=== PATIENT | female | born 1935 | race Hispanic/Latino ===

== ENCOUNTER 2018-08-04 03:30 | Inpatient (IN) | payer MEDICARE ==
[2018-08-04 03:35] VITALS: BMI 27.4
--- NOTE | 2018-08-04 03:37 | ED PDOC ---
Arrival/HPI - General Time Seen by Provider: 08/04/18 03:31 Historian: Patient - History of Present Illness Narrative History of Present Illness (Text): 08/04/18 03:36 Yvette Monroe is an 83 year old female, whose past medical history includes hypertension, atrial fibrillation on Eliquis, TIA, bilateral leg edema, chronic pain on Oxycodone, and anxiety, who presents to the ED brought in by EMS accompanied by niece for severe pain. On arrival to ED, patient appears to be in severe pain, moaning, refusing to speak. As per niece, patient was fine during the day and approximately 1 hour prior to arrival patient began moaning and did not stop. Niece notes patient's abdomen is more distended than usual. Limited HPI and ROS secondary to patient's pain/clinical condition. Symptom Onset: Gradual Symptom Course: Unchanged Activities at Onset: Light Context: Home Past Medical History - Provider Review Nursing Documentation Reviewed: Yes - Infectious Disease Hx of Infectious Diseases: None - Tetanus Immunization Tetanus Immunization: Up to Date - Cardiac Hx Pacemaker: No - Neurological Hx Paralysis: No - Hematological/Oncological Hx Blood Transfusions: No Hx Blood Transfusion Reaction: No - Integumentary Hx Dermatological Disorder: Yes (LYMPEDEMA BILATERAL LE) Other/Comment: BLE CELLULITIS/4+ EDEMA - Musculoskeletal/Rheumatological Hx Musculoskeletal Disorders: Yes - Gastrointestinal Hx Gastrointestinal Disorders: Yes Hx Gastroesophageal Reflux: Yes - Psychiatric Hx Emotional Abuse: No Hx Physical Abuse: No Hx Substance Use: No - Past Surgical History Past Surgical History: Non-Contributing - Anesthesia Hx Anesthesia Reactions: No Hx Malignant Hyperthermia: No - Suicidal Assessment Feels Threatened In Home Enviroment: No Family/Social History - Physician Review Nursing Documentation Reviewed: Yes Family/Social History: Unknown Family HX Smoking Status: Never Smoked Hx Alcohol Use: No Hx Substance Use: No Hx Substance Use Treatment: No Allergies/Home Meds Allergies/Adverse Reactions: Allergies No Known Allergies Allergy (Verified 09/24/14 22:04) Home Medications: Home Meds Medication Instructions Recorded Confirmed Alprazolam [Xanax] 0.25 mg PO BID PRN 07/26/12 08/04/18 Aspirin [Ecotrin] 81 mg PO DAILY 07/26/12 08/04/18 Atorvastatin Calcium [Lipitor] 10 mg PO QOTHERDAY 07/26/12 08/04/18 Omeprazole [PrilOSEC] 40 mg PO DAILY 09/24/14 08/04/18 Lisinopril/Hydrochlorothiazide 1 tab PO DAILY 07/10/15 08/04/18 [Lisinopril-Hydrochlorothiazide 25 mg-20 mg] Nebivolol [Bystolic] 10 mg PO DAILY 07/10/15 07/20/15 Rivaroxaban [Xarelto] 20 mg PO DAILY 07/10/15 08/04/18 hydrALAZINE [hydralazine 25 mg PO BID 07/10/15 07/20/15 Hydrochloride] oxyCODONE [oxyCODONE Immediate 15 mg PO Q6H PRN 07/10/15 08/04/18 Release Tab] oxyCODONE/Acetaminophen [Percocet 1 tab PO Q6H PRN 07/20/15 07/20/15 5/325 mg Tab] Furosemide [Lasix] 40 mg PO DAILY 08/04/18 08/04/18 Metoprolol Tartrate [Lopressor] 50 mg PO DAILY 08/04/18 08/04/18 Review of Systems - Review of Systems Systems not reviewed;Unavailable: Other (severe pain, refusing to answer questions) Gastrointestinal: Abdominal Pain Physical Exam Vital Signs Reviewed: Yes Temperature: Febrile Blood Pressure: Hypotensive Pulse: Tachycardic Respiratory Rate: Normal Appearance: Positive for: Uncomfortable Pain Distress: Severe Mental Status: Positive for: other (Alert) - Systems Exam Head: Present: Atraumatic, Normocephalic Pupils: Present: PERRL Extroacular Muscles: Present: EOMI Conjunctiva: Present: Normal Mouth: Present: Moist Mucous Membranes Neck: Present: Normal Range of Motion Respiratory/Chest: Present: Rhonchi (Scattered rhonchi). No: Respiratory Distress, Accessory Muscle Use Cardiovascular: Present: Irregular Rhythm (Irregular, regular), Tachycardic Abdomen: Present: Distention (Distended abdomen) Upper Extremity: Present: Normal Inspection. No: Cyanosis, Edema Lower Extremity: Present: Normal Inspection. No: Edema Neurological: Present: GCS=15, CN II-XII Intact Skin: Present: Warm, Dry. No: Rashes Psychiatric: Present: Alert Medical Decision Making ED Course and Treatment: 08/04/18 03:36 Impression: 83 year old female brought in for severe pain, pt refusing to speak. Plan: -- CT Chest, Abdomen, and Pelvis w/o contrast -- EKG -- Labs, cardiac enzymes, lipase, VBG, BNP, blood cultures -- Urinalysis, urine cultures -- IV fluids -- Morphine -- Reassess and disposition Prior Visits: Notes and results from previous visits were reviewed. Progress Notes Reviewed EKG, a fib at 174 bpm. RVR. LVH anterolateral/infero STT changes 08/04/18 04:20 Pt tachycardic, febrile with WBC 18.8 and lactate of 5.7. Code Sepsis called. 08/04/18 04:[address] Cota, intensivitst, who is aware and agrees to evalaute pt for ICU admission. residential solar sales consultant production machine operator notified. Pt tachycardic, febrile with WBC 18.8 and lactate of 5.7 08/04/18 04:58 Chest X-ray reviewed, consistent with CHF. 08/04/18 05:04 CT Chest: Moderate cardiomegaly. Moderate calcifications of the aortic valve. Heavily calcified little traverse coronary arteries. Enlarged main pulmonary artery suggestive of pulmonary arterial hypertension. Mild osteopenia. Mild benign chronic compression deformities of the midthoracic vertebral bodies. Increased dorsal kyphosis, chronic finding. Small sliding hiatal hernia. Bilateral basilar subsegmental atelectatic pulmonary changes. Moderate multifocal groundglass densities of the lungs are noted in the upper and lower lobes. Enlarged unenhanced main pulmonary artery and right and left pulmonary arteries. Normal bilateral peripheral pulmonary arteries. Calcified atheromatous plaques of the thoracic aorta and visualized great vessels. There is no demonstrated aortic aneurysm. Normal pericardium. Normal mediastinum. Normal hilar regions. Normal visualized trachea and thickened bronchi. Normal pleura. Normal chest wall structures. IMPRESSION: Moderate cardiomegaly. Moderate calcifications of the aortic valve. Heavily calcified little traverse coronary arteries. Enlarged main pulmonary artery suggestive of pulmonary arterial hypertension. Mild osteopenia. Mild benign chronic compression deformities of the midthoracic vertebral bodies. Increased dorsal kyphosis, chronic finding. Small sliding hiatal hernia. Bilateral basilar subsegmental atelectatic pulmonary changes. Moderate multifocal groundglass densities of the lungs are noted in the upper and lower lobes. CT Abdomen and Pelvis: Moderate amount of fecal impaction in the rectosigmoid colon without associated colitis. Mildly enlarged unenhanced liver. Cholelithiasis and nondilated extrahepatic biliary system. Normal unenhanced spleen. Normal pancreas. Normal bilateral adrenal glands. Normal size of the right kidney. There is no right renal mass. There are no right renal calculi. There is no right hydronephrosis. Normal visualized right ureter. Normal size of the left kidney. There is no left renal mass. There are no left renal calculi. There is no left hydronephrosis. Normal visualized left ureter. Normal visualized stomach. Normal small intestine. The appendix is visualized and appears normal. There is no demonstrated peritoneal fluid. Normal abdominal aorta. Normal inferior vena cava. Normal retroperitoneum. Normal urinary bladder. There is no pelvic mass lesion or lymphadenopathy. There is no pelvic fluid. Normal abdominal wall. Mild osteopenia. Mild diffuse spondylosis. Grade I anterolisthesis of L4 on L5 measuring 5.2 mm. IMPRESSION: Mild hepatomegaly with dilated suprahepatic IVC suggestive of dysfunction of the right cardiac cavities. Cholelithiasis. No CT evidence of acute cholecystitis. Moderate amount of fecal left impaction in the rectosigmoid colon without associated colitis. Mildly distended bladder. Electronically signed on Aug 04, 2018 5:04:13 AM EDT by: Evan Recio M.D., Certified by LUKAS, K, Neuroradiology 08/04/18 05:08 Pt with continued respiratory distress. Desaturating to low 80s. Will require emergent intubation. PROCEDURE: INTUBATION Performed by the emergency provider Consent: Discussion of the risks, benefits, and alternatives to the procedure, along with informed consent was precluded by the urgency of the procedure and the patient condition. Timeout: A timeout to verify the correct patient, procedure, and site was performed. Indication: Respiratory distress, low O2 saturation Pre-oxygenation: [id number] Medications: See MAR for details. ETT Size: 8.0 gauge Confirmation: Cords directly visualized as tube passed, good bilateral breath sounds, positive CO2 detector color change, tube fogging, adequate chest rise, improving pulse oximetry reading, improved skin color, and absence of gastric sounds,. ETT Secured: The cuff was inflated and the tube was secured appropriately at a distance of 22 cm at the lip. Post-Procedure: There were no immediate complications. CXR Confirmation: Yes Post-intubation Chest X-ray reviewed, shows ET tube at bifurcation. To be withdrawn 2.5 cm. 08/04/18 05:[address] Rapp, who is aware and agrees with plan. Accepts pt in to her service. Pt will be admitted to the ICU for sepsis, CHF, pneumonia, and NSTEMI. Requests Dr. Noble and Dr. Srinivasan on consult. - Critical Care Critical Care Minutes: 45 minutes - Lab Interpretations I have reviewed the lab results: Yes - EKG Interpretation Interpreted by ED Physician: Yes Type: 12 lead EKG - Scribe Statement The provider has reviewed the documentation as recorded by the Cyndie Ordaz Provider Scribe Attestation: All medical record entries made by the Scribe were at my direction and personally dictated by me. I have reviewed the chart and agree that the record accurately reflects my personal performance of the history, physical exam, medical decision making, and the department course for this patient. I have also personally directed, reviewed, and agree with the discharge instructions and disposition. Disposition/Present on Arrival - Present on Arrival Any Indicators Present on Arrival: No History of DVT/PE: No History of Uncontrolled Diabetes: No Urinary Catheter: No History of Decub. Ulcer: No History Surgical Site Infection Following: None - Disposition Have Diagnosis and Disposition been Completed?: Yes Diagnosis: Sepsis associated hypotension, CHF (congestive heart failure), Pneumonia, NSTEMI (non-ST elevated myocardial infarction) Disposition: HOSPITALIZED Disposition Time: 05:26 Patient Plan: Admission Patient Problems: Current Active Problems Problem Status Onset CHF (congestive heart failure) Acute NSTEMI (non-ST elevated myocardial infarction) Acute Pneumonia Acute Sepsis associated hypotension Acute Condition: CRITICAL
[2018-08-04] MEDS ORDERED: Morphine 2 mg/ml ISec IVP STA (03:40)
[2018-08-04] MEDS ORDERED: Sodium Chloride 0.9% 1,000 ML IV STA ×2 (03:40→04:17)
[2018-08-04 03:57] LABS: HEMOGLOBIN 13.3 g/dL (12.0-16.0); MEAN CORPUSCULAR HEMOGLOBIN 30.1 pg (25.0-35.0); MEAN CORPUSCULAR HGB CONC 31.7 g/dl (31.0-37.0); MEAN PLATELET VOLUME 10.7 fl (7.0-11.0); RBC 4.42 10^6/uL (3.5-6.1); RED CELL DISTRIBUTION WIDTH 13.4 % (11.5-14.5); WHITE BLOOD COUNT 18.8 10^3/uL (4.5-11.0)
[2018-08-04 04:03] LABS: INR 1.72; PARTIAL THROMBOPLASTIN TIME 32.7 Seconds (26.9-38.3); PROTHROMBIN TIME 19.1 SECONDS (9.4-12.5)
[2018-08-04] MEDS ORDERED: Morphine 4 mg/ml ISec IVP STA (04:08)
[2018-08-04] MEDS ORDERED: Morphine 4 mg/ml ISec ONE (04:13)
[2018-08-04 04:17] LABS: ALB/GLOB RATIO 1.2 (1.1-1.8); ALBUMIN 4.6 g/dL (3.0-4.8); ALT/SGPT 14 U/L (7-56); AST/SGOT 39 U/L (14-36); BLOOD UREA NITROGEN 27 mg/dL (7-21); CALCIUM 9.5 mg/dL (8.4-10.5); GFR NON-AFRICAN AMERICAN 53; LIPASE 56 U/L (23-300)
[2018-08-04] MEDS ORDERED: Vancomycin 1gm in NS 250ml 1 GM/250 ML BAG IVPB STA (04:17)
[2018-08-04] MEDS ORDERED: Piperacill/Tazo 4.5gm in NS 4.5 GM/100 ML BAG IVPB STA (04:17)
[2018-08-04 04:19] LABS: VENOUS BLOOD GAS BASE EXCESS -8.1 mmol/L (0.0-2.0); VENOUS BLOOD GAS PO2 61 mm/Hg (30-55); VENOUS BLOOD PH 7.37 (7.32-7.43)
[2018-08-04 04:29] LABS: ARTERIAL BLOOD GAS O2 SAT 97.2 % (95-98); ARTERIAL BLOOD GAS PCO2 27 mm/Hg (35-45); ARTERIAL BLOOD GAS PH 7.38 (7.35-7.45); ARTERIAL BLOOD GAS TCO2 16.8 mmol.L (22-28)
[2018-08-04] MEDS ORDERED: Sodium Chloride 0.9% 1,000 ML IV SCH ×2 (04:30→08:45)
--- NOTE | 2018-08-04 04:34 | CP.PCM.CON ---
<Ibrahima Hsu - Last Filed: 08/04/18 06:11> History of Present Illness - History of Present Illness History of Present Illness: PGY-1 ICU Consult note for Dr. Cota CC: Sepsis HPI: Patient is an 83 year old female with a past medical history of hypertension, atrial fibrillation (on Eliquis), breast cancer (s/p right lumpectomy), TIA, chronic lymphedema, and chronic pain, presenting to the ED brought in by EMS accompanied by niece for severe pain. Niece is at bedside and provided patient's history. On arrival to ED, patient appears to be in severe pain, moaning, refusing to speak. As per niece, patient was fine during the day and approximately 1 hour prior to arrival patient began moaning and did not stop. She notes that patient's abdomen is more distended than usual. She also notes that patient was pointing to her abdomen at home prior to coming to the hospital. She also notes that patient did not have a bowel movement today. In ED, code sepsis was called. Patient was also noted to be desaturating into the low 80% and was subsequently intubated. HPI and ROS limited due to patient's clinical condition. PMHx: hypertension, atrial fibrillation (on Eliquis), breast cancer (s/p right lumpectomy), TIA, chronic lymphadema, chronic pain, disks herniations, OA, anxiety, and depression PSHx: right lumpectomy, right cataract surgery Allergies: NKDA Family Hx: Father had lung cancer. Mother had colon cancer. Social Hx: Denies tobacco, alcohol, or drug use. Lives at home with niece. Medications: see JUN PMD: Dr. Hayes in [place]: Dr. Michaud Review of Systems - Review of Systems Systems not reviewed;Unavailable: Acuity of Condition, Intubated Past Patient History - Infectious Disease Hx of Infectious Diseases: None - Tetanus Immunizations Tetanus Immunization: Up to Date - Past Social History Smoking Status: Never Smoked - CARDIAC Hx Pacemaker: No - NEUROLOGICAL Hx Paralysis: No - HEMATOLOGICAL/ONCOLOGICAL Hx Blood Transfusions: No Hx Blood Transfusion Reaction: No - INTEGUMENTARY Hx Dermatological Problems: Yes (LYMPEDEMA BILATERAL LE) Other/Comment: BLE CELLULITIS/4+ EDEMA - MUSCULOSKELETAL/RHEUMATOLOGICAL Hx Musculoskeletal Disorders: Yes - GASTROINTESTINAL Hx Gastrointestinal Disorders: Yes Hx Gastroesophageal Reflux: Yes - PSYCHIATRIC Hx Emotional Abuse: No Hx Physical Abuse: No Hx Substance Use: No - SURGICAL HISTORY Hx Surgeries: Yes (cataract both eyes,) - ANESTHESIA Hx Anesthesia Reactions: No Hx Malignant Hyperthermia: No Meds Allergies/Adverse Reactions: Allergies Allergy/AdvReac Type Severity Reaction Status Date / Time No Known Allergies Allergy Verified 09/24/14 22:04 - Medications Medications: Current Medications Sodium Chloride (Sodium Chloride 0.9%) 1,000 mls @ 999 mls/hr IV .Q1H1M STA Stop: 08/04/18 04:40 Last Admin: 08/04/18 03:50 Dose: 999 mls/hr Sodium Chloride (Sodium Chloride 0.9%) 1,000 mls @ 999 mls/hr IV .Q1H1M STA Stop: 08/04/18 05:17 Sodium Chloride (Sodium Chloride 0.9%) 1,000 mls @ 100 mls/hr IV .Q10H DONNA Vancomycin HCl (Vancomycin 1gm) 1 gm in 250 mls @ 167 mls/hr IVPB STAT STA; Protocol Stop: 08/04/18 05:46 Piperacillin Sod/Tazobactam Sod (Zosyn 4.5 Gm In Ns 100ml) 4.5 gm in 100 mls @ 200 mls/hr IVPB STAT STA; Protocol Stop: 08/04/18 04:46 Physical Exam - Constitutional Appears: In Acute Distress, Agitated - Head Exam Head Exam: ATRAUMATIC, NORMAL INSPECTION - Eye Exam Eye Exam: EOMI, Normal appearance Pupil Exam: NORMAL ACCOMODATION - ENT Exam ENT Exam: Mucous Membranes Dry - Respiratory Exam Additional comments: Crackles heard bilaterally, more on the right lung. - Cardiovascular Exam Cardiovascular Exam: Tachycardia, Irregular Rhythm - GI/Abdominal Exam GI & Abdominal Exam: Distended, Tenderness. absent: Firm - Extremities Exam Additional comments: Bilateral lymphedema on lower extremities - Neurological Exam Additional comments: Neurological exam limited due to patient's clinical condition - Psychiatric Exam Psychiatric exam: Agitated - Skin Skin Exam: Dry, Pallor - Additional Findings Additional findings: Physical exam limited due to patient being agitated and clinical condition Results - Vital Signs Recent Vital Signs: Last Vital Signs Temp 104 F H 08/04/18 04:15 Pulse 142 H 08/04/18 04:15 Resp 20 08/04/18 04:15 BP 153/90 H 08/04/18 04:15 Pulse Ox 93 L 08/04/18 04:15 - Labs Result Diagrams: 08/04/18 03:44 08/04/18 05:15 Labs: Laboratory Results - last 24 hr 08/04/18 08/04/18 08/04/18 03:44 03:44 03:44 WBC 18.8 H RBC 4.42 Hgb 13.3 Hct 42.0 MCV 95.0 MCH 30.1 MCHC 31.7 RDW 13.4 Plt Count 180 MPV 10.7 PT 19.1 H INR 1.72 APTT 32.7 pCO2 pO2 HCO3 ABG pH ABG Total CO2 ABG O2 Saturation ABG Base Excess ABG Potassium VBG pH VBG pCO2 VBG HCO3 VBG Total CO2 VBG O2 Sat (Calc) VBG Base Excess VBG Potassium Glucose Lactate FiO2 Crit Value Called To Crit Value Called By Blood Gas Notified Time Sodium 141 Potassium 4.7 Chloride 106 Carbon Dioxide 17 L Anion Gap 22 H BUN 27 H Creatinine 1.0 Est GFR ( Amer) > 60 Est GFR (Non-Af Amer) 53 Random Glucose 206 H Calcium 9.5 Total Bilirubin 0.9 AST 39 H ALT 14 Alkaline Phosphatase 65 Lactate Dehydrogenase 617 Total Creatine Kinase 38 Troponin I 0.20 H* Total Protein 8.5 H Albumin 4.6 Globulin 3.8 Albumin/Globulin Ratio 1.2 Lipase 56 Arterial Blood Potassium Venous Blood Potassium 08/04/18 08/04/18 04:10 04:23 WBC RBC Hgb Hct MCV MCH MCHC RDW Plt Count MPV PT INR APTT pCO2 27 L pO2 61 H 78.0 L HCO3 16.0 L ABG pH 7.38 ABG Total CO2 16.8 L ABG O2 Saturation 97.2 ABG Base Excess -7.6 L ABG Potassium 3.6 VBG pH 7.37 VBG pCO2 27.0 L VBG HCO3 15.6 L VBG Total CO2 16.4 L VBG O2 Sat (Calc) 94.9 H VBG Base Excess -8.1 L VBG Potassium 5.0 Glucose 170 H 138 H Lactate 5.7 H* 4.0 H* FiO2 21.0 100.0 Crit Value Called To Henri crespo Crit Value Called By [facility] Blood Gas Notified Time 419 429 Sodium 137.0 137.0 Potassium Chloride 106.0 108.0 H Carbon Dioxide Anion Gap BUN Creatinine Est GFR ( Amer) Est GFR (Non-Af Amer) Random Glucose Calcium Total Bilirubin AST ALT Alkaline Phosphatase Lactate Dehydrogenase Total Creatine Kinase Troponin I Total Protein Albumin Globulin Albumin/Globulin Ratio Lipase Arterial Blood Potassium 3.6 Venous Blood Potassium 5.0 Assessment & Plan - Assessment and Plan (Free Text) Assessment: Patient is an 83 year old female with a past medical history of hypertension, atrial fibrillation (on Eliquis), breast cancer (s/p right lumpectomy), TIA, chronic lymphedema, and chronic pain, presenting to the ED brought in by EMS accompanied by niece for severe pain. Patient will be admitted to the ICU for cardiopulmonary and hemodynamic monitoring. Plan: Neuro - Patient is sedated on Propofol Pulmonary Hypoxic respiratory failure - Patient intubated - Vent: 14/400/5/100% - Post-intubation Chest X-ray reviewed, shows ET tube at bifurcation. To be withdrawn 2.5 cm. - Chest CT: Bilateral basilar subsegmental atelectatic pulmonary changes. Mode rate multifocal groundglass densities of the lungs are noted in the upper and lower lobes. (see full report) - ABG: pH: 7.38, pO2: 78, pCO2: 27 Cardiology NSTEMI - EKG: Atrial fibrillation at 174 bpm. RVR. LVH anterolateral/infero ST-T changes - CXR: consistent with CHF (pending official report) - Troponin: 0.2 - Trend troponins - Heparin drip GI - CT Abdomen/pelvis: Mild hepatomegaly with dilated suprahepatic IVC suggestive of dysfunction of the right cardiac cavities. Cholelithiasis. No CT evidence of acute cholecystitis. Moderate amount of fecal left impaction in the rectosigmoid colon without associated colitis. - Place NGT Renal - BUN/Cr: 27/1.0 - Continue to monitor ID Sepsis - Tachycardic, febrile with WBC 18.8 and lactate of 5.7 - NS @ 100mL/hr - Vancomycin and Zosyn given in ED - 2.5 L bolus given in ED - ID consulted, Dr. Noble - UA positive for moderate bacteria. Nitrate and LE negative - Follow up blood, sputum, urine cultures Prophylaxis: - DVT: SCD's Patient seen and case discussed with attending, Dr. Cota. Ibrahima Hsu, PGY-1 <Luz Cota - Last Filed: 08/04/18 15:05> Meds - Medications Medications: Current Medications Acetaminophen (Tylenol 650 Mg Supp) 650 mg RC Q6H PRN PRN Reason: Fever >100.4 F Hydrocortisone Sodium Succinate (Solu-Cortef) 50 mg IVP Q6H DONNA Last Admin: 08/04/18 14:27 Dose: 50 mg Propofol (Diprivan) 1,000 mg in 100 mls @ 2.041 mls/hr IV .Q24H PRN; Protocol PRN Reason: TITRATE PER MD ORDER Last Admin: 08/04/18 05:15 Dose: 2.041 mls/hr Heparin Sodium/Sodium Chloride (Heparin 55377 Units/250ml 1/2 Normal Saline) 25,000 units in 250 mls @ 8.165 mls/hr IV .Q24H DONNA; Protocol Last Titration: 08/04/18 14:22 Dose: 14.99 units/kg/hr, 10.2 mls/hr NOREPINEPHRINE BIT/0.9 % NACL (Levophed 4 Mg/ 250 Ml Ns Premixed) 4 mg in 250 mls @ 15 mls/hr IV .[id number] PRN; Protocol PRN Reason: TITRATE PER MD ORDER Last Titration: 08/04/18 10:00 Dose: 10 mcg/min, 37.5 mls/hr Vasopressin 20 units/ Sodium (Chloride) 101 mls @ 9.09 mls/hr IV .Q11H7M DONNA; Protocol Vancomycin HCl (Vancomycin 1gm) 1 gm in 250 mls @ 167 mls/hr IVPB Q12H DONNA; Protocol Meropenem (Merrem Iv 1 Gm Premix) 1 gm in 50 mls @ 100 mls/hr IVPB Q8 DONNA; Protocol Stop: 08/13/18 14:01 Last Admin: 08/04/18 14:25 Dose: 100 mls/hr Levofloxacin/Dextrose (Levaquin 500mg) 500 mg in 100 mls @ 100 mls/hr IVPB DAILY DONNA; Protocol Stop: 08/13/18 13:01 Last Admin: 08/04/18 14:21 Dose: 100 mls/hr Pantoprazole Sodium (Protonix Inj) 40 mg IVP Q12 DONNA Last Admin: 08/04/18 10:07 Dose: 40 mg Results - Vital Signs Recent Vital Signs: Last Vital Signs Temp 100.5 F H 08/04/18 05:50 Pulse 112 H 08/04/18 13:30 Resp 16 08/04/18 13:30 BP 95/57 L 08/04/18 05:50 Pulse Ox 98 08/04/18 05:50 - Labs Result Diagrams: 08/04/18 10:00 08/04/18 05:15 Labs: Laboratory Results - last 24 hr 08/04/18 08/04/18 08/04/18 03:44 03:44 03:44 WBC 18.8 H RBC 4.42 Hgb 13.3 Hct 42.0 MCV 95.0 MCH 30.1 MCHC 31.7 RDW 13.4 Plt Count 180 MPV 10.7 Neut % (Auto) Lymph % (Auto) [place] % (Auto) Eos % (Auto) Baso % (Auto) Lymph # (Auto) [place] # (Auto) Eos # (Auto) Baso # (Auto) Absolute Neuts (auto) PT 19.1 H INR 1.72 APTT 32.7 pCO2 pO2 HCO3 ABG pH ABG Total CO2 ABG O2 Saturation ABG O2 Content ABG Base Excess ABG Hemoglobin ABG Carboxyhemoglobin POC ABG HHb (Measured) ABG Methemoglobin ABG O2 Capacity ABG Potassium VBG pH VBG pCO2 VBG HCO3 VBG Total CO2 VBG O2 Sat (Calc) VBG Base Excess VBG Potassium Hgb O2 Saturation Glucose Lactate FiO2 Crit Value Called To Crit Value Called By Blood Gas Notified Time Sodium 141 Potassium 4.7 Chloride 106 Carbon Dioxide 17 L Anion Gap 22 H BUN 27 H Creatinine 1.0 Est GFR ( Amer) > 60 Est GFR (Non-Af Amer) 53 Random Glucose 206 H Calcium 9.5 Phosphorus Magnesium Total Bilirubin 0.9 AST 39 H ALT 14 Alkaline Phosphatase 65 Lactate Dehydrogenase 617 Total Creatine Kinase 38 Troponin I 0.20 H* NT-Pro-B Natriuret Pep Total Protein 8.5 H Albumin 4.6 Globulin 3.8 Albumin/Globulin Ratio 1.2 Lipase 56 Arterial Blood Potassium Venous Blood Potassium Urine Color Urine Appearance Urine pH Ur Specific [place] Urine Protein Urine Glucose (UA) Urine Ketones Urine Blood Urine Nitrate Urine Bilirubin Urine Urobilinogen Ur Leukocyte Esterase Urine RBC Urine WBC Ur Epithelial Cells Urine Bacteria 08/04/18 08/04/18 08/04/18 04:10 04:23 04:25 WBC RBC Hgb Hct MCV MCH MCHC RDW Plt Count MPV Neut % (Auto) Lymph % (Auto) [place] % (Auto) Eos % (Auto) Baso % (Auto) Lymph # (Auto) [place] # (Auto) Eos # (Auto) Baso # (Auto) Absolute Neuts (auto) PT INR APTT pCO2 27 L pO2 61 H 78.0 L HCO3 16.0 L ABG pH 7.38 ABG Total CO2 16.8 L ABG O2 Saturation 97.2 ABG O2 Content ABG Base Excess -7.6 L ABG Hemoglobin ABG Carboxyhemoglobin POC ABG HHb (Measured) ABG Methemoglobin ABG O2 Capacity ABG Potassium 3.6 VBG pH 7.37 VBG pCO2 27.0 L VBG HCO3 15.6 L VBG Total CO2 16.4 L VBG O2 Sat (Calc) 94.9 H VBG Base Excess -8.1 L VBG Potassium 5.0 Hgb O2 Saturation Glucose 170 H 138 H Lactate 5.7 H* 4.0 H* FiO2 21.0 100.0 Crit Value Called To Henri crespo Crit Value Called By [facility] Blood Gas Notified Time 419 429 Sodium 137.0 137.0 Potassium Chloride 106.0 108.0 H Carbon Dioxide Anion Gap BUN Creatinine Est GFR ( Amer) Est GFR (Non-Af Amer) Random Glucose Calcium Phosphorus Magnesium Total Bilirubin AST ALT Alkaline Phosphatase Lactate Dehydrogenase Total Creatine Kinase Troponin I NT-Pro-B Natriuret Pep Total Protein Albumin Globulin Albumin/Globulin Ratio Lipase Arterial Blood Potassium 3.6 Venous Blood Potassium 5.0 Urine Color Yellow Urine Appearance Sl cloudy Urine pH 6.0 Ur Specific [place] >= 1.030 Urine Protein 30 H Urine Glucose (UA) Negative Urine Ketones Negative Urine Blood Moderate H Urine Nitrate Negative Urine Bilirubin Negative Urine Urobilinogen 0.2 Ur Leukocyte Esterase Negative Urine RBC 1 - 3 H Urine WBC 0 - 2 Ur Epithelial Cells 0 - 2 Urine Bacteria Mod 08/04/18 08/04/18 08/04/18 05:15 08:00 10:00 WBC 15.6 H RBC 3.99 Hgb 12.0 Hct 37.5 MCV 94.0 MCH 30.1 MCHC 32.0 RDW 13.7 Plt Count 166 MPV 11.0 Neut % (Auto) 84.8 H Lymph % (Auto) 9.5 L [place] % (Auto) 5.5 Eos % (Auto) 0.0 L Baso % (Auto) 0.2 Lymph # (Auto) 1.5 [place] # (Auto) 0.9 H Eos # (Auto) 0.0 Baso # (Auto) 0.03 Absolute Neuts (auto) 13.23 H PT INR APTT pCO2 28 L pO2 109.0 H HCO3 15.5 L ABG pH 7.35 ABG Total CO2 16.4 L ABG O2 Saturation 99.4 H ABG O2 Content 16.3 ABG Base Excess -8.8 L ABG Hemoglobin 11.9 ABG Carboxyhemoglobin 1.9 H POC ABG HHb (Measured) 0.6 ABG Methemoglobin 1.3 ABG O2 Capacity 16.4 ABG Potassium VBG pH VBG pCO2 VBG HCO3 VBG Total CO2 VBG O2 Sat (Calc) VBG Base Excess VBG Potassium Hgb O2 Saturation 96.3 Glucose Lactate FiO2 100.0 Crit Value Called To Crit Value Called By Blood Gas Notified Time Sodium 141 Potassium 4.8 Chloride 106 Carbon Dioxide 16 L Anion Gap 24 H BUN 27 H Creatinine 1.0 Est GFR ( Amer) > 60 Est GFR (Non-Af Amer) 53 Random Glucose 202 H Calcium 9.6 Phosphorus 4.8 H Magnesium 1.4 L Total Bilirubin 0.9 AST 48 H D ALT 9 Alkaline Phosphatase 69 Lactate Dehydrogenase Total Creatine Kinase Troponin I NT-Pro-B Natriuret Pep 4380 H Total Protein 8.6 H Albumin 4.6 Globulin 4.0 Albumin/Globulin Ratio 1.2 Lipase Arterial Blood Potassium Venous Blood Potassium Urine Color Urine Appearance Urine pH Ur Specific [place] Urine Protein Urine Glucose (UA) Urine Ketones Urine Blood Urine Nitrate Urine Bilirubin Urine Urobilinogen Ur Leukocyte Esterase Urine RBC Urine WBC Ur Epithelial Cells Urine Bacteria 08/04/18 08/04/18 08/04/18 10:00 12:00 12:00 WBC RBC Hgb Hct MCV MCH MCHC RDW Plt Count MPV Neut % (Auto) Lymph % (Auto) [place] % (Auto) Eos % (Auto) Baso % (Auto) Lymph # (Auto) [place] # (Auto) Eos # (Auto) Baso # (Auto) Absolute Neuts (auto) PT INR APTT 218.9 H* pCO2 pO2 31 HCO3 ABG pH ABG Total CO2 ABG O2 Saturation ABG O2 Content ABG Base Excess ABG Hemoglobin ABG Carboxyhemoglobin POC ABG HHb (Measured) ABG Methemoglobin ABG O2 Capacity ABG Potassium VBG pH 7.25 L VBG pCO2 40.0 VBG HCO3 17.5 L VBG Total CO2 18.7 L VBG O2 Sat (Calc) 56.1 VBG Base Excess -9.2 L VBG Potassium 3.6 Hgb O2 Saturation Glucose 75 Lactate 2.4 H FiO2 21.0 Crit Value Called To Regina Crit Value Called By Ab Blood Gas Notified Time 1035 Sodium 142.0 Potassium Chloride 109.0 H Carbon Dioxide Anion Gap BUN Creatinine Est GFR ( Amer) Est GFR (Non-Af Amer) Random Glucose Calcium Phosphorus Magnesium Total Bilirubin AST ALT Alkaline Phosphatase Lactate Dehydrogenase Total Creatine Kinase Troponin I 3.11 H* D NT-Pro-B Natriuret Pep Total Protein Albumin Globulin Albumin/Globulin Ratio Lipase Arterial Blood Potassium Venous Blood Potassium 3.6 Urine Color Urine Appearance Urine pH Ur Specific [place] Urine Protein Urine Glucose (UA) Urine Ketones Urine Blood Urine Nitrate Urine Bilirubin Urine Urobilinogen Ur Leukocyte Esterase Urine RBC Urine WBC Ur Epithelial Cells Urine Bacteria Attending/Attestation - Attestation I have personally seen and examined this patient.: Yes I have fully participated in the care of the patient.: Yes I have reviewed all pertinent clinical information: Yes Notes (Text): 08/04/18 15:03 Patient was seen when she was in the ER in bed # 1. Medical record was reviewed. Agree with history,physical examination,assessment and plan. CCT spent:30 minutes.
[2018-08-04] MEDS ORDERED: Sodium Chloride 0.9% 500 ML IV STA (04:37)
[2018-08-04] MEDS ORDERED: Metoprolol 1 mg/ml Inj IVP STA (04:40)
[2018-08-04] MEDS ORDERED: Metoprolol 1 mg/ml Inj ONE (04:44)
[2018-08-04] MEDS ORDERED: Propofol 10 mg/ml 1,000 MG/100 ML VIAL ONE (05:02)
[2018-08-04] MEDS: Propofol 10 mg/ml 1,000 MG/100 ML VIAL IV PRN (05:15)
[2018-08-04] MEDS ORDERED: Propofol 10 mg/ml Inj (20 ML) IVP ONE (05:16)
[2018-08-04 05:28] LABS: URINE BILIRUBIN NEGATIVE (NEGATIVE); URINE BLOOD MODERATE (NEGATIVE); URINE GLUCOSE (UA) NEGATIVE (NEGATIVE); URINE LEUKOCYTE ESTERASE NEGATIVE Leu/uL (NEGATIVE); URINE PROTEIN 30 mg/dL (<30 mg/dL); URINE UROBILINOGEN 0.2 E.U./dL (<1 E.U./dL)
[2018-08-04 05:29] LABS: URINE APPEARANCE SL CLOUDY (CLEAR); URINE COLOR YELLOW (YELLOW)
[2018-08-04] MEDS: Metoprolol 1 mg/ml Inj IVP STA ×2 (05:41→05:43)
[2018-08-04 05:45] LABS: URINE WBC 0 - 2 /hpf (0-6)
[2018-08-04 05:46] LABS: URINE BACTERIA MOD /hpf; URINE EPITHELIAL CELLS 0 - 2 /hpf (0-5)
[2018-08-04 05:52] LABS: B-TYPE NATRIURETIC PEPTIDE 4380 pg/mL (0-450)
[2018-08-04 06:03] LABS: BLOOD UREA NITROGEN 27 mg/dL (7-21); CALCIUM 9.6 mg/dL (8.4-10.5); GFR NON-AFRICAN AMERICAN 53
[2018-08-04 06:04] LABS: ALB/GLOB RATIO 1.2 (1.1-1.8); ALBUMIN 4.6 g/dL (3.0-4.8); ALT/SGPT 9 U/L (7-56); AST/SGOT 48 U/L (14-36)
[2018-08-04] MEDS: Heparin25000 units/250ml 1/2NS 25,000 UNITS/250 ML BAG IV SCH (06:08)
[2018-08-04] MEDS ORDERED: NOREPINEPHRINE BIT/0.9 % NACL 4 MG/250 ML BAG IV ONE (07:36)
--- NOTE | 2018-08-04 08:31 | PCM.PROC ---
<J Luis Washington - Last Filed: 08/04/18 08:35> Procedures Attestation:: I certify that I have explained the specified Operation(s) or Procedure(s), risks, benefits and reasonable alternatives to the Patient and/or other person responsible. The opportunity was given to ask questions and all questions answered - Central Line Placement Right Internal Jugular Triple Lumen Catheter Aseptic technique was employed throughout the procedure: Hand Hygiene done prior to procedure, Full sterile barriers (mask, hair cover, sterile gown, sterile gloves), Full body sterile drape, Chloraprep Antiseptic: 30 second prep for IJ or SC sites CVP Time Out Performed: Yes Pt. Placed on Pulse Ox Monitor: Yes Central Line Prep: Povidone-Iodine 1% Local Anesthesia Used: Lidocaine 1% Ultrasound Used for Placement: Yes Central Line Lumen Inserted: triple Central Line Length: 20 cm Post Procedure: Sutured in Place, Good Blood Return, All Ports Aspirated, Flushed, Capped, Sterile Dressing Applied Secured by: Suture Post procedure dressing: Chlorhexidine disc (Biopatch) Post Procedure X-Ray: Yes Patient Tolerated Procedure: Well Immediate Complications: None <LiuDoreen - Last Filed: 08/04/18 14:04> Addendum Addendum: 08/04/18 14:03 MICU ATTENDING A time-out was completed verifying correct patient, procedure, site, positioning. The patient was placed in a dependent position appropriate for central line placement, the right neck was prepped and draped in sterile fashion. 1% Lidocaine was used to anesthetize the surrounding skin area. A triple lumen Cordis catheter was introduced into the the internal jugular vein using the Seldinger technique and under ultrasound guidance. The catheter was threaded smoothly over the guide wire and appropriate blood return was obtained. Each lumen of the catheter was evacuated of air and flushed with sterile saline. The catheter was then sutured in place to the skin and a sterile dressing applied. Perfusion to the extremity distal to the point of catheter insertion was checked and found to be adequate. Estimated Blood Loss: minimal The patient tolerated the procedure well and there were no complications.
[2018-08-04 08:34] LABS: ARTERIAL BLOOD GAS HCO3 15.5 mmol/L (21-28); ARTERIAL BLOOD GAS HEMOGLOBIN 11.9 g/dL (11.7-17.4); ARTERIAL BLOOD GAS O2 CAPACITY 16.4 mL/dl (16-24); ARTERIAL BLOOD GAS O2 CONTENT 16.3 ML/dl (15-23); ARTERIAL BLOOD GAS O2 SAT 99.4 % (95-98); ARTERIAL BLOOD GAS PCO2 28 mm/Hg (35-45); ARTERIAL BLOOD GAS PH 7.35 (7.35-7.45); ARTERIAL BLOOD GAS TCO2 16.4 mmol.L (22-28)
[2018-08-04] MEDS ORDERED: Magnesium Sulfate 2 gm/50 ml 2 GM/50 ML BAG IVPB ONE (08:57)
[2018-08-04] MEDS: NOREPINEPHRINE BIT/0.9 % NACL 4 MG/250 ML BAG IV PRN ×2 (09:00→21:30)
--- NOTE | 2018-08-04 09:43 | RAD ---
Date of service: 08/04/2018 HISTORY: confirm line placement COMPARISON: Chest radiograph performed approximately 3 hours prior. TECHNIQUE: 1 view obtained. FINDINGS: LUNGS: Pulmonary vascular congestion. PLEURA: No significant pleural effusion identified, no pneumothorax apparent. CARDIOVASCULAR: Aortic atherosclerotic calcifications. Cardiomediastinal silhouette stably enlarged. OSSEOUS STRUCTURES: Unchanged. VISUALIZED UPPER ABDOMEN: Normal. OTHER FINDINGS: New right internal jugular access central venous catheter with tip at the cavoatrial junction. Endotracheal and enteric tubes, unchanged. IMPRESSION: New right internal jugular access central venous catheter in satisfactory position. Stable tubes and lines. Stable pulmonary vascular congestion.
--- NOTE | 2018-08-04 10:30 | CP.CCUPN ---
<J Luis Washington - Last Filed: 08/04/18 13:42> CCU Subjective - Physician Review Subjective (Free Text): J Luis Washington DO, PGY-1 MICU Progress Note for Dr. Elva Liu Patient was seen and examined at bedside this AM. On initial examination, she appeared to be in worsening septic shock with tachycardia and decreasing MAP. She is intubated, sedated with propofol. Propofol had to be turned down as patient's BP dropped. CCU Objective - Vital Signs / Intake & Output Intake and Output (Last 8hrs): Intake & Output 08/03/18 08/04/18 08/04/18 22:59 06:59 14:59 Weight 150 lb - Physical Exam Physical Exam Limitations: Positive for: Clinical Condition Head: Positive for: Atraumatic, Normocephalic Pupils: Positive for: PERRL Extroacular Muscles: Positive for: EOMI Conjunctiva: Positive for: Normal Mouth: Positive for: Moist Mucous Membranes Respiratory/Chest: Positive for: Rhonchi (coarse breath sounds b/l), Other (intubated, sedated on ventilator, breath sounds auscultated b/l). Negative for: Accessory Muscle Use Cardiovascular: Positive for: Normal S1, S2, Tachycardic. Negative for: Murmurs, Rub, Gallop Abdomen: Positive for: Distention (mid-abdomen appears distended, patient does not respond to abdominal palpation) Upper Extremity: Positive for: NORMAL PULSES, Other (significant hematoma on R arm from blood draw). Negative for: Cyanosis, Edema Lower Extremity: Positive for: Edema (non-pitting, ), NORMAL PULSES, Other (venous stasis dermatitis b/l) Neurological: Positive for: Other (intubated, sedated) Skin: Positive for: Warm, Dry Psychiatric: Positive for: Other (intubated, sedated) - Medications Active Medications: Active Medications Generic Name Dose Route Start Last Admin Trade Name Freq PRN Reason Stop Dose Admin Acetaminophen 650 mg 08/04/18 08:59 Tylenol 650 Mg Supp RC Q6H PRN Fever >100.4 F Propofol 1,000 mg in 100 mls @ 2.041 mls/hr 08/04/18 05:15 08/04/18 05:15 Diprivan IV 2.041 mls/hr .Q24H PRN Administration TITRATE PER MD ORDER Protocol 5 MCG/KG/MIN Heparin Sodium/Sodium Chloride 25,000 units in 250 mls @ 8.165 mls/hr 08/04/18 05:30 08/04/18 06:08 Heparin 80956 Units/250ml 1/2 Normal Saline IV 12 units/kg/hr .Q24H DONNA 8.165 mls/hr Administration Protocol 12 UNITS/KG/HR Sodium Chloride 1,000 mls @ 200 mls/hr 08/04/18 08:45 08/04/18 09:00 Sodium Chloride 0.9% IV 200 mls/hr .Q5H DONNA Administration Pantoprazole Sodium 40 mg 08/04/18 05:29 08/04/18 10:07 Protonix Inj IVP 40 mg Q12 DONNA Administration - Patient Studies Lab Studies: Lab Studies 08/04/18 08/04/18 08/04/18 Range/Units 08:00 05:15 04:25 WBC (4.5-11.0) 10^3/uL RBC (3.5-6.1) 10^6/uL Hgb (12.0-16.0) g/dL Hct (36.0-48.0) % MCV (80.0-105.0) fl MCH (25.0-35.0) pg MCHC (31.0-37.0) g/dl RDW (11.5-14.5) % Plt Count (120.0-450.0) 10^3/uL MPV (7.0-11.0) fl PT (9.4-12.5) SECONDS INR APTT (26.9-38.3) Seconds pCO2 28 L (35-45) mm/Hg pO2 109.0 H (30-55) mm/Hg HCO3 15.5 L (21-28) mmol/L ABG pH 7.35 (7.35-7.45) ABG Total CO2 16.4 L (22-28) mmol.L ABG O2 Saturation 99.4 H (95-98) % ABG O2 Content 16.3 (15-23) ML/dl ABG Base Excess -8.8 L (-2.0-3.0) mmol/L ABG Hemoglobin 11.9 (11.7-17.4) g/dL ABG Carboxyhemoglobin 1.9 H (0.5-1.5) % POC ABG HHb (Measured) 0.6 (0-5) % ABG Methemoglobin 1.3 (0.0-3.0) % ABG O2 Capacity 16.4 (16-24) mL/dl ABG Potassium (3.6-5.2) mmol/L VBG pH (7.32-7.43) VBG pCO2 (40-60) VBG HCO3 (21-28) mmol/l VBG Total CO2 (22-28) mmol.L VBG O2 Sat (Calc) (40-65) % VBG Base Excess (0.0-2.0) mmol/L VBG Potassium (3.6-5.2) mmol/L Hgb O2 Saturation 96.3 (95.0-98.0) % Glucose (65-105) mg/dl Lactate (0.7-2.1) mmol/L FiO2 100.0 % Crit Value Called To Crit Value Called By Blood Gas Notified Time Sodium 141 (132-148) mmol/L Potassium 4.8 (3.6-5.0) mmol/L Chloride 106 (98-107) mmol/L Carbon Dioxide 16 L (21-33) mmol/L Anion Gap 24 H (10-20) BUN 27 H (7-21) mg/dL Creatinine 1.0 (0.7-1.2) mg/dl Est GFR ( Amer) > 60 Est GFR (Non-Af Amer) 53 Random Glucose 202 H (70-110) mg/dL Calcium 9.6 (8.4-10.5) mg/dL Phosphorus 4.8 H (2.5-4.5) mg/dL Magnesium 1.4 L (1.7-2.2) mg/dL Total Bilirubin 0.9 (0.2-1.3) mg/dL AST 48 H D (14-36) U/L ALT 9 (7-56) U/L Alkaline Phosphatase 69 (38-126) U/L Lactate Dehydrogenase (333-699) U/L Total Creatine Kinase (35-230) U/L Troponin I ng/mL NT-Pro-B Natriuret Pep 4380 H (0-450) pg/mL Total Protein 8.6 H (5.8-8.3) g/dL Albumin 4.6 (3.0-4.8) g/dL Globulin 4.0 gm/dL Albumin/Globulin Ratio 1.2 (1.1-1.8) Lipase (23-300) U/L Arterial Blood Potassium (3.6-5.2) mmol/L Venous Blood Potassium (3.6-5.2) mmol/L Urine Color Yellow (YELLOW) Urine Appearance Sl cloudy (CLEAR) Urine pH 6.0 (4.7-8.0) Ur Specific [place] >= 1.030 (1.005-1.035) Urine Protein 30 H (<30 mg/dL) mg/dL Urine Glucose (UA) Negative (NEGATIVE) mg/dL Urine Ketones Negative (NEGATIVE) mg/dL Urine Blood Moderate H (NEGATIVE) Urine Nitrate Negative (NEGATIVE) Urine Bilirubin Negative (NEGATIVE) Urine Urobilinogen 0.2 (<1 E.U./dL) E.U./dL Ur Leukocyte Esterase Negative (NEGATIVE) Humberto/uL Urine RBC 1 - 3 H (0-2) /hpf Urine WBC 0 - 2 (0-6) /hpf Ur Epithelial Cells 0 - 2 (0-5) /hpf Urine Bacteria Mod (NONE) /hpf 08/04/18 08/04/18 08/04/18 Range/Units 04:23 04:10 03:44 WBC 18.8 H (4.5-11.0) 10^3/uL RBC 4.42 (3.5-6.1) 10^6/uL Hgb 13.3 (12.0-16.0) g/dL Hct 42.0 (36.0-48.0) % MCV 95.0 (80.0-105.0) fl MCH 30.1 (25.0-35.0) pg MCHC 31.7 (31.0-37.0) g/dl RDW 13.4 (11.5-14.5) % Plt Count 180 (120.0-450.0) 10^3/uL MPV 10.7 (7.0-11.0) fl PT (9.4-12.5) SECONDS INR APTT (26.9-38.3) Seconds pCO2 27 L (35-45) mm/Hg pO2 78.0 L 61 H (30-55) mm/Hg HCO3 16.0 L (21-28) mmol/L ABG pH 7.38 (7.35-7.45) ABG Total CO2 16.8 L (22-28) mmol.L ABG O2 Saturation 97.2 (95-98) % ABG O2 Content (15-23) ML/dl ABG Base Excess -7.6 L (-2.0-3.0) mmol/L ABG Hemoglobin (11.7-17.4) g/dL ABG Carboxyhemoglobin (0.5-1.5) % POC ABG HHb (Measured) (0-5) % ABG Methemoglobin (0.0-3.0) % ABG O2 Capacity (16-24) mL/dl ABG Potassium 3.6 (3.6-5.2) mmol/L VBG pH 7.37 (7.32-7.43) VBG pCO2 27.0 L (40-60) VBG HCO3 15.6 L (21-28) mmol/l VBG Total CO2 16.4 L (22-28) mmol.L VBG O2 Sat (Calc) 94.9 H (40-65) % VBG Base Excess -8.1 L (0.0-2.0) mmol/L VBG Potassium 5.0 (3.6-5.2) mmol/L Hgb O2 Saturation (95.0-98.0) % Glucose 138 H 170 H (65-105) mg/dl Lactate 4.0 H* 5.7 H* (0.7-2.1) mmol/L FiO2 100.0 21.0 % Crit Value Called To Dr zak Crespo Crit Value Called By [facility] Blood Gas Notified Time 429 419 Sodium 137.0 137.0 (132-148) mmol/L Potassium (3.6-5.0) mmol/L Chloride 108.0 H 106.0 (98-107) mmol/L Carbon Dioxide (21-33) mmol/L Anion Gap (10-20) BUN (7-21) mg/dL Creatinine (0.7-1.2) mg/dl Est GFR ( Amer) Est GFR (Non-Af Amer) Random Glucose (70-110) mg/dL Calcium (8.4-10.5) mg/dL Phosphorus (2.5-4.5) mg/dL Magnesium (1.7-2.2) mg/dL Total Bilirubin (0.2-1.3) mg/dL AST (14-36) U/L ALT (7-56) U/L Alkaline Phosphatase (38-126) U/L Lactate Dehydrogenase (333-699) U/L Total Creatine Kinase (35-230) U/L Troponin I ng/mL NT-Pro-B Natriuret Pep (0-450) pg/mL Total Protein (5.8-8.3) g/dL Albumin (3.0-4.8) g/dL Globulin gm/dL Albumin/Globulin Ratio (1.1-1.8) Lipase (23-300) U/L Arterial Blood Potassium 3.6 (3.6-5.2) mmol/L Venous Blood Potassium 5.0 (3.6-5.2) mmol/L Urine Color (YELLOW) Urine Appearance (CLEAR) Urine pH (4.7-8.0) Ur Specific [place] (1.005-1.035) Urine Protein (<30 mg/dL) mg/dL Urine Glucose (UA) (NEGATIVE) mg/dL Urine Ketones (NEGATIVE) mg/dL Urine Blood (NEGATIVE) Urine Nitrate (NEGATIVE) Urine Bilirubin (NEGATIVE) Urine Urobilinogen (<1 E.U./dL) E.U./dL Ur Leukocyte Esterase (NEGATIVE) Humber[place]/uL Urine RBC (0-2) /hpf Urine WBC (0-6) /hpf Ur Epithelial Cells (0-5) /hpf Urine Bacteria (NONE) /hpf 08/04/18 08/04/18 Range/Units 03:44 03:44 WBC (4.5-11.0) 10^3/uL RBC (3.5-6.1) 10^6/uL Hgb (12.0-16.0) g/dL Hct (36.0-48.0) % MCV (80.0-105.0) fl MCH (25.0-35.0) pg MCHC (31.0-37.0) g/dl RDW (11.5-14.5) % Plt Count (120.0-450.0) 10^3/uL MPV (7.0-11.0) fl PT 19.1 H (9.4-12.5) SECONDS INR 1.72 APTT 32.7 (26.9-38.3) Seconds pCO2 (35-45) mm/Hg pO2 (30-55) mm/Hg HCO3 (21-28) mmol/L ABG pH (7.35-7.45) ABG Total CO2 (22-28) mmol.L ABG O2 Saturation (95-98) % ABG O2 Content (15-23) ML/dl ABG Base Excess (-2.0-3.0) mmol/L ABG Hemoglobin (11.7-17.4) g/dL ABG Carboxyhemoglobin (0.5-1.5) % POC ABG HHb (Measured) (0-5) % ABG Methemoglobin (0.0-3.0) % ABG O2 Capacity (16-24) mL/dl ABG Potassium (3.6-5.2) mmol/L VBG pH (7.32-7.43) VBG pCO2 (40-60) VBG HCO3 (21-28) mmol/l VBG Total CO2 (22-28) mmol.L VBG O2 Sat (Calc) (40-65) % VBG Base Excess (0.0-2.0) mmol/L VBG Potassium (3.6-5.2) mmol/L Hgb O2 Saturation (95.0-98.0) % Glucose (65-105) mg/dl Lactate (0.7-2.1) mmol/L FiO2 % Crit Value Called To Crit Value Called By Blood Gas Notified Time Sodium 141 (132-148) mmol/L Potassium 4.7 (3.6-5.0) mmol/L Chloride 106 (98-107) mmol/L Carbon Dioxide 17 L (21-33) mmol/L Anion Gap 22 H (10-20) BUN 27 H (7-21) mg/dL Creatinine 1.0 (0.7-1.2) mg/dl Est GFR ( Amer) > 60 Est GFR (Non-Af Amer) 53 Random Glucose 206 H (70-110) mg/dL Calcium 9.5 (8.4-10.5) mg/dL Phosphorus (2.5-4.5) mg/dL Magnesium (1.7-2.2) mg/dL Total Bilirubin 0.9 (0.2-1.3) mg/dL AST 39 H (14-36) U/L ALT 14 (7-56) U/L Alkaline Phosphatase 65 (38-126) U/L Lactate Dehydrogenase 617 (333-699) U/L Total Creatine Kinase 38 (35-230) U/L Troponin I 0.20 H* ng/mL NT-Pro-B Natriuret Pep (0-450) pg/mL Total Protein 8.5 H (5.8-8.3) g/dL Albumin 4.6 (3.0-4.8) g/dL Globulin 3.8 gm/dL Albumin/Globulin Ratio 1.2 (1.1-1.8) Lipase 56 (23-300) U/L Arterial Blood Potassium (3.6-5.2) mmol/L Venous Blood Potassium (3.6-5.2) mmol/L Urine Color (YELLOW) Urine Appearance (CLEAR) Urine pH (4.7-8.0) Ur Specific [place] (1.005-1.035) Urine Protein (<30 mg/dL) mg/dL Urine Glucose (UA) (NEGATIVE) mg/dL Urine Ketones (NEGATIVE) mg/dL Urine Blood (NEGATIVE) Urine Nitrate (NEGATIVE) Urine Bilirubin (NEGATIVE) Urine Urobilinogen (<1 E.U./dL) E.U./dL Ur Leukocyte Esterase (NEGATIVE) Humberto/uL Urine RBC (0-2) /hpf Urine WBC (0-6) /hpf Ur Epithelial Cells (0-5) /hpf Urine Bacteria (NONE) /hpf Laboratory Results - last 24 hr 08/04/18 08/04/18 08/04/18 03:44 03:44 03:44 WBC 18.8 H RBC 4.42 Hgb 13.3 Hct 42.0 MCV 95.0 MCH 30.1 MCHC 31.7 RDW 13.4 Plt Count 180 MPV 10.7 PT 19.1 H INR 1.72 APTT 32.7 pCO2 pO2 HCO3 ABG pH ABG Total CO2 ABG O2 Saturation ABG O2 Content ABG Base Excess ABG Hemoglobin ABG Carboxyhemoglobin POC ABG HHb (Measured) ABG Methemoglobin ABG O2 Capacity ABG Potassium VBG pH VBG pCO2 VBG HCO3 VBG Total CO2 VBG O2 Sat (Calc) VBG Base Excess VBG Potassium Hgb O2 Saturation Glucose Lactate FiO2 Crit Value Called To Crit Value Called By Blood Gas Notified Time Sodium 141 Potassium 4.7 Chloride 106 Carbon Dioxide 17 L Anion Gap 22 H BUN 27 H Creatinine 1.0 Est GFR ( Amer) > 60 Est GFR (Non-Af Amer) 53 Random Glucose 206 H Calcium 9.5 Phosphorus Magnesium Total Bilirubin 0.9 AST 39 H ALT 14 Alkaline Phosphatase 65 Lactate Dehydrogenase 617 Total Creatine Kinase 38 Troponin I 0.20 H* NT-Pro-B Natriuret Pep Total Protein 8.5 H Albumin 4.6 Globulin 3.8 Albumin/Globulin Ratio 1.2 Lipase 56 Arterial Blood Potassium Venous Blood Potassium Urine Color Urine Appearance Urine pH Ur Specific [place] Urine Protein Urine Glucose (UA) Urine Ketones Urine Blood Urine Nitrate Urine Bilirubin Urine Urobilinogen Ur Leukocyte Esterase Urine RBC Urine WBC Ur Epithelial Cells Urine Bacteria 08/04/18 08/04/18 08/04/18 04:10 04:23 04:25 WBC RBC Hgb Hct MCV MCH MCHC RDW Plt Count MPV PT INR APTT pCO2 27 L pO2 61 H 78.0 L HCO3 16.0 L ABG pH 7.38 ABG Total CO2 16.8 L ABG O2 Saturation 97.2 ABG O2 Content ABG Base Excess -7.6 L ABG Hemoglobin ABG Carboxyhemoglobin POC ABG HHb (Measured) ABG Methemoglobin ABG O2 Capacity ABG Potassium 3.6 VBG pH 7.37 VBG pCO2 27.0 L VBG HCO3 15.6 L VBG Total CO2 16.4 L VBG O2 Sat (Calc) 94.9 H VBG Base Excess -8.1 L VBG Potassium 5.0 Hgb O2 Saturation Glucose 170 H 138 H Lactate 5.7 H* 4.0 H* FiO2 21.0 100.0 Crit Value Called To Zak crespo Crit Value Called By [facility] Blood Gas Notified Time 419 429 Sodium 137.0 137.0 Potassium Chloride 106.0 108.0 H Carbon Dioxide Anion Gap BUN Creatinine Est GFR ( Amer) Est GFR (Non-Af Amer) Random Glucose Calcium Phosphorus Magnesium Total Bilirubin AST ALT Alkaline Phosphatase Lactate Dehydrogenase Total Creatine Kinase Troponin I NT-Pro-B Natriuret Pep Total Protein Albumin Globulin Albumin/Globulin Ratio Lipase Arterial Blood Potassium 3.6 Venous Blood Potassium 5.0 Urine Color Yellow Urine Appearance Sl cloudy Urine pH 6.0 Ur Specific [place] >= 1.030 Urine Protein 30 H Urine Glucose (UA) Negative Urine Ketones Negative Urine Blood Moderate H Urine Nitrate Negative Urine Bilirubin Negative Urine Urobilinogen 0.2 Ur Leukocyte Esterase Negative Urine RBC 1 - 3 H Urine WBC 0 - 2 Ur Epithelial Cells 0 - 2 Urine Bacteria Mod 08/04/18 08/04/18 05:15 08:00 WBC RBC Hgb Hct MCV MCH MCHC RDW Plt Count MPV PT INR APTT pCO2 28 L pO2 109.0 H HCO3 15.5 L ABG pH 7.35 ABG Total CO2 16.4 L ABG O2 Saturation 99.4 H ABG O2 Content 16.3 ABG Base Excess -8.8 L ABG Hemoglobin 11.9 ABG Carboxyhemoglobin 1.9 H POC ABG HHb (Measured) 0.6 ABG Methemoglobin 1.3 ABG O2 Capacity 16.4 ABG Potassium VBG pH VBG pCO2 VBG HCO3 VBG Total CO2 VBG O2 Sat (Calc) VBG Base Excess VBG Potassium Hgb O2 Saturation 96.3 Glucose Lactate FiO2 100.0 Crit Value Called To Crit Value Called By Blood Gas Notified Time Sodium 141 Potassium 4.8 Chloride 106 Carbon Dioxide 16 L Anion Gap 24 H BUN 27 H Creatinine 1.0 Est GFR ( Amer) > 60 Est GFR (Non-Af Amer) 53 Random Glucose 202 H Calcium 9.6 Phosphorus 4.8 H Magnesium 1.4 L Total Bilirubin 0.9 AST 48 H D ALT 9 Alkaline Phosphatase 69 Lactate Dehydrogenase Total Creatine Kinase Troponin I NT-Pro-B Natriuret Pep 4380 H Total Protein 8.6 H Albumin 4.6 Globulin 4.0 Albumin/Globulin Ratio 1.2 Lipase Arterial Blood Potassium Venous Blood Potassium Urine Color Urine Appearance Urine pH Ur Specific [place] Urine Protein Urine Glucose (UA) Urine Ketones Urine Blood Urine Nitrate Urine Bilirubin Urine Urobilinogen Ur Leukocyte Esterase Urine RBC Urine WBC Ur Epithelial Cells Urine Bacteria Radiology Impressions: Radiology Impressions Chest X-Ray 08/04/18 08:32 IMPRESSION: New right internal jugular access central venous catheter in satisfactory position. Stable tubes and lines. Stable pulmonary vascular congestion. EKG/Cardiology Studies: Cardiology / EKG Studies 08/04/18 ELECTROCARDIOGRAM Stat Comment: Reason For Exam: weak/pain 08/04/18 07:31 ELECTROCARDIOGRAM Routine Comment: Reason For Exam: cad 08/04/18 13:00 EKG [ELECTROCARDIOGRAM] Routine Comment: Reason For Exam: nstemi Critical Care Progress Note - Ventilator Checklist Head of Bed 30 Degrees: Yes Daily Sedation Vacation: Yes Daily Assessment of Readiness to Wean: Yes Daily Spontaneous Breathing Trial: Yes PUD Prophalyxis: Yes DVT Prophylaxis: Yes Oral Care with Chlorhexidine Gluconate {CHG}: Yes - Vent Settings MODE:: PRVC TIDAL VOLUME:: 400 RESP RATE:: 14 FIO2:: 100 PEEP:: 5 - Extremities/Vascular Does the Patient have a Central Venous Catheter?: Yes (R IJ TLC placed) Insertion Site: Internal Jugular Vein Does the Patient need a Central Venous Catheter?: Yes Does the Patient have a [place] Catheter?: Yes Does the Patient need a [place] Catheter?: Yes Catheter Insertion Criteria: Need for accurate measurement of output in critically ill patient - Restraints Justification for Restraints: High risk for self extubation - Prophylaxis GI Prophylaxis GI: PPI - Nutrition Nutrition: Nutrition Category Date Time Status NPO Diet [DIET] Diets 08/04/18 Breakfast Ordered Assessment/Plan - Assessment and Plan (Free Text) Assessment: 83 yo F with PMH of HTN, AFib (on Eliquis), breast cancer (s/p R lumpectomy), TIA, chronic LE lymphadema, chronic back pain 2/2 disc herniations, OA, anxiety, and depression admitted to MICU for septic shock of unclear etiology complicated by flash pulmonary edema and hypoxemic respiratory failure 2/2 AFib w/RVR. Plan: Neuro: Currently intubated, sedated on propofol Unclear baseline, f/u with patient's niece who was present on admission Monitor neuro status once extubated Cardio: Suspect AFib w/RVR is likely 2/2 patient's abdominal pain on admission Has now resolved with pain control Suspect troponin elevation is 2/2 demand ischemia from AFib w/RVR However, NSTEMI is not excluded, patient currently on heparin drip Continue to trend troponin Hold home eliquis while on heparin drip Repeat TTE Requiring levophed, vasopressin for septic shock R IJ TLC placed as per procedure note Continue to maintain MAP > 65 Cardiology following, all recs appreciated Pulm: Suspect b/l pulmonary edema is likely 2/2 fluid backup from AFib w/RVR However, need to avoid diuretics given patient's septic shock Received 3 L of IVF for septic shock, but otherwise conservative fluid management Continue to monitor for improvement of pulmonary edema with abx Vent settings: 400/14/5/ FiO2 100% Appropriate ventilator management as follows: Maintain head of bed > 35 degrees Maintain oral hygiene Daily ABG, CXR as needed Daily sedation and weaning trials with assessment of readiness to wean ID: Fever, leukocytosis with tachycardia noted in ED, code sepsis subsequently called Broad spectrum vanc/zosyn given in ED Unclear etiology of septic shock at this point but lactate trending down [place] CT completed with cholelithiasis but no other findings to suggest an infectious etiology Will get RUQ US to r/o occult cholecystitis Empiric abx adjusted to vanc/merrem per ID recs F/u chaney cx results, procal, urine legionella, pneumococcal antigens ID following, all recs appreciated /Nephro: Renal function parameters stable Continue strict I & O Avoid diuresis at this time, given findings of sepsis Heme/Onc: H/H stable, monitor for s/sx HD compromise GI: NPO on ventilator CTAP identified large amount of stool but without findings of colitis or other concerning findings Will get RUQ US to r/o occult cholecystitis as source of infection, given finding of cholelithiasis Surgery consulted for additional recs per primary Endo: Random glucose: 202 Start stress dose steroids solu-cortef 50 mg IVP q6h DVT/GI PPX: Heparin drip/protonix Full Code NPO Monitor in MICU Patient seen, examined with, and plan confirmed with my attending Dr. Elva Washington D.O. IM Resident PGY-1 Pager: [phone] <Doreen Liu - Last Filed: 08/04/18 14:10> CCU Objective - Vital Signs / Intake & Output Vital Signs (Last 4 hours): Vital Signs Pulse Resp 08/04/18 13:30 112 H 16 Intake and Output (Last 8hrs): Intake & Output 08/03/18 08/04/18 08/04/18 22:59 06:59 14:59 Weight 68.039 kg 68.039 kg Other: Voiding Method Indwelling Catheter - Medications Active Medications: Active Medications Generic Name Dose Route Start Last Admin Trade Name Freq PRN Reason Stop Dose Admin Acetaminophen 650 mg 08/04/18 08:59 Tylenol 650 Mg Supp RC Q6H PRN Fever >100.4 F Hydrocortisone Sodium Succinate 50 mg 08/04/18 12:00 Solu-Cortef IVP Q6H DONNA Propofol 1,000 mg in 100 mls @ 2.041 mls/hr 08/04/18 05:15 08/04/18 05:15 Diprivan IV 2.041 mls/hr .Q24H PRN Administration TITRATE PER MD ORDER Protocol 5 MCG/KG/MIN Heparin Sodium/Sodium Chloride 25,000 units in 250 mls @ 8.165 mls/hr 08/04/18 05:30 08/04/18 06:08 Heparin 26809 Units/250ml 1/2 Normal Saline IV 12 units/kg/hr .Q24H DONNA 8.165 mls/hr Administration Protocol 12 UNITS/KG/HR NOREPINEPHRINE BIT/0.9 % NACL 4 mg in 250 mls @ 15 mls/hr 08/04/18 11:22 Levophed 4 Mg/ 250 Ml Ns Premixed IV .[id number] PRN TITRATE PER MD ORDER Protocol 4 MCG/MIN Vasopressin 20 units/ Sodium 101 mls @ 9.09 mls/hr 08/04/18 11:30 Chloride IV .[id number] DONNA Protocol 0.03 U/MIN Vancomycin HCl 1 gm in 250 mls @ 167 mls/hr 08/04/18 12:30 Vancomycin 1gm IVPB Q12H DONNA Protocol Meropenem 1 gm in 50 mls @ 100 mls/hr 08/04/18 14:00 Merrem Iv 1 Gm Premix IVPB 08/13/18 14:01 Q8 DONNA Protocol Levofloxacin/Dextrose 500 mg in 100 mls @ 100 mls/hr 08/04/18 13:00 Levaquin 500mg IVPB 08/13/18 13:01 DAILY DONNA Protocol Pantoprazole Sodium 40 mg 08/04/18 05:29 08/04/18 10:07 Protonix Inj IVP 40 mg Q12 [facility] Administration - Patient Studies Lab Studies: Lab Studies 08/04/18 08/04/18 08/04/18 Range/Units 12:00 12:00 10:00 WBC (4.5-11.0) 10^3/uL RBC (3.5-6.1) 10^6/uL Hgb (12.0-16.0) g/dL Hct (36.0-48.0) % MCV (80.0-105.0) fl MCH (25.0-35.0) pg MCHC (31.0-37.0) g/dl RDW (11.5-14.5) % Plt Count (120.0-450.0) 10^3/uL MPV (7.0-11.0) fl Neut % (Auto) (50.0-68.0) % Lymph % (Auto) (22.0-35.0) % [place] % (Auto) (1.0-6.0) % Eos % (Auto) (1.5-5.0) % Baso % (Auto) (0.0-3.0) % Lymph # (Auto) (1.2-3.4) [place] # (Auto) (0.1-0.6) Eos # (Auto) (0.0-0.7) Baso # (Auto) (0.0-2.0) K/mm3 Absolute Neuts (auto) (1.4-6.5) PT (9.4-12.5) SECONDS INR APTT 218.9 H* (26.9-38.3) Seconds pCO2 (35-45) mm/Hg pO2 31 (30-55) mm/Hg HCO3 (21-28) mmol/L ABG pH (7.35-7.45) ABG Total CO2 (22-28) mmol.L ABG O2 Saturation (95-98) % ABG O2 Content (15-23) ML/dl ABG Base Excess (-2.0-3.0) mmol/L ABG Hemoglobin (11.7-17.4) g/dL ABG Carboxyhemoglobin (0.5-1.5) % POC ABG HHb (Measured) (0-5) % ABG Methemoglobin (0.0-3.0) % ABG O2 Capacity (16-24) mL/dl ABG Potassium (3.6-5.2) mmol/L VBG pH 7.25 L (7.32-7.43) VBG pCO2 40.0 (40-60) VBG HCO3 17.5 L (21-28) mmol/l VBG Total CO2 18.7 L (22-28) mmol.L VBG O2 Sat (Calc) 56.1 (40-65) % VBG Base Excess -9.2 L (0.0-2.0) mmol/L VBG Potassium 3.6 (3.6-5.2) mmol/L Hgb O2 Saturation (95.0-98.0) % Glucose 75 (65-105) mg/dl Lactate 2.4 H (0.7-2.1) mmol/L FiO2 21.0 % Crit Value Called To Regina Crit Value Called By Ab Blood Gas Notified Time 1035 Sodium 142.0 (132-148) mmol/L Potassium (3.6-5.0) mmol/L Chloride 109.0 H (98-107) mmol/L Carbon Dioxide (21-33) mmol/L Anion Gap (10-20) BUN (7-21) mg/dL Creatinine (0.7-1.2) mg/dl Est GFR ( Amer) Est GFR (Non-Af Amer) Random Glucose (70-110) mg/dL Calcium (8.4-10.5) mg/dL Phosphorus (2.5-4.5) mg/dL Magnesium (1.7-2.2) mg/dL Total Bilirubin (0.2-1.3) mg/dL AST (14-36) U/L ALT (7-56) U/L Alkaline Phosphatase (38-126) U/L Lactate Dehydrogenase (333-699) U/L Total Creatine Kinase (35-230) U/L Troponin I 3.11 H* D ng/mL NT-Pro-B Natriuret Pep (0-450) pg/mL Total Protein (5.8-8.3) g/dL Albumin (3.0-4.8) g/dL Globulin gm/dL Albumin/Globulin Ratio (1.1-1.8) Lipase (23-300) U/L Arterial Blood Potassium (3.6-5.2) mmol/L Venous Blood Potassium 3.6 (3.6-5.2) mmol/L Urine Color (YELLOW) Urine Appearance (CLEAR) Urine pH (4.7-8.0) Ur Specific [place] (1.005-1.035) Urine Protein (<30 mg/dL) mg/dL Urine Glucose (UA) (NEGATIVE) mg/dL Urine Ketones (NEGATIVE) mg/dL Urine Blood (NEGATIVE) Urine Nitrate (NEGATIVE) Urine Bilirubin (NEGATIVE) Urine Urobilinogen (<1 E.U./dL) E.U./dL Ur Leukocyte Esterase (NEGATIVE) Humberto/uL Urine RBC (0-2) /hpf Urine WBC (0-6) /hpf Ur Epithelial Cells (0-5) /hpf Urine Bacteria (NONE) /hpf 08/04/18 08/04/18 08/04/18 Range/Units 10:00 08:00 05:15 WBC 15.6 H (4.5-11.0) 10^3/uL RBC 3.99 (3.5-6.1) 10^6/uL Hgb 12.0 (12.0-16.0) g/dL Hct 37.5 (36.0-48.0) % MCV 94.0 (80.0-105.0) fl MCH 30.1 (25.0-35.0) pg MCHC 32.0 (31.0-37.0) g/dl RDW 13.7 (11.5-14.5) % Plt Count 166 (120.0-450.0) 10^3/uL MPV 11.0 (7.0-11.0) fl Neut % (Auto) 84.8 H (50.0-68.0) % Lymph % (Auto) 9.5 L (22.0-35.0) % [place] % (Auto) 5.5 (1.0-6.0) % Eos % (Auto) 0.0 L (1.5-5.0) % Baso % (Auto) 0.2 (0.0-3.0) % Lymph # (Auto) 1.5 (1.2-3.4) [place] # (Auto) 0.9 H (0.1-0.6) Eos # (Auto) 0.0 (0.0-0.7) Baso # (Auto) 0.03 (0.0-2.0) K/mm3 Absolute Neuts (auto) 13.23 H (1.4-6.5) PT (9.4-12.5) SECONDS INR APTT (26.9-38.3) Seconds pCO2 28 L (35-45) mm/Hg pO2 109.0 H (30-55) mm/Hg HCO3 15.5 L (21-28) mmol/L ABG pH 7.35 (7.35-7.45) ABG Total CO2 16.4 L (22-28) mmol.L ABG O2 Saturation 99.4 H (95-98) % ABG O2 Content 16.3 (15-23) ML/dl ABG Base Excess -8.8 L (-2.0-3.0) mmol/L ABG Hemoglobin 11.9 (11.7-17.4) g/dL ABG Carboxyhemoglobin 1.9 H (0.5-1.5) % POC ABG HHb (Measured) 0.6 (0-5) % ABG Methemoglobin 1.3 (0.0-3.0) % ABG O2 Capacity 16.4 (16-24) mL/dl ABG Potassium (3.6-5.2) mmol/L VBG pH (7.32-7.43) VBG pCO2 (40-60) VBG HCO3 (21-28) mmol/l VBG Total CO2 (22-28) mmol.L VBG O2 Sat (Calc) (40-65) % VBG Base Excess (0.0-2.0) mmol/L VBG Potassium (3.6-5.2) mmol/L Hgb O2 Saturation 96.3 (95.0-98.0) % Glucose (65-105) mg/dl Lactate (0.7-2.1) mmol/L FiO2 100.0 % Crit Value Called To Crit Value Called By Blood Gas Notified Time Sodium 141 (132-148) mmol/L Potassium 4.8 (3.6-5.0) mmol/L Chloride 106 (98-107) mmol/L Carbon Dioxide 16 L (21-33) mmol/L Anion Gap 24 H (10-20) BUN 27 H (7-21) mg/dL Creatinine 1.0 (0.7-1.2) mg/dl Est GFR ( Amer) > 60 Est GFR (Non-Af Amer) 53 Random Glucose 202 H (70-110) mg/dL Calcium 9.6 (8.4-10.5) mg/dL Phosphorus 4.8 H (2.5-4.5) mg/dL Magnesium 1.4 L (1.7-2.2) mg/dL Total Bilirubin 0.9 (0.2-1.3) mg/dL AST 48 H D (14-36) U/L ALT 9 (7-56) U/L Alkaline Phosphatase 69 (38-126) U/L Lactate Dehydrogenase (333-699) U/L Total Creatine Kinase (35-230) U/L Troponin I ng/mL NT-Pro-B Natriuret Pep 4380 H (0-450) pg/mL Total Protein 8.6 H (5.8-8.3) g/dL Albumin 4.6 (3.0-4.8) g/dL Globulin 4.0 gm/dL Albumin/Globulin Ratio 1.2 (1.1-1.8) Lipase (23-300) U/L Arterial Blood Potassium (3.6-5.2) mmol/L Venous Blood Potassium (3.6-5.2) mmol/L Urine Color (YELLOW) Urine Appearance (CLEAR) Urine pH (4.7-8.0) Ur Specific [place] (1.005-1.035) Urine Protein (<30 mg/dL) mg/dL Urine Glucose (UA) (NEGATIVE) mg/dL Urine Ketones (NEGATIVE) mg/dL Urine Blood (NEGATIVE) Urine Nitrate (NEGATIVE) Urine Bilirubin (NEGATIVE) Urine Urobilinogen (<1 E.U./dL) E.U./dL Ur Leukocyte Esterase (NEGATIVE) Humberto/uL Urine RBC (0-2) /hpf Urine WBC (0-6) /hpf Ur Epithelial Cells (0-5) /hpf Urine Bacteria (NONE) /hpf 08/04/18 08/04/18 08/04/18 Range/Units 04:25 04:23 04:10 WBC (4.5-11.0) 10^3/uL RBC (3.5-6.1) 10^6/uL Hgb (12.0-16.0) g/dL Hct (36.0-48.0) % MCV (80.0-105.0) fl MCH (25.0-35.0) pg MCHC (31.0-37.0) g/dl RDW (11.5-14.5) % Plt Count (120.0-450.0) 10^3/uL MPV (7.0-11.0) fl Neut % (Auto) (50.0-68.0) % Lymph % (Auto) (22.0-35.0) % [place] % (Auto) (1.0-6.0) % Eos % (Auto) (1.5-5.0) % Baso % (Auto) (0.0-3.0) % Lymph # (Auto) (1.2-3.4) [place] # (Auto) (0.1-0.6) Eos # (Auto) (0.0-0.7) Baso # (Auto) (0.0-2.0) K/mm3 Absolute Neuts (auto) (1.4-6.5) PT (9.4-12.5) SECONDS INR APTT (26.9-38.3) Seconds pCO2 27 L (35-45) mm/Hg pO2 78.0 L 61 H (30-55) mm/Hg HCO3 16.0 L (21-28) mmol/L ABG pH 7.38 (7.35-7.45) ABG Total CO2 16.8 L (22-28) mmol.L ABG O2 Saturation 97.2 (95-98) % ABG O2 Content (15-23) ML/dl ABG Base Excess -7.6 L (-2.0-3.0) mmol/L ABG Hemoglobin (11.7-17.4) g/dL ABG Carboxyhemoglobin (0.5-1.5) % POC ABG HHb (Measured) (0-5) % ABG Methemoglobin (0.0-3.0) % ABG O2 Capacity (16-24) mL/dl ABG Potassium 3.6 (3.6-5.2) mmol/L VBG pH 7.37 (7.32-7.43) VBG pCO2 27.0 L (40-60) VBG HCO3 15.6 L (21-28) mmol/l VBG Total CO2 16.4 L (22-28) mmol.L VBG O2 Sat (Calc) 94.9 H (40-65) % VBG Base Excess -8.1 L (0.0-2.0) mmol/L VBG Potassium 5.0 (3.6-5.2) mmol/L Hgb O2 Saturation (95.0-98.0) % Glucose 138 H 170 H (65-105) mg/dl Lactate 4.0 H* 5.7 H* (0.7-2.1) mmol/L FiO2 100.0 21.0 % Crit Value Called To Dr zak Crespo Crit Value Called By [facility] Blood Gas Notified Time 429 419 Sodium 137.0 137.0 (132-148) mmol/L Potassium (3.6-5.0) mmol/L Chloride 108.0 H 106.0 (98-107) mmol/L Carbon Dioxide (21-33) mmol/L Anion Gap (10-20) BUN (7-21) mg/dL Creatinine (0.7-1.2) mg/dl Est GFR ( Amer) Est GFR (Non-Af Amer) Random Glucose (70-110) mg/dL Calcium (8.4-10.5) mg/dL Phosphorus (2.5-4.5) mg/dL Magnesium (1.7-2.2) mg/dL Total Bilirubin (0.2-1.3) mg/dL AST (14-36) U/L ALT (7-56) U/L Alkaline Phosphatase (38-126) U/L Lactate Dehydrogenase (333-699) U/L Total Creatine Kinase (35-230) U/L Troponin I ng/mL NT-Pro-B Natriuret Pep (0-450) pg/mL Total Protein (5.8-8.3) g/dL Albumin (3.0-4.8) g/dL Globulin gm/dL Albumin/Globulin Ratio (1.1-1.8) Lipase (23-300) U/L Arterial Blood Potassium 3.6 (3.6-5.2) mmol/L Venous Blood Potassium 5.0 (3.6-5.2) mmol/L Urine Color Yellow (YELLOW) Urine Appearance Sl cloudy (CLEAR) Urine pH 6.0 (4.7-8.0) Ur Specific [place] >= 1.030 (1.005-1.035) Urine Protein 30 H (<30 mg/dL) mg/dL Urine Glucose (UA) Negative (NEGATIVE) mg/dL Urine Ketones Negative (NEGATIVE) mg/dL Urine Blood Moderate H (NEGATIVE) Urine Nitrate Negative (NEGATIVE) Urine Bilirubin Negative (NEGATIVE) Urine Urobilinogen 0.2 (<1 E.U./dL) E.U./dL Ur Leukocyte Esterase Negative (NEGATIVE) Humberto/uL Urine RBC 1 - 3 H (0-2) /hpf Urine WBC 0 - 2 (0-6) /hpf Ur Epithelial Cells 0 - 2 (0-5) /hpf Urine Bacteria Mod (NONE) /hpf 08/04/18 08/04/18 08/04/18 Range/Units 03:44 03:44 03:44 WBC 18.8 H (4.5-11.0) 10^3/uL RBC 4.42 (3.5-6.1) 10^6/uL Hgb 13.3 (12.0-16.0) g/dL Hct 42.0 (36.0-48.0) % MCV 95.0 (80.0-105.0) fl MCH 30.1 (25.0-35.0) pg MCHC 31.7 (31.0-37.0) g/dl RDW 13.4 (11.5-14.5) % Plt Count 180 (120.0-450.0) 10^3/uL MPV 10.7 (7.0-11.0) fl Neut % (Auto) (50.0-68.0) % Lymph % (Auto) (22.0-35.0) % [place] % (Auto) (1.0-6.0) % Eos % (Auto) (1.5-5.0) % Baso % (Auto) (0.0-3.0) % Lymph # (Auto) (1.2-3.4) [place] # (Auto) (0.1-0.6) Eos # (Auto) (0.0-0.7) Baso # (Auto) (0.0-2.0) K/mm3 Absolute Neuts (auto) (1.4-6.5) PT 19.1 H (9.4-12.5) SECONDS INR 1.72 APTT 32.7 (26.9-38.3) Seconds pCO2 (35-45) mm/Hg pO2 (30-55) mm/Hg HCO3 (21-28) mmol/L ABG pH (7.35-7.45) ABG Total CO2 (22-28) mmol.L ABG O2 Saturation (95-98) % ABG O2 Content (15-23) ML/dl ABG Base Excess (-2.0-3.0) mmol/L ABG Hemoglobin (11.7-17.4) g/dL ABG Carboxyhemoglobin (0.5-1.5) % POC ABG HHb (Measured) (0-5) % ABG Methemoglobin (0.0-3.0) % ABG O2 Capacity (16-24) mL/dl ABG Potassium (3.6-5.2) mmol/L VBG pH (7.32-7.43) VBG pCO2 (40-60) VBG HCO3 (21-28) mmol/l VBG Total CO2 (22-28) mmol.L VBG O2 Sat (Calc) (40-65) % VBG Base Excess (0.0-2.0) mmol/L VBG Potassium (3.6-5.2) mmol/L Hgb O2 Saturation (95.0-98.0) % Glucose (65-105) mg/dl Lactate (0.7-2.1) mmol/L FiO2 % Crit Value Called To Crit Value Called By Blood Gas Notified Time Sodium 141 (132-148) mmol/L Potassium 4.7 (3.6-5.0) mmol/L Chloride 106 (98-107) mmol/L Carbon Dioxide 17 L (21-33) mmol/L Anion Gap 22 H (10-20) BUN 27 H (7-21) mg/dL Creatinine 1.0 (0.7-1.2) mg/dl Est GFR ( Amer) > 60 Est GFR (Non-Af Amer) 53 Random Glucose 206 H (70-110) mg/dL Calcium 9.5 (8.4-10.5) mg/dL Phosphorus (2.5-4.5) mg/dL Magnesium (1.7-2.2) mg/dL Total Bilirubin 0.9 (0.2-1.3) mg/dL AST 39 H (14-36) U/L ALT 14 (7-56) U/L Alkaline Phosphatase 65 (38-126) U/L Lactate Dehydrogenase 617 (333-699) U/L Total Creatine Kinase 38 (35-230) U/L Troponin I 0.20 H* ng/mL NT-Pro-B Natriuret Pep (0-450) pg/mL Total Protein 8.5 H (5.8-8.3) g/dL Albumin 4.6 (3.0-4.8) g/dL Globulin 3.8 gm/dL Albumin/Globulin Ratio 1.2 (1.1-1.8) Lipase 56 (23-300) U/L Arterial Blood Potassium (3.6-5.2) mmol/L Venous Blood Potassium (3.6-5.2) mmol/L Urine Color (YELLOW) Urine Appearance (CLEAR) Urine pH (4.7-8.0) Ur Specific [place] (1.005-1.035) Urine Protein (<30 mg/dL) mg/dL Urine Glucose (UA) (NEGATIVE) mg/dL Urine Ketones (NEGATIVE) mg/dL Urine Blood (NEGATIVE) Urine Nitrate (NEGATIVE) Urine Bilirubin (NEGATIVE) Urine Urobilinogen (<1 E.U./dL) E.U./dL Ur Leukocyte Esterase (NEGATIVE) Humberto/uL Urine RBC (0-2) /hpf Urine WBC (0-6) /hpf Ur Epithelial Cells (0-5) /hpf Urine Bacteria (NONE) /hpf Laboratory Results - last 24 hr 08/04/18 08/04/18 08/04/18 03:44 03:44 03:44 WBC 18.8 H RBC 4.42 Hgb 13.3 Hct 42.0 MCV 95.0 MCH 30.1 MCHC 31.7 RDW 13.4 Plt Count 180 MPV 10.7 Neut % (Auto) Lymph % (Auto) [place] % (Auto) Eos % (Auto) Baso % (Auto) Lymph # (Auto) [place] # (Auto) Eos # (Auto) Baso # (Auto) Absolute Neuts (auto) PT 19.1 H INR 1.72 APTT 32.7 pCO2 pO2 HCO3 ABG pH ABG Total CO2 ABG O2 Saturation ABG O2 Content ABG Base Excess ABG Hemoglobin ABG Carboxyhemoglobin POC ABG HHb (Measured) ABG Methemoglobin ABG O2 Capacity ABG Potassium VBG pH VBG pCO2 VBG HCO3 VBG Total CO2 VBG O2 Sat (Calc) VBG Base Excess VBG Potassium Hgb O2 Saturation Glucose Lactate FiO2 Crit Value Called To Crit Value Called By Blood Gas Notified Time Sodium 141 Potassium 4.7 Chloride 106 Carbon Dioxide 17 L Anion Gap 22 H BUN 27 H Creatinine 1.0 Est GFR ( Amer) > 60 Est GFR (Non-Af Amer) 53 Random Glucose 206 H Calcium 9.5 Phosphorus Magnesium Total Bilirubin 0.9 AST 39 H ALT 14 Alkaline Phosphatase 65 Lactate Dehydrogenase 617 Total Creatine Kinase 38 Troponin I 0.20 H* NT-Pro-B Natriuret Pep Total Protein 8.5 H Albumin 4.6 Globulin 3.8 Albumin/Globulin Ratio 1.2 Lipase 56 Arterial Blood Potassium Venous Blood Potassium Urine Color Urine Appearance Urine pH Ur Specific [place] Urine Protein Urine Glucose (UA) Urine Ketones Urine Blood Urine Nitrate Urine Bilirubin Urine Urobilinogen Ur Leukocyte Esterase Urine RBC Urine WBC Ur Epithelial Cells Urine Bacteria 08/04/18 08/04/18 08/04/18 04:10 04:23 04:25 WBC RBC Hgb Hct MCV MCH MCHC RDW Plt Count MPV Neut % (Auto) Lymph % (Auto) [place] % (Auto) Eos % (Auto) Baso % (Auto) Lymph # (Auto) [place] # (Auto) Eos # (Auto) Baso # (Auto) Absolute Neuts (auto) PT INR APTT pCO2 27 L pO2 61 H 78.0 L HCO3 16.0 L ABG pH 7.38 ABG Total CO2 16.8 L ABG O2 Saturation 97.2 ABG O2 Content ABG Base Excess -7.6 L ABG Hemoglobin ABG Carboxyhemoglobin POC ABG HHb (Measured) ABG Methemoglobin ABG O2 Capacity ABG Potassium 3.6 VBG pH 7.37 VBG pCO2 27.0 L VBG HCO3 15.6 L VBG Total CO2 16.4 L VBG O2 Sat (Calc) 94.9 H VBG Base Excess -8.1 L VBG Potassium 5.0 Hgb O2 Saturation Glucose 170 H 138 H Lactate 5.7 H* 4.0 H* FiO2 21.0 100.0 Crit Value Called To Zak crespo Crit Value Called By [facility] Blood Gas Notified Time 419 429 Sodium 137.0 137.0 Potassium Chloride 106.0 108.0 H Carbon Dioxide Anion Gap BUN Creatinine Est GFR ( Amer) Est GFR (Non-Af Amer) Random Glucose Calcium Phosphorus Magnesium Total Bilirubin AST ALT Alkaline Phosphatase Lactate Dehydrogenase Total Creatine Kinase Troponin I NT-Pro-B Natriuret Pep Total Protein Albumin Globulin Albumin/Globulin Ratio Lipase Arterial Blood Potassium 3.6 Venous Blood Potassium 5.0 Urine Color Yellow Urine Appearance Sl cloudy Urine pH 6.0 Ur Specific [place] >= 1.030 Urine Protein 30 H Urine Glucose (UA) Negative Urine Ketones Negative Urine Blood Moderate H Urine Nitrate Negative Urine Bilirubin Negative Urine Urobilinogen 0.2 Ur Leukocyte Esterase Negative Urine RBC 1 - 3 H Urine WBC 0 - 2 Ur Epithelial Cells 0 - 2 Urine Bacteria Mod 08/04/18 08/04/18 08/04/18 05:15 08:00 10:00 WBC 15.6 H RBC 3.99 Hgb 12.0 Hct 37.5 MCV 94.0 MCH 30.1 MCHC 32.0 RDW 13.7 Plt Count 166 MPV 11.0 Neut % (Auto) 84.8 H Lymph % (Auto) 9.5 L [place] % (Auto) 5.5 Eos % (Auto) 0.0 L Baso % (Auto) 0.2 Lymph # (Auto) 1.5 [place] # (Auto) 0.9 H Eos # (Auto) 0.0 Baso # (Auto) 0.03 Absolute Neuts (auto) 13.23 H PT INR APTT pCO2 28 L pO2 109.0 H HCO3 15.5 L ABG pH 7.35 ABG Total CO2 16.4 L ABG O2 Saturation 99.4 H ABG O2 Content 16.3 ABG Base Excess -8.8 L ABG Hemoglobin 11.9 ABG Carboxyhemoglobin 1.9 H POC ABG HHb (Measured) 0.6 ABG Methemoglobin 1.3 ABG O2 Capacity 16.4 ABG Potassium VBG pH VBG pCO2 VBG HCO3 VBG Total CO2 VBG O2 Sat (Calc) VBG Base Excess VBG Potassium Hgb O2 Saturation 96.3 Glucose Lactate FiO2 100.0 Crit Value Called To Crit Value Called By Blood Gas Notified Time Sodium 141 Potassium 4.8 Chloride 106 Carbon Dioxide 16 L Anion Gap 24 H BUN 27 H Creatinine 1.0 Est GFR ( Amer) > 60 Est GFR (Non-Af Amer) 53 Random Glucose 202 H Calcium 9.6 Phosphorus 4.8 H Magnesium 1.4 L Total Bilirubin 0.9 AST 48 H D ALT 9 Alkaline Phosphatase 69 Lactate Dehydrogenase Total Creatine Kinase Troponin I NT-Pro-B Natriuret Pep 4380 H Total Protein 8.6 H Albumin 4.6 Globulin 4.0 Albumin/Globulin Ratio 1.2 Lipase Arterial Blood Potassium Venous Blood Potassium Urine Color Urine Appearance Urine pH Ur Specific [place] Urine Protein Urine Glucose (UA) Urine Ketones Urine Blood Urine Nitrate Urine Bilirubin Urine Urobilinogen Ur Leukocyte Esterase Urine RBC Urine WBC Ur Epithelial Cells Urine Bacteria 08/04/18 08/04/18 08/04/18 10:00 12:00 12:00 WBC RBC Hgb Hct MCV MCH MCHC RDW Plt Count MPV Neut % (Auto) Lymph % (Auto) [place] % (Auto) Eos % (Auto) Baso % (Auto) Lymph # (Auto) [place] # (Auto) Eos # (Auto) Baso # (Auto) Absolute Neuts (auto) PT INR APTT 218.9 H* pCO2 pO2 31 HCO3 ABG pH ABG Total CO2 ABG O2 Saturation ABG O2 Content ABG Base Excess ABG Hemoglobin ABG Carboxyhemoglobin POC ABG HHb (Measured) ABG Methemoglobin ABG O2 Capacity ABG Potassium VBG pH 7.25 L VBG pCO2 40.0 VBG HCO3 17.5 L VBG Total CO2 18.7 L VBG O2 Sat (Calc) 56.1 VBG Base Excess -9.2 L VBG Potassium 3.6 Hgb O2 Saturation Glucose 75 Lactate 2.4 H FiO2 21.0 Crit Value Called To [place] Crit Value Called By Ab Blood Gas Notified Time 1035 Sodium 142.0 Potassium Chloride 109.0 H Carbon Dioxide Anion Gap BUN Creatinine Est GFR ( Amer) Est GFR (Non-Af Amer) Random Glucose Calcium Phosphorus Magnesium Total Bilirubin AST ALT Alkaline Phosphatase Lactate Dehydrogenase Total Creatine Kinase Troponin I 3.11 H* D NT-Pro-B Natriuret Pep Total Protein Albumin Globulin Albumin/Globulin Ratio Lipase Arterial Blood Potassium Venous Blood Potassium 3.6 Urine Color Urine Appearance Urine pH Ur Specific [place] Urine Protein Urine Glucose (UA) Urine Ketones Urine Blood Urine Nitrate Urine Bilirubin Urine Urobilinogen Ur Leukocyte Esterase Urine RBC Urine WBC Ur Epithelial Cells Urine Bacteria Radiology Impressions: Radiology Impressions Chest/Abdomen/Pelvis CT 08/04/18 03:39 IMPRESSION: Pulmonary vascular congestion/edema with patchy bilateral infiltrates and chronic interstitial changes. No acute pathology involving the abdomen or pelvis. Chest X-Ray 08/04/18 04:46 IMPRESSION: Diffuse pulmonary vascular congestion with patchy bilateral infiltrates. Chest X-Ray 08/04/18 05:14 IMPRESSION: Endotracheal tube with tip at the rita. 2 cm retraction is recommended. Enteric tube in satisfactory position. Stable appearance of diffuse bilateral patchy infiltrates. No other significant interval change. Chest X-Ray 08/04/18 08:32 IMPRESSION: New right internal jugular access central venous catheter in satisfactory position. Stable tubes and lines. Stable pulmonary vascular congestion. EKG/Cardiology Studies: Cardiology / EKG Studies 08/04/18 ELECTROCARDIOGRAM Stat Comment: Reason For Exam: weak/pain 08/04/18 07:31 ELECTROCARDIOGRAM Routine Comment: Reason For Exam: cad 08/04/18 13:00 EKG [ELECTROCARDIOGRAM] Routine Comment: Reason For Exam: nstemi Critical Care Progress Note - Nutrition Nutrition: Nutrition Category Date Time Status NPO Diet [DIET] Diets 08/04/18 Breakfast Ordered Addendum Addendum: 08/04/18 14:08 MICU Attending Addendum: Patient seen and examined with housestaff, case discussed on rounds. 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 Sepsis likely escalated her afib to RVR which resulted in pulm edema and increase cardiovasc demanding causing TNI leak . Unclear etiology of sepsis. CT abd/pelvis not suggestive however cholelithiasis noted. With check RUQ US. Empiric abx as per ID, follow culture pressors on board with levophed and vasopressin MAP > 65 HR controlled now after fluid, no more fluids at this time since she has met her 30cc/kg goal and lac improving trend TNI hypoxia likely from pulm edema which proabably is due to her afib RVR at 174 on admission, thus reducing any sort of filling time holding eliquis in favor of heparin RIJ TLC placed this am 08/04 Rest of care as per resident note above CC time : 31 mins Doreen Liu MD Attending Pulmonary Critical Care Sleep Medicine
[2018-08-04 10:36] LABS: VENOUS BLOOD GAS BASE EXCESS -9.2 mmol/L (0.0-2.0); VENOUS BLOOD GAS PO2 31 mm/Hg (30-55); VENOUS BLOOD PH 7.25 (7.32-7.43)
[2018-08-04 10:38] LABS: BASO # 0.03 K/mm3 (0.0-2.0); BASO % 0.2 % (0.0-3.0); LYMPH # 1.5 (1.2-3.4); LYMPH % 9.5 % (22.0-35.0); MEAN CORPUSCULAR HEMOGLOBIN 30.1 pg (25.0-35.0); MONO # 0.9 (0.1-0.6); MONO % 5.5 % (1.0-6.0); RBC 3.99 10^6/uL (3.5-6.1); RED CELL DISTRIBUTION WIDTH 13.7 % (11.5-14.5); WHITE BLOOD COUNT 15.6 10^3/uL (4.5-11.0)
[2018-08-04] MEDS ORDERED: Cefepime 1gm in NS 100ml 1 GM/100 ML BAG IVPB SCH (12:00)
--- NOTE | 2018-08-04 12:17 | RAD ---
Date of service: 08/04/2018 HISTORY: pain COMPARISON: CT scan of the chest, abdomen and pelvis performed approximately 1.5 hours prior. TECHNIQUE: 1 view obtained. FINDINGS: LUNGS: Pulmonary vascular congestion. Patchy bilateral infiltrates. PLEURA: No significant pleural effusion identified, no pneumothorax apparent. CARDIOVASCULAR: Aortic atherosclerotic calcifications. Cardiomediastinal silhouette stably enlarged. Stable prominence of the right hilum. OSSEOUS STRUCTURES: Unchanged. VISUALIZED UPPER ABDOMEN: Normal. OTHER FINDINGS: None. IMPRESSION: Diffuse pulmonary vascular congestion with patchy bilateral infiltrates.
--- NOTE | 2018-08-04 12:18 | RAD ---
Date of service: 08/04/2018 HISTORY: post intubation COMPARISON: Chest radiograph performed approximately 30 minutes prior. TECHNIQUE: 1 view obtained. FINDINGS: LUNGS: Pulmonary vascular congestion with stable appearance of diffuse patchy bilateral infiltrates. PLEURA: No significant pleural effusion identified, no pneumothorax apparent. CARDIOVASCULAR: Aortic atherosclerotic calcifications. Cardiomediastinal silhouette stably enlarged. OSSEOUS STRUCTURES: Unchanged. VISUALIZED UPPER ABDOMEN: Normal. OTHER FINDINGS: Endotracheal tube with tip at the rita. Enteric tube with tip in the stomach. IMPRESSION: Endotracheal tube with tip at the rita. 2 cm retraction is recommended. Enteric tube in satisfactory position. Stable appearance of diffuse bilateral patchy infiltrates. No other significant interval change.
[2018-08-04] MEDS ORDERED: levoFLOXacin 500 mg in D5W 500 MG/100 ML BAG IVPB SCH (13:00)
--- NOTE | 2018-08-04 13:38 | CT ---
Date of service: 08/04/2018 PROCEDURE: CT Chest, Abdomen and Pelvis without intravenous contrast HISTORY: pain COMPARISON: None available. TECHNIQUE: Radiation dose: Total exam DLP = 1120.34 mGy-cm. This CT exam was performed using one or more of the following dose reduction techniques: Automated exposure control, adjustment of the mA and/or kV according to patient size, and/or use of iterative reconstruction technique. FINDINGS: CT CHEST WITHOUT CONTRAST: LUNGS: Pulmonary vascular congestion/edema with patchy bilateral infiltrates and chronic interstitial changes. MEDIASTINUM: Aortic atherosclerotic calcifications. Enlarged pulmonary artery. Cardiomegaly. Coronary arterial and valvular calcifications. LYMPH NODES: Unremarkable. PLEURA: Unremarkable. No pneumothorax. No pleural fluid. BONES: Unremarkable. OTHER FINDINGS: None. CT ABDOMEN AND PELVIS: LIVER: Hepatomegaly. No gross lesion or ductal dilatation. GALLBLADDER AND BILE DUCTS: Calcified cholelithiasis without wall thickening or pericholecystic fluid PANCREAS: Unremarkable. No gross lesion or ductal dilatation. SPLEEN: Prominent spleen. ADRENALS: Unremarkable. No mass. KIDNEYS AND URETERS: Unremarkable. No hydronephrosis. No solid mass. VASCULATURE: No aortic atherosclerotic calcification or mural plaque present. Unremarkable. No aortic aneurysm. BOWEL: Dilated rectum with stool. No obstruction. No gross mural thickening. APPENDIX: Normal appendix. PERITONEUM: Unremarkable. No free fluid. No free air. LYMPH NODES: Unremarkable. No enlarged lymph nodes. BLADDER: Unremarkable. REPRODUCTIVE: Unremarkable. BONES: Diffuse degenerative changes. Grade 1 anterolisthesis of L4 on L5. No acute fracture. OTHER FINDINGS: None. IMPRESSION: Pulmonary vascular congestion/edema with patchy bilateral infiltrates and chronic interstitial changes. No acute pathology involving the abdomen or pelvis.
[2018-08-04] MEDS ORDERED: metroNIDAZOLE IV 500 mg/100 ml 500 MG/100 ML BAG IVPB SCH (14:00)
[2018-08-04] MEDS: Meropenem IV 1 gm in NS 1 GM/50 ML BAG IVPB SCH ×2 (14:25→21:31)
--- NOTE | 2018-08-04 14:40 | US ---
Date of service: 08/04/2018 HISTORY: known cholelithiasis, sepsis unknown source COMPARISON: None. TECHNIQUE: Sonographic evaluation of the right upper quadrant of the abdomen. FINDINGS: LIVER: Measures 13.8 cm in length. Normal echogenicity of the liver parenchyma. No mass. No intrahepatic bile duct dilatation. Main portal vein and hepatic veins demonstrate normal directional flow. GALLBLADDER: Minimal cholelithiasis without wall thickening/edema or pericholecystic fluid. Sonographic Tapia's sign was not elicited. COMMON BILE DUCT: Measures 5 mm. No stones. No dilatation. PANCREAS: Unremarkable as visualized. No mass. No ductal dilatation. RIGHT KIDNEY: Measures 10.3 x 3.6 x 5.2 cm in length. Normal echogenicity. No calculus, mass, or hydronephrosis. AORTA: No aneurysmal dilatation. IVC: Unremarkable. OTHER FINDINGS: None . IMPRESSION: Cholelithiasis without sonographic evidence for acute cholecystitis.
--- NOTE | 2018-08-04 15:02 | CARD ---
APPROVED REPORT Date of service: 08/04/2018 EKG Measurement Heart [id number] <Conclusion> Atrial fibrillation with rapid ventricular response Left ventricular hypertrophy with QRS widening Marked ST abnormality, possible inferior subendocardial injury Marked ST abnormality, possible anteroseptal subendocardial injury Abnormal ECG
--- NOTE | 2018-08-04 16:29 | HP ---
DATE OF EXAM: 08/04/2018 HISTORY OF PRESENT ILLNESS: The patient is an 83-year-old who was brought to emergency room because of increasing abdominal pain. She was moaning and groaning prior to bringing her to the hospital. Upon arrival in the ER, her abdomen was found to be distended. She was desaturating while she was in the ER, so she was intubated for airway protection and because of hypoxia, and being admitted in the ICU. PAST MEDICAL HISTORY: She has past medical history significant for: 1. Hypertension. 2. Chronic AFib. 3. History of CA breast. 4. Chronic bilateral leg stasis, dermatitis and lymphedema. 5. History of CA breast status post right lumpectomy. ALLERGIES: SHE IS NOT ALLERGIC TO ANY MEDICATIONS. MEDICATION AT HOME: She is on Lasix 40 daily, metoprolol 50 mg daily, Xarelto 20 mg daily, 40 mg daily, Lipitor 10 mg daily, Xanax 0.25 twice a day p.r.n., lisinopril 25 daily, hydralazine 25 twice a day, Bystolic 10 mg daily. REVIEW OF SYSTEMS: History of abdominal pain and chronic back pain, and chronic bilateral leg edema. PHYSICAL EXAMINATION: GENERAL: The patient is sleepy, but arousable. She is intubated. VITAL SIGNS: She has temperature of 100.5, pulse 105, respirations 14, blood pressure 95/57. LUNGS: Bilateral diffusely decreased breath sounds. HEART: S1 and S2 audible. ABDOMEN: Soft. Bowel sounds sluggish. EXTREMITIES: Bilateral leg edema. LABORATORY DATA: WBC is 15.6, hemoglobin 12, hematocrit 37, platelets of 166. PT 19.1, INR 1.72. Chemistry; sodium 141, potassium 4.8, chloride 106, CO2 of 16, BUN 27, creatinine 1.0, blood sugar is 202. AST 48. BNP 4380. LFTs are within normal limits. Lipase 56. Urine shows moderate blood. She had CT scan of the abdomen and pelvis done, result is pending. ASSESSMENT: 1. Sepsis, etiology unclear. 2. Respiratory failure. 3. Leukocytosis. 4. Non-ST elevation myocardial infarction. PLAN: The patient is currently on vent. She is on heparin. She is on Levophed. I will continue her on IV fluid. I will request for surgical evaluation. Awaiting ID and Cardiology input and I will discuss with the family. Prognosis seems to be poor. We will followup cultures. Followup CT of the abdomen and pelvis. Edita Rapp MD
[2018-08-04] MEDS: Vancomycin 1gm in NS 250ml 1 GM/250 ML BAG IVPB SCH (17:43)
--- NOTE | 2018-08-04 18:57 | CP.PCM.CON ---
History of Present Illness - History of Present Illness History of Present Illness: GENERAL SURGERY CONSULT NOTE FOR DR. HORNER 83 year old female with PMHx of HTN, A fib (on Eliquis), breast cancer (s/p right lumpectomy), TIA, chronic lymphedema, and chronic pain, who presented to the ED accompanied by niece for severe pain. As per niece, patient was fine during the day and approximately 1 hour prior to arrival patient began moaning and did not stop. She also notes that patient was pointing to her abdomen. In th e ED, pt was found to be tachycardic, febrile to 104, leukocytosis with a lactate of 5.7. Code sepsis was called. Pt desaturdated and was intubated in the ED. She is currently on levophed @10, propofol @2, heparin drip. She has a [place] and OG. Unable to obtain further HPI or ROS due to patient being intubated. Most of information obtained from EMR. PMHx: hypertension, atrial fibrillation (on Eliquis), breast cancer (s/p right lumpectomy), TIA, chronic lymphadema, chronic pain, disks herniations, OA, anxiety, and depression PSHx: right lumpectomy, right cataract surgery Allergies: NKDA Family Hx: Father had lung cancer. Mother had colon cancer. Social Hx: Denies tobacco, alcohol, or drug use. Lives at home with niece. Review of Systems - Review of Systems Systems not reviewed;Unavailable: Intubated Past Patient History - Infectious Disease Hx of Infectious Diseases: None - Tetanus Immunizations Tetanus Immunization: Up to Date - Past Social History Smoking Status: Never Smoked - CARDIAC Hx Cardiac Disorders: Yes Hx Cardia Arrhythmia: Yes (a Fib) Hx Hypercholesterolemia: Yes Hx Hypertension: Yes Hx Pacemaker: No - PULMONARY Hx Respiratory Disorders: No - NEUROLOGICAL Hx Neurological Disorder: Yes Hx Transient Ischemic Attacks (TIA): Yes (2011) - HEENT Hx Cataracts: Yes (B/L) - RENAL Hx Chronic Kidney Disease: No - ENDOCRINE/METABOLIC Hx Endocrine Disorders: No - HEMATOLOGICAL/ONCOLOGICAL Hx Blood Disorders: Yes Hx Anemia: Yes - INTEGUMENTARY Hx Dermatological Problems: Yes (LYMPEDEMA BILATERAL LE) Other/Comment: BLE CELLULITIS/4+ EDEMA - MUSCULOSKELETAL/RHEUMATOLOGICAL Hx Falls: Yes - GASTROINTESTINAL Hx Gastrointestinal Disorders: Yes Hx Gastroesophageal Reflux: Yes - GENITOURINARY/GYNECOLOGICAL Hx Genitourinary Disorders: No - PSYCHIATRIC Hx Substance Use: No - SURGICAL HISTORY Hx Surgeries: Yes (cataract both eyes,) - ANESTHESIA Hx Anesthesia Reactions: No Hx Malignant Hyperthermia: No Meds Allergies/Adverse Reactions: Allergies Allergy/AdvReac Type Severity Reaction Status Date / Time No Known Allergies Allergy Verified 09/24/14 22:04 - Medications Medications: Current Medications Acetaminophen (Tylenol 650 Mg Supp) 650 mg RC Q6H PRN PRN Reason: Fever >100.4 F Hydrocortisone Sodium Succinate (Solu-Cortef) 50 mg IVP Q6H DONNA Last Admin: 08/04/18 17:43 Dose: 50 mg Propofol (Diprivan) 1,000 mg in 100 mls @ 2.041 mls/hr IV .Q24H PRN; Protocol PRN Reason: TITRATE PER MD ORDER Last Admin: 08/04/18 05:15 Dose: 2.041 mls/hr Heparin Sodium/Sodium Chloride (Heparin 35956 Units/250ml 1/2 Normal Saline) 25,000 units in 250 mls @ 8.165 mls/hr IV .Q24H DONNA; Protocol Last Titration: 08/04/18 14:22 Dose: 14.99 units/kg/hr, 10.2 mls/hr NOREPINEPHRINE BIT/0.9 % NACL (Levophed 4 Mg/ 250 Ml Ns Premixed) 4 mg in 250 mls @ 15 mls/hr IV .Q60H21M PRN; Protocol PRN Reason: TITRATE PER MD ORDER Last Titration: 08/04/18 10:00 Dose: 10 mcg/min, 37.5 mls/hr Vasopressin 20 units/ Sodium (Chloride) 101 mls @ 9.09 mls/hr IV .Q11H7M DONNA; Protocol Vancomycin HCl (Vancomycin 1gm) 1 gm in 250 mls @ 167 mls/hr IVPB Q12H DONNA; Protocol Last Admin: 08/04/18 17:43 Dose: 167 mls/hr Meropenem (Merrem Iv 1 Gm Premix) 1 gm in 50 mls @ 100 mls/hr IVPB Q8 DONNA; Protocol Stop: 08/13/18 14:01 Last Admin: 08/04/18 14:25 Dose: 100 mls/hr Levofloxacin/Dextrose (Levaquin 500mg) 500 mg in 100 mls @ 100 mls/hr IVPB DAILY DONNA; Protocol Stop: 08/13/18 13:01 Last Admin: 08/04/18 14:21 Dose: 100 mls/hr Pantoprazole Sodium (Protonix Inj) 40 mg IVP Q12 [facility] Last Admin: 08/04/18 10:07 Dose: 40 mg Physical Exam - Constitutional Appears: Toxic - Respiratory Exam Respiratory Exam: NORMAL BREATHING PATTERN (on mechanical ventilation) - Cardiovascular Exam Cardiovascular Exam: Tachycardia - GI/Abdominal Exam GI & Abdominal Exam: Soft. absent: Distended, Firm, Rebound, Rigid, Tenderness - Extremities Exam Extremities exam: Positive for: calf tenderness (bilateral), pedal edema Additional comments: Bilateral LE edema & tenderness (chronic per pt and family) - Neurological Exam Additional comments: Intubated and lightly sedated - Skin Skin Exam: Normal Color, Warm Results - Vital Signs Recent Vital Signs: Last Vital Signs Temp 100.2 F H 08/04/18 18:32 Pulse 102 H 08/04/18 18:32 Resp 16 08/04/18 13:30 BP 123/75 08/04/18 18:32 Pulse Ox 100 08/04/18 18:32 - Labs Result Diagrams: 08/07/18 05:30 08/07/18 05:30 Labs: Laboratory Results - last 24 hr 08/04/18 08/04/18 08/04/18 03:44 03:44 03:44 WBC 18.8 H RBC 4.42 Hgb 13.3 Hct 42.0 MCV 95.0 MCH 30.1 MCHC 31.7 RDW 13.4 Plt Count 180 MPV 10.7 Neut % (Auto) Lymph % (Auto) [place] % (Auto) Eos % (Auto) Baso % (Auto) Lymph # (Auto) [place] # (Auto) Eos # (Auto) Baso # (Auto) Absolute Neuts (auto) PT 19.1 H INR 1.72 APTT 32.7 pCO2 pO2 HCO3 ABG pH ABG Total CO2 ABG O2 Saturation ABG O2 Content ABG Base Excess ABG Hemoglobin ABG Carboxyhemoglobin POC ABG HHb (Measured) ABG Methemoglobin ABG O2 Capacity ABG Potassium VBG pH VBG pCO2 VBG HCO3 VBG Total CO2 VBG O2 Sat (Calc) VBG Base Excess VBG Potassium Hgb O2 Saturation Glucose Lactate FiO2 Crit Value Called To Crit Value Called By Blood Gas Notified Time Sodium 141 Potassium 4.7 Chloride 106 Carbon Dioxide 17 L Anion Gap 22 H BUN 27 H Creatinine 1.0 Est GFR ( Amer) > 60 Est GFR (Non-Af Amer) 53 Random Glucose 206 H Calcium 9.5 Phosphorus Magnesium Total Bilirubin 0.9 AST 39 H ALT 14 Alkaline Phosphatase 65 Lactate Dehydrogenase 617 Total Creatine Kinase 38 Troponin I 0.20 H* NT-Pro-B Natriuret Pep Total Protein 8.5 H Albumin 4.6 Globulin 3.8 Albumin/Globulin Ratio 1.2 Lipase 56 Procalcitonin Arterial Blood Potassium Venous Blood Potassium Urine Color Urine Appearance Urine pH Ur Specific [place] Urine Protein Urine Glucose (UA) Urine Ketones Urine Blood Urine Nitrate Urine Bilirubin Urine Urobilinogen Ur Leukocyte Esterase Urine RBC Urine WBC Ur Epithelial Cells Urine Bacteria Ur L.pneumophila Ag 08/04/18 08/04/18 08/04/18 04:10 04:23 04:25 WBC RBC Hgb Hct MCV MCH MCHC RDW Plt Count MPV Neut % (Auto) Lymph % (Auto) [place] % (Auto) Eos % (Auto) Baso % (Auto) Lymph # (Auto) [place] # (Auto) Eos # (Auto) Baso # (Auto) Absolute Neuts (auto) PT INR APTT pCO2 27 L pO2 61 H 78.0 L HCO3 16.0 L ABG pH 7.38 ABG Total CO2 16.8 L ABG O2 Saturation 97.2 ABG O2 Content ABG Base Excess -7.6 L ABG Hemoglobin ABG Carboxyhemoglobin POC ABG HHb (Measured) ABG Methemoglobin ABG O2 Capacity ABG Potassium 3.6 VBG pH 7.37 VBG pCO2 27.0 L VBG HCO3 15.6 L VBG Total CO2 16.4 L VBG O2 Sat (Calc) 94.9 H VBG Base Excess -8.1 L VBG Potassium 5.0 Hgb O2 Saturation Glucose 170 H 138 H Lactate 5.7 H* 4.0 H* FiO2 21.0 100.0 Crit Value Called To Henri crespo Crit Value Called By [facility] Blood Gas Notified Time 419 429 Sodium 137.0 137.0 Potassium Chloride 106.0 108.0 H Carbon Dioxide Anion Gap BUN Creatinine Est GFR ( Amer) Est GFR (Non-Af Amer) Random Glucose Calcium Phosphorus Magnesium Total Bilirubin AST ALT Alkaline Phosphatase Lactate Dehydrogenase Total Creatine Kinase Troponin I NT-Pro-B Natriuret Pep Total Protein Albumin Globulin Albumin/Globulin Ratio Lipase Procalcitonin Arterial Blood Potassium 3.6 Venous Blood Potassium 5.0 Urine Color Yellow Urine Appearance Sl cloudy Urine pH 6.0 Ur Specific [place] >= 1.030 Urine Protein 30 H Urine Glucose (UA) Negative Urine Ketones Negative Urine Blood Moderate H Urine Nitrate Negative Urine Bilirubin Negative Urine Urobilinogen 0.2 Ur Leukocyte Esterase Negative Urine RBC 1 - 3 H Urine WBC 0 - 2 Ur Epithelial Cells 0 - 2 Urine Bacteria Mod Ur L.pneumophila Ag 08/04/18 08/04/18 08/04/18 05:15 08:00 10:00 WBC 15.6 H RBC 3.99 Hgb 12.0 Hct 37.5 MCV 94.0 MCH 30.1 MCHC 32.0 RDW 13.7 Plt Count 166 MPV 11.0 Neut % (Auto) 84.8 H Lymph % (Auto) 9.5 L [place] % (Auto) 5.5 Eos % (Auto) 0.0 L Baso % (Auto) 0.2 Lymph # (Auto) 1.5 [place] # (Auto) 0.9 H Eos # (Auto) 0.0 Baso # (Auto) 0.03 Absolute Neuts (auto) 13.23 H PT INR APTT pCO2 28 L pO2 109.0 H HCO3 15.5 L ABG pH 7.35 ABG Total CO2 16.4 L ABG O2 Saturation 99.4 H ABG O2 Content 16.3 ABG Base Excess -8.8 L ABG Hemoglobin 11.9 ABG Carboxyhemoglobin 1.9 H POC ABG HHb (Measured) 0.6 ABG Methemoglobin 1.3 ABG O2 Capacity 16.4 ABG Potassium VBG pH VBG pCO2 VBG HCO3 VBG Total CO2 VBG O2 Sat (Calc) VBG Base Excess VBG Potassium Hgb O2 Saturation 96.3 Glucose Lactate FiO2 100.0 Crit Value Called To Crit Value Called By Blood Gas Notified Time Sodium 141 Potassium 4.8 Chloride 106 Carbon Dioxide 16 L Anion Gap 24 H BUN 27 H Creatinine 1.0 Est GFR ( Amer) > 60 Est GFR (Non-Af Amer) 53 Random Glucose 202 H Calcium 9.6 Phosphorus 4.8 H Magnesium 1.4 L Total Bilirubin 0.9 AST 48 H D ALT 9 Alkaline Phosphatase 69 Lactate Dehydrogenase Total Creatine Kinase Troponin I NT-Pro-B Natriuret Pep 4380 H Total Protein 8.6 H Albumin 4.6 Globulin 4.0 Albumin/Globulin Ratio 1.2 Lipase Procalcitonin Arterial Blood Potassium Venous Blood Potassium Urine Color Urine Appearance Urine pH Ur Specific [place] Urine Protein Urine Glucose (UA) Urine Ketones Urine Blood Urine Nitrate Urine Bilirubin Urine Urobilinogen Ur Leukocyte Esterase Urine RBC Urine WBC Ur Epithelial Cells Urine Bacteria Ur L.pneumophila Ag 08/04/18 08/04/18 08/04/18 10:00 12:00 12:00 WBC RBC Hgb Hct MCV MCH MCHC RDW Plt Count MPV Neut % (Auto) Lymph % (Auto) [place] % (Auto) Eos % (Auto) Baso % (Auto) Lymph # (Auto) [place] # (Auto) Eos # (Auto) Baso # (Auto) Absolute Neuts (auto) PT INR APTT 218.9 H* pCO2 pO2 31 HCO3 ABG pH ABG Total CO2 ABG O2 Saturation ABG O2 Content ABG Base Excess ABG Hemoglobin ABG Carboxyhemoglobin POC ABG HHb (Measured) ABG Methemoglobin ABG O2 Capacity ABG Potassium VBG pH 7.25 L VBG pCO2 40.0 VBG HCO3 17.5 L VBG Total CO2 18.7 L VBG O2 Sat (Calc) 56.1 VBG Base Excess -9.2 L VBG Potassium 3.6 Hgb O2 Saturation Glucose 75 Lactate 2.4 H FiO2 21.0 Crit Value Called To Regina Crit Value Called By Ab Blood Gas Notified Time 1035 Sodium 142.0 Potassium Chloride 109.0 H Carbon Dioxide Anion Gap BUN Creatinine Est GFR ( Amer) Est GFR (Non-Af Amer) Random Glucose Calcium Phosphorus Magnesium Total Bilirubin AST ALT Alkaline Phosphatase Lactate Dehydrogenase Total Creatine Kinase Troponin I 3.11 H* D NT-Pro-B Natriuret Pep Total Protein Albumin Globulin Albumin/Globulin Ratio Lipase Procalcitonin Arterial Blood Potassium Venous Blood Potassium 3.6 Urine Color Urine Appearance Urine pH Ur Specific [place] Urine Protein Urine Glucose (UA) Urine Ketones Urine Blood Urine Nitrate Urine Bilirubin Urine Urobilinogen Ur Leukocyte Esterase Urine RBC Urine WBC Ur Epithelial Cells Urine Bacteria Ur L.pneumophila Ag 08/04/18 08/04/18 13:00 13:30 WBC RBC Hgb Hct MCV MCH MCHC RDW Plt Count MPV Neut % (Auto) Lymph % (Auto) [place] % (Auto) Eos % (Auto) Baso % (Auto) Lymph # (Auto) [place] # (Auto) Eos # (Auto) Baso # (Auto) Absolute Neuts (auto) PT INR APTT pCO2 pO2 HCO3 ABG pH ABG Total CO2 ABG O2 Saturation ABG O2 Content ABG Base Excess ABG Hemoglobin ABG Carboxyhemoglobin POC ABG HHb (Measured) ABG Methemoglobin ABG O2 Capacity ABG Potassium VBG pH VBG pCO2 VBG HCO3 VBG Total CO2 VBG O2 Sat (Calc) VBG Base Excess VBG Potassium Hgb O2 Saturation Glucose Lactate FiO2 Crit Value Called To Crit Value Called By Blood Gas Notified Time Sodium Potassium Chloride Carbon Dioxide Anion Gap BUN Creatinine Est GFR ( Amer) Est GFR (Non-Af Amer) Random Glucose Calcium Phosphorus Magnesium Total Bilirubin AST ALT Alkaline Phosphatase Lactate Dehydrogenase Total Creatine Kinase Troponin I NT-Pro-B Natriuret Pep Total Protein Albumin Globulin Albumin/Globulin Ratio Lipase Procalcitonin 0.13 L Arterial Blood Potassium Venous Blood Potassium Urine Color Urine Appearance Urine pH Ur Specific [place] Urine Protein Urine Glucose (UA) Urine Ketones Urine Blood Urine Nitrate Urine Bilirubin Urine Urobilinogen Ur Leukocyte Esterase Urine RBC Urine WBC Ur Epithelial Cells Urine Bacteria Ur L.pneumophila Ag Negative Assessment & Plan - Assessment and Plan (Free Text) Assessment: 83 year old female with PMHx of HTN, A fib (on Eliquis), breast cancer (s/p right lumpectomy), TIA, chronic lymphedema, and chronic pain, who presented with pain and was admitted to the ICU for respiratory distress, septic shock, A fib with RVR, possible NSTEMI, pneumonia - CT: Calcified cholelithiasis without wall thickening or pericholecystic fluid, Pulmonary vascular congestion/edema with patchy bilateral infiltrates and chronic interstitial changes. - US: Minimal cholelithiasis without wall thickening/edema or pericholecystic fluid. Sonographic Tapia's sign was not elicited. CBD 5 mm. Plan: - Gallbladder unlikely source of sepsis - No acute surgical intervention necessary - Miralax, dulcolax suppository - Will discuss plan with Dr. Luca Finley PGY-4
[2018-08-04] MEDS: POLYETHYLENE GLYCOL 3350 17 GM/Dose PACKET PO SCH (21:32)
[2018-08-05] MEDS: Vancomycin 1gm in NS 250ml 1 GM/250 ML BAG IVPB SCH (00:15)
--- NOTE | 2018-08-05 00:49 | CON ---
DATE: 08/04/2018 LOCATION: The patient is seen earlier today in room 129, bed 5. CHIEF COMPLAINT: Respiratory failure, intubated on a ventilator x1 day duration. HISTORY OF PRESENT ILLNESS: This is an 83-year-old female who was admitted to the emergency room. The patient was seen by Dr. Anthony Álvarez. The patient was brought into the emergency room with history of atrial fibrillation, hypertension, bilateral leg edema and anxiety presented into the emergency room with severe pain. The patient appeared with pain. The patient was seen earlier this morning in the ICU. The patient was intubated on a ventilator. The patient also had history of breast cancer with right lumpectomy, TIA, chronic lymphedema, anxiety, depression. REVIEW OF SYSTEMS: A 12-point review of systems performed. PAST MEDICAL HISTORY: Significant for atrial fibrillation, breast cancer, hypertension, TIA, chronic pain, GERD, anxiety, depression, anemia, arthritis. PAST SURGICAL HISTORY: Significant for cataract surgery and right lumpectomy. ALLERGIES: THE PATIENT HAS NO KNOWN ALLERGIES. MEDICATIONS: The patient's medications revealed that the patient is on Lasix, Lopressor, Xarelto, Prilosec, Lipitor. PHYSICAL EXAMINATION: VITAL SIGNS: The patient's temperature was 100.5, blood pressure 109/60, respiratory rate on the vent, heart rate of 123. HEENT: Unremarkable. ET tube is placed. NECK: Supple. LUNGS: Decreased breath sounds. HEART: Normal S1 and S2. ABDOMEN: Soft and nontender. No rebound. No guarding. LABORATORY DATA: White count of 18,800, hemoglobin of 13, platelets of 180. BUN 27, creatinine of 1.0. Troponin is 0.20. BNP is 4380. WBC count in the urinalysis is 0-2. The patient had a CAT scan of the abdomen and pelvis and chest, results not available. The patient had noted chest x-ray with pulmonary congestion. consultation is reviewed. The patient did have of hypotension. ASSESSMENT AND PLAN: An 83-year-old female with breast cancer, atrial fibrillation, transient ischemic attack, chronic pain, gastroesophageal reflux disease, bilateral leg edema, admitted with fever with hypotension with septic shock with respiratory failure, intubated on a ventilator in the intensive care unit with gastrointestinal versus community-acquired gastrointestinal source versus community-acquired pneumonia, currently on vancomycin, increasing with acute congestive heart failure and non-ST elevation myocardial infarction. We will order panculture, blood, urine, sputum, methicillin-resistant Staphylococcus aureus screen, procalcitonin, urine for Legionella antigen. We will treat the patient with vancomycin, meropenem and Levaquin. We will check on the QTC which is reported to be at 415. We will make further recommendations upon availability of workup results, cultures, imaging, CAT scan results. Overall prognosis is poor for this patient with septic shock, respiratory failure intubated on ventilator. We will follow closely with you. Jasen Noble MD
[2018-08-05] MEDS ORDERED: Metoprolol 1 mg/ml Inj IVP ONE (04:00)
--- NOTE | 2018-08-05 05:33 | CARD ---
APPROVED REPORT Date of service: 08/04/2018 EXAM: Two-dimensional and M-mode echocardiogram with Doppler and color Doppler. INDICATION Non STEMI 2D DIMENSIONS Left Atrium (2D)4.5 (1.6-4.0cm)IVSd1.1 (0.7-1.1cm) LVDd3.9 (3.9-5.9cm)PWd1.4 (0.7-1.1cm) LVDs3.2 (2.5-4.0cm)FS (%) 17.8 % LVEF (%)37.6 (>50%) M-Mode DIMENSIONS Aortic Root2.60 (2.2-3.7cm)Aortic Cusp Exc.1.10 (1.5-2.0cm) Aortic Valve AoV Peak Fxhahnpb241.0cm/Neri Peak GR.10mmHgLVOT Peak Akeyyrbo94.7cm/s LVOT VTI10.30cm Mitral Valve E/A ratio0.0 TDI E/Lateral E'0.0E/Medial E'0.0 Tricuspid Valve TR Peak [id number] [id number] Peak Gr.25mmHg [id number] LEFT VENTRICLE The left ventricle is normal size. There is mild concentric left ventricular hypertrophy. The systolic function is mildly to moderately impaired. Septal dysknesis is present. RIGHT VENTRICLE The right ventricle is normal size. The right ventricular systolic function is normal. ATRIA The left atrium is mildly dilated. The right atrium is mildly dilated. The interatrial septum is intact with no evidence for an atrial septal defect. AORTIC VALVE The aortic valve is moderately calcified. No aortic regurgitation is present. There is mild valvular aortic stenosis. MITRAL VALVE Mitral annular calcification is mild. Mitral regurgitation is mild. TRICUSPID VALVE The tricuspid valve is normal in structure. There is moderate tricuspid regurgitation. GREAT VESSELS The aortic root is normal in size. The IVC is dilated. PERICARDIAL EFFUSION There is no pleural effusion. There is no pericardial effusion. <Conclusion> Biatrial enlargement. Mild to moderately reduced LV systolic function with septal dyskinesis. Mild MR. Mild . Moderate TR.
[2018-08-05] MEDS: Meropenem IV 1 gm in NS 1 GM/50 ML BAG IVPB SCH ×3 (05:39→21:10)
--- NOTE | 2018-08-05 05:44 | CP.PCM.PN ---
Subjective - Date & Time of Evaluation Date of Evaluation: 08/05/18 Time of Evaluation: 05:44 - Subjective Subjective: I was asked to co-sign the order for Lopressor 5 mg IV x1. It was ordered for elevated heart rate. Patient was picked at. Not in acute distress. Medical record was reviewed. This 83 year old woman was admitted increasing abdominal pain, found to be desaturating in the ER. Has PMH of HTN, Ch. atrial fibrillation, breast ca, legs stasis dermatitis. Objective - Vital Signs/Intake and Output Vital Signs (last 24 hours): Temp Pulse Resp BP Pulse Ox 99.9 F H 118 H 16 139/83 100 08/05/18 05:17 08/05/18 05:17 08/04/18 13:30 08/05/18 05:17 08/05/18 05:17 Intake and Output: 08/04/18 08/05/18 18:59 06:59 Intake Total 2350 296.2 Output Total 250 Balance 2100 296.2 - Medications Medications: Current Medications Acetaminophen (Tylenol 650 Mg Supp) 650 mg RC Q6H PRN PRN Reason: Fever >100.4 F Last Admin: 08/04/18 22:24 Dose: 650 mg Hydrocortisone Sodium Succinate (Solu-Cortef) 50 mg IVP Q6H DONNA Last Admin: 08/05/18 05:41 Dose: 50 mg Propofol (Diprivan) 1,000 mg in 100 mls @ 2.041 mls/hr IV .Q24H PRN; Protocol PRN Reason: TITRATE PER MD ORDER Last Titration: 08/04/18 23:00 Dose: 5 mcg/kg/min, 2.041 mls/hr Heparin Sodium/Sodium Chloride (Heparin 57462 Units/250ml 1/2 Normal Saline) 25,000 units in 250 mls @ 8.165 mls/hr IV .Q24H DONNA; Protocol Last Titration: 08/04/18 23:00 Dose: 10.58 units/kg/hr, 7.2 mls/hr NOREPINEPHRINE BIT/0.9 % NACL (Levophed 4 Mg/ 250 Ml Ns Premixed) 4 mg in 250 mls @ 15 mls/hr IV .[id number] PRN; Protocol PRN Reason: TITRATE PER MD ORDER Last Titration: 08/05/18 04:55 Dose: 4 mcg/min, 15 mls/hr Vasopressin 20 units/ Sodium (Chloride) 101 mls @ 9.09 mls/hr IV .Q11H7M DONNA; Protocol Vancomycin HCl (Vancomycin 1gm) 1 gm in 250 mls @ 167 mls/hr IVPB Q12H DONNA; Protocol Last Admin: 08/05/18 00:15 Dose: 167 mls/hr Meropenem (Merrem Iv 1 Gm Premix) 1 gm in 50 mls @ 100 mls/hr IVPB Q8 DONNA; Protocol Stop: 08/13/18 14:01 Last Admin: 08/05/18 05:39 Dose: 100 mls/hr Levofloxacin/Dextrose (Levaquin 500mg) 500 mg in 100 mls @ 100 mls/hr IVPB DAILY DONNA; Protocol Stop: 08/13/18 13:01 Last Admin: 08/04/18 14:21 Dose: 100 mls/hr Pantoprazole Sodium (Protonix Inj) 40 mg IVP Q12 DONNA Last Admin: 08/04/18 21:34 Dose: 40 mg Polyethylene Glycol (Miralax) 17 gm PO DAILY DONNA Last Admin: 08/04/18 21:32 Dose: 17 gm - Labs Labs: 08/04/18 10:00 08/04/18 05:15 PT 19.1 SECONDS (9.4-12.5) H 08/04/18 03:44 INR 1.72 08/04/18 03:44 APTT 240.7 Seconds (26.9-38.3) H* 08/04/18 20:20 - Constitutional Appears: Well, No Acute Distress - Head Exam Head Exam: ATRAUMATIC, NORMAL INSPECTION, NORMOCEPHALIC - Eye Exam Eye Exam: Normal appearance - ENT Exam ENT Exam: Normal External Ear Exam - Neck Exam Neck Exam: Normal Inspection - Respiratory Exam Respiratory Exam: NORMAL BREATHING PATTERN - Cardiovascular Exam Cardiovascular Exam: absent: JVD - GI/Abdominal Exam GI & Abdominal Exam: absent: Distended - Rectal Exam Rectal Exam: Deferred - Exam Additional comments: Deferred. - Extremities Exam Extremities Exam: Normal Inspection - Back Exam Back Exam: NORMAL INSPECTION - Neurological Exam Neurological Exam: Alert, Awake - Psychiatric Exam Psychiatric exam: Normal Affect - Skin Skin Exam: Normal Color Assessment and Plan - Assessment and Plan (Free Text) Assessment: Elevated heart rate. Atrial fibrillation. Breast cancer. HTN Stasis dermatits. Obesity. Leukocytosis Metabolic acidosis. Plan: Lopressor 5 mg IV x 1. Continue present management.
[2018-08-05 06:14] LABS: ARTERIAL BLOOD GAS HCO3 12.7 mmol/L (21-28); ARTERIAL BLOOD GAS HEMOGLOBIN 12.3 g/dL (11.7-17.4); ARTERIAL BLOOD GAS O2 CAPACITY 17.8 mL/dl (16-24); ARTERIAL BLOOD GAS O2 CONTENT 17.7 ML/dl (15-23); ARTERIAL BLOOD GAS O2 SAT 99.7 % (95-98); ARTERIAL BLOOD GAS PCO2 21 mm/Hg (35-45); ARTERIAL BLOOD GAS PH 7.39 (7.35-7.45); ARTERIAL BLOOD GAS TCO2 13.3 mmol.L (22-28)
[2018-08-05 06:17] LABS: BASO # 0.01 K/mm3 (0.0-2.0); BASO % 0.1 % (0.0-3.0); HEMOGLOBIN 11.7 g/dL (12.0-16.0); LYMPH # 1.4 (1.2-3.4); LYMPH % 7.2 % (22.0-35.0); MEAN CELL VOLUME 91.5 fl (80.0-105.0); MEAN CORPUSCULAR HEMOGLOBIN 29.2 pg (25.0-35.0); MEAN CORPUSCULAR HGB CONC 31.9 g/dl (31.0-37.0); MEAN PLATELET VOLUME 10.7 fl (7.0-11.0); MONO # 1.1 (0.1-0.6); MONO % 5.5 % (1.0-6.0); RBC 4.01 10^6/uL (3.5-6.1); RED CELL DISTRIBUTION WIDTH 14.3 % (11.5-14.5); WHITE BLOOD COUNT 19.4 10^3/uL (4.5-11.0)
[2018-08-05 06:44] LABS: ALBUMIN 3.3 g/dL (3.0-4.8); CALCIUM 7.7 mg/dL (8.4-10.5)
[2018-08-05] MEDS: Metoprolol 1 mg/ml Inj IVP SCH ×3 (06:51→17:59)
--- NOTE | 2018-08-05 08:02 | CON ---
DATE: 08/05/2018 REQUESTING PHYSICIAN: Dr. Rapp. REASON FOR CONSULTATION: Respiratory failure, [id number] elevation myocardial infarction. HISTORY: This is an 83-year-old woman known to me from prior evaluation with a history of atrial fibrillation, hypertension, prior TIAs, who was brought to the emergency room with complaints of severe pain. In the emergency room, she apparently became non-communicative and showed evidence of respiratory distress. She was intubated. She is in the CCU at the present time. She is on mild sedation, but is awake and follows commands and answers to questioning. She denies any pain at the present time. She apparently had no clear chest pain. Her troponin was elevated on admission. She does have a history of hypertension. She also has chronic lymphedema. PAST HISTORY: Notable for right breast cancer treated with a lumpectomy. MEDICATIONS AT HOME: Included Ecotrin, Xarelto 20 mg daily, Lipitor 10 mg daily, Prilosec 40 mg daily, lisinopril HCT 20/25 mg daily, Xanax p.r.n., Bystolic 10 mg daily, hydralazine 25 mg b.i.d., and oxycodone as needed. ALLERGIES: NONE. SOCIAL HISTORY: She does not smoke or drink. FAMILY HISTORY: Both parents are from age-related illness. REVIEW OF SYSTEMS: A 12-point review of systems was somewhat limited, but is negative for abdominal pain this morning. She does have chronic arthritis symptoms. PHYSICAL EXAMINATION: GENERAL: She is an elderly woman who appears mildly sedated and uncomfortable with the presence of the ET tube. VITAL SIGNS: Her blood pressure is 140/82 with a pulse of 100-120 in atrial fibrillation, respirations are 18. She is currently 99.9 with a peak temperature of 100.6 last evening. HEENT: She is orally intubated. Head is normocephalic, atraumatic. NECK: Supple. A central line is present in the right internal jugular vein. CHEST: Bilateral coarse rhonchi heard. HEART: PMI displaced laterally with an irregularly irregular rhythm. Systolic murmur at the lower left sternal border as well as at the base. ABDOMEN: Soft, distended. Bowel sounds are present. Abdomen is nontender. EXTREMITIES: Both lower extremities are wrapped and chronic lymphedema changes noted. DIAGNOSTIC DATA: Electrocardiogram reveals atrial fibrillation with rapid ventricular response and right bundle-branch block pattern. Chest x-ray reveals increased cardiac silhouette with increased interstitial markings. CT of the abdomen and pelvis revealed no evidence of intraabdominal pathology. Echocardiogram revealed biatrial enlargement with mild to moderately reduced LV systolic function and septal dyskinesis, mild aortic stenosis, and mitral regurgitation as well as moderate tricuspid regurgitation were present. Abdominal ultrasound revealed cholelithiasis with no evidence of cholecystitis. White count is 18.8 with a hemoglobin and hematocrit of 13.3 and 42.0, platelet count is 180,000. PTT is 240. Recent arterial blood gas, 7.39, pCO2 of 21, pO2 of 348 on 90% FiO2, 5 of PEEP, potassium 4.8, BUN and creatinine 27 and 1.0. Glucose is 202. Initial troponin 0.2, followup is 3.1. BNP 4380. IMPRESSION: 1. Respiratory failure secondary to sepsis with some evidence of pulmonary edema on chest x-ray. 2. Transient hypotension, now improved. 3. Non ST-segment elevation myocardial infarction and possible demand ischemia. 4. Chronic atrial fibrillation with suboptimal heart rate control. 5. History of breast cancer, status post lumpectomy. 6. History of hypertension. 7. Chronic lymphedema. 8. Rest of problems as noted. RECOMMENDATIONS: Ventilatory support should continue and oxygen delivery reduced as tolerated. Serial enzymes will be obtained. IV beta-paul therapy will be administered both for heart rate control and as well as for antianginal benefit. IV heparin will be continued for now. Levophed is initiated and will be tapered as tolerated. Broad-spectrum antibiotics will continue. Old records will be reviewed. Further recommendations will be based upon her clinical course and response to the above interventions. Thank you for this consultation, and I will be happy to follow along as needed. Paresh Eric MD
[2018-08-05] MEDS: Heparin25000 units/250ml 1/2NS 25,000 UNITS/250 ML BAG IV SCH (08:16)
[2018-08-05] MEDS: NOREPINEPHRINE BIT/0.9 % NACL 4 MG/250 ML BAG IV PRN (08:18)
--- NOTE | 2018-08-05 08:19 | CP.CCUPN ---
<Audi Ng - Last Filed: 08/05/18 13:16> CCU Subjective - Physician Review Events Since Last Encounter (Free Text): 08/05/18 08:16 no acute events overnight Subjective (Free Text): 08/05/18 08:16 pt seen and examined this morning in the ICU, pt sedated at this time CCU Objective - Vital Signs / Intake & Output Vital Signs (Last 4 hours): Vital Signs Temp Pulse Resp BP Pulse Ox 08/05/18 07:47 99.9 F H 124 H 116/78 100 08/05/18 07:32 99.9 F H 115 H 130/76 100 08/05/18 07:18 33 H 96 08/05/18 07:17 99.7 F H 109 H 118/78 100 08/05/18 07:02 99.7 F H 116 H 110/83 97 08/05/18 07:00 99.7 F H 116 H 99 08/05/18 06:51 123 H 136/96 H 08/05/18 06:47 99.7 F H 135 H 125/90 98 08/05/18 06:33 99.7 F H 140 H 135/96 H 90 L 08/05/18 06:18 99.7 F H 123 H 126/47 L 100 08/05/18 06:02 99.7 F H 116 H 143/78 96 08/05/18 06:00 99.7 F H 119 H 100 08/05/18 05:55 99.7 F H 115 H 100 08/05/18 05:47 99.7 F H 121 H 135/87 100 08/05/18 05:32 99.9 F H 120 H 129/82 95 08/05/18 05:17 99.9 F H 118 H 139/83 100 08/05/18 05:02 100.0 F H 120 H 138/76 100 08/05/18 05:00 100.0 F H 109 H 100 08/05/18 04:52 100.2 F H 114 H 141/83 97 08/05/18 04:47 100.2 F H 118 H 161/112 H 100 08/05/18 04:32 99.7 F H 113 H 165/98 H 100 08/05/18 04:18 118 H 136/86 08/05/18 04:17 99.7 F H 114 H 157/106 H 100 Intake and Output (Last 8hrs): Intake & Output 08/04/18 08/05/18 08/05/18 22:59 06:59 14:59 Intake Total 2269 1170.0 Output Total 250 300 Balance 2018 870.0 Weight 164 lb 4.8 oz Intake: IV 2269 1110.0 Right Antecubital 250 Right Hand 200 78 Right Internal Jugular 1800 500 Oral 0 0 Other 60 Output: Urine 250 300 Urethral ([place]) 250 300 Other: # Bowel Movements 3 2 - Physical Exam Head: Positive for: Atraumatic, Normocephalic Mouth: Positive for: Moist Mucous Membranes Neck: Positive for: Normal Range of Motion Respiratory/Chest: Positive for: Rhonchi (coarse breath sounds b/l), Other (intubated, sedated on ventilator, breath sounds auscultated b/l). Negative for: Accessory Muscle Use Cardiovascular: Positive for: Normal S1, S2, Tachycardic. Negative for: Murmurs, Rub, Gallop Abdomen: Positive for: Distention (mid-abdomen appears distended, patient does not respond to abdominal palpation), Normal Bowel Sounds. Negative for: Tenderness Upper Extremity: Positive for: NORMAL PULSES, Other (significant hematoma on R arm from blood draw). Negative for: Cyanosis, Edema Lower Extremity: Positive for: Edema (non-pitting, ), NORMAL PULSES, Other (venous stasis dermatitis b/l) Neurological: Positive for: Other (intubated, sedated) Skin: Positive for: Warm, Dry Psychiatric: Positive for: Other (intubated, sedated) - Medications Active Medications: Active Medications Generic Name Dose Route Start Last Admin Trade Name Freq PRN Reason Stop Dose Admin Acetaminophen 650 mg 08/04/18 08:59 08/04/18 22:24 Tylenol 650 Mg Supp RC 650 mg Q6H PRN Administration Fever >100.4 F Hydrocortisone Sodium Succinate 50 mg 08/04/18 12:00 08/05/18 05:41 Solu-Cortef IVP 50 mg Q6H DONNA Administration Propofol 1,000 mg in 100 mls @ 2.041 mls/hr 08/04/18 05:15 08/04/18 23:00 Diprivan IV 5 mcg/kg/min .Q24H PRN 2.041 mls/hr TITRATE PER MD ORDER Titration Protocol 5 MCG/KG/MIN Heparin Sodium/Sodium Chloride 25,000 units in 250 mls @ 8.165 mls/hr 08/04/18 05:30 08/05/18 06:30 Heparin 71742 Units/250ml 1/2 Normal Saline IV 7.64 units/kg/hr .Q24H DONNA 5.2 mls/hr Titration Protocol 12 UNITS/KG/HR NOREPINEPHRINE BIT/0.9 % NACL 4 mg in 250 mls @ 15 mls/hr 08/04/18 11:22 08/05/18 04:55 Levophed 4 Mg/ 250 Ml Ns Premixed IV 4 mcg/min .[id number] PRN 15 mls/hr TITRATE PER MD ORDER Titration Protocol 4 MCG/MIN Vasopressin 20 units/ Sodium 101 mls @ 9.09 mls/hr 08/04/18 11:30 Chloride IV .[id number] DNONA Protocol 0.03 U/MIN Meropenem 1 gm in 50 mls @ 100 mls/hr 08/04/18 14:00 08/05/18 05:39 Merrem Iv 1 Gm Premix IVPB 08/13/18 14:01 100 mls/hr Q8 DONNA Administration Protocol Metoprolol Tartrate 5 mg 08/05/18 06:30 08/05/18 06:51 Lopressor IVP 5 mg Q6H DONNA Administration Pantoprazole Sodium 40 mg 08/04/18 05:29 08/04/18 21:34 Protonix Inj IVP 40 mg Q12 DONNA Administration Polyethylene Glycol 17 gm 08/04/18 19:15 08/04/18 21:32 Miralax PO 17 gm DAILY DONNA Administration - Patient Studies Lab Studies: Microbiology Studies 08/04/18 04:00 Blood Culture - Preliminary Blood NO GROWTH AFTER 24 HOURS 08/04/18 13:30 Gram Stain - Final Sputum Induced 08/04/18 04:20 Blood Culture - Preliminary Blood Gram Negative Juve Gram Stain - Final Lab Studies 08/05/18 08/05/18 08/05/18 Range/Units 06:00 05:55 05:55 WBC 19.4 H D (4.5-11.0) 10^3/uL RBC 4.01 (3.5-6.1) 10^6/uL Hgb 11.7 L (12.0-16.0) g/dL Hct 36.7 (36.0-48.0) % MCV 91.5 (80.0-105.0) fl MCH 29.2 (25.0-35.0) pg MCHC 31.9 (31.0-37.0) g/dl RDW 14.3 (11.5-14.5) % Plt Count 142 (120.0-450.0) 10^3/uL MPV 10.7 (7.0-11.0) fl Neut % (Auto) 87.2 H (50.0-68.0) % Lymph % (Auto) 7.2 L (22.0-35.0) % [place] % (Auto) 5.5 (1.0-6.0) % Eos % (Auto) 0.0 L (1.5-5.0) % Baso % (Auto) 0.1 (0.0-3.0) % Lymph # (Auto) 1.4 (1.2-3.4) [place] # (Auto) 1.1 H (0.1-0.6) Eos # (Auto) 0.0 (0.0-0.7) Baso # (Auto) 0.01 (0.0-2.0) K/mm3 Absolute Neuts (auto) 16.90 H (1.4-6.5) APTT 93.6 H (26.9-38.3) Seconds pCO2 21 L (35-45) mm/Hg pO2 348.0 H (80-100) mm/Hg HCO3 12.7 L (21-28) mmol/L ABG pH 7.39 (7.35-7.45) ABG Total CO2 13.3 L (22-28) mmol.L ABG O2 Saturation 99.7 H (95-98) % ABG O2 Content 17.7 (15-23) ML/dl ABG Base Excess -10.2 L (-2.0-3.0) mmol/L ABG Hemoglobin 12.3 (11.7-17.4) g/dL ABG Carboxyhemoglobin 1.1 (0.5-1.5) % POC ABG HHb (Measured) 0.3 (0-5) % ABG Methemoglobin 1.3 (0.0-3.0) % ABG O2 Capacity 17.8 (16-24) mL/dl VBG pH (7.32-7.43) VBG pCO2 (40-60) VBG HCO3 (21-28) mmol/l VBG Total CO2 (22-28) mmol.L VBG O2 Sat (Calc) (40-65) % VBG Base Excess (0.0-2.0) mmol/L VBG Potassium (3.6-5.2) mmol/L Hgb O2 Saturation 97.3 (95.0-98.0) % Sodium (132-148) mmol/L Chloride (98-107) mmol/L Glucose (65-105) mg/dl Lactate (0.7-2.1) mmol/L FiO2 90.0 % Crit Value Called To Crit Value Called By Blood Gas Notified Time Potassium (3.6-5.0) mmol/L Carbon Dioxide (21-33) mmol/L Anion Gap (10-20) BUN (7-21) mg/dL Creatinine (0.7-1.2) mg/dl Est GFR ( Amer) Est GFR (Non-Af Amer) Random Glucose (70-110) mg/dL Calcium (8.4-10.5) mg/dL Phosphorus (2.5-4.5) mg/dL Magnesium (1.7-2.2) mg/dL Total Bilirubin (0.2-1.3) mg/dL AST (14-36) U/L ALT (7-56) U/L Alkaline Phosphatase (38-126) U/L Troponin I ng/mL Total Protein (5.8-8.3) g/dL Albumin (3.0-4.8) g/dL Globulin gm/dL Albumin/Globulin Ratio (1.1-1.8) Procalcitonin (0.19-0.49) NG/ML Venous Blood Potassium (3.6-5.2) mmol/L Ur L.pneumophila Ag (NEGATIVE) 08/05/18 08/04/18 08/04/18 Range/Units 05:55 20:20 13:30 WBC (4.5-11.0) 10^3/uL RBC (3.5-6.1) 10^6/uL Hgb (12.0-16.0) g/dL Hct (36.0-48.0) % MCV (80.0-105.0) fl MCH (25.0-35.0) pg MCHC (31.0-37.0) g/dl RDW (11.5-14.5) % Plt Count (120.0-450.0) 10^3/uL MPV (7.0-11.0) fl Neut % (Auto) (50.0-68.0) % Lymph % (Auto) (22.0-35.0) % [place] % (Auto) (1.0-6.0) % Eos % (Auto) (1.5-5.0) % Baso % (Auto) (0.0-3.0) % Lymph # (Auto) (1.2-3.4) [place] # (Auto) (0.1-0.6) Eos # (Auto) (0.0-0.7) Baso # (Auto) (0.0-2.0) K/mm3 Absolute Neuts (auto) (1.4-6.5) APTT 240.7 H* (26.9-38.3) Seconds pCO2 (35-45) mm/Hg pO2 (80-100) mm/Hg HCO3 (21-28) mmol/L ABG pH (7.35-7.45) ABG Total CO2 (22-28) mmol.L ABG O2 Saturation (95-98) % ABG O2 Content (15-23) ML/dl ABG Base Excess (-2.0-3.0) mmol/L ABG Hemoglobin (11.7-17.4) g/dL ABG Carboxyhemoglobin (0.5-1.5) % POC ABG HHb (Measured) (0-5) % ABG Methemoglobin (0.0-3.0) % ABG O2 Capacity (16-24) mL/dl VBG pH (7.32-7.43) VBG pCO2 (40-60) VBG HCO3 (21-28) mmol/l VBG Total CO2 (22-28) mmol.L VBG O2 Sat (Calc) (40-65) % VBG Base Excess (0.0-2.0) mmol/L VBG Potassium (3.6-5.2) mmol/L Hgb O2 Saturation (95.0-98.0) % Sodium 140 (132-148) mmol/L Chloride 112 H (98-107) mmol/L Glucose (65-105) mg/dl Lactate (0.7-2.1) mmol/L FiO2 % Crit Value Called To Crit Value Called By Blood Gas Notified Time Potassium 4.4 (3.6-5.0) mmol/L Carbon Dioxide 17 L (21-33) mmol/L Anion Gap 15 (10-20) BUN 44 H (7-21) mg/dL Creatinine 1.2 (0.7-1.2) mg/dl Est GFR ( Amer) 52 Est GFR (Non-Af Amer) 43 Random Glucose 100 (70-110) mg/dL Calcium 7.7 L (8.4-10.5) mg/dL Phosphorus 4.4 (2.5-4.5) mg/dL Magnesium 1.8 (1.7-2.2) mg/dL Total Bilirubin 0.9 (0.2-1.3) mg/dL AST 85 H D (14-36) U/L ALT 51 (7-56) U/L Alkaline Phosphatase 52 (38-126) U/L Troponin I ng/mL Total Protein 6.4 (5.8-8.3) g/dL Albumin 3.3 (3.0-4.8) g/dL Globulin 3.1 gm/dL Albumin/Globulin Ratio 1.0 L (1.1-1.8) Procalcitonin (0.19-0.49) NG/ML Venous Blood Potassium (3.6-5.2) mmol/L Ur L.pneumophila Ag Negative (NEGATIVE) 08/04/18 08/04/18 08/04/18 Range/Units 13:00 12:00 12:00 WBC (4.5-11.0) 10^3/uL RBC (3.5-6.1) 10^6/uL Hgb (12.0-16.0) g/dL Hct (36.0-48.0) % MCV (80.0-105.0) fl MCH (25.0-35.0) pg MCHC (31.0-37.0) g/dl RDW (11.5-14.5) % Plt Count (120.0-450.0) 10^3/uL MPV (7.0-11.0) fl Neut % (Auto) (50.0-68.0) % Lymph % (Auto) (22.0-35.0) % [place] % (Auto) (1.0-6.0) % Eos % (Auto) (1.5-5.0) % Baso % (Auto) (0.0-3.0) % Lymph # (Auto) (1.2-3.4) [place] # (Auto) (0.1-0.6) Eos # (Auto) (0.0-0.7) Baso # (Auto) (0.0-2.0) K/mm3 Absolute Neuts (auto) (1.4-6.5) APTT 218.9 H* (26.9-38.3) Seconds pCO2 (35-45) mm/Hg pO2 (80-100) mm/Hg HCO3 (21-28) mmol/L ABG pH (7.35-7.45) ABG Total CO2 (22-28) mmol.L ABG O2 Saturation (95-98) % ABG O2 Content (15-23) ML/dl ABG Base Excess (-2.0-3.0) mmol/L ABG Hemoglobin (11.7-17.4) g/dL ABG Carboxyhemoglobin (0.5-1.5) % POC ABG HHb (Measured) (0-5) % ABG Methemoglobin (0.0-3.0) % ABG O2 Capacity (16-24) mL/dl VBG pH (7.32-7.43) VBG pCO2 (40-60) VBG HCO3 (21-28) mmol/l VBG Total CO2 (22-28) mmol.L VBG O2 Sat (Calc) (40-65) % VBG Base Excess (0.0-2.0) mmol/L VBG Potassium (3.6-5.2) mmol/L Hgb O2 Saturation (95.0-98.0) % Sodium (132-148) mmol/L Chloride (98-107) mmol/L Glucose (65-105) mg/dl Lactate (0.7-2.1) mmol/L FiO2 % Crit Value Called To Crit Value Called By Blood Gas Notified Time Potassium (3.6-5.0) mmol/L Carbon Dioxide (21-33) mmol/L Anion Gap (10-20) BUN (7-21) mg/dL Creatinine (0.7-1.2) mg/dl Est GFR ( Amer) Est GFR (Non-Af Amer) Random Glucose (70-110) mg/dL Calcium (8.4-10.5) mg/dL Phosphorus (2.5-4.5) mg/dL Magnesium (1.7-2.2) mg/dL Total Bilirubin (0.2-1.3) mg/dL AST (14-36) U/L ALT (7-56) U/L Alkaline Phosphatase (38-126) U/L Troponin I 3.11 H* D ng/mL Total Protein (5.8-8.3) g/dL Albumin (3.0-4.8) g/dL Globulin gm/dL Albumin/Globulin Ratio (1.1-1.8) Procalcitonin 0.13 L (0.19-0.49) NG/ML Venous Blood Potassium (3.6-5.2) mmol/L Ur L.pneumophila Ag (NEGATIVE) 08/04/18 08/04/18 08/04/18 Range/Units 10:00 10:00 08:00 WBC 15.6 H (4.5-11.0) 10^3/uL RBC 3.99 (3.5-6.1) 10^6/uL Hgb 12.0 (12.0-16.0) g/dL Hct 37.5 (36.0-48.0) % MCV 94.0 (80.0-105.0) fl MCH 30.1 (25.0-35.0) pg MCHC 32.0 (31.0-37.0) g/dl RDW 13.7 (11.5-14.5) % Plt Count 166 (120.0-450.0) 10^3/uL MPV 11.0 (7.0-11.0) fl Neut % (Auto) 84.8 H (50.0-68.0) % Lymph % (Auto) 9.5 L (22.0-35.0) % [place] % (Auto) 5.5 (1.0-6.0) % Eos % (Auto) 0.0 L (1.5-5.0) % Baso % (Auto) 0.2 (0.0-3.0) % Lymph # (Auto) 1.5 (1.2-3.4) [place] # (Auto) 0.9 H (0.1-0.6) Eos # (Auto) 0.0 (0.0-0.7) Baso # (Auto) 0.03 (0.0-2.0) K/mm3 Absolute Neuts (auto) 13.23 H (1.4-6.5) APTT (26.9-38.3) Seconds pCO2 28 L (35-45) mm/Hg pO2 31 109.0 H (80-100) mm/Hg HCO3 15.5 L (21-28) mmol/L ABG pH 7.35 (7.35-7.45) ABG Total CO2 16.4 L (22-28) mmol.L ABG O2 Saturation 99.4 H (95-98) % ABG O2 Content 16.3 (15-23) ML/dl ABG Base Excess -8.8 L (-2.0-3.0) mmol/L ABG Hemoglobin 11.9 (11.7-17.4) g/dL ABG Carboxyhemoglobin 1.9 H (0.5-1.5) % POC ABG HHb (Measured) 0.6 (0-5) % ABG Methemoglobin 1.3 (0.0-3.0) % ABG O2 Capacity 16.4 (16-24) mL/dl VBG pH 7.25 L (7.32-7.43) VBG pCO2 40.0 (40-60) VBG HCO3 17.5 L (21-28) mmol/l VBG Total CO2 18.7 L (22-28) mmol.L VBG O2 Sat (Calc) 56.1 (40-65) % VBG Base Excess -9.2 L (0.0-2.0) mmol/L VBG Potassium 3.6 (3.6-5.2) mmol/L Hgb O2 Saturation 96.3 (95.0-98.0) % Sodium 142.0 (132-148) mmol/L Chloride 109.0 H (98-107) mmol/L Glucose 75 (65-105) mg/dl Lactate 2.4 H (0.7-2.1) mmol/L FiO2 21.0 100.0 % Crit Value Called To Regina Crit Value Called By Ab Blood Gas Notified Time 1035 Potassium (3.6-5.0) mmol/L Carbon Dioxide (21-33) mmol/L Anion Gap (10-20) BUN (7-21) mg/dL Creatinine (0.7-1.2) mg/dl Est GFR ( Amer) Est GFR (Non-Af Amer) Random Glucose (70-110) mg/dL Calcium (8.4-10.5) mg/dL Phosphorus (2.5-4.5) mg/dL Magnesium (1.7-2.2) mg/dL Total Bilirubin (0.2-1.3) mg/dL AST (14-36) U/L ALT (7-56) U/L Alkaline Phosphatase (38-126) U/L Troponin I ng/mL Total Protein (5.8-8.3) g/dL Albumin (3.0-4.8) g/dL Globulin gm/dL Albumin/Globulin Ratio (1.1-1.8) Procalcitonin (0.19-0.49) NG/ML Venous Blood Potassium 3.6 (3.6-5.2) mmol/L Ur L.pneumophila Ag (NEGATIVE) Laboratory Results - last 24 hr 08/04/18 08/04/18 08/04/18 08:00 10:00 10:00 WBC 15.6 H RBC 3.99 Hgb 12.0 Hct 37.5 MCV 94.0 MCH 30.1 MCHC 32.0 RDW 13.7 Plt Count 166 MPV 11.0 Neut % (Auto) 84.8 H Lymph % (Auto) 9.5 L [place] % (Auto) 5.5 Eos % (Auto) 0.0 L Baso % (Auto) 0.2 Lymph # (Auto) 1.5 [place] # (Auto) 0.9 H Eos # (Auto) 0.0 Baso # (Auto) 0.03 Absolute Neuts (auto) 13.23 H APTT pCO2 28 L pO2 109.0 H 31 HCO3 15.5 L ABG pH 7.35 ABG Total CO2 16.4 L ABG O2 Saturation 99.4 H ABG O2 Content 16.3 ABG Base Excess -8.8 L ABG Hemoglobin 11.9 ABG Carboxyhemoglobin 1.9 H POC ABG HHb (Measured) 0.6 ABG Methemoglobin 1.3 ABG O2 Capacity 16.4 VBG pH 7.25 L VBG pCO2 40.0 VBG HCO3 17.5 L VBG Total CO2 18.7 L VBG O2 Sat (Calc) 56.1 VBG Base Excess -9.2 L VBG Potassium 3.6 Hgb O2 Saturation 96.3 Sodium 142.0 Chloride 109.0 H Glucose 75 Lactate 2.4 H FiO2 100.0 21.0 Crit Value Called To Regina Crit Value Called By Ab Blood Gas Notified Time 1035 Potassium Carbon Dioxide Anion Gap BUN Creatinine Est GFR ( Amer) Est GFR (Non-Af Amer) Random Glucose Calcium Phosphorus Magnesium Total Bilirubin AST ALT Alkaline Phosphatase Troponin I Total Protein Albumin Globulin Albumin/Globulin Ratio Procalcitonin Venous Blood Potassium 3.6 Ur L.pneumophila Ag 08/04/18 08/04/18 08/04/18 12:00 12:00 13:00 WBC RBC Hgb Hct MCV MCH MCHC RDW Plt Count MPV Neut % (Auto) Lymph % (Auto) [place] % (Auto) Eos % (Auto) Baso % (Auto) Lymph # (Auto) [place] # (Auto) Eos # (Auto) Baso # (Auto) Absolute Neuts (auto) APTT 218.9 H* pCO2 pO2 HCO3 ABG pH ABG Total CO2 ABG O2 Saturation ABG O2 Content ABG Base Excess ABG Hemoglobin ABG Carboxyhemoglobin POC ABG HHb (Measured) ABG Methemoglobin ABG O2 Capacity VBG pH VBG pCO2 VBG HCO3 VBG Total CO2 VBG O2 Sat (Calc) VBG Base Excess VBG Potassium Hgb O2 Saturation Sodium Chloride Glucose Lactate FiO2 Crit Value Called To Crit Value Called By Blood Gas Notified Time Potassium Carbon Dioxide Anion Gap BUN Creatinine Est GFR ( Amer) Est GFR (Non-Af Amer) Random Glucose Calcium Phosphorus Magnesium Total Bilirubin AST ALT Alkaline Phosphatase Troponin I 3.11 H* D Total Protein Albumin Globulin Albumin/Globulin Ratio Procalcitonin 0.13 L Venous Blood Potassium Ur L.pneumophila Ag 08/04/18 08/04/18 08/05/18 13:30 20:20 05:55 WBC RBC Hgb Hct MCV MCH MCHC RDW Plt Count MPV Neut % (Auto) Lymph % (Auto) [place] % (Auto) Eos % (Auto) Baso % (Auto) Lymph # (Auto) [place] # (Auto) Eos # (Auto) Baso # (Auto) Absolute Neuts (auto) APTT 240.7 H* pCO2 pO2 HCO3 ABG pH ABG Total CO2 ABG O2 Saturation ABG O2 Content ABG Base Excess ABG Hemoglobin ABG Carboxyhemoglobin POC ABG HHb (Measured) ABG Methemoglobin ABG O2 Capacity VBG pH VBG pCO2 VBG HCO3 VBG Total CO2 VBG O2 Sat (Calc) VBG Base Excess VBG Potassium Hgb O2 Saturation Sodium 140 Chloride 112 H Glucose Lactate FiO2 Crit Value Called To Crit Value Called By Blood Gas Notified Time Potassium 4.4 Carbon Dioxide 17 L Anion Gap 15 BUN 44 H Creatinine 1.2 Est GFR ( Amer) 52 Est GFR (Non-Af Amer) 43 Random Glucose 100 Calcium 7.7 L Phosphorus 4.4 Magnesium 1.8 Total Bilirubin 0.9 AST 85 H D ALT 51 Alkaline Phosphatase 52 Troponin I Total Protein 6.4 Albumin 3.3 Globulin 3.1 Albumin/Globulin Ratio 1.0 L Procalcitonin Venous Blood Potassium Ur L.pneumophila Ag Negative 08/05/18 08/05/18 08/05/18 05:55 05:55 06:00 WBC 19.4 H D RBC 4.01 Hgb 11.7 L Hct 36.7 MCV 91.5 MCH 29.2 MCHC 31.9 RDW 14.3 Plt Count 142 MPV 10.7 Neut % (Auto) 87.2 H Lymph % (Auto) 7.2 L [place] % (Auto) 5.5 Eos % (Auto) 0.0 L Baso % (Auto) 0.1 Lymph # (Auto) 1.4 [place] # (Auto) 1.1 H Eos # (Auto) 0.0 Baso # (Auto) 0.01 Absolute Neuts (auto) 16.90 H APTT 93.6 H pCO2 21 L pO2 348.0 H HCO3 12.7 L ABG pH 7.39 ABG Total CO2 13.3 L ABG O2 Saturation 99.7 H ABG O2 Content 17.7 ABG Base Excess -10.2 L ABG Hemoglobin 12.3 ABG Carboxyhemoglobin 1.1 POC ABG HHb (Measured) 0.3 ABG Methemoglobin 1.3 ABG O2 Capacity 17.8 VBG pH VBG pCO2 VBG HCO3 VBG Total CO2 VBG O2 Sat (Calc) VBG Base Excess VBG Potassium Hgb O2 Saturation 97.3 Sodium Chloride Glucose Lactate FiO2 90.0 Crit Value Called To Crit Value Called By Blood Gas Notified Time Potassium Carbon Dioxide Anion Gap BUN Creatinine Est GFR ( Amer) Est GFR (Non-Af Amer) Random Glucose Calcium Phosphorus Magnesium Total Bilirubin AST ALT Alkaline Phosphatase Troponin I Total Protein Albumin Globulin Albumin/Globulin Ratio Procalcitonin Venous Blood Potassium Ur L.pneumophila Ag Radiology Impressions: Radiology Impressions Chest/Abdomen/Pelvis CT 08/04/18 03:39 IMPRESSION: Pulmonary vascular congestion/edema with patchy bilateral infiltrates and chronic interstitial changes. No acute pathology involving the abdomen or pelvis. Chest X-Ray 08/04/18 04:46 IMPRESSION: Diffuse pulmonary vascular congestion with patchy bilateral infiltrates. Chest X-Ray 08/04/18 05:14 IMPRESSION: Endotracheal tube with tip at the rita. 2 cm retraction is recommended. Enteric tube in satisfactory position. Stable appearance of diffuse bilateral patchy infiltrates. No other significant interval change. Chest X-Ray 08/04/18 08:32 IMPRESSION: New right internal jugular access central venous catheter in satisfactory position. Stable tubes and lines. Stable pulmonary vascular congestion. Gallbladder Ultrasound 08/04/18 12:20 IMPRESSION: Cholelithiasis without sonographic evidence for acute cholecystitis. EKG/Cardiology Studies: Cardiology / EKG Studies 08/04/18 07:31 ELECTROCARDIOGRAM Routine Comment: Reason For Exam: cad 08/04/18 13:00 EKG [ELECTROCARDIOGRAM] Routine Comment: Reason For Exam: nstemi 08/06/18 06:30 EKG [ELECTROCARDIOGRAM] DAILY Comment: Reason For Exam: NM Critical Care Progress Note - Nutrition Nutrition: Nutrition Category Date Time Status NPO Diet [DIET] Diets 08/04/18 Breakfast Ordered Assessment/Plan - Assessment and Plan (Free Text) Assessment: Pt is a 83 yo female with PMH of HTN, AFib (on Eliquis), breast cancer (s/p R lumpectomy), TIA, chronic LE lymphadema, chronic back pain 2/2 disc herniations, OA, anxiety, and depression admitted to ICU for septic shock of unclear etiology complicated by flash pulmonary edema and hypoxemic respiratory failure 2/2 AFib w/RVR. Plan: Neuro - intubated, sedated on propofol - Monitor neuro status once extubated Cardio - Suspect AFib w/RVR is likely 2/2 patient's abdominal pain on admission - Suspect troponin elevation is 2/2 demand ischemia from AFib w/RVR - NSTEMI is not excluded, patient currently on heparin drip - Hold home eliquis while on heparin drip - will stop levophed, will then resume metoprolol if tolerated - R IJ TLC in place - Continue to maintain MAP > 65 - TTE biatrial enlargement, MR, , TR - Cardiology consulted, Dr Srinivasan Pulm - Suspect b/l pulmonary edema is likely 2/2 fluid backup from AFib w/RVR - avoid diuretics given patient's septic shock - Received 3 L of IVF for septic shock, but otherwise conservative fluid management - Vent settings: 400/14/5/45% - Appropriate ventilator management as follows: Maintain head of bed > 35 degrees Maintain oral hygiene Daily ABG, CXR as needed Daily sedation and weaning trials with assessment of readiness to wean ID - Fever, leukocytosis with tachycardia noted in ED, code sepsis - merrem - maxilofacial CT to rule out dental abscess - ID consulted, Dr Noble /Nephro Renal function parameters stable Avoid diuresis at this time, given findings of sepsis Heme/Onc - H/H stable GI - CTAP identified large amount of stool but without findings of colitis or other concerning findings - Surgery consulted for additional recs per primary Endo - maintain euglycemia - solu-cortef 50 mg IVP q6h Pt seen, examined, assessment and plan discussed with Dr Doreen Ng PGY1 - Date & Time Date: 08/05/18 Time: 08:22 <Doreen Liu - Last Filed: 08/05/18 16:33> CCU Objective - Vital Signs / Intake & Output Intake and Output (Last 8hrs): Intake & Output 08/05/18 08/05/18 08/05/18 06:59 14:59 22:59 Intake Total 1192.8 68.2 Output Total 300 Balance 892.8 68.2 Weight 74.525 kg Intake: IV 1132.8 68.2 Right Antecubital 250 Right Hand 78 Right Internal Jugular 500 Oral 0 Other 60 Output: Urine 300 Urethral ([place]) 300 Other: # Bowel Movements 2 - Medications Active Medications: Active Medications Generic Name Dose Route Start Last Admin Trade Name Freq PRN Reason Stop Dose Admin Acetaminophen 650 mg 08/04/18 08:59 08/04/18 22:24 Tylenol 650 Mg Supp RC 650 mg Q6H PRN Administration Fever >100.4 F Hydrocortisone Sodium Succinate 50 mg 08/04/18 12:00 08/05/18 12:10 Solu-Cortef IVP 50 mg Q6H DONNA Administration Propofol 1,000 mg in 100 mls @ 2.041 mls/hr 08/04/18 05:15 08/04/18 23:00 Diprivan IV 5 mcg/kg/min .Q24H PRN 2.041 mls/hr TITRATE PER MD ORDER Titration Protocol 5 MCG/KG/MIN Heparin Sodium/Sodium Chloride 25,000 units in 250 mls @ 8.165 mls/hr 08/04/18 05:30 08/05/18 08:16 Heparin 61159 Units/250ml 1/2 Normal Saline IV 7.64 units/kg/hr .Q24H DONNA 5.2 mls/hr Administration Protocol 12 UNITS/KG/HR NOREPINEPHRINE BIT/0.9 % NACL 4 mg in 250 mls @ 15 mls/hr 08/04/18 11:22 08/05/18 12:50 Levophed 4 Mg/ 250 Ml Ns Premixed IV 0 mcg/min .[id number] PRN 0 mls/hr TITRATE PER MD ORDER Titration Protocol 4 MCG/MIN Vasopressin 20 units/ Sodium 101 mls @ 9.09 mls/hr 08/04/18 11:30 Chloride IV .[id number] DONNA Protocol 0.03 U/MIN Meropenem 1 gm in 50 mls @ 100 mls/hr 08/04/18 14:00 08/05/18 15:33 Merrem Iv 1 Gm Premix IVPB 08/13/18 14:01 100 mls/hr Q8 DONNA Administration Protocol Metoprolol Tartrate 5 mg 08/05/18 06:30 08/05/18 12:10 Lopressor IVP 5 mg Q6H DONNA Administration Pantoprazole Sodium 40 mg 08/04/18 05:29 08/05/18 10:05 Protonix Inj IVP 40 mg Q12 DONNA Administration Polyethylene Glycol 17 gm 08/04/18 19:15 08/05/18 10:05 Miralax PO 17 gm DAILY DONNA Administration - Patient Studies Lab Studies: Microbiology Studies 08/04/18 13:30 Gram Stain - Final Sputum Induced Sputum Culture - Preliminary No growth. 08/04/18 04:25 Urine Culture - Preliminary Urine,Catheterized Gram Negative Juve 08/04/18 04:00 Blood Culture - Preliminary Blood Gram Negative Juve Gram Stain - Final 08/04/18 04:20 Blood Culture - Preliminary Blood Gram Negative Juve Gram Stain - Final Lab Studies 08/05/18 08/05/18 08/05/18 Range/Units 12:00 06:00 05:55 WBC (4.5-11.0) 10^3/uL RBC (3.5-6.1) 10^6/uL Hgb (12.0-16.0) g/dL Hct (36.0-48.0) % MCV (80.0-105.0) fl MCH (25.0-35.0) pg MCHC (31.0-37.0) g/dl RDW (11.5-14.5) % Plt Count (120.0-450.0) 10^3/uL MPV (7.0-11.0) fl Neut % (Auto) (50.0-68.0) % Lymph % (Auto) (22.0-35.0) % [place] % (Auto) (1.0-6.0) % Eos % (Auto) (1.5-5.0) % Baso % (Auto) (0.0-3.0) % Lymph # (Auto) (1.2-3.4) [place] # (Auto) (0.1-0.6) Eos # (Auto) (0.0-0.7) Baso # (Auto) (0.0-2.0) K/mm3 Absolute Neuts (auto) (1.4-6.5) APTT 70.8 H 93.6 H (26.9-38.3) Seconds pCO2 21 L (35-45) mm/Hg pO2 348.0 H (80-100) mm/Hg HCO3 12.7 L (21-28) mmol/L ABG pH 7.39 (7.35-7.45) ABG Total CO2 13.3 L (22-28) mmol.L ABG O2 Saturation 99.7 H (95-98) % ABG O2 Content 17.7 (15-23) ML/dl ABG Base Excess -10.2 L (-2.0-3.0) mmol/L ABG Hemoglobin 12.3 (11.7-17.4) g/dL ABG Carboxyhemoglobin 1.1 (0.5-1.5) % POC ABG HHb (Measured) 0.3 (0-5) % ABG Methemoglobin 1.3 (0.0-3.0) % ABG O2 Capacity 17.8 (16-24) mL/dl Hgb O2 Saturation 97.3 (95.0-98.0) % FiO2 90.0 % Sodium (132-148) mmol/L Potassium (3.6-5.0) mmol/L Chloride (98-107) mmol/L Carbon Dioxide (21-33) mmol/L Anion Gap (10-20) BUN (7-21) mg/dL Creatinine (0.7-1.2) mg/dl Est GFR ( Amer) Est GFR (Non-Af Amer) Random Glucose (70-110) mg/dL Calcium (8.4-10.5) mg/dL Phosphorus (2.5-4.5) mg/dL Magnesium (1.7-2.2) mg/dL Total Bilirubin (0.2-1.3) mg/dL AST (14-36) U/L ALT (7-56) U/L Alkaline Phosphatase (38-126) U/L Total Protein (5.8-8.3) g/dL Albumin (3.0-4.8) g/dL Globulin gm/dL Albumin/Globulin Ratio (1.1-1.8) Procalcitonin (0.19-0.49) NG/ML Ur L.pneumophila Ag (NEGATIVE) 08/05/18 08/05/18 08/04/18 Range/Units 05:55 05:55 20:20 WBC 19.4 H D (4.5-11.0) 10^3/uL RBC 4.01 (3.5-6.1) 10^6/uL Hgb 11.7 L (12.0-16.0) g/dL Hct 36.7 (36.0-48.0) % MCV 91.5 (80.0-105.0) fl MCH 29.2 (25.0-35.0) pg MCHC 31.9 (31.0-37.0) g/dl RDW 14.3 (11.5-14.5) % Plt Count 142 (120.0-450.0) 10^3/uL MPV 10.7 (7.0-11.0) fl Neut % (Auto) 87.2 H (50.0-68.0) % Lymph % (Auto) 7.2 L (22.0-35.0) % Lagrange % (Auto) 5.5 (1.0-6.0) % Eos % (Auto) 0.0 L (1.5-5.0) % Baso % (Auto) 0.1 (0.0-3.0) % Lymph # (Auto) 1.4 (1.2-3.4) Lagrange # (Auto) 1.1 H (0.1-0.6) Eos # (Auto) 0.0 (0.0-0.7) Baso # (Auto) 0.01 (0.0-2.0) K/mm3 Absolute Neuts (auto) 16.90 H (1.4-6.5) APTT 240.7 H* (26.9-38.3) Seconds pCO2 (35-45) mm/Hg pO2 (80-100) mm/Hg HCO3 (21-28) mmol/L ABG pH (7.35-7.45) ABG Total CO2 (22-28) mmol.L ABG O2 Saturation (95-98) % ABG O2 Content (15-23) ML/dl ABG Base Excess (-2.0-3.0) mmol/L ABG Hemoglobin (11.7-17.4) g/dL ABG Carboxyhemoglobin (0.5-1.5) % POC ABG HHb (Measured) (0-5) % ABG Methemoglobin (0.0-3.0) % ABG O2 Capacity (16-24) mL/dl Hgb O2 Saturation (95.0-98.0) % FiO2 % Sodium 140 (132-148) mmol/L Potassium 4.4 (3.6-5.0) mmol/L Chloride 112 H (98-107) mmol/L Carbon Dioxide 17 L (21-33) mmol/L Anion Gap 15 (10-20) BUN 44 H (7-21) mg/dL Creatinine 1.2 (0.7-1.2) mg/dl Est GFR ( Amer) 52 Est GFR (Non-Af Amer) 43 Random Glucose 100 (70-110) mg/dL Calcium 7.7 L (8.4-10.5) mg/dL Phosphorus 4.4 (2.5-4.5) mg/dL Magnesium 1.8 (1.7-2.2) mg/dL Total Bilirubin 0.9 (0.2-1.3) mg/dL AST 85 H D (14-36) U/L ALT 51 (7-56) U/L Alkaline Phosphatase 52 (38-126) U/L Total Protein 6.4 (5.8-8.3) g/dL Albumin 3.3 (3.0-4.8) g/dL Globulin 3.1 gm/dL Albumin/Globulin Ratio 1.0 L (1.1-1.8) Procalcitonin (0.19-0.49) NG/ML Ur L.pneumophila Ag (NEGATIVE) 08/04/18 08/04/18 Range/Units 13:30 13:00 WBC (4.5-11.0) 10^3/uL RBC (3.5-6.1) 10^6/uL Hgb (12.0-16.0) g/dL Hct (36.0-48.0) % MCV (80.0-105.0) fl MCH (25.0-35.0) pg MCHC (31.0-37.0) g/dl RDW (11.5-14.5) % Plt Count (120.0-450.0) 10^3/uL MPV (7.0-11.0) fl Neut % (Auto) (50.0-68.0) % Lymph % (Auto) (22.0-35.0) % Lagrange % (Auto) (1.0-6.0) % Eos % (Auto) (1.5-5.0) % Baso % (Auto) (0.0-3.0) % Lymph # (Auto) (1.2-3.4) Lagrange # (Auto) (0.1-0.6) Eos # (Auto) (0.0-0.7) Baso # (Auto) (0.0-2.0) K/mm3 Absolute Neuts (auto) (1.4-6.5) APTT (26.9-38.3) Seconds pCO2 (35-45) mm/Hg pO2 (80-100) mm/Hg HCO3 (21-28) mmol/L ABG pH (7.35-7.45) ABG Total CO2 (22-28) mmol.L ABG O2 Saturation (95-98) % ABG O2 Content (15-23) ML/dl ABG Base Excess (-2.0-3.0) mmol/L ABG Hemoglobin (11.7-17.4) g/dL ABG Carboxyhemoglobin (0.5-1.5) % POC ABG HHb (Measured) (0-5) % ABG Methemoglobin (0.0-3.0) % ABG O2 Capacity (16-24) mL/dl Hgb O2 Saturation (95.0-98.0) % FiO2 % Sodium (132-148) mmol/L Potassium (3.6-5.0) mmol/L Chloride (98-107) mmol/L Carbon Dioxide (21-33) mmol/L Anion Gap (10-20) BUN (7-21) mg/dL Creatinine (0.7-1.2) mg/dl Est GFR ( Amer) Est GFR (Non-Af Amer) Random Glucose (70-110) mg/dL Calcium (8.4-10.5) mg/dL Phosphorus (2.5-4.5) mg/dL Magnesium (1.7-2.2) mg/dL Total Bilirubin (0.2-1.3) mg/dL AST (14-36) U/L ALT (7-56) U/L Alkaline Phosphatase (38-126) U/L Total Protein (5.8-8.3) g/dL Albumin (3.0-4.8) g/dL Globulin gm/dL Albumin/Globulin Ratio (1.1-1.8) Procalcitonin 0.13 L (0.19-0.49) NG/ML Ur L.pneumophila Ag Negative (NEGATIVE) Laboratory Results - last 24 hr 08/04/18 08/04/18 08/04/18 13:00 13:30 20:20 WBC RBC Hgb Hct MCV MCH MCHC RDW Plt Count MPV Neut % (Auto) Lymph % (Auto) Lagrange % (Auto) Eos % (Auto) Baso % (Auto) Lymph # (Auto) [place] # (Auto) Eos # (Auto) Baso # (Auto) Absolute Neuts (auto) APTT 240.7 H* pCO2 pO2 HCO3 ABG pH ABG Total CO2 ABG O2 Saturation ABG O2 Content ABG Base Excess ABG Hemoglobin ABG Carboxyhemoglobin POC ABG HHb (Measured) ABG Methemoglobin ABG O2 Capacity Hgb O2 Saturation FiO2 Sodium Potassium Chloride Carbon Dioxide Anion Gap BUN Creatinine Est GFR ( Amer) Est GFR (Non-Af Amer) Random Glucose Calcium Phosphorus Magnesium Total Bilirubin AST ALT Alkaline Phosphatase Total Protein Albumin Globulin Albumin/Globulin Ratio Procalcitonin 0.13 L Ur L.pneumophila Ag Negative 08/05/18 08/05/18 08/05/18 05:55 05:55 05:55 WBC 19.4 H D RBC 4.01 Hgb 11.7 L Hct 36.7 MCV 91.5 MCH 29.2 MCHC 31.9 RDW 14.3 Plt Count 142 MPV 10.7 Neut % (Auto) 87.2 H Lymph % (Auto) 7.2 L [place] % (Auto) 5.5 Eos % (Auto) 0.0 L Baso % (Auto) 0.1 Lymph # (Auto) 1.4 [place] # (Auto) 1.1 H Eos # (Auto) 0.0 Baso # (Auto) 0.01 Absolute Neuts (auto) 16.90 H APTT 93.6 H pCO2 pO2 HCO3 ABG pH ABG Total CO2 ABG O2 Saturation ABG O2 Content ABG Base Excess ABG Hemoglobin ABG Carboxyhemoglobin POC ABG HHb (Measured) ABG Methemoglobin ABG O2 Capacity Hgb O2 Saturation FiO2 Sodium 140 Potassium 4.4 Chloride 112 H Carbon Dioxide 17 L Anion Gap 15 BUN 44 H Creatinine 1.2 Est GFR ( Amer) 52 Est GFR (Non-Af Amer) 43 Random Glucose 100 Calcium 7.7 L Phosphorus 4.4 Magnesium 1.8 Total Bilirubin 0.9 AST 85 H D ALT 51 Alkaline Phosphatase 52 Total Protein 6.4 Albumin 3.3 Globulin 3.1 Albumin/Globulin Ratio 1.0 L Procalcitonin Ur L.pneumophila Ag 08/05/18 08/05/18 06:00 12:00 WBC RBC Hgb Hct MCV MCH MCHC RDW Plt Count MPV Neut % (Auto) Lymph % (Auto) [place]range % (Auto) Eos % (Auto) Baso % (Auto) Lymph # (Auto) [place] # (Auto) Eos # (Auto) Baso # (Auto) Absolute Neuts (auto) APTT 70.8 H pCO2 21 L pO2 348.0 H HCO3 12.7 L ABG pH 7.39 ABG Total CO2 13.3 L ABG O2 Saturation 99.7 H ABG O2 Content 17.7 ABG Base Excess -10.2 L ABG Hemoglobin 12.3 ABG Carboxyhemoglobin 1.1 POC ABG HHb (Measured) 0.3 ABG Methemoglobin 1.3 ABG O2 Capacity 17.8 Hgb O2 Saturation 97.3 FiO2 90.0 Sodium Potassium Chloride Carbon Dioxide Anion Gap BUN Creatinine Est GFR ( Amer) Est GFR (Non-Af Amer) Random Glucose Calcium Phosphorus Magnesium Total Bilirubin AST ALT Alkaline Phosphatase Total Protein Albumin Globulin Albumin/Globulin Ratio Procalcitonin Ur L.pneumophila Ag Radiology Impressions: Radiology Impressions Chest X-Ray 08/05/18 07:00 IMPRESSION: Stable tubes and lines. No change in pulmonary vascular congestion. No significant interval change. Maxillofacial CT 08/05/18 12:20 IMPRESSION: Streak artifact and motion artifact slightly limited evaluation. Support tubes and lines partially imaged. No obvious left dental abscess identified. EKG/Cardiology Studies: Cardiology / EKG Studies 08/05/18 EKG [ELECTROCARDIOGRAM] Routine Comment: Reason For Exam: Positive trop. 08/06/18 06:30 EKG [ELECTROCARDIOGRAM] DAILY Comment: Reason For Exam: NM Critical Care Progress Note - Nutrition Nutrition: Nutrition Category Date Time Status NPO Diet [DIET] Diets 08/04/18 Breakfast Ordered Addendum Addendum: 08/05/18 16:29 MICU Attending Addendum: Patient seen and examined with housestaff, case discussed on rounds. 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 Sepsis likely escalated her afib to RVR which resulted in pulm edema and increase cardiovasc demanding causing TNI leak . Blood growing GNR x 2 bottle await spec of bug Unclear etiology GNR, CT abd/pelvis not suggestive and RUQ US also neg possible from recent dental procedure, must consider endocarditis (TTE neg), or GI translocation Empiric abx as per ID pressors on board with levophed and vasopressin MAP > 65 can likely d/c today and BP improving HR controlled now after fluid, no more fluids at this time since she has met her 30cc/kg goal and lac improving trend TNI hypoxia likely from pulm edema which proabably is due to her afib RVR at 174 on admission, thus reducing any sort of filling time improved oxygentation today holding eliquis in favor of heparin RIJ TLC placed 08/04 Reduced LVEF on echo, 37%, in 2013 she had a normal EF start BB if she can be safely taken off pressors today consider adding ACEI f/u cardio recs Rest of care as per resident note above Doreen Liu MD Attending Pulmonary Critical Care Sleep Medicine
--- NOTE | 2018-08-05 08:25 | CP.PCM.PN ---
Subjective - Date & Time of Evaluation Date of Evaluation: 08/05/18 Time of Evaluation: 08:23 - Subjective Subjective: General surgery progress note for Dr. Rosalind Ny, PGY-2 Pt seen/examined at bedside. Pt intubated, currently GCS 11T. Indicating that she is not having any abdominal pain. LE wrapped due to chronic LE pain and swelling. PRVC 40%, PEEP 5, RR 14, TV 400. Had BM x 5 over past 24hrs per nursing. Tmax 100.6 over last 24 hrs. Objective - Vital Signs/Intake and Output Vital Signs (last 24 hours): Temp Pulse Resp BP Pulse Ox 99.9 F H 124 H 33 H 116/78 100 08/05/18 07:47 08/05/18 07:47 08/05/18 07:18 08/05/18 07:47 08/05/18 07:47 Intake and Output: 08/05/18 08/05/18 06:59 18:59 Intake Total 1261.8 26.2 Output Total 300 Balance 961.8 26.2 - Medications Medications: Current Medications Acetaminophen (Tylenol 650 Mg Supp) 650 mg RC Q6H PRN PRN Reason: Fever >100.4 F Last Admin: 08/04/18 22:24 Dose: 650 mg Hydrocortisone Sodium Succinate (Solu-Cortef) 50 mg IVP Q6H DONNA Last Admin: 08/05/18 05:41 Dose: 50 mg Propofol (Diprivan) 1,000 mg in 100 mls @ 2.041 mls/hr IV .Q24H PRN; Protocol PRN Reason: TITRATE PER MD ORDER Last Titration: 08/04/18 23:00 Dose: 5 mcg/kg/min, 2.041 mls/hr Heparin Sodium/Sodium Chloride (Heparin 73463 Units/250ml 1/2 Normal Saline) 25,000 units in 250 mls @ 8.165 mls/hr IV .Q24H DONNA; Protocol Last Admin: 08/05/18 08:16 Dose: 7.64 units/kg/hr, 5.2 mls/hr NOREPINEPHRINE BIT/0.9 % NACL (Levophed 4 Mg/ 250 Ml Ns Premixed) 4 mg in 250 mls @ 15 mls/hr IV .[id number] PRN; Protocol PRN Reason: TITRATE PER MD ORDER Last Admin: 08/05/18 08:18 Dose: 3 mcg/min, 11.25 mls/hr Vasopressin 20 units/ Sodium (Chloride) 101 mls @ 9.09 mls/hr IV .Q11H7M [facility]; Protocol Meropenem (Merrem Iv 1 Gm Premix) 1 gm in 50 mls @ 100 mls/hr IVPB Q8 [facility]; Protocol Stop: 08/13/18 14:01 Last Admin: 08/05/18 05:39 Dose: 100 mls/hr Metoprolol Tartrate (Lopressor) 5 mg IVP Q6H [facility] Last Admin: 08/05/18 06:51 Dose: 5 mg Pantoprazole Sodium (Protonix Inj) 40 mg IVP Q12 [facility] Last Admin: 08/04/18 21:34 Dose: 40 mg Polyethylene Glycol (Miralax) 17 gm PO DAILY [facility] Last Admin: 08/04/18 21:32 Dose: 17 gm - Labs Labs: 08/05/18 05:55 08/05/18 05:55 PT 19.1 SECONDS (9.4-12.5) H 08/04/18 03:44 INR 1.72 08/04/18 03:44 APTT 93.6 Seconds (26.9-38.3) H 08/05/18 05:55 - Constitutional Appears: Non-toxic, No Acute Distress - Head Exam Head Exam: ATRAUMATIC, NORMAL INSPECTION, NORMOCEPHALIC - Eye Exam Eye Exam: EOMI, Normal appearance - ENT Exam ENT Exam: Mucous Membranes Moist. absent: Normal Exam (ETT in place ) - Respiratory Exam Respiratory Exam: NORMAL BREATHING PATTERN Additional comments: On mechanical vent - Cardiovascular Exam Cardiovascular Exam: Tachycardia - GI/Abdominal Exam GI & Abdominal Exam: absent: Distended (obese), Firm, Guarding, Rigid, Tenderness - Extremities Exam Extremities Exam: Pedal Edema (b/l). absent: Normal Inspection (LE with dependent edema and tenderness all the way up to the thighs) - Neurological Exam Neurological Exam: Alert, Awake - Psychiatric Exam Additional comments: intubated - Skin Skin Exam: Dry, Intact, Normal Color, Warm Assessment and Plan - Assessment and Plan (Free Text) Assessment: 83F w/respiratory distress s/p intubation, Afib with RVR, possible NSTEMI, pneumonia currently requiring ICU care on heparin drip Plan: Gram negative rods in blood Leukocytosis of 19.4 from 15.6 Gallbladder U/S with cholelithiasis, no findings of acute cholecystitis, CBD 5mm No indications for acute surgical intervention at this time Bowel regimen Will DW Dr. Luca Ny, PGY-2
[2018-08-05] MEDS: POLYETHYLENE GLYCOL 3350 17 GM/Dose PACKET PO SCH (10:05)
--- NOTE | 2018-08-05 10:08 | CARD ---
APPROVED REPORT Date of service: 08/05/2018 EKG Measurement Heart [id number] <Conclusion> Atrial fibrillation with rapid ventricular response Right bundle branch block T wave abnormality, consider inferior ischemia or digitalis effect Abnormal ECG
--- NOTE | 2018-08-05 11:19 | RAD ---
Date of service: 08/05/2018 HISTORY: intubated COMPARISON: Chest radiograph dated 08/04/2018. TECHNIQUE: 1 view obtained. FINDINGS: LUNGS: Pulmonary vascular congestion. PLEURA: No significant pleural effusion identified, no pneumothorax apparent. CARDIOVASCULAR: Aortic atherosclerotic calcifications. Cardiomediastinal silhouette stably enlarged OSSEOUS STRUCTURES: Unchanged. VISUALIZED UPPER ABDOMEN: Normal. OTHER FINDINGS: Endotracheal and enteric tubes, unchanged. Right internal jugular access central venous catheter, unchanged. IMPRESSION: Stable tubes and lines. No change in pulmonary vascular congestion. No significant interval change.
--- NOTE | 2018-08-05 12:41 | PN ---
DATE: 08/05/2018 SUBJECTIVE: The patient is in bed in no acute distress, nontoxic. PHYSICAL EXAMINATION: GENERAL: The patient remains intubated on the ventilator. VITAL SIGNS: Low grade temperature with a temperature of 99.9, blood pressure is 130/70, respiratory rate of 18 and heart rate of 115. HEENT: Unremarkable. NECK: Supple. LUNGS: Have decreased breath sounds. HEART: Normal S1 and S2. ABDOMEN: Soft. LABORATORY EXAMINATION: Reveals a white count of 19,400, hemoglobin of 11 and platelets of 142. Chemistries reveals a BUN of 44 and creatinine of 1.2. Troponin is 3.1 and the BNP is 4318. Urinalysis is noted. Microbiology reveals the blood culture have Gram-negative rashad. Urine cultures pending. Sputum culture is pending. IMAGING STUDIES: Reveals the patient had an ultrasound of gallbladder which shows cholestasis, negative Tapia's sign. CT scan of the abdomen and pelvis is also noted. IMPRESSION AND PLAN: This is an 83-year-old female with breast cancer, atrial fibrillation, transient ischemic attack chronic pain, gastroesophageal reflux disease, bilateral leg edema, admitted with a fevers hypertension. septic shock with Gram-negative rashad bacteremia, respiratory failure, intubated on a ventilator with a negative urinalysis, probably GI as the source, biliary source in a patient with acute congestive heart failure and non-ST elevation myocardial infarction, who has had a CT scan of the abdomen which is negative. CT scan of the chest which showed vascular congestion and edema with a negative procalcitonin, most likely the lungs are not the source for the Gram-negative rashad and with negative urinalysis. We will check on the urine culture. GI is probably the source. We will follow with you. Currently on meropenem. Jasen Noble MD
--- NOTE | 2018-08-05 13:37 | PN ---
DATE: 08/05/2018 SUBJECTIVE: The patient is intubated. PHYSICAL EXAMINATION: VITAL SIGNS: Temperature is 99.7, pulse of 123, blood pressure is 136/96, respirations 33. GENERAL: The patient is lying in bed, flat, comfortable. HEENT: No oral lesion. Anicteric sclerae. Moist mucosa. Positive for ETT. NECK: No JVD, adenopathy, or thyromegaly. On the right neck, IJ is present. CARDIOVASCULAR: S1 and S2, regular. No murmurs, rubs, or gallops. LUNGS: Clear to auscultation bilaterally. No wheeze, rales, or rhonchi. ABDOMEN: Bowel sounds are positive, soft, nontender and nondistended. EXTREMITIES: no cyanosis, clubbing or edema. LABS: White count of 19.4, hemoglobin is 11.7, bicarb is 17, creatinine is 1.2. Gallbladder ultrasound shows cholelithiasis without sonographic evidence of acute cholecystitis. ASSESSMENT: 1. Sepsis. 2. Respiratory failure on ventilator. 3. Non-ST elevation myocardial infarction. 4. Right internal jugular . 5. Cholelithiasis. 6. Congestive heart failure with moderate reduced left ventricular function. 7. Moderate tricuspid regurgitation. 8. Sepsis secondary to gram-negative rashad. PLAN: The patient remains critically ill. She is in the ICU. She is getting heparin for her non-ST elevation VT. She is also on metoprolol. She is being followed by Cardiology. The patient is on meropenem for antibiotics for the sepsis. She is following Infectious Disease. She is on Levophed for her septic shock. She is on propofol for sedation. She remains on the ventilator. She is on hydrocortisone for the sepsis. This will be continued. She is on Tylenol as needed for fever. The patient is also on vasopressin. She is going to have repeat blood work tomorrow and the patient remains critically ill. She is a complex patient. Ayan Joy MD
--- NOTE | 2018-08-05 14:30 | CT ---
Date of service: 08/05/2018 PROCEDURE: CT MAXILLOFACIAL BONES WITHOUT CONTRAST HISTORY: rule out left dental abscess COMPARISON: None. TECHNIQUE: Contiguous axial CT images of the maxillofacial bones were obtained. Coronal and sagittal reformats were generated. Radiation dose: Total exam DLP = 812.01 mGy-cm. This CT exam was performed using one or more of the following dose reduction techniques: Automated exposure control, adjustment of the mA and/or kV according to patient size, and/or use of iterative reconstruction technique. FINDINGS: NASAL BONES: Unremarkable. ORBITS: Unremarkable. PARANASAL SINUSES/ MASTOIDS: Clear. MAXILLA: Unremarkable. MANDIBLE/ TEMPOROMANDIBULAR JOINTS: Unremarkable. SKULL BASE: Unremarkable. TEMPORAL BONES: Middle ears and mastoid grossly unremarkable. OTHER FINDINGS: Partially imaged endotracheal and orogastric tubes. Partially imaged right internal jugular access central venous catheter. IMPRESSION: Streak artifact and motion artifact slightly limited evaluation. Support tubes and lines partially imaged. No obvious left dental abscess identified.
[2018-08-05] MEDS: oxyCODONE 15 mg Immediate Release Tab PO PRN (21:09)
[2018-08-05] MEDS: Propofol 10 mg/ml 1,000 MG/100 ML VIAL IV PRN (21:30)
[2018-08-06] MEDS: Metoprolol 1 mg/ml Inj IVP SCH ×4 (00:26→18:31)
[2018-08-06] MEDS: oxyCODONE 15 mg Immediate Release Tab PO PRN ×3 (03:50→21:40)
[2018-08-06] MEDS: Meropenem IV 1 gm in NS 1 GM/50 ML BAG IVPB SCH ×3 (06:05→21:48)
[2018-08-06 06:44] LABS: HEMOGLOBIN 10.8 g/dL (12.0-16.0); LYMPH # 0.8 (1.2-3.4); MEAN CELL VOLUME 90.8 fl (80.0-105.0); MEAN CORPUSCULAR HEMOGLOBIN 29.3 pg (25.0-35.0); MEAN CORPUSCULAR HGB CONC 32.3 g/dl (31.0-37.0); MEAN PLATELET VOLUME 10.9 fl (7.0-11.0); MONO # 0.5 (0.1-0.6); MONO % 4.3 % (1.0-6.0); RBC 3.68 10^6/uL (3.5-6.1); RED CELL DISTRIBUTION WIDTH 14.5 % (11.5-14.5); WHITE BLOOD COUNT 11.4 10^3/uL (4.5-11.0)
[2018-08-06 06:55] LABS: ARTERIAL BLOOD GAS HCO3 15.5 mmol/L (21-28); ARTERIAL BLOOD GAS HEMOGLOBIN 10.3 g/dL (11.7-17.4); ARTERIAL BLOOD GAS O2 CAPACITY 14.3 mL/dl (16-24); ARTERIAL BLOOD GAS O2 CONTENT 14.2 ML/dl (15-23); ARTERIAL BLOOD GAS O2 SAT 99.3 % (95-98); ARTERIAL BLOOD GAS PCO2 25 mm/Hg (35-45); ARTERIAL BLOOD GAS TCO2 16.3 mmol.L (22-28)
[2018-08-06 07:24] LABS: ALBUMIN 3.3 g/dL (3.0-4.8); CALCIUM 7.8 mg/dL (8.4-10.5); TROPONIN I 0.56 ng/mL
[2018-08-06] MEDS: Digoxin 500 mcg/2ml (0.5 mg/2ml) Inj IV SCH ×3 (09:02→21:37)
[2018-08-06] MEDS: POLYETHYLENE GLYCOL 3350 17 GM/Dose PACKET PO SCH (09:04)
[2018-08-06 09:18] LABS: ARTERIAL BLOOD GAS HCO3 15.9 mmol/L (21-28); ARTERIAL BLOOD GAS HEMOGLOBIN 11.5 g/dL (11.7-17.4); ARTERIAL BLOOD GAS O2 CAPACITY 15.9 mL/dl (16-24); ARTERIAL BLOOD GAS O2 CONTENT 15.7 ML/dl (15-23); ARTERIAL BLOOD GAS PCO2 24 mm/Hg (35-45); ARTERIAL BLOOD GAS PH 7.43 (7.35-7.45); ARTERIAL BLOOD GAS TCO2 16.6 mmol.L (22-28)
--- NOTE | 2018-08-06 10:10 | CARD ---
APPROVED REPORT Date of service: 08/06/2018 EKG Measurement Heart [id number] <Conclusion> Atrial fibrillation with rapid ventricular response Right bundle branch block T wave abnormality, consider inferior ischemia or digitalis effect Abnormal ECG
--- NOTE | 2018-08-06 10:14 | CP.CCUPN ---
<J Luis Washington - Last Filed: 08/06/18 13:03> CCU Subjective - Physician Review Subjective (Free Text): J Luis Washington DO, PGY-1 MICU Progress Note for Dr. Jackson Patient was seen and examined at bedside this AM. She appears more awake, alert this AM, is now extubated, and states she feels better. She has been maintaining MAP > 65 without pressor support. CCU Objective - Vital Signs / Intake & Output Vital Signs (Last 4 hours): Vital Signs BP 08/06/18 09:03 151/99 H Intake and Output (Last 8hrs): Intake & Output 08/05/18 08/06/18 08/06/18 22:59 06:59 14:59 Intake Total 434 343 150 Output Total 450 450 Balance -16 -107 150 Weight 160 lb 9.6 oz Intake: IV 434 223 150 Right Hand 60 63 Right Internal Jugular 310 160 Oral 0 Other 120 Output: Urine 450 450 Urethral ([place]) 450 450 Other: # Bowel Movements 4 0 - Physical Exam Head: Positive for: Atraumatic, Normocephalic Pupils: Positive for: PERRL Extroacular Muscles: Positive for: EOMI Conjunctiva: Positive for: Normal Mouth: Positive for: Moist Mucous Membranes Pharnyx: Positive for: Normal. Negative for: ERYTHEMA, EXUDATE Neck: Positive for: Normal Range of Motion Respiratory/Chest: Positive for: Good Air Exchange, Rhonchi (coarse breath sounds b/l improved from prior exams). Negative for: Respiratory Distress, Accessory Muscle Use, Wheezes, Rales, Tachypneic Cardiovascular: Positive for: Normal S1, S2, Tachycardic. Negative for: Murmurs, Rub, Gallop Abdomen: Positive for: Tenderness (mildly tender to palpation diffusely), Distention (mid-abdomen appears less distended), Normal Bowel Sounds. Negative for: Rebound, Guarding Upper Extremity: Positive for: NORMAL PULSES, Other (significant hematoma on R arm from blood draw). Negative for: Cyanosis, Edema Lower Extremity: Positive for: Edema (non-pitting, b/l, per family this is patient's baseline from chronic lymphedema), NORMAL PULSES, Other (venous stasis dermatitis b/l) Neurological: Positive for: GCS=15, CN II-XII Intact, Speech Normal, Motor Func Grossly Intact Skin: Positive for: Warm, Dry. Negative for: Rashes Psychiatric: Positive for: Alert, Oriented x 3, Normal Insight, Normal Concentration - Medications Active Medications: Active Medications Generic Name Dose Route Start Last Admin Trade Name Freq PRN Reason Stop Dose Admin Acetaminophen 650 mg 08/04/18 08:59 08/04/18 22:24 Tylenol 650 Mg Supp RC 650 mg Q6H PRN Administration Fever >100.4 F Digoxin 0.25 mg 08/06/18 08:30 08/06/18 09:02 Lanoxin IV 08/07/18 02:31 0.25 mg Q6H DONNA Administration Digoxin 0.125 mg 08/07/18 14:00 Lanoxin IV 1400 DONNA Furosemide 40 mg 08/06/18 10:00 08/06/18 09:03 Lasix IV 40 mg BID DONNA Administration Hydrocortisone Sodium Succinate 50 mg 08/06/18 09:00 Solu-Cortef IVP Q12H DONNA Propofol 1,000 mg in 100 mls @ 2.041 mls/hr 08/04/18 05:15 08/05/18 21:30 Diprivan IV 10.04 mcg/kg/min .Q24H PRN 4.1 mls/hr TITRATE PER MD ORDER Administration Protocol 5 MCG/KG/MIN Heparin Sodium/Sodium Chloride 25,000 units in 250 mls @ 8.165 mls/hr 08/04/18 05:30 08/06/18 09:05 Heparin 80451 Units/250ml 1/2 Normal Saline IV 9.7 units/kg/hr .Q24H DONNA 6.6 mls/hr Titration Protocol 12 UNITS/KG/HR NOREPINEPHRINE BIT/0.9 % NACL 4 mg in 250 mls @ 15 mls/hr 08/04/18 11:22 08/05/18 12:50 Levophed 4 Mg/ 250 Ml Ns Premixed IV 0 mcg/min .[id number] PRN 0 mls/hr TITRATE PER MD ORDER Titration Protocol 4 MCG/MIN Meropenem 1 gm in 50 mls @ 100 mls/hr 08/04/18 14:00 08/06/18 06:05 Merrem Iv 1 Gm Premix IVPB 08/13/18 14:01 100 mls/hr Q8 DONNA Administration Protocol Metoprolol Tartrate 5 mg 08/05/18 06:30 08/06/18 06:06 Lopressor IVP 5 mg Q6H DONNA Administration Oxycodone HCl 15 mg 08/05/18 20:21 08/06/18 09:15 Oxycodone Immediate Release Tab PO 15 mg Q6H PRN Administration Pain, severe (8-10) Pantoprazole Sodium 40 mg 08/04/18 05:29 08/06/18 09:05 Protonix Inj IVP 40 mg Q12 DONNA Administration Polyethylene Glycol 17 gm 08/04/18 19:15 08/06/18 09:04 Miralax PO 17 gm DAILY DONNA Administration - Patient Studies Lab Studies: Microbiology Studies 08/04/18 04:00 Blood Culture - Final Blood Escherichia Coli Gram Stain - Final 08/04/18 04:20 Blood Culture - Final Blood Escherichia Coli Gram Stain - Final 08/04/18 04:25 Urine Culture - Final Urine,Catheterized Escherichia Coli 08/04/18 06:50 MRSA Culture (Admit) - Final Nose MRSA NOT DETECTED 08/04/18 13:30 Gram Stain - Final Sputum Induced Sputum Culture - Preliminary No growth. Lab Studies 08/06/18 08/06/18 08/06/18 Range/Units 09:14 06:30 06:00 WBC (4.5-11.0) 10^3/uL RBC (3.5-6.1) 10^6/uL Hgb (12.0-16.0) g/dL Hct (36.0-48.0) % MCV (80.0-105.0) fl MCH (25.0-35.0) pg MCHC (31.0-37.0) g/dl RDW (11.5-14.5) % Plt Count (120.0-450.0) 10^3/uL MPV (7.0-11.0) fl Neut % (Auto) (50.0-68.0) % Lymph % (Auto) (22.0-35.0) % Power % (Auto) (1.0-6.0) % Eos % (Auto) (1.5-5.0) % Baso % (Auto) (0.0-3.0) % Lymph # (Auto) (1.2-3.4) Power # (Auto) (0.1-0.6) Eos # (Auto) (0.0-0.7) Baso # (Auto) (0.0-2.0) K/mm3 Absolute Neuts (auto) (1.4-6.5) APTT 46.0 H (26.9-38.3) Seconds pCO2 24 L 25 L (35-45) mm/Hg pO2 104.0 H 119.0 H (80-100) mm/Hg HCO3 15.9 L 15.5 L (21-28) mmol/L ABG pH 7.43 7.40 (7.35-7.45) ABG Total CO2 16.6 L 16.3 L (22-28) mmol.L ABG O2 Saturation 99.0 H 99.3 H (95-98) % ABG O2 Content 15.7 14.2 L (15-23) ML/dl ABG Base Excess -6.9 L -8.0 L (-2.0-3.0) mmol/L ABG Hemoglobin 11.5 L 10.3 L (11.7-17.4) g/dL ABG Carboxyhemoglobin 1.7 H 1.6 H (0.5-1.5) % POC ABG HHb (Measured) 1.0 0.7 (0-5) % ABG Methemoglobin 1.1 1.2 (0.0-3.0) % ABG O2 Capacity 15.9 L 14.3 L (16-24) mL/dl Hgb O2 Saturation 96.2 96.5 (95.0-98.0) % FiO2 40.0 40.0 % Sodium (132-148) mmol/L Potassium (3.6-5.0) mmol/L Chloride (98-107) mmol/L Carbon Dioxide (21-33) mmol/L Anion Gap (10-20) BUN (7-21) mg/dL Creatinine (0.7-1.2) mg/dl Est GFR ( Amer) Est GFR (Non-Af Amer) Random Glucose (70-110) mg/dL Calcium (8.4-10.5) mg/dL Total Bilirubin (0.2-1.3) mg/dL AST (14-36) U/L ALT (7-56) U/L Alkaline Phosphatase (38-126) U/L Troponin I ng/mL Total Protein (5.8-8.3) g/dL Albumin (3.0-4.8) g/dL Globulin gm/dL Albumin/Globulin Ratio (1.1-1.8) 08/06/18 08/06/18 08/05/18 Range/Units 06:00 06:00 18:05 WBC 11.4 H D (4.5-11.0) 10^3/uL RBC 3.68 (3.5-6.1) 10^6/uL Hgb 10.8 L (12.0-16.0) g/dL Hct 33.4 L (36.0-48.0) % MCV 90.8 (80.0-105.0) fl MCH 29.3 (25.0-35.0) pg MCHC 32.3 (31.0-37.0) g/dl RDW 14.5 (11.5-14.5) % Plt Count 103 L (120.0-450.0) 10^3/uL MPV 10.9 (7.0-11.0) fl Neut % (Auto) 88.7 H (50.0-68.0) % Lymph % (Auto) 7.0 L (22.0-35.0) % Power % (Auto) 4.3 (1.0-6.0) % Eos % (Auto) 0.0 L (1.5-5.0) % Baso % (Auto) 0.0 (0.0-3.0) % Lymph # (Auto) 0.8 L (1.2-3.4) Power # (Auto) 0.5 (0.1-0.6) Eos # (Auto) 0.0 (0.0-0.7) Baso # (Auto) 0.00 (0.0-2.0) K/mm3 Absolute Neuts (auto) 10.09 H (1.4-6.5) APTT 58.9 H (26.9-38.3) Seconds pCO2 (35-45) mm/Hg pO2 (80-100) mm/Hg HCO3 (21-28) mmol/L ABG pH (7.35-7.45) ABG Total CO2 (22-28) mmol.L ABG O2 Saturation (95-98) % ABG O2 Content (15-23) ML/dl ABG Base Excess (-2.0-3.0) mmol/L ABG Hemoglobin (11.7-17.4) g/dL ABG Carboxyhemoglobin (0.5-1.5) % POC ABG HHb (Measured) (0-5) % ABG Methemoglobin (0.0-3.0) % ABG O2 Capacity (16-24) mL/dl Hgb O2 Saturation (95.0-98.0) % FiO2 % Sodium 141 (132-148) mmol/L Potassium 4.2 (3.6-5.0) mmol/L Chloride 111 H (98-107) mmol/L Carbon Dioxide 21 (21-33) mmol/L Anion Gap 13 (10-20) BUN 48 H (7-21) mg/dL Creatinine 1.1 (0.7-1.2) mg/dl Est GFR ( Amer) 58 Est GFR (Non-Af Amer) 48 Random Glucose 120 H (70-110) mg/dL Calcium 7.8 L (8.4-10.5) mg/dL Total Bilirubin 0.8 (0.2-1.3) mg/dL AST 61 H D (14-36) U/L ALT 48 (7-56) U/L Alkaline Phosphatase 57 (38-126) U/L Troponin I 0.56 H* D ng/mL Total Protein 6.5 (5.8-8.3) g/dL Albumin 3.3 (3.0-4.8) g/dL Globulin 3.2 gm/dL Albumin/Globulin Ratio 1.0 L (1.1-1.8) 08/05/18 Range/Units 12:00 WBC (4.5-11.0) 10^3/uL RBC (3.5-6.1) 10^6/uL Hgb (12.0-16.0) g/dL Hct (36.0-48.0) % MCV (80.0-105.0) fl MCH (25.0-35.0) pg MCHC (31.0-37.0) g/dl RDW (11.5-14.5) % Plt Count (120.0-450.0) 10^3/uL MPV (7.0-11.0) fl Neut % (Auto) (50.0-68.0) % Lymph % (Auto) (22.0-35.0) % Power % (Auto) (1.0-6.0) % Eos % (Auto) (1.5-5.0) % Baso % (Auto) (0.0-3.0) % Lymph # (Auto) (1.2-3.4) Power # (Auto) (0.1-0.6) Eos # (Auto) (0.0-0.7) Baso # (Auto) (0.0-2.0) K/mm3 Absolute Neuts (auto) (1.4-6.5) APTT 70.8 H (26.9-38.3) Seconds pCO2 (35-45) mm/Hg pO2 (80-100) mm/Hg HCO3 (21-28) mmol/L ABG pH (7.35-7.45) ABG Total CO2 (22-28) mmol.L ABG O2 Saturation (95-98) % ABG O2 Content (15-23) ML/dl ABG Base Excess (-2.0-3.0) mmol/L ABG Hemoglobin (11.7-17.4) g/dL ABG Carboxyhemoglobin (0.5-1.5) % POC ABG HHb (Measured) (0-5) % ABG Methemoglobin (0.0-3.0) % ABG O2 Capacity (16-24) mL/dl Hgb O2 Saturation (95.0-98.0) % FiO2 % Sodium (132-148) mmol/L Potassium (3.6-5.0) mmol/L Chloride (98-107) mmol/L Carbon Dioxide (21-33) mmol/L Anion Gap (10-20) BUN (7-21) mg/dL Creatinine (0.7-1.2) mg/dl Est GFR ( Amer) Est GFR (Non-Af Amer) Random Glucose (70-110) mg/dL Calcium (8.4-10.5) mg/dL Total Bilirubin (0.2-1.3) mg/dL AST (14-36) U/L ALT (7-56) U/L Alkaline Phosphatase (38-126) U/L Troponin I ng/mL Total Protein (5.8-8.3) g/dL Albumin (3.0-4.8) g/dL Globulin gm/dL Albumin/Globulin Ratio (1.1-1.8) Laboratory Results - last 24 hr 08/05/18 08/05/18 08/06/18 12:00 18:05 06:00 WBC RBC Hgb Hct MCV MCH MCHC RDW Plt Count MPV Neut % (Auto) Lymph % (Auto) Power % (Auto) Eos % (Auto) Baso % (Auto) Lymph # (Auto) Power # (Auto) Eos # (Auto) Baso # (Auto) Absolute Neuts (auto) APTT 70.8 H 58.9 H pCO2 pO2 HCO3 ABG pH ABG Total CO2 ABG O2 Saturation ABG O2 Content ABG Base Excess ABG Hemoglobin ABG Carboxyhemoglobin POC ABG HHb (Measured) ABG Methemoglobin ABG O2 Capacity Hgb O2 Saturation FiO2 Sodium 141 Potassium 4.2 Chloride 111 H Carbon Dioxide 21 Anion Gap 13 BUN 48 H Creatinine 1.1 Est GFR ( Amer) 58 Est GFR (Non-Af Amer) 48 Random Glucose 120 H Calcium 7.8 L Total Bilirubin 0.8 AST 61 H D ALT 48 Alkaline Phosphatase 57 Troponin I 0.56 H* D Total Protein 6.5 Albumin 3.3 Globulin 3.2 Albumin/Globulin Ratio 1.0 L 08/06/18 08/06/18 08/06/18 06:00 06:00 06:30 WBC 11.4 H D RBC 3.68 Hgb 10.8 L Hct 33.4 L MCV 90.8 MCH 29.3 MCHC 32.3 RDW 14.5 Plt Count 103 L MPV 10.9 Neut % (Auto) 88.7 H Lymph % (Auto) 7.0 L Power % (Auto) 4.3 Eos % (Auto) 0.0 L Baso % (Auto) 0.0 Lymph # (Auto) 0.8 L Power # (Auto) 0.5 Eos # (Auto) 0.0 Baso # (Auto) 0.00 Absolute Neuts (auto) 10.09 H APTT 46.0 H pCO2 25 L pO2 119.0 H HCO3 15.5 L ABG pH 7.40 ABG Total CO2 16.3 L ABG O2 Saturation 99.3 H ABG O2 Content 14.2 L ABG Base Excess -8.0 L ABG Hemoglobin 10.3 L ABG Carboxyhemoglobin 1.6 H POC ABG HHb (Measured) 0.7 ABG Methemoglobin 1.2 ABG O2 Capacity 14.3 L Hgb O2 Saturation 96.5 FiO2 40.0 Sodium Potassium Chloride Carbon Dioxide Anion Gap BUN Creatinine Est GFR ( Amer) Est GFR (Non-Af Amer) Random Glucose Calcium Total Bilirubin AST ALT Alkaline Phosphatase Troponin I Total Protein Albumin Globulin Albumin/Globulin Ratio 08/06/18 09:14 WBC RBC Hgb Hct MCV MCH MCHC RDW Plt Count MPV Neut % (Auto) Lymph % (Auto) Power % (Auto) Eos % (Auto) Baso % (Auto) Lymph # (Auto) Power # (Auto) Eos # (Auto) Baso # (Auto) Absolute Neuts (auto) APTT pCO2 24 L pO2 104.0 H HCO3 15.9 L ABG pH 7.43 ABG Total CO2 16.6 L ABG O2 Saturation 99.0 H ABG O2 Content 15.7 ABG Base Excess -6.9 L ABG Hemoglobin 11.5 L ABG Carboxyhemoglobin 1.7 H POC ABG HHb (Measured) 1.0 ABG Methemoglobin 1.1 ABG O2 Capacity 15.9 L Hgb O2 Saturation 96.2 FiO2 40.0 Sodium Potassium Chloride Carbon Dioxide Anion Gap BUN Creatinine Est GFR ( Amer) Est GFR (Non-Af Amer) Random Glucose Calcium Total Bilirubin AST ALT Alkaline Phosphatase Troponin I Total Protein Albumin Globulin Albumin/Globulin Ratio Radiology Impressions: Radiology Impressions Chest X-Ray 08/05/18 07:00 IMPRESSION: Stable tubes and lines. No change in pulmonary vascular congestion. No significant interval change. Maxillofacial CT 08/05/18 12:20 IMPRESSION: Streak artifact and motion artifact slightly limited evaluation. Support tubes and lines partially imaged. No obvious left dental abscess identified. EKG/Cardiology Studies: Cardiology / EKG Studies 08/06/18 06:30 EKG [ELECTROCARDIOGRAM] DAILY Comment: Reason For Exam: DC Critical Care Progress Note - Nutrition Nutrition: Nutrition Category Date Time Status NPO Diet [DIET] Diets 08/04/18 Breakfast Ordered Assessment/Plan - Assessment and Plan (Free Text) Assessment: 83 yo F with PMH of HTN, AFib (on Eliquis), breast cancer (s/p R lumpectomy), TIA, chronic LE lymphadema, chronic back pain 2/2 disc herniations, OA, anxiety, and depression admitted to MICU for septic shock of unclear etiology complicated by flash pulmonary edema and hypoxemic respiratory failure 2/2 AFib w/RVR. Hypotension and respiratory failure have now resolved, patient is extubated, and maintaining SaO2 > 95% on supplemental O2 NC. Plan: Neuro: Now extubated, AA/o x 3 Moving all extremities spontaneously, no focal deficit, able to protect airway Monitor neuro status Cardio: Suspect AFib w/RVR was likely 2/2 septic shock from UTI/pyelo and/or abdominal pain Has now resolved with pain control and IVF resuscitation for sepsis Suspect troponin elevation is 2/2 demand ischemia from AFib w/RVR However, patient remains on heparin drip, cannot r/o NSTEMI Hold home eliquis while on heparin drip Continue to maintain MAP > 65 Cardiology following, all recs appreciated Pulm: Suspect b/l pulmonary edema is likely 2/2 fluid backup from AFib w/RVR Patient weaned and extubated this AM She has been maintaining SaO2 > 95% on supplemental O2 NC alone, not requiring bipap May now continue diuresis with lasix 40 mg IVP q12h as septic shock has resolved Continue to monitor for improvement of pulmonary edema ID: Fever, leukocytosis with tachycardia noted in ED, code sepsis subsequently called Etiology of sepsis presumed to be UTI/pyelo at this time UCx and blood cx x 2 positive for EColi All organisms sensitive to merrem On day 3 of merrem per ID recs ID following, all recs appreciated /Nephro: Renal function parameters stable Continue strict I & O Continue diuresis for improvement of pulmonary edema Heme/Onc: H/H acutely decreased compared to admission but stable Suspect H/H decrease may be dilution effect 2/2 IVF resuscitation for sepsis Continue to monitor GI: Will restart diet pending swallow eval following extubation RUQ US completed with cholelithiasis and no findings of cholecystitis Low suspicion for cholecystitis as source of sepsis, especially given findings of Urine, blood cx Surgery following, all recs appreciated Endo: Random glucose: 120 Wean solu-cortef to 50 mg IVP q12h DVT/GI PPX: Heparin drip/protonix Full Code NPO but restart diet pending swallow eval Monitor in MICU, likely transfer tomorrow Patient seen, examined with, and plan confirmed with my attending Dr. Manuel Washington D.O. IM Resident PGY-1 Pager: [phone] <Miguel Angel Jackson - Last Filed: 08/07/18 08:16> CCU Objective - Vital Signs / Intake & Output Vital Signs (Last 4 hours): Vital Signs Temp Pulse Resp BP Pulse Ox 08/07/18 07:50 98.2 F 61 90 L 08/07/18 07:20 98.4 F 66 100 08/07/18 07:06 98.6 F 68 14 143/64 100 08/07/18 07:00 98.6 F 76 21 86 L 08/07/18 06:57 98.6 F 75 100 08/07/18 06:55 98.6 F 79 95 08/07/18 06:48 98.8 F 62 86 L 08/07/18 06:47 98.8 F 61 93 L 08/07/18 06:46 98.8 F 72 96 08/07/18 06:45 98.8 F 74 93 L 08/07/18 06:44 98.8 F 64 95 08/07/18 06:43 98.8 F 63 99 08/07/18 06:42 98.8 F 66 100 08/07/18 06:41 98.8 F 66 99 08/07/18 06:38 98.8 F 64 100 08/07/18 06:35 99.0 F 68 98 08/07/18 06:12 99.0 F 57 L 100 08/07/18 06:11 99.0 F 75 100 08/07/18 06:09 99.0 F 60 99 08/07/18 06:06 99.1 F 66 20 152/73 H 100 08/07/18 06:02 99.1 F 72 100 08/07/18 06:00 99.1 F 59 L 13 100 08/07/18 05:52 99.3 F 78 98 08/07/18 05:45 70 147/80 08/07/18 05:20 99.3 F 76 100 08/07/18 05:19 99.3 F 77 100 08/07/18 05:12 99.3 F 75 100 08/07/18 05:11 99.3 F 75 97 08/07/18 05:06 99.3 F 78 21 147/80 100 08/07/18 05:00 99.3 F 75 13 99 08/07/18 04:58 99.3 F 77 100 08/07/18 04:54 99.3 F 69 100 08/07/18 04:53 99.3 F 80 100 08/07/18 04:37 99.3 F 66 100 08/07/18 04:36 99.3 F 65 100 Intake and Output (Last 8hrs): Intake & Output 08/06/18 08/07/18 08/07/18 22:59 06:59 14:59 Intake Total 230 664 Output Total 2950 1650 Balance -3476 -693 Intake: IV 110 264 Right Internal Jugular 110 164 Oral 120 400 Output: Urine 2950 1650 Urethral ([place]) 2950 1650 Other: # Bowel Movements 2 1 - Medications Active Medications: Active Medications Generic Name Dose Route Start Last Admin Trade Name Freq PRN Reason Stop Dose Admin Acetaminophen 650 mg 08/04/18 08:59 08/04/18 22:24 Tylenol 650 Mg Supp RC 650 mg Q6H PRN Administration Fever >100.4 F Digoxin 0.125 mg 08/07/18 14:00 Lanoxin IV 1400 DONNA Furosemide 40 mg 08/06/18 10:00 08/06/18 18:32 Lasix IV 40 mg BID DONNA Administration Hydrocortisone Sodium Succinate 50 mg 08/06/18 09:00 08/06/18 21:39 Solu-Cortef IVP 50 mg Q12H DONNA Administration Propofol 1,000 mg in 100 mls @ 2.041 mls/hr 08/04/18 05:15 08/05/18 21:30 Diprivan IV 10.04 mcg/kg/min .Q24H PRN 4.1 mls/hr TITRATE PER MD ORDER Administration Protocol 5 MCG/KG/MIN Heparin Sodium/Sodium Chloride 25,000 units in 250 mls @ 8.165 mls/hr 08/04/18 05:30 08/06/18 23:04 Heparin 03527 Units/250ml 1/2 Normal Saline IV 11.7 units/kg/hr .Q24H DONNA 7.961 mls/hr Administration Protocol 12 UNITS/KG/HR NOREPINEPHRINE BIT/0.9 % NACL 4 mg in 250 mls @ 15 mls/hr 08/04/18 11:22 08/05/18 12:50 Levophed 4 Mg/ 250 Ml Ns Premixed IV 0 mcg/min .[id number] PRN 0 mls/hr TITRATE PER MD ORDER Titration Protocol 4 MCG/MIN Meropenem 1 gm in 50 mls @ 100 mls/hr 08/04/18 14:00 08/07/18 05:46 Merrem Iv 1 Gm Premix IVPB 08/13/18 14:01 100 mls/hr Q8 DONNA Administration Protocol Metoprolol Tartrate 5 mg 08/05/18 06:30 08/07/18 05:45 Lopressor IVP 5 mg Q6H DONNA Administration Oxycodone HCl 15 mg 08/05/18 20:21 08/07/18 04:30 Oxycodone Immediate Release Tab PO 15 mg Q6H PRN Administration Pain, severe (8-10) Pantoprazole Sodium 40 mg 08/04/18 05:29 08/06/18 21:38 Protonix Inj IVP 40 mg Q12 DONNA Administration Polyethylene Glycol 17 gm 08/04/18 19:15 08/06/18 09:04 Miralax PO 17 gm DAILY DONNA Administration - Patient Studies Lab Studies: Microbiology Studies 08/04/18 13:30 Gram Stain - Final Sputum Induced Sputum Culture - Final NORMAL ORAL AIDE 08/04/18 04:00 Blood Culture - Final Blood Escherichia Coli Gram Stain - Final 08/04/18 04:20 Blood Culture - Final Blood Escherichia Coli Gram Stain - Final 08/04/18 04:25 Urine Culture - Final Urine,Catheterized Escherichia Coli Lab Studies 08/07/18 08/07/18 08/07/18 Range/Units 05:30 05:30 05:30 WBC 10.3 (4.5-11.0) 10^3/uL RBC 3.63 (3.5-6.1) 10^6/uL Hgb 10.4 L (12.0-16.0) g/dL Hct 32.6 L (36.0-48.0) % MCV 89.8 (80.0-105.0) fl MCH 28.7 (25.0-35.0) pg MCHC 31.9 (31.0-37.0) g/dl RDW 14.0 (11.5-14.5) % Plt Count 95 L (120.0-450.0) 10^3/uL MPV 10.8 (7.0-11.0) fl Neut % (Auto) 88.3 H (50.0-68.0) % Lymph % (Auto) 8.1 L (22.0-35.0) % Power % (Auto) 3.6 (1.0-6.0) % Eos % (Auto) 0.0 L (1.5-5.0) % Baso % (Auto) 0.0 (0.0-3.0) % Lymph # (Auto) 0.8 L (1.2-3.4) Power # (Auto) 0.4 (0.1-0.6) Eos # (Auto) 0.0 (0.0-0.7) Baso # (Auto) 0.00 (0.0-2.0) K/mm3 Absolute Neuts (auto) 9.12 H (1.4-6.5) APTT 81.9 H (26.9-38.3) Seconds pCO2 (35-45) mm/Hg pO2 (80-100) mm/Hg HCO3 (21-28) mmol/L ABG pH (7.35-7.45) ABG Total CO2 (22-28) mmol.L ABG O2 Saturation (95-98) % ABG O2 Content (15-23) ML/dl ABG Base Excess (-2.0-3.0) mmol/L ABG Hemoglobin (11.7-17.4) g/dL ABG Carboxyhemoglobin (0.5-1.5) % POC ABG HHb (Measured) (0-5) % ABG Methemoglobin (0.0-3.0) % ABG O2 Capacity (16-24) mL/dl Hgb O2 Saturation (95.0-98.0) % FiO2 % Sodium 141 (132-148) mmol/L Potassium 3.5 L (3.6-5.0) mmol/L Chloride 105 (98-107) mmol/L Carbon Dioxide 26 (21-33) mmol/L Anion Gap 13 (10-20) BUN 43 H (7-21) mg/dL Creatinine 1.0 (0.7-1.2) mg/dl Est GFR ( Amer) > 60 Est GFR (Non-Af Amer) 53 Random Glucose 119 H (70-110) mg/dL Calcium 7.9 L (8.4-10.5) mg/dL Total Bilirubin 0.9 (0.2-1.3) mg/dL AST 48 H D (14-36) U/L ALT 45 (7-56) U/L Alkaline Phosphatase 62 (38-126) U/L Total Protein 6.7 (5.8-8.3) g/dL Albumin 3.4 (3.0-4.8) g/dL Globulin 3.2 gm/dL Albumin/Globulin Ratio 1.1 (1.1-1.8) 08/06/18 08/06/18 08/06/18 Range/Units 21:59 14:58 09:14 WBC (4.5-11.0) 10^3/uL RBC (3.5-6.1) 10^6/uL Hgb (12.0-16.0) g/dL Hct (36.0-48.0) % MCV (80.0-105.0) fl MCH (25.0-35.0) pg MCHC (31.0-37.0) g/dl RDW (11.5-14.5) % Plt Count (120.0-450.0) 10^3/uL MPV (7.0-11.0) fl Neut % (Auto) (50.0-68.0) % Lymph % (Auto) (22.0-35.0) % Power % (Auto) (1.0-6.0) % Eos % (Auto) (1.5-5.0) % Baso % (Auto) (0.0-3.0) % Lymph # (Auto) (1.2-3.4) Power # (Auto) (0.1-0.6) Eos # (Auto) (0.0-0.7) Baso # (Auto) (0.0-2.0) K/mm3 Absolute Neuts (auto) (1.4-6.5) APTT 48.0 H 59.4 H (26.9-38.3) Seconds pCO2 24 L (35-45) mm/Hg pO2 104.0 H (80-100) mm/Hg HCO3 15.9 L (21-28) mmol/L ABG pH 7.43 (7.35-7.45) ABG Total CO2 16.6 L (22-28) mmol.L ABG O2 Saturation 99.0 H (95-98) % ABG O2 Content 15.7 (15-23) ML/dl ABG Base Excess -6.9 L (-2.0-3.0) mmol/L ABG Hemoglobin 11.5 L (11.7-17.4) g/dL ABG Carboxyhemoglobin 1.7 H (0.5-1.5) % POC ABG HHb (Measured) 1.0 (0-5) % ABG Methemoglobin 1.1 (0.0-3.0) % ABG O2 Capacity 15.9 L (16-24) mL/dl Hgb O2 Saturation 96.2 (95.0-98.0) % FiO2 40.0 % Sodium (132-148) mmol/L Potassium (3.6-5.0) mmol/L Chloride (98-107) mmol/L Carbon Dioxide (21-33) mmol/L Anion Gap (10-20) BUN (7-21) mg/dL Creatinine (0.7-1.2) mg/dl Est GFR ( Amer) Est GFR (Non-Af Amer) Random Glucose (70-110) mg/dL Calcium (8.4-10.5) mg/dL Total Bilirubin (0.2-1.3) mg/dL AST (14-36) U/L ALT (7-56) U/L Alkaline Phosphatase (38-126) U/L Total Protein (5.8-8.3) g/dL Albumin (3.0-4.8) g/dL Globulin gm/dL Albumin/Globulin Ratio (1.1-1.8) Laboratory Results - last 24 hr 08/06/18 08/06/18 08/06/18 09:14 14:58 21:59 WBC RBC Hgb Hct MCV MCH MCHC RDW Plt Count MPV Neut % (Auto) Lymph % (Auto) Power % (Auto) Eos % (Auto) Baso % (Auto) Lymph # (Auto) Power # (Auto) Eos # (Auto) Baso # (Auto) Absolute Neuts (auto) APTT 59.4 H 48.0 H pCO2 24 L pO2 104.0 H HCO3 15.9 L ABG pH 7.43 ABG Total CO2 16.6 L ABG O2 Saturation 99.0 H ABG O2 Content 15.7 ABG Base Excess -6.9 L ABG Hemoglobin 11.5 L ABG Carboxyhemoglobin 1.7 H POC ABG HHb (Measured) 1.0 ABG Methemoglobin 1.1 ABG O2 Capacity 15.9 L Hgb O2 Saturation 96.2 FiO2 40.0 Sodium Potassium Chloride Carbon Dioxide Anion Gap BUN Creatinine Est GFR ( Amer) Est GFR (Non-Af Amer) Random Glucose Calcium Total Bilirubin AST ALT Alkaline Phosphatase Total Protein Albumin Globulin Albumin/Globulin Ratio 08/07/18 08/07/18 08/07/18 05:30 05:30 05:30 WBC 10.3 RBC 3.63 Hgb 10.4 L Hct 32.6 L MCV 89.8 MCH 28.7 MCHC 31.9 RDW 14.0 Plt Count 95 L MPV 10.8 Neut % (Auto) 88.3 H Lymph % (Auto) 8.1 L Power % (Auto) 3.6 Eos % (Auto) 0.0 L Baso % (Auto) 0.0 Lymph # (Auto) 0.8 L Power # (Auto) 0.4 Eos # (Auto) 0.0 Baso # (Auto) 0.00 Absolute Neuts (auto) 9.12 H APTT 81.9 H pCO2 pO2 HCO3 ABG pH ABG Total CO2 ABG O2 Saturation ABG O2 Content ABG Base Excess ABG Hemoglobin ABG Carboxyhemoglobin POC ABG HHb (Measured) ABG Methemoglobin ABG O2 Capacity Hgb O2 Saturation FiO2 Sodium 141 Potassium 3.5 L Chloride 105 Carbon Dioxide 26 Anion Gap 13 BUN 43 H Creatinine 1.0 Est GFR ( Amer) > 60 Est GFR (Non-Af Amer) 53 Random Glucose 119 H Calcium 7.9 L Total Bilirubin 0.9 AST 48 H D ALT 45 Alkaline Phosphatase 62 Total Protein 6.7 Albumin 3.4 Globulin 3.2 Albumin/Globulin Ratio 1.1 Critical Care Progress Note - Nutrition Nutrition: Nutrition Category Date Time Status Heart Healthy Diet [DIET] Diets 08/07/18 Breakfast Active Attending/Attestation - Attestation I have personally seen and examined this patient.: Yes I have fully participated in the care of the patient.: Yes I have reviewed all pertinent clinical information: Yes Notes (Text): 08/07/18 08:[address] Jackson note
--- NOTE | 2018-08-06 11:32 | PN ---
DATE: 08/06/2018 SUBJECTIVE: The patient is seen lying in bed in the CCU. She remains intubated. She appears comfortable at the present time. Her only complaint is back pain. CURRENT MEDICATIONS: Include IV Diprivan, IV heparin, metoprolol 5 mg every 6 hours, meropenem, MiraLax oxycodone, Protonix, Solu-Cortef. OBJECTIVE: GENERAL: She is an elderly woman who appears comfortable at rest. VITAL SIGNS: Her blood pressure is 140/90 with a pulse of 100-120 in atrial fibrillation, respirations are 16. She is afebrile. Current temperature of 99.7. HEENT: She remains orally intubated. NECK: No JVD noted. CHEST: Bilateral scattered rales and rhonchi heard. HEART: PMI displaced laterally with a systolic murmur present at the base as well as left sternal border. ABDOMEN: Soft, nontender with normoactive bowel sounds. EXTREMITIES: Bilateral lymphedema both lower extremities are wrapped. DIAGNOSTIC DATA: Troponin 0.56, potassium 4.2, BUN and creatinine 48 and 1.1. White count 11.4, hemoglobin and hematocrit 10.8 and 33.4 with a platelet count 103,000. PTT is 46. Arterial blood gas 7.40, pCO2 25, pO2 119 on 40% FIO2 and 5 of PEEP. Electrocardiogram is pending. Chest x-ray from yesterday revealed evidence of large cardiac silhouette with bilateral congestive changes. IMPRESSION: 1. Respiratory failure, likely multifactorial now with less oxygen requirement. 2. Transient hypotension clinically improved. 3. Apparent non-ST segment elevation myocardial infarction, likely type 2 secondary to demand ischemia. 4. Chronic atrial fibrillation with suboptimal heart rate control. 5. History of breast cancer status post lumpectomy. 6. Chronic lymphedema. 7. History of hypertension. 8. Mild thrombocytopenia. 9. Gram-negative sepsis improved as well, source unclear. RECOMMENDATIONS: IV diuretic therapy will be instituted now as her blood pressure is improved. Attempts at the ventilatory weaning and extubation should be considered. IV metoprolol will be continued for now. IV digoxin will be added for heart rate control in the short-term. Close monitoring of her platelet count is advised. IV heparin may need to be discontinued if there is evidence of heparin-induced thrombocytopenia. Further recommendations were made based upon her clinical course and results the above findings. I will continue to follow and make further recommendations as appropriate. Paresh Eric MD [facility]
--- NOTE | 2018-08-06 12:59 | PN ---
DATE: 08/06/2018 SUBJECTIVE: The patient was seen and examined at bedside. She is on pressure support 5/5 with FIO2 40%. She is alert, awake, trying to communicate nonverbally. Her rapid shallow breathing index is 71. She is pulling more than 400 mL of tidal volume. Oxygen saturation 100%, temperature 99, heart rate 112-118 (irregularly irregular). The patient is comfortably watching TV. PHYSICAL EXAMINATION: HEENT: Head and neck atraumatic. There is a right IJ CVC present, looks good. LUNGS: Clear to auscultation bilaterally. HEART: Irregular rate and rhythm. ABDOMEN: Soft, nontender, nondistended. MUSCULOSKELETAL: Trace bilateral pedal and ankle edema. NEUROLOGIC: The patient moves all extremities spontaneously. SKIN: Moist. PSYCHIATRIC: The patient is alert, awake and oriented x3. LABORATORY DATA: PTT 46. ABG 7.4/25/119 on 40% FIO2. Sodium 141, potassium 4.2, chloride 111, carbon dioxide 21, BUN 48, creatinine 1.1, down from 1.2, glucose 120, troponin 0.56, down from 3.11, proBNP 4380, procalcitonin 0.13. Lipase 56. Urine for Legionella and Pneumophila antigen negative also urine is negative for nitrates and leukocyte esterase; however, moderate amount of bacteria present. Blood culture and urine culture positive for Gram-negative rods. Urine culture positive for E. coli. Of note, CT of the maxillofacial area did not show any odontogenic abscess or infection. CT of the abdomen and pelvis also did not reveal any potential source of Gram-negative bacteremia. Gallbladder ultrasound did reveal bladder stones without signs of acute cholecystitis. MEDICATIONS: Tylenol p.r.n., digoxin, Lasix 40 mg IV twice a day, heparin drip, hydrocortisone 50 mg IV every 6 hours, we will start tapering down as the patient is on pressors. Metoprolol, meropenem, oxycodone p.r.n. and Protonix. ASSESSMENT AND PLAN: This is an 83-year-old lady who initially presented with septic shock, most likely secondary to urinary tract infection with Gram-negative bacteremia and multiorgan system failure including septic encephalopathy, respiratory failure, cardiomyopathy and atrial fibrillation. The patient was fluid resuscitated and now requiring only conservative fluid management with heart rate control with beta blockers and therapeutic anticoagulation with heparin for atrial fibrillation. The patient is on meropenem. She was weaned off of vasopressor support. She is tolerating pressure support trial very well. We will repeat ABG in the end of the trial to ascertain adequate gas exchange parameters. We will continue with antibiotics. We will continue with steroid taper. The patient is on digoxin and metoprolol. The patient is alert, awake and oriented following commands. Has a strong topstitcher zigzag in both upper extremities and is able to take big sigh on command. She is able to lift her head off of pillow more than 15 cm. We will maintain euvolemia, euglycemia, normothermia, and oxygen saturation more than 90%. We will try to avoid hyperchloremia. We will try to maintain mean arterial pressure more than 65. If the patient pass pressure support trial and ABG showed adequate gas exchange parameters the patient will be extubated. Addendum: patient was successfully extubated to BiPAP. ccm time 40 min Miguel Angel Jackson MD [facility]
--- NOTE | 2018-08-06 16:23 | PN ---
DATE: 08/06/2018 SUBJECTIVE: The patient is 83-year-old, seen and examined. She has BiPAP on. She was extubated this morning. Complaint of back pain and complaint of neck pain. PHYSICAL EXAMINATION: VITAL SIGNS: She is afebrile. Pulse 116, respiration and blood pressure 147/84. LUNGS: Bilateral fair airflow. No rhonchi or crackle. HEART: S1 and S2, audible. ABDOMEN: Soft, obese and nontender. No rebound. No guarding. NEUROLOGIC: She is awake, alert and able to communicate. EXTREMITIES: Bilateral leg +2 edema. Both legs are in compression stocking. LABORATORY DATA: WBC 11.4, hemoglobin 10.8, hematocrit 33.4 and platelet 106. PTT 46. Chemistry; sodium 141, potassium 4.2, chloride 111, CO2 of 21, BUN 48, creatinine 1.1, blood sugar of 120 and troponin 0.56. Urine and blood both are positive for E. coli. ASSESSMENT: 1. Escherichia coli sepsis. 2. Respiratory failure. 3. Non-ST elevation myocardial infarction. 4. Chronic bilateral leg edema. 5. Chronic atrial fibrillation. 6. History of cancer breast status post lumpectomy. 7. Bilateral venous stasis along with bilateral leg edema. 8. Thrombocytopenia. 9. Escherichia coli sepsis and urinary tract infection. PLAN: Currently, the patient is on IV heparin. She is on digoxin. She is on Lasix. She is on meropenem. Continue on PPI. I will order for blood culture to make sure repeat cultures are negative. We will followup in a.m. Request for physical therapy evaluation. Monitor her electrolyte and CBC and give her feeding trial. We will followup in a.m. Edita Rapp MD
--- NOTE | 2018-08-06 22:45 | PN ---
DATE: 08/06/2018 SUBJECTIVE: The patient is in bed, in no acute distress, nontoxic. The patient was seen early this morning. The patient remains on ventilator. PHYSICAL EXAMINATION: VITAL SIGNS: Temperature is 99, blood pressure is 110/70, respiratory rate of 18 on the vent, heart rate of 108. HEENT: Unremarkable. NECK: Supple. LUNGS: Decreased breath sounds. HEART: Normal S1 and S2. ABDOMEN: Soft, nontender. LABORATORY EXAMINATION: Reveals a white count of 11,400 and platelets of 103. Chemistries reveal a BUN of 48, creatinine of 1.1. Urinalysis is noted. Serology is noted. Microbiology reveals E. coli in the blood, E. coli in the urine. ASSESSMENT AND PLAN: An 83-year-old female with breast cancer, atrial fibrillation, transient ischemic attack, chronic pain, gastroesophageal reflux disease, bilateral leg edema; admitted with fevers, septic shock with Escherichia coli extended-spectrum beta-lactamase bacteremia secondary to Escherichia coli extended-spectrum beta-lactamase in the urine as the source. Currently with respiratory failure, intubated on the ventilator. Currently day #3 of 14 days of meropenem. The patient with respiratory failure, intubated on ventilator. Jasen Noble MD
[2018-08-06] MEDS: Heparin25000 units/250ml 1/2NS 25,000 UNITS/250 ML BAG IV SCH (23:04)
[2018-08-07] MEDS: Metoprolol 1 mg/ml Inj IVP SCH ×2 (00:05→05:45)
[2018-08-07] MEDS: Digoxin 500 mcg/2ml (0.5 mg/2ml) Inj IV SCH (02:37)
[2018-08-07 02:42] VITALS: PULSE 84
[2018-08-07] MEDS: oxyCODONE 15 mg Immediate Release Tab PO PRN ×4 (04:30→21:33)
[2018-08-07] MEDS: Meropenem IV 1 gm in NS 1 GM/50 ML BAG IVPB SCH ×3 (05:46→21:33)
[2018-08-07 06:23] LABS: HEMOGLOBIN 10.4 g/dL (12.0-16.0); LYMPH # 0.8 (1.2-3.4); LYMPH % 8.1 % (22.0-35.0); MEAN CELL VOLUME 89.8 fl (80.0-105.0); MEAN CORPUSCULAR HEMOGLOBIN 28.7 pg (25.0-35.0); MEAN CORPUSCULAR HGB CONC 31.9 g/dl (31.0-37.0); MEAN PLATELET VOLUME 10.8 fl (7.0-11.0); MONO # 0.4 (0.1-0.6); MONO % 3.6 % (1.0-6.0); RBC 3.63 10^6/uL (3.5-6.1); WHITE BLOOD COUNT 10.3 10^3/uL (4.5-11.0)
[2018-08-07 07:32] LABS: ALB/GLOB RATIO 1.1 (1.1-1.8); ALBUMIN 3.4 g/dL (3.0-4.8); ALT/SGPT 45 U/L (7-56); AST/SGOT 48 U/L (14-36); BLOOD UREA NITROGEN 43 mg/dL (7-21); CALCIUM 7.9 mg/dL (8.4-10.5); GFR NON-AFRICAN AMERICAN 53
[2018-08-07] MEDS ORDERED: Potassium Chloride 20 mEq ER Tab PO ONE (09:28)
--- NOTE | 2018-08-07 09:36 | CP.CCUPN ---
CCU Subjective - Physician Review Subjective (Free Text): J Luis Washington DO, PGY-1 MICU Progress Note for Dr. Jackson Patient was seen and examined at bedside this AM. She continues to be awake, alert, and offers no new complaints this AM. She maintained MAP > 65 and SaO2 > 95% on supplemental O2 NC last night. She denies fever/chills, CP, SOB, abd pain/nausea/vomiting, or urinary complaints. CCU Objective - Vital Signs / Intake & Output Vital Signs (Last 4 hours): Vital Signs Temp Pulse Resp BP Pulse Ox 08/07/18 07:50 98.2 F 61 90 L 08/07/18 07:20 98.4 F 66 100 08/07/18 07:06 98.6 F 68 14 143/64 100 08/07/18 07:00 98.6 F 76 21 86 L 08/07/18 06:57 98.6 F 75 100 08/07/18 06:55 98.6 F 79 95 08/07/18 06:48 98.8 F 62 86 L 08/07/18 06:47 98.8 F 61 93 L 08/07/18 06:46 98.8 F 72 96 08/07/18 06:45 98.8 F 74 93 L 08/07/18 06:44 98.8 F 64 95 08/07/18 06:43 98.8 F 63 99 08/07/18 06:42 98.8 F 66 100 08/07/18 06:41 98.8 F 66 99 08/07/18 06:38 98.8 F 64 100 08/07/18 06:35 99.0 F 68 98 08/07/18 06:12 99.0 F 57 L 100 08/07/18 06:11 99.0 F 75 100 08/07/18 06:09 99.0 F 60 99 08/07/18 06:06 99.1 F 66 20 152/73 H 100 08/07/18 06:02 99.1 F 72 100 08/07/18 06:00 99.1 F 59 L 13 100 08/07/18 05:52 99.3 F 78 98 08/07/18 05:45 70 147/80 Intake and Output (Last 8hrs): Intake & Output 08/06/18 08/07/18 08/07/18 22:59 06:59 14:59 Intake Total 230 664 Output Total 2950 1650 Balance -2796 -588 Intake: IV 110 264 Right Internal Jugular 110 164 Oral 120 400 Output: Urine 2950 1650 Urethral ([place]) 2950 1650 Other: # Bowel Movements 2 1 - Physical Exam Head: Positive for: Atraumatic, Normocephalic Pupils: Positive for: PERRL Extroacular Muscles: Positive for: EOMI Conjunctiva: Positive for: Normal Mouth: Positive for: Moist Mucous Membranes Pharnyx: Positive for: Normal. Negative for: ERYTHEMA, EXUDATE Neck: Positive for: Normal Range of Motion Respiratory/Chest: Positive for: Clear to Auscultation, Good Air Exchange. Negative for: Respiratory Distress, Accessory Muscle Use, Wheezes, Rales, Rhonchi, Tachypneic Cardiovascular: Positive for: Regular Rate and Rhythm, Normal S1, S2. Negative for: Murmurs, Rub, Gallop Abdomen: Positive for: Tenderness (mildly tender to palpation greatest mid- epigastric region), Distention (mid-abdomen distention improved from prior exams), Normal Bowel Sounds. Negative for: Rebound, Guarding Upper Extremity: Positive for: NORMAL PULSES, Other (significant hematoma on R arm from blood draw). Negative for: Cyanosis, Edema Lower Extremity: Positive for: Edema (non-pitting, b/l, per family this is patient's baseline from chronic lymphedema), NORMAL PULSES, Other (venous stasis dermatitis b/l) Neurological: Positive for: GCS=15, CN II-XII Intact, Speech Normal, Motor Func Grossly Intact Skin: Positive for: Warm, Dry. Negative for: Rashes Psychiatric: Positive for: Alert, Oriented x 3, Normal Insight, Normal Concentration - Medications Active Medications: Active Medications Generic Name Dose Route Start Last Admin Trade Name Freq PRN Reason Stop Dose Admin Acetaminophen 650 mg 08/04/18 08:59 08/04/18 22:24 Tylenol 650 Mg Supp RC 650 mg Q6H PRN Administration Fever >100.4 F Furosemide 40 mg 08/06/18 10:00 08/06/18 18:32 Lasix IV 40 mg BID DONNA Administration Hydrocortisone Sodium Succinate 50 mg 08/06/18 09:00 08/06/18 21:39 Solu-Cortef IVP 50 mg Q12H DONNA Administration Meropenem 1 gm in 50 mls @ 100 mls/hr 08/04/18 14:00 08/07/18 05:46 Merrem Iv 1 Gm Premix IVPB 08/13/18 14:01 100 mls/hr Q8 DONNA Administration Protocol Metoprolol Tartrate 25 mg 08/07/18 17:00 Lopressor PO BRKDIN DONNA Oxycodone HCl 15 mg 08/05/18 20:21 08/07/18 04:30 Oxycodone Immediate Release Tab PO 15 mg Q6H PRN Administration Pain, severe (8-10) Pantoprazole Sodium 40 mg 08/04/18 05:29 08/06/18 21:38 Protonix Inj IVP 40 mg Q12 DONNA Administration Polyethylene Glycol 17 gm 08/04/18 19:15 08/06/18 09:04 Miralax PO 17 gm DAILY DONNA Administration Potassium Chloride 20 meq 08/07/18 10:00 Potassium Chloride Oral Soln PO BID DONNA Potassium Chloride 40 meq 08/07/18 09:28 K-Dur 20 Meq Er Tab PO 08/07/18 09:29 ONCE ONE Rivaroxaban 20 mg 08/07/18 10:00 Xarelto PO DAILY [facility] Protocol - Patient Studies Lab Studies: Microbiology Studies 08/04/18 13:30 Gram Stain - Final Sputum Induced Sputum Culture - Final NORMAL ORAL AIDE 08/04/18 04:00 Blood Culture - Final Blood Escherichia Coli Gram Stain - Final 08/04/18 04:20 Blood Culture - Final Blood Escherichia Coli Gram Stain - Final 08/04/18 04:25 Urine Culture - Final Urine,Catheterized Escherichia Coli Lab Studies 08/07/18 08/07/18 08/07/18 Range/Units 05:30 05:30 05:30 WBC 10.3 (4.5-11.0) 10^3/uL RBC 3.63 (3.5-6.1) 10^6/uL Hgb 10.4 L (12.0-16.0) g/dL Hct 32.6 L (36.0-48.0) % MCV 89.8 (80.0-105.0) fl MCH 28.7 (25.0-35.0) pg MCHC 31.9 (31.0-37.0) g/dl RDW 14.0 (11.5-14.5) % Plt Count 95 L (120.0-450.0) 10^3/uL MPV 10.8 (7.0-11.0) fl Neut % (Auto) 88.3 H (50.0-68.0) % Lymph % (Auto) 8.1 L (22.0-35.0) % Sharp % (Auto) 3.6 (1.0-6.0) % Eos % (Auto) 0.0 L (1.5-5.0) % Baso % (Auto) 0.0 (0.0-3.0) % Lymph # (Auto) 0.8 L (1.2-3.4) Sharp # (Auto) 0.4 (0.1-0.6) Eos # (Auto) 0.0 (0.0-0.7) Baso # (Auto) 0.00 (0.0-2.0) K/mm3 Absolute Neuts (auto) 9.12 H (1.4-6.5) APTT 81.9 H (26.9-38.3) Seconds Sodium 141 (132-148) mmol/L Potassium 3.5 L (3.6-5.0) mmol/L Chloride 105 (98-107) mmol/L Carbon Dioxide 26 (21-33) mmol/L Anion Gap 13 (10-20) BUN 43 H (7-21) mg/dL Creatinine 1.0 (0.7-1.2) mg/dl Est GFR ( Amer) > 60 Est GFR (Non-Af Amer) 53 Random Glucose 119 H (70-110) mg/dL Calcium 7.9 L (8.4-10.5) mg/dL Total Bilirubin 0.9 (0.2-1.3) mg/dL AST 48 H D (14-36) U/L ALT 45 (7-56) U/L Alkaline Phosphatase 62 (38-126) U/L Total Protein 6.7 (5.8-8.3) g/dL Albumin 3.4 (3.0-4.8) g/dL Globulin 3.2 gm/dL Albumin/Globulin Ratio 1.1 (1.1-1.8) 08/06/18 08/06/18 Range/Units 21:59 14:58 WBC (4.5-11.0) 10^3/uL RBC (3.5-6.1) 10^6/uL Hgb (12.0-16.0) g/dL Hct (36.0-48.0) % MCV (80.0-105.0) fl MCH (25.0-35.0) pg MCHC (31.0-37.0) g/dl RDW (11.5-14.5) % Plt Count (120.0-450.0) 10^3/uL MPV (7.0-11.0) fl Neut % (Auto) (50.0-68.0) % Lymph % (Auto) (22.0-35.0) % Sharp % (Auto) (1.0-6.0) % Eos % (Auto) (1.5-5.0) % Baso % (Auto) (0.0-3.0) % Lymph # (Auto) (1.2-3.4) Sharp # (Auto) (0.1-0.6) Eos # (Auto) (0.0-0.7) Baso # (Auto) (0.0-2.0) K/mm3 Absolute Neuts (auto) (1.4-6.5) APTT 48.0 H 59.4 H (26.9-38.3) Seconds Sodium (132-148) mmol/L Potassium (3.6-5.0) mmol/L Chloride (98-107) mmol/L Carbon Dioxide (21-33) mmol/L Anion Gap (10-20) BUN (7-21) mg/dL Creatinine (0.7-1.2) mg/dl Est GFR ( Amer) Est GFR (Non-Af Amer) Random Glucose (70-110) mg/dL Calcium (8.4-10.5) mg/dL Total Bilirubin (0.2-1.3) mg/dL AST (14-36) U/L ALT (7-56) U/L Alkaline Phosphatase (38-126) U/L Total Protein (5.8-8.3) g/dL Albumin (3.0-4.8) g/dL Globulin gm/dL Albumin/Globulin Ratio (1.1-1.8) Laboratory Results - last 24 hr 08/06/18 08/06/18 08/07/18 14:58 21:59 05:30 WBC RBC Hgb Hct MCV MCH MCHC RDW Plt Count MPV Neut % (Auto) Lymph % (Auto) Sharp % (Auto) Eos % (Auto) Baso % (Auto) Lymph # (Auto) Sharp # (Auto) Eos # (Auto) Baso # (Auto) Absolute Neuts (auto) APTT 59.4 H 48.0 H Sodium 141 Potassium 3.5 L Chloride 105 Carbon Dioxide 26 Anion Gap 13 BUN 43 H Creatinine 1.0 Est GFR ( Amer) > 60 Est GFR (Non-Af Amer) 53 Random Glucose 119 H Calcium 7.9 L Total Bilirubin 0.9 AST 48 H D ALT 45 Alkaline Phosphatase 62 Total Protein 6.7 Albumin 3.4 Globulin 3.2 Albumin/Globulin Ratio 1.1 08/07/18 08/07/18 05:30 05:30 WBC 10.3 RBC 3.63 Hgb 10.4 L Hct 32.6 L MCV 89.8 MCH 28.7 MCHC 31.9 RDW 14.0 Plt Count 95 L MPV 10.8 Neut % (Auto) 88.3 H Lymph % (Auto) 8.1 L Sharp % (Auto) 3.6 Eos % (Auto) 0.0 L Baso % (Auto) 0.0 Lymph # (Auto) 0.8 L Sharp # (Auto) 0.4 Eos # (Auto) 0.0 Baso # (Auto) 0.00 Absolute Neuts (auto) 9.12 H APTT 81.9 H Sodium Potassium Chloride Carbon Dioxide Anion Gap BUN Creatinine Est GFR ( Amer) Est GFR (Non-Af Amer) Random Glucose Calcium Total Bilirubin AST ALT Alkaline Phosphatase Total Protein Albumin Globulin Albumin/Globulin Ratio Critical Care Progress Note - Nutrition Nutrition: Nutrition Category Date Time Status Heart Healthy Diet [DIET] Diets 08/07/18 Breakfast Active Assessment/Plan - Assessment and Plan (Free Text) Assessment: 83 yo F with PMH of HTN, AFib (on Eliquis), breast cancer (s/p R lumpectomy), TIA, chronic LE lymphadema, chronic back pain 2/2 disc herniations, OA, anxiety, and depression admitted to MICU for septic shock of unclear etiology complicated by flash pulmonary edema and hypoxemic respiratory failure 2/2 AFib w/RVR. Hypotension and respiratory failure have now resolved, patient is extubated, and maintaining SaO2 > 95% on supplemental O2 NC. Plan: Neuro: Now extubated, AA/o x 3 Moving all extremities spontaneously, no focal deficit, able to protect airway Monitor neuro status Cardio: Suspect AFib w/RVR was likely 2/2 septic shock from UTI/pyelo and/or abdominal pain Has now improved s/p doses of digoxin as recommended by cardiology Also placed on lasix 40 mg BID per cardiology May resume home meds for AFib as needed Heparin drip discontinued and home xarelto resumed per cardiology recs Case discussed with cardiology who agree patient is safe to transfer from MICU Cardiology following, all recs appreciated Pulm: Suspect b/l pulmonary edema was likely 2/2 fluid backup from AFib w/RVR Patient weaned and extubated after < 30 hrs on vent Has been maintaining SaO2 > 95% since extubation, has not required bipap May now continue diuresis with lasix 40 mg IVP q12h as septic shock has resolved Continue to monitor for improvement of pulmonary edema ID: Originally presented in septic shock requiring urgent R IJ TLC placement and pressor support Now septic shock has resolved Source presumed to be UTI/pyelonephritis UCx and blood cx x 2 positive for EColi All organisms sensitive to merrem On day 4 of merrem per ID recs Consult PICC team regarding additional access, if able to be placed, will d/c R IJ TLC ID following, all recs appreciated /Nephro: Renal function parameters remaining stable Continue diuresis for improvement of pulmonary edema Heme/Onc: H/H acutely decreased through admission but stable Suspect H/H decrease may be dilution effect 2/2 IVF resuscitation for sepsis Continue to monitor GI: Diet restarted per speech/swallow eval recs RUQ US completed with cholelithiasis and no findings of cholecystitis Low suspicion for cholecystitis as source of sepsis, especially given findings of Urine, blood cx Surgery following, all recs appreciated Endo: Random glucose: 119 Wean solu-cortef to 50 mg once tomorrow, then 25 mg once the following day DVT/GI PPX: Home xarelto/protonix Full Code Heart healthy diet Transfer to telemetry Patient seen, examined with, and plan confirmed with my attending Dr. Manuel Washington, D.O. IM Resident PGY-1 Pager: [phone]
--- NOTE | 2018-08-07 10:00 | RAD ---
Date of service: 08/07/2018 HISTORY: f/u CHF COMPARISON: 08/05/2018 TECHNIQUE: 1 view obtained. FINDINGS: LUNGS: No active pulmonary disease. PLEURA: No significant pleural effusion identified, no pneumothorax apparent. CARDIOVASCULAR: No aortic atherosclerotic calcification present. Mild cardiomegaly no pulmonary vascular congestion. OSSEOUS STRUCTURES: No significant abnormalities. VISUALIZED UPPER ABDOMEN: Normal. OTHER FINDINGS: Right IJ line in satisfactory position IMPRESSION: No active disease.
[2018-08-07] MEDS: POLYETHYLENE GLYCOL 3350 17 GM/Dose PACKET PO SCH (10:09)
[2018-08-07] MEDS: Potassium Chloride 20 mEq/15 ml LIQ UD PO SCH ×2 (10:09→11:00)
[2018-08-07] MEDS: Potassium Chloride 20 mEq ER Tab PO SCH ×2 (12:20→18:02)
--- NOTE | 2018-08-07 12:42 | PN ---
DATE: 08/07/2018 SUBJECTIVE: The patient is seen lying in bed in the CCU. She was extubated yesterday and is currently comfortable. She denies any chest pain or dyspnea. Her atrial fibrillation rate is much better controlled as well. Her current medications include IV heparin, digoxin 0.125 mg daily, Lasix 40 mg IV b.i.d., metoprolol 5 mg IV every 6 hours, meropenem, Protonix and Solu-Cortef. OBJECTIVE: GENERAL: She is a elderly woman who appears comfortable at rest. VITAL SIGNS: Blood pressure 142/64 with pulse of 60 in atrial fibrillation, respirations are 14 and she is afebrile. HEENT: No JVD. CHEST: Bibasilar rales heard. HEART: PMI displaced laterally with a systolic murmur at the base and left sternal border. ABDOMEN: Soft, nontender with normoactive bowel sounds. EXTREMITIES: Both lower extremities are wrapped. DIAGNOSTIC DATA: Potassium 3.5, BUN and creatinine 43 and 1.0. White count is 10.3, hemoglobin and hematocrit 10.4 and 32.6 with platelet count of 95,000. PTT is 82. IMPRESSION: 1. Recent respiratory failure likely secondary to sepsis, clinically improved. 2. Transient hypotension secondary to sepsis, resolved. 3. Apparent non-ST segment elevation myocardial fraction, likely type 2 secondary to demand ischemia. 4. Chronic atrial fibrillation with improved heart rate control. 5. Chronic lymphedema. 6. Thrombocytopenia persistent. 7. Gram-negative sepsis, clinically improved as well. 8. Prior breast cancer status post lumpectomy. 9. History of hypertension. RECOMMENDATIONS: IV digoxin will be discontinued. IV metoprolol will be switched to oral administration. IV heparin will be discontinued and Xarelto will be resumed. The patient should be gotten out of bed to chair. Repeat chest x-ray will be planned for the morning. IV Lasix will continue for today. I will continue to follow and make further recommendations as appropriate. Paresh Eric MD
[2018-08-07] MEDS ORDERED: Digoxin 500 mcg/2ml (0.5 mg/2ml) Inj IV SCH (14:00)
--- NOTE | 2018-08-07 15:34 | PN ---
DATE: 08/07/2018 SUBJECTIVE: The patient is an 83-year-old, seen and examined,sitting in chair. She is off of BiPAP. She is on 2 liters nasal cannula. She seems to be doing well. Fully awake, alert, able to communicate, not in acute distress. PHYSICAL EXAMINATION VITAL SIGNS: She is afebrile. Pulse 61, respirations 14 and blood pressure 125/59. LUNGS: Bilateral fair airflow. No rhonchi or crackle. HEART: S1 and S2, audible. ABDOMEN: Soft, obese and nontender. No rebound. No guarding. NEUROLOGICAL: She is awake and alert. Able to communicate. She has bruise in her right arm and right hand. She also has bruise in her neck area. Bilateral leg +2 edema. LABORATORY DATA: WBC 10.3, hemoglobin 10.4, hematocrit 32.6 and platelet of 95. PTT is 81.9. Chemistry; sodium 141, potassium 3.5, chloride 105, CO2 of 26, BUN 43, creatinine 1.0 and blood sugar of 119. Troponin . Blood culture and urine cultures are positive for E. coli. Repeat cultures are pending. X-ray of chest was done that show no active disease. ASSESSMENT: 1. Escherichia coli sepsis. 2. Status post respiratory failure, successfully extubated. 3. Cholelithiasis. 4. Chronic atrial fibrillation. 5. History of cancer breast status post lumpectomy. 6. Bilateral leg chronic stasis dermatitis with venous stasis. PLAN: The patient is going to be transferred to telemetry. Currently, she is on potassium supplementation. She is on Lasix. Currently, the patient is on meropenem. Continue Protonix, taper down Solu-Cortef. The patient is on Xarelto. 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 Edita Rapp MD
--- NOTE | 2018-08-07 15:41 | CP.PCM.APN ---
Subjective - Date & Time of Evaluation Date of Evaluation: 08/07/18 Time of Evaluation: 13:00 - Subjective Subjective: Pt. seen resting comfortably, remains extubated, denied shortness of breath, denied chest pain, palpitations, seen with lunch at bedside, tolerated diet earlier today. Objective - Vital Signs/Intake and Output Vital Signs (last 24 hours): Temp Pulse Resp BP Pulse Ox 98.4 F 96 H 19 139/73 99 08/07/18 13:06 08/07/18 13:06 08/07/18 13:06 08/07/18 13:06 08/07/18 13:06 Intake and Output: 08/07/18 08/07/18 06:59 18:59 Intake Total 664 Output Total 1650 Balance -986 - Medications Medications: Current Medications Acetaminophen (Tylenol 650 Mg Supp) 650 mg RC Q6H PRN PRN Reason: Fever >100.4 F Last Admin: 08/04/18 22:24 Dose: 650 mg Furosemide (Lasix) 40 mg IV BID [facility] Last Admin: 08/07/18 10:00 Dose: 40 mg Hydrocortisone Sodium Succinate (Solu-Cortef) 50 mg IVP Q12H [facility] Stop: 08/08/18 00:01 Last Admin: 08/07/18 10:00 Dose: 50 mg Hydrocortisone Sodium Succinate (Solu-Cortef) 50 mg IVP DAILY [facility] Stop: 08/08/18 10:01 Meropenem (Merrem Iv 1 Gm Premix) 1 gm in 50 mls @ 100 mls/hr IVPB Q8 [facility]; Protocol Stop: 08/13/18 14:01 Last Admin: 08/07/18 13:09 Dose: 100 mls/hr Metoprolol Tartrate (Lopressor) 25 mg PO BRKDIN [facility] Oxycodone HCl (Oxycodone Immediate Release Tab) 15 mg PO Q6H PRN PRN Reason: Pain, severe (8-10) Last Admin: 08/07/18 10:20 Dose: 15 mg Pantoprazole Sodium (Protonix Inj) 40 mg IVP Q12 [facility] Last Admin: 08/07/18 10:00 Dose: 40 mg Polyethylene Glycol (Miralax) 17 gm PO DAILY [facility] Last Admin: 08/07/18 10:09 Dose: Not Given Potassium Chloride (K-Dur 20 Meq Er Tab) 20 meq PO BID [facility] Last Admin: 08/07/18 12:20 Dose: 20 meq Rivaroxaban (Xarelto) 20 mg PO DAILY [facility]; Protocol Last Admin: 08/07/18 11:00 Dose: 20 mg - Labs Labs: 08/07/18 05:30 08/07/18 05:30 PT 19.1 SECONDS (9.4-12.5) H 08/04/18 03:44 INR 1.72 08/04/18 03:44 APTT 81.9 Seconds (26.9-38.3) H 08/07/18 05:30 - Constitutional Appears: Well, Non-toxic - Head Exam Head Exam: ATRAUMATIC - Eye Exam Eye Exam: Normal appearance Pupil Exam: NORMAL ACCOMODATION - ENT Exam ENT Exam: Mucous Membranes Dry, Mucous Membranes Moist, Normal Exam - Neck Exam Neck Exam: Full ROM - Respiratory Exam Respiratory Exam: Clear to Ausculation Bilateral - Cardiovascular Exam Cardiovascular Exam: Irregular Rhythm, +S1, +S2 - GI/Abdominal Exam GI & Abdominal Exam: Soft, Normal Bowel Sounds - Rectal Exam Rectal Exam: Deferred - Exam Exam: absent: Circumcision, NORMAL INSPECTION, Scrotal Swelling, Testicular Tenderness, Uretheral Discharge, Testicular Vertical Lie, Bladder Distension External exam: absent: Ecchymosis, Erythema, Lacerations, Lesions, NORMAL EXTERNAL EXAM, Swelling Speculum exam: absent: Cervical Discharge, Erythema, Foreign Body, Laceration, NORMAL SPECULUM EXAM, Tissue, Vaginal Bleeding, Vaginal Discharge Bimanual exam: absent: Adenexal Mass, Adnexal, Cervical Motion Tendernes, NORMAL BIMANUAL EXAM, Uterine Enlargement, Uterine Tenderness - Extremities Exam Extremities Exam: Pedal Edema Additional comments: 2+ b/l edema - Back Exam Back Exam: Full ROM - Neurological Exam Neurological Exam: Alert, Awake - Psychiatric Exam Psychiatric exam: Normal Affect, Normal Mood - Skin Skin Exam: Dry, Intact, Normal Color, Warm Assessment and Plan - Assessment and Plan (Free Text) Assessment: ITS Impressions Chest/Abdomen/Pelvis CT 08/04/18 03:39 IMPRESSION: Pulmonary vascular congestion/edema with patchy bilateral infiltrates and chronic interstitial changes. No acute pathology involving the abdomen or pelvis. Chest X-Ray 08/04/18 04:46 IMPRESSION: Diffuse pulmonary vascular congestion with patchy bilateral infiltrates. Chest X-Ray 08/04/18 05:14 IMPRESSION: Endotracheal tube with tip at the rita. 2 cm retraction is recommended. Enteric tube in satisfactory position. Stable appearance of diffuse bilateral patchy infiltrates. No other significant interval change. Chest X-Ray 08/04/18 08:32 IMPRESSION: New right internal jugular access central venous catheter in satisfactory position. Stable tubes and lines. Stable pulmonary vascular congestion. Gallbladder Ultrasound 08/04/18 12:20 IMPRESSION: Cholelithiasis without sonographic evidence for acute cholecystitis. Chest X-Ray 08/05/18 07:00 IMPRESSION: Stable tubes and lines. No change in pulmonary vascular congestion. No significant interval change. Maxillofacial CT 08/05/18 12:20 IMPRESSION: Streak artifact and motion artifact slightly limited evaluation. Support tubes and lines partially imaged. No obvious left dental abscess identified. Chest X-Ray 08/07/18 08:49 IMPRESSION: No active disease. Microbiology 08/04/18 13:30 Sputum Induced Gram Stain - Final 08/04/18 13:30 Sputum Induced Sputum Culture - Final NORMAL ORAL AIDE 08/04/18 04:00 Blood Blood Culture - Final Escherichia Coli 08/04/18 04:00 Blood Gram Stain - Final 08/04/18 04:20 Blood Blood Culture - Final Escherichia Coli 08/04/18 04:20 Blood Gram Stain - Final 08/04/18 04:25 Urine,Catheterized Urine Culture - Final Escherichia Coli 08/04/18 06:50 Nose MRSA Culture (Admit) - Final MRSA NOT DETECTED No Known Allergies Allergy (Verified 09/24/14 22:04) Assessment: 83 year old female with a past medical history of hypertension, atrial fibr illation (on Eliquis), breast cancer (s/p right lumpectomy), TIA, chronic lymphedema, and chronic pain, presenting to the ED brought in by EMS accompanied by niece for severe abdominal pain, found to be septic in ED, with post Troponin levels, had respiratory failure requiring intubation, cxr revealed pneumonia, admitted to unit with respiratory failure,sepsis, pneumonia, chf, NSTEMI, for further eval and treatment. a Plan: 1. Resp. Failure currently extubated, cont solucortef , monitor O2 Sats. 2.. Sepsis r/t bacteremia w. blood cx pos.ESBL, and UTI. 3. UTI Urine cx pos E.Coli Antibiotics per I.D. 4. CHF Cont. Lasix per cardiology, monitor Is Os, daily weights. Echo with EF. 37%, rec. ACEI 5. NSTEMI Heparin drip dcd per card, cont. Heparin SQ, Beta blockers, 6. Pneumonia cont. Merrem as per I.D. , monitor , trend wbc, 7. Abdominal pain improved, distention likely r/t CHF cont. Lasix as per card. PT eval pending. Will continue to monitor clinical status and follow closely.
--- NOTE | 2018-08-08 00:14 | PN ---
DATE: 08/07/2018 SUBJECTIVE: The patient is seen in bed, was seen earlier this morning extubated, comfortable, and awake. OBJECTIVE: VITAL SIGNS: Temperature is 98, blood pressure is 150/80, and respiratory rate of 18. HEENT: Unremarkable. NECK: Supple. LUNGS: Have decreased breath sounds. HEART: Normal S1 and S2. ABDOMEN: Soft. LABORATORY EXAMINATION: Reveals a white count of 10,000, hemoglobin of 10, and platelets of 95. Chemistries reveals a BUN of 43, creatinine of 1, and procalcitonin 0.13. Urinalysis is noted. Serology urine for Legionella antigen is negative. The patient has E. coli in the blood and E. coli in the urine. REVIEW OF ORDERS: Reveals the patient to be on meropenem. The patient's chest x-ray today, no active disease. ASSESSMENT AND PLAN: This is an 83-year-old female with breast cancer, atrial fibrillation, transient ischemic attack, chronic pain, gastroesophageal , bilateral leg edema, admitted with fevers, septic shock with Escherichia coli and extended-spectrum beta-lactamases Escherichia coli bacteremia secondary to extended-spectrum beta-lactamases Escherichia coli in the urine and now extubated, comfortable today is day #4 of meropenem, would complete 14 days, today is day #4 of 14 days. Jasen Noble MD
[2018-08-08] MEDS: oxyCODONE 15 mg Immediate Release Tab PO PRN ×3 (03:46→18:10)
[2018-08-08] MEDS: Meropenem IV 1 gm in NS 1 GM/50 ML BAG IVPB SCH ×2 (05:01→15:06)
[2018-08-08 06:11] VITALS: O2SAT 98
[2018-08-08 07:25] LABS: BASO # 0.01 K/mm3 (0.0-2.0); BASO % 0.1 % (0.0-3.0); HEMOGLOBIN 10.1 g/dL (12.0-16.0); LYMPH # 0.8 (1.2-3.4); LYMPH % 12.6 % (22.0-35.0); MEAN CORPUSCULAR HEMOGLOBIN 28.5 pg (25.0-35.0); MEAN CORPUSCULAR HGB CONC 31.4 g/dl (31.0-37.0); MEAN PLATELET VOLUME 10.6 fl (7.0-11.0); MONO # 0.5 (0.1-0.6); MONO % 7.6 % (1.0-6.0); RBC 3.54 10^6/uL (3.5-6.1); RED CELL DISTRIBUTION WIDTH 13.7 % (11.5-14.5); WHITE BLOOD COUNT 6.7 10^3/uL (4.5-11.0)
[2018-08-08 07:58] LABS: ALBUMIN 3.2 g/dL (3.0-4.8); ALT/SGPT 44 U/L (7-56); AST/SGOT 43 U/L (14-36); BLOOD UREA NITROGEN 41 mg/dL (7-21); CALCIUM 7.8 mg/dL (8.4-10.5); GFR NON-AFRICAN AMERICAN > 60
[2018-08-08] MEDS ORDERED: Potassium Chloride 20 mEq ER Tab PO SCH (08:00)
[2018-08-08] MEDS: POLYETHYLENE GLYCOL 3350 17 GM/Dose PACKET PO SCH (09:44)
--- NOTE | 2018-08-08 09:48 | PN ---
DATE: 08/08/2018 SUBJECTIVE: The patient is seen lying in bed on telemetry. She is comfortable at the present time. Her blood pressure remains stable and her heart rate is controlled. Her current medications include Lasix 40 mg IV b.i.d., potassium 20 b.i.d., metoprolol 25 mg b.i.d., meropenem, oxycodone, Protonix, Solu-Cortef, and Xarelto 20 mg daily. PHYSICAL EXAMINATION: GENERAL: She is an elderly woman who appears comfortable at rest. VITAL SIGNS: Blood pressure 130/70, pulse of 86 in atrial fibrillation, respirations are 16. She is afebrile. HEENT: Normocephalic, atraumatic. CHEST: Few scattered rhonchi heard. No rales noted. HEART: PMI displaced laterally with a systolic murmur at the base and left sternal border. ABDOMEN: Soft and nontender with normoactive bowel sounds. EXTREMITIES: Both lower extremities are wrapped. DIAGNOSTIC DATA: White count 6.7, hemoglobin and hematocrit 10.1 and 32.2 with platelet count of 99,000. BMP pending. Chest x-ray, poor quality film, enlarged cardiac silhouette unchanged from prior film and clearing of pulmonary vascular congestion noted. IMPRESSION: 1. Recent respiratory failure secondary to sepsis, now improved. 2. Chronic atrial fibrillation with controlled ventricular rate. 3. Chronic lymphedema. 4. Gram-negative sepsis, clinically improving. 5. Type II [id number] elevation myocardial infarction, stable at present. 6. Rest of problems as noted. 7. History of mild aortic stenosis. 8. Mild to moderately reduced left ventricular systolic function and mild tricuspid regurgitation. RECOMMENDATIONS: Oral beta-paul therapy will be continued for heart rate control. Xarelto will be continued as well. Continue monitoring of platelet count is advised. IV antibiotics will continue, IV Lasix will be switched to oral administration. I will continue to follow and make further recommendations as appropriate. Paresh Eric MD
[2018-08-08 10:10] LABS: BLOOD UREA NITROGEN 39 mg/dL (7-21); CALCIUM 8.1 mg/dL (8.4-10.5); GFR NON-AFRICAN AMERICAN > 60
[2018-08-08 12:51] VITALS: RESP 20
--- NOTE | 2018-08-08 13:42 | PN ---
DATE: 08/08/2018 SUBJECTIVE: The patient is an 83-year-old, seen and examined. Lying in bed. Seems to be comfortable. No chest pain. No shortness of breath. Eating and tolerating. She has ecchymotic spot in her neck . She is also on her right arm. She was evaluated by therapist, recommended for TCU. PHYSICAL EXAMINATION: VITAL SIGNS: She is afebrile. Pulse 85, respiration 18 and blood pressure 118/70. LUNGS: Bilateral fair airflow. No rhonchi or crackle. HEART: S1 and S2, audible. ABDOMEN: Soft, obese and nontender. No rebound. No guarding. NEUROLOGIC: She is awake, alert and able to communicate. LABORATORY DATA: Sodium 140, potassium 3.7, chloride 100, CO2 of 36, BUN 41, creatinine 0.8 and blood sugar of 122. WBC 6.7, hemoglobin 10, hematocrit 32 and platelet of 99. ASSESSMENT: 1. Extended spectrum beta lactamase positive, Escherichia coli sepsis and urinary tract infection. 2. Status post respiratory failure intubation, successfully extubated. 3. Chronic atrial fibrillation. 4. Bilateral leg lymphedema. 5. Non-ST elevation myocardial infarction. 6. History of aortic stenosis. 7. Deconditioning. PLAN: The patient is currently on p.o. Lasix. She is on metoprolol. She is on meropenem. She need to complete course of 14 days, she is on day #4 of her medications. Give her analgesic as needed. She is on stool softener. TCU evaluation has been requested and will be transferred to TCU tomorrow. We will follow up her electrolyte and CBC, CMP in a.m. Edita Rapp MD
[2018-08-08 18:08] VITALS: BP 164/90; PULSE 81
[2018-08-08 18:26] VITALS: TEMP 98.8
[2018-08-08] MEDS ORDERED: Pantoprazole 40 mg EC Tab PO SCH (22:00)
--- NOTE | 2018-08-09 01:39 | PN ---
DATE: 08/08/2018 SUBJECTIVE: The patient is in bed, was seen early this morning in room 261, bed 1. No fevers and no chills. She is doing much better. OBJECTIVE: VITAL SIGNS: Temperature is 98, blood pressure is 160/90, respiratory rate of 18. HEENT: Unremarkable. NECK: Supple. LUNGS: Have decreased breath sounds. HEART: Normal S1, S2. ABDOMEN: Soft. LABORATORY EXAMINATION: Reveals a white count of 6.7, hemoglobin of 10, BUN of 39, creatinine of 0.8. Procalcitonin is 0.13. Urinalysis is noted. Serology, urine for Legionella is negative. Blood cultures, repeat ones are negative. ASSESSMENT AND PLAN: This is an 83-year-old female with breast cancer, atrial fibrillation, transient ischemic attack, chronic pain gastroesophageal, bilateral leg edema, admitted with fevers, septic shock, Escherichia coli, extended-spectrum beta-lactamases Escherichia coli bacteremia secondary to extended-spectrum beta-lactamases Escherichia coli. Urine is the source, doing well, day #5 of [address] Rapp's note is reviewed. Jasen Noble MD
--- NOTE | 2018-08-10 06:12 | DS ---
The patient is an 83-year-old who was admitted with sepsis. She had respiratory failure. She was intubated but was successfully extubated was given IV antibiotics. Urine culture shows ESBL positive E. coli UTI. The patient need 14 days of antibiotics, so she was transferred to TCU to complete her course of antibiotic. For further details, see the progress note dictated on 08/08/2018. Edita Rapp MD
== END 2018-08-08 19:27 | DRG 871 ==
LOC: ED 03:30 → ERH 05:20 → CCU 06:41 → 2RNO 08-07 17:07
PROVIDERS: ADMIT Internal Medicine; ATTEND Internal Medicine
PROC: 0BH17EZ Insertion of Endotracheal Airway into Trachea, Via Natural or Artificial Opening (ICD-10-PCS; principal; 2018-08-04)
PROC: 5A1945Z Respiratory Ventilation, 24-96 Consecutive Hours (ICD-10-PCS; 2018-08-04)
PROC: 05HM33Z Insertion of Infusion Device into Right Internal Jugular Vein, Percutaneous Approach (ICD-10-PCS; 2018-08-04)
PROC: B543ZZA Ultrasonography of Right Jugular Veins, Guidance (ICD-10-PCS; 2018-08-04)
PROC: 0BP1XDZ Removal of Intraluminal Device from Trachea, External Approach (ICD-10-PCS; 2018-08-06)
DX: A41.51 Sepsis due to Escherichia coli [E. coli] (principal); I21.4 Non-ST elevation (NSTEMI) myocardial infarction; J18.9 Pneumonia, unspecified organism; R65.21 Severe sepsis with septic shock; J96.91 Respiratory failure, unspecified with hypoxia; G93.41 Metabolic encephalopathy; I42.9 Cardiomyopathy, unspecified; N39.0 Urinary tract infection, site not specified; E87.2 Acidosis; K80.20 Calculus of gallbladder without cholecystitis without obstruction; Z79.01 Long term (current) use of anticoagulants; Z79.899 Other long term (current) drug therapy; I48.2 Chronic atrial fibrillation; I11.0 Hypertensive heart disease with heart failure; I50.9 Heart failure, unspecified; K56.41 Fecal impaction; M85.80 Other specified disorders of bone density and structure, unspecified site; R16.0 Hepatomegaly, not elsewhere classified; Z86.73 Personal history of transient ischemic attack (TIA), and cerebral infarction without residual deficits; Z85.3 Personal history of malignant neoplasm of breast; I89.0 Lymphedema, not elsewhere classified; F41.9 Anxiety disorder, unspecified; G89.29 Other chronic pain; M54.9 Dorsalgia, unspecified; I87.8 Other specified disorders of veins; I87.2 Venous insufficiency (chronic) (peripheral); D69.6 Thrombocytopenia, unspecified; E66.9 Obesity, unspecified; E78.00 Pure hypercholesterolemia, unspecified; F32.89 Other specified depressive episodes; I07.1 Rheumatic tricuspid insufficiency; I25.10 Atherosclerotic heart disease of native coronary artery without angina pectoris; I35.0 Nonrheumatic aortic (valve) stenosis; K21.9 Gastro-esophageal reflux disease without esophagitis; K27.9 Peptic ulcer, site unspecified, unspecified as acute or chronic, without hemorrhage or perforation; K44.9 Diaphragmatic hernia without obstruction or gangrene; M40.209 Unspecified kyphosis, site unspecified; M43.16 Spondylolisthesis, lumbar region; M47.9 Spondylosis, unspecified; Z79.82 Long term (current) use of aspirin; Z79.891 Long term (current) use of opiate analgesic; Z80.0 Family history of malignant neoplasm of digestive organs; Z80.1 Family history of malignant neoplasm of trachea, bronchus and lung; Z98.41 Cataract extraction status, right eye; Z68.29 Body mass index [BMI] 29.0-29.9, adult

== ENCOUNTER 2018-08-08 19:30 | Inpatient (IN) | payer OTHER, MEDICARE ==
[2018-08-07 02:42] VITALS: PULSE 84
[2018-08-08 21:06] VITALS: BMI 27.6
[2018-08-08] MEDS: Meropenem IV 1 gm in NS 1 GM/50 ML BAG IVPB SCH (22:49)
[2018-08-08] MEDS: Pantoprazole 40 mg EC Tab PO SCH (22:51)
[2018-08-08] MEDS: oxyCODONE 15 mg Immediate Release Tab PO PRN (22:53)
[2018-08-09] MEDS: Meropenem IV 1 gm in NS 1 GM/50 ML BAG IVPB SCH ×2 (05:34→21:06)
[2018-08-09] MEDS: oxyCODONE 15 mg Immediate Release Tab PO PRN ×3 (07:11→21:15)
[2018-08-09] MEDS: Pantoprazole 40 mg EC Tab PO SCH ×2 (09:40→21:06)
[2018-08-09] MEDS: POLYETHYLENE GLYCOL 3350 17 GM/Dose PACKET PO SCH (09:40)
--- NOTE | 2018-08-10 01:57 | HP ---
DATE OF EXAM: 08/09/2018 HISTORY OF PRESENT ILLNESS: Patient is 83 years old, who was found to be unresponsive at home. She was brought to emergency room when her niece called ambulance. She was found to be septic. She has E. coli sepsis and E. coli UTI, was given IV antibiotics, was intubated, but successfully extubated. PAST MEDICAL HISTORY: Significant for; 1. Gastritis. 2. Chronic degenerative disc disease. 3. Chronic AFib. 4. Hypertension. 5. Hyperlipidemia. ALLERGIES: SHE IS NOT ALLERGIC TO ANY MEDICATION. MEDICATIONS AT HOME: She is on Xanax 0.25 mg b.i.d. p.r.n., aspirin 81 mg daily, Lipitor 10 mg daily, Lasix 40 mg daily, lisinopril 20/25 mg daily, Lopressor 50 mg daily, Xarelto 20 mg daily, Percocet as needed. SOCIAL HISTORY: She lives with her niece. Denies smoking, drinking, or alcohol use. PHYSICAL EXAMINATION: GENERAL: She is awake and alert, able to communicate. VITAL SIGNS: She is afebrile. Pulse 69, respirations 14, and blood pressure 156/88. LUNGS: Bilateral fair airflow. No rhonchi or crackle. HEART: S1 and S2, audible. ABDOMEN: Soft and nontender. No rebound. No guarding. EXTREMITIES: She has bruise on her both arms and under her chin. ASSESSMENT: 1. Status post sepsis. 2. Chronic atrial fibrillation. 3. Hypertension. 4. Hyperlipidemia. PLAN: Patient has extended spectrum beta-lactamase positive Escherichia coli urinary tract infection, need to be on meropenem. We will encourage ambulation. Monitor blood pressure. We will follow up in the a.m. Edita Rapp MD
[2018-08-10] MEDS: oxyCODONE 15 mg Immediate Release Tab PO PRN ×4 (02:31→22:36)
[2018-08-10] MEDS: Meropenem IV 1 gm in NS 1 GM/50 ML BAG IVPB SCH ×3 (05:50→21:56)
[2018-08-10] MEDS: POLYETHYLENE GLYCOL 3350 17 GM/Dose PACKET PO SCH (09:45)
[2018-08-10] MEDS: Pantoprazole 40 mg EC Tab PO SCH ×2 (09:45→21:59)
--- NOTE | 2018-08-10 21:35 | CON ---
DATE: 08/10/2018 LOCATION: The patient is in room 321, bed 1. CHIEF COMPLAINT: Weakness. HISTORY OF PRESENT ILLNESS: This is an 83-year-old female, seen by me in [facility] where the patient is admitted with past medical history of atrial fibrillation and breast cancer, hypertension, TIA, chronic pain, GERD, anxiety, depression, anemia, and arthritis, who was admitted in the Acute Care. The patient is found to have E. coli bacteremia which is ESBL. E. coli in the urine, also ESBL was treated with meropenem. Now transferred to Transitional Care. The patient states that she is feeling weak. No fevers. No chills. No nausea. No vomiting. PAST MEDICAL HISTORY: Significant for breast cancer, hypertension, TIA, chronic pain, GERD, anxiety, depression, anemia, arthritis, and atrial fibrillation. PAST SURGICAL HISTORY: Significant for cataract surgery and right lumpectomy. ALLERGIES: THE PATIENT HAS NO KNOWN ALLERGIES. MEDICATIONS: Noted. REVIEW OF SYSTEMS: A 12-point review of systems is performed. PHYSICAL EXAMINATION: VITAL SIGNS: Temperature is 97, blood pressure is 160/90, respiratory rate of 18, and heart rate of 69. HEENT: Unremarkable. NECK: Supple. LUNGS: Decreased breath sounds. HEART: Normal S1 and S2. ABDOMEN: Soft and nontender. LABORATORY DATA: Reveals a white count of 6.7, hemoglobin of 10, BUN of 39, creatinine of 0.8, and troponin of 0.56. Urinalysis is noted. Serology is reviewed. Microbiology reveals the patient had E. coli ESBL in the blood and urine. Repeat blood cultures are negative. ASSESSMENT AND PLAN: An 83-year-old female admitted initially with septic shock and with extended-spectrum beta-lactamases Escherichia coli bacteremia and extended-spectrum beta-lactamases in urine culture. Today is day #7 of 14 days of meropenem. We will follow with you. We will resume meropenem at 1 g IV every 8 hours dosing. Jasen Noble MD
[2018-08-11] MEDS: Meropenem IV 1 gm in NS 1 GM/50 ML BAG IVPB SCH ×3 (06:10→22:06)
[2018-08-11 07:09] LABS: BASO # 0.01 K/mm3 (0.0-2.0); BASO % 0.2 % (0.0-3.0); EOS % 0.6 % (1.5-5.0); LYMPH # 1.4 (1.2-3.4); LYMPH % 28.3 % (22.0-35.0); MEAN CELL VOLUME 93.4 fl (80.0-105.0); MEAN CORPUSCULAR HEMOGLOBIN 29.1 pg (25.0-35.0); MEAN CORPUSCULAR HGB CONC 31.1 g/dl (31.0-37.0); MEAN PLATELET VOLUME 9.8 fl (7.0-11.0); MONO # 0.4 (0.1-0.6); MONO % 8.3 % (1.0-6.0); RBC 2.58 10^6/uL (3.5-6.1); RED CELL DISTRIBUTION WIDTH 13.7 % (11.5-14.5); WHITE BLOOD COUNT 4.8 10^3/uL (4.5-11.0)
[2018-08-11 07:13] LABS: HEMOGLOBIN 7.5 g/dL (12.0-16.0)
[2018-08-11 08:24] LABS: ALB/GLOB RATIO 0.7 (1.1-1.8); ALBUMIN 2.6 g/dL (3.0-4.8); ALT/SGPT 29 U/L (7-56); AST/SGOT 32 U/L (14-36); BLOOD UREA NITROGEN 20 mg/dL (7-21); CALCIUM 6.1 mg/dL (8.4-10.5); GFR NON-AFRICAN AMERICAN > 60
[2018-08-11] MEDS: oxyCODONE 15 mg Immediate Release Tab PO PRN ×2 (08:27→23:55)
[2018-08-11] MEDS ORDERED: Potassium Chloride 40 mEq/30 ml LIQ UD PO ONE (09:00)
[2018-08-11] MEDS: POLYETHYLENE GLYCOL 3350 17 GM/Dose PACKET PO SCH (10:03)
[2018-08-11] MEDS: Pantoprazole 40 mg EC Tab PO SCH ×2 (10:04→22:07)
[2018-08-11] MEDS ORDERED: Potassium Chloride 20 mEq ER Tab PO ONE (11:07)
[2018-08-11] MEDS ORDERED: POLYETHYLENE GLYCOL 3350 17 GM/Dose PACKET PO ONE (18:01)
--- NOTE | 2018-08-12 00:46 | PN ---
DATE: 08/11/2018 SUBJECTIVE: The patient is seen in bed, in no acute distress, was seen early this morning. PHYSICAL EXAMINATION: VITAL SIGNS: Temperature is 97, blood pressure is 133/80, respiratory rate of 18. HEENT: Unremarkable. NECK: Supple. LUNGS: Decreased breath sounds. HEART: Normal S1 and S2. ABDOMEN: Soft. LABORATORY EXAMINATION: Reveals a white count of 4.8, hemoglobin of 7.5, platelets of 90. BUN of 20, creatinine of 0.5. Microbiology is noted. ASSESSMENT AND PLAN: This is an 83-year-old female who was admitted with septic shock with extended-spectrum beta-lactamase Escherichia coli bacteremia. Extended-spectrum beta-lactamase Escherichia coli is secondary in urine. Today is day #8 of 14 days. The patient's meropenem is active. We will continue to follow closely. Jasen Noble MD
[2018-08-12] MEDS: Meropenem IV 1 gm in NS 1 GM/50 ML BAG IVPB SCH ×3 (06:15→21:37)
[2018-08-12] MEDS: Potassium Chloride 20 mEq ER Tab PO SCH (08:17)
[2018-08-12] MEDS: POLYETHYLENE GLYCOL 3350 17 GM/Dose PACKET PO SCH ×2 (10:32→17:24)
[2018-08-12] MEDS: Pantoprazole 40 mg EC Tab PO SCH (10:32)
[2018-08-12] MEDS: oxyCODONE 15 mg Immediate Release Tab PO PRN ×2 (10:38→21:38)
--- NOTE | 2018-08-12 21:15 | PN ---
DATE: 08/12/2018 SUBJECTIVE: The patient is in bed and seen earlier today in 321. PHYSICAL EXAMINATION: VITAL SIGNS: Temperature is 98, blood pressure is 115/70, respiratory rate of 14, heart rate of 100. HEENT: Unremarkable. NECK: Supple. HEART: Normal S1, S2. ABDOMEN: Soft. LABORATORY DATA: Laboratory examination reveals a white count of 4.8, hemoglobin of 7, and platelets of 90. BUN of 20 and creatinine of 0.5. Microbiology is noted. ASSESSMENT AND PLAN: This is an 83-year-old female admitted with septic shock and extended-spectrum beta-lactamases bacteremia E. coli and extended-spectrum beta-lactamases secondary urine. Today is day #9 of 14 days of meropenem. Review of the orders reveals the meropenem to be active. Jasen Noble MD
--- NOTE | 2018-08-12 22:23 | PN ---
DATE: 08/12/2018 SUBJECTIVE: The patient is 83 years old, seen and examined. Complaint of slight head and neck pain, otherwise no complaints, eating and tolerating. PHYSICAL EXAMINATION: VITAL SIGNS: She is afebrile, pulse 71, respirations 20, blood pressure 125/86. LUNGS: Bilateral fair airflow. No rhonchi or crackle. HEART: S1 and S2, audible. ABDOMEN: Soft and nontender. No rebound. No guarding. EXTREMITIES: She has bruises on her both arms because of being anticoagulant and she has a big bruise around her neck when she had IV placed. LABORATORY DATA: Potassium is 5.2. ASSESSMENT: 1. Extended spectrum beta lactamase positive, Escherichia coli urinary tract infection and sepsis. 2. Status post respiratory failure. 3. History of chronic atrial fibrillation. 4. Hypertension. 5. Hyperlipidemia. 6. Deconditioning and difficulty walking. PLAN: Currently, patient is on Lasix. She is on metoprolol. She is on meropenem. She is on a laxative. I will cut down her Protonix to once a day. We will monitor her electrolytes and CBC intermittently. Edita Rapp MD
[2018-08-13] MEDS: Meropenem IV 1 gm in NS 1 GM/50 ML BAG IVPB SCH ×3 (06:10→21:45)
[2018-08-13] MEDS: Potassium Chloride 20 mEq ER Tab PO SCH (07:49)
[2018-08-13] MEDS: oxyCODONE 15 mg Immediate Release Tab PO PRN ×3 (07:56→23:03)
--- NOTE | 2018-08-13 08:23 | PN ---
DATE: 08/11/2018 SUBJECTIVE: The patient is an 83-year-old, seen and examined, complained of some neck pain, complained of back pain. She states pain medication helped her somewhat. PHYSICAL EXAMINATION: VITAL SIGNS: She is afebrile. Pulse 84, respirations 18, blood pressure 155/87. LUNGS: Bilateral fair airflow. No rhonchi or crackle. HEART: S1, S2 audible. ABDOMEN: Soft, nontender. No rebound. No guarding. NEUROLOGIC: She is awake and alert, able to communicate. Moves all extremities. EXTREMITIES: Does complain of bilateral knee pain. LABORATORY DATA: WBC 4.8, hemoglobin 7.5, hematocrit 24.1, platelets of 90. Chemistry; sodium 148, potassium 2.8, chloride 98, CO2 of 40, BUN 20, creatinine 0.5, blood sugar of 93. ASSESSMENT: 1. Status post extended spectrum beta-lactamase positive Escherichia coli urinary tract infection and sepsis. 2. Chronic degenerative disk disease. 3. Hypokalemia. 4. Anemia. 5. History of gastritis. 6. Hypertension. 7. Chronic atrial fibrillation. 8. Status post non-ST elevation myocardial infarction. PLAN: The patient will be given two doses of 40 mEq p.o. and one dose of IV. She will be given Venofer and continue her on meropenem as recommended by ID. We will followup the patient's CBC and CMP on Monday. Edita Rapp MD
--- NOTE | 2018-08-13 08:24 | PN ---
DATE: 08/10/2018 SUBJECTIVE: The patient is 83-year-old. Seen and examined. Sitting in chair. Complained of back pain. Has large bruise in the right side of her neck and the right arm. PHYSICAL EXAMINATION: GENERAL: The patient is awake and alert, able to communicate. VITAL SIGNS: She is afebrile. Pulse 84, respirations 18, blood pressure 150/87. LUNGS: Bilateral fair airflow. No rhonchi or crackle. HEART: S1 and S2 audible. ABDOMEN: Soft, nontender. No rebound. No guarding. NEUROLOGIC: The patient is awake and alert. Able to communicate. Complained of back pain. ASSESSMENT: 1. Status post Escherichia coli, extended spectrum beta-lactamase positive sepsis. 2. Extended spectrum beta-lactamase positive Escherichia coli urinary tract infection. 3. Status post respiratory failure. 4. History of hypertension. 5. Degenerative disk disease. PLAN. We will continue the patient on meropenem. Continue physical therapy. MAR reviewed. Found to be appropriate. We will reevaluate in a.m. Edita Rapp MD
[2018-08-13 08:57] LABS: ALBUMIN 3.6 g/dL (3.0-4.8); ALT/SGPT 33 U/L (7-56); AST/SGOT 41 U/L (14-36); BLOOD UREA NITROGEN 25 mg/dL (7-21); CALCIUM 8.5 mg/dL (8.4-10.5); GFR NON-AFRICAN AMERICAN > 60
[2018-08-13] MEDS: POLYETHYLENE GLYCOL 3350 17 GM/Dose PACKET PO SCH ×2 (09:34→17:18)
[2018-08-13] MEDS ORDERED: Pantoprazole 40 mg EC Tab PO SCH (10:00)
[2018-08-13] MEDS ORDERED: AMITIZA 24 MCG PO SCH (10:00)
--- NOTE | 2018-08-13 16:42 | PN ---
DATE: 08/13/2018 SUBJECTIVE: The patient is an 83-year-old, seen and examined, sitting in chair, to go home, doing very well and participating in therapy, complaining of pain in the right neck area. PHYSICAL EXAMINATION: VITAL SIGNS: She is afebrile, pulse 76, respirations 20, and blood pressure 159/77. LUNGS: Bilateral fair airflow. No rhonchi or crackle. HEART: S1 and S2 audible. ABDOMEN: Soft and nontender. No rebound. No guarding. NEUROLOGICAL: The patient is awake and alert, able to communicate. LABORATORY DATA: Sodium 138, potassium 4.4, chloride 91, CO2 of 39, BUN 25, creatinine 0.8, blood sugar of 115, and calcium is 8.5. ASSESSMENT AND PLAN: 1. Status post Escherichia coli sepsis. 2. Extended spectrum beta lactamase positive Escherichia coli urinary tract infection. 3. History of hypertension. 4. Status post respiratory failure. 5. Chronic atrial fibrillation, on anticoagulant. 6. Hyperlipidemia. 7. Deconditioning and difficulty walking. PLAN: Currently, the patient is stable. She is on p.o. potassium. She is on Lasix. She is on metoprolol. We will continue on meropenem. Continue her on the Xarelto. The patient is on day 10 of meropenem. Possible discharge plan on Monday. Edita Rapp MD
[2018-08-13] MEDS ORDERED: Saliva Substitute 44.3 ML PO PRN (16:47)
[2018-08-13] MEDS: LUBIPROSTONE 24 MCG PO SCH (17:24)
--- NOTE | 2018-08-14 00:59 | PN ---
DATE: 08/13/2018 SUBJECTIVE: The patient is in bed, in no acute distress, nontoxic. PHYSICAL EXAMINATION: VITAL SIGNS: Temperature is 98, blood pressure is 102/60, and respiratory rate of 18. HEENT: Unremarkable. NECK: Supple. LUNGS: Decreased breath sounds. HEART: Normal S1 and S2. ABDOMEN: Soft, nontender. LABORATORY DATA: Examination reveals a white count of 4.8, hemoglobin of 7, and platelets of 90. Chemistries reveal a BUN of 25 and creatinine of 0.8. Microbiology is noted. ASSESSMENT AND PLAN: An 83-year-old female, who was seen earlier, who was admitted with septic shock, extended-spectrum beta-lactamase, Escherichia coli bacteremia and extended-spectrum beta-lactamase Escherichia coli in the urine as the source. Today is a day #10 of meropenem, would complete 14 days. Review of orders reveals the meropenem to be active. We will follow with you. Jasen Noble MD
[2018-08-14] MEDS: Pantoprazole 40 mg EC Tab PO SCH (05:58)
[2018-08-14] MEDS: Meropenem IV 1 gm in NS 1 GM/50 ML BAG IVPB SCH ×3 (05:58→22:01)
[2018-08-14 07:12] LABS: BASO # 0.01 K/mm3 (0.0-2.0); BASO % 0.2 % (0.0-3.0); EOS # 0.1 (0.0-0.7); EOS % 1.6 % (1.5-5.0); LYMPH # 1.9 (1.2-3.4); MEAN CELL VOLUME 93.1 fl (80.0-105.0); MEAN CORPUSCULAR HEMOGLOBIN 28.9 pg (25.0-35.0); MEAN PLATELET VOLUME 10.7 fl (7.0-11.0); MONO # 0.4 (0.1-0.6); MONO % 7.6 % (1.0-6.0); RBC 4.22 10^6/uL (3.5-6.1); RED CELL DISTRIBUTION WIDTH 14.2 % (11.5-14.5); WHITE BLOOD COUNT 5.7 10^3/uL (4.5-11.0)
[2018-08-14 07:14] LABS: HEMOGLOBIN 12.2 g/dL (12.0-16.0)
[2018-08-14] MEDS: Potassium Chloride 20 mEq ER Tab PO SCH (08:46)
[2018-08-14] MEDS: oxyCODONE 15 mg Immediate Release Tab PO PRN ×3 (08:48→23:25)
[2018-08-14] MEDS: LUBIPROSTONE 24 MCG PO SCH ×2 (10:16→18:12)
[2018-08-14] MEDS: POLYETHYLENE GLYCOL 3350 17 GM/Dose PACKET PO SCH ×2 (10:17→18:12)
--- NOTE | 2018-08-14 22:22 | PN ---
DATE: 08/14/2018 SUBJECTIVE: The patient is in bed in no acute distress, nontoxic. PHYSICAL EXAMINATION VITAL SIGNS: Temperature is 97, blood pressure is 104/70, respiratory rate is 16. HEENT: Unremarkable. NECK: Supple. LUNGS: Decreased breath sounds. HEART: Normal S1 and S2. ABDOMEN: Soft, nontender. LABORATORY EXAMINATION: Reveals white count of 5.7. Chemistries are noted. BUN of 25, creatinine of 0.8.. ASSESSMENT AND PLAN: This is an 83-year-old female admitted with septic shock, extended-spectrum beta-lactamase, Escherichia coli bacteremia and extended-spectrum beta-lactamase Escherichia coli in the urine as the source. Today is day #11. We would complete 10 to 14 days. The patient is doing much better. Jasen Noble MD
--- NOTE | 2018-08-14 22:58 | PN ---
DATE: 08/14/2018 SUBJECTIVE: The patient is an 83-year-old, who was admitted and had E. coli, ESBL positive sepsis and UTI, was admitted in ICU, treated with antibiotic. Currently, she is on meropenem, doing well, participating in therapy. PHYSICAL EXAMINATION GENERAL: She is awake and alert, able to communicate. VITAL SIGNS: She is afebrile. Pulse 85, respirations 20, blood pressure 104/71. LUNGS: Bilateral fair airflow. No rhonchi or crackle. HEART: S1 and S2 audible. ABDOMEN: Soft, nontender. No rebound. No guarding. NEUROLOGIC: She is awake and alert, able to communicate. EXTREMITIES: Bilateral leg no edema. LABORATORY EXAMINATION: WBC 5.7, hemoglobin 12, hematocrit 39, platelets of 162. Chemistry; sodium 138, potassium 4.4, chloride 91, CO2 of 39, BUN 25, creatinine 0.8, blood sugar of 115. ASSESSMENT: 1. Status post Escherichia coli sepsis, extended spectrum beta lactamase positive sepsis. 2. Hypertension. 3. Chronic atrial fibrillation. 4. Anemia, requiring blood transfusion. 5. Deconditioning and difficulty walking. 6. Degenerative disc disease. PLAN: We will continue the patient on current medications. She is going to finish 14 days of meropenem on Monday and discharged plan on Monday. Edita Rapp MD
[2018-08-15] MEDS: Meropenem IV 1 gm in NS 1 GM/50 ML BAG IVPB SCH ×3 (05:54→21:36)
[2018-08-15] MEDS: Pantoprazole 40 mg EC Tab PO SCH (05:55)
[2018-08-15] MEDS: oxyCODONE 15 mg Immediate Release Tab PO PRN (08:22)
[2018-08-15] MEDS: LUBIPROSTONE 24 MCG PO SCH ×2 (11:06→17:59)
[2018-08-15] MEDS: POLYETHYLENE GLYCOL 3350 17 GM/Dose PACKET PO SCH ×2 (11:08→18:01)
[2018-08-15] MEDS: oxyCODONE 5 mg Immediate Release Tab PO PRN ×2 (15:13→21:38)
--- NOTE | 2018-08-15 19:33 | PN ---
DATE: 08/15/2018 SUBJECTIVE: The patient is in bed, in no acute distress, nontoxic. PHYSICAL EXAMINATION: VITAL SIGNS: Temperature is 98, blood pressure is 104/70 and respiratory rate of 18. HEENT: Unremarkable. NECK: Supple. LUNGS: Decreased breath sounds. HEART: Normal, S1 and S2. ABDOMEN: Soft. LABORATORY DATA: Reveals a white count of 5.7. REVIEW OF ORDERS: Reveals the patient to be on meropenem. Unfortunately the meropenem was discontinued by pharmacy. ASSESSMENT AND PLAN: An 83-year-old female who was admitted with septic shock, extended-spectrum beta-lactamases Escherichia coli bacteremia and extended-spectrum beta lactamases Escherichia coli in the urine. Today is day #12, may complete 10 to 14 days. We will restart the meropenem. Jasen Noble MD
--- NOTE | 2018-08-16 00:08 | PN ---
DATE: 08/15/2018 SUBJECTIVE: The patient is an 83-year-old, seen and examined, lying in bed, seems to be comfortable. Denies any chest pain. No nausea or vomiting. No diarrhea. Eating and tolerating. Complaining of neck pain and back pain. Participating in therapy. PHYSICAL EXAMINATION VITAL SIGNS: She is afebrile, pulse 90, respirations 20, blood pressure 100/66. LUNGS: Bilateral fair airflow. No rhonchi or crackle. HEART: S1 and S2 audible. ABDOMEN: Soft, nontender. No rebound. No guarding. NEUROLOGIC: She is awake and alert, able to communicate. LABORATORY EXAMINATION: There is no new lab available today. ASSESSMENT: 1. Status post extended spectrum beta lactamase positive Escherichia coli urinary tract infection. 2. Extended spectrum beta lactamase positive Escherichia coli sepsis. 3. Chronic atrial fibrillation. 4. Hypertension. 5. Hyperlipidemia. 6. Status post electrolyte imbalance. PLAN: We will continue the patient on current medications. She is on meropenem. She finished her course of antibiotics. Possible discharge plan in a.. Edita Rapp MD
[2018-08-16] MEDS: Meropenem IV 1 gm in NS 1 GM/50 ML BAG IVPB SCH ×3 (05:34→21:31)
[2018-08-16] MEDS: Pantoprazole 40 mg EC Tab PO SCH (05:34)
[2018-08-16] MEDS: oxyCODONE 5 mg Immediate Release Tab PO PRN ×3 (05:35→22:49)
[2018-08-16] MEDS: POLYETHYLENE GLYCOL 3350 17 GM/Dose PACKET PO SCH ×2 (09:51→17:40)
[2018-08-16] MEDS: LUBIPROSTONE 24 MCG PO SCH ×2 (09:51→17:40)
[2018-08-16 17:02] LABS: HEMOGLOBIN 10.7 g/dL (12.0-16.0); MEAN CELL VOLUME 93.1 fl (80.0-105.0); MEAN CORPUSCULAR HEMOGLOBIN 29.4 pg (25.0-35.0); MEAN CORPUSCULAR HGB CONC 31.6 g/dl (31.0-37.0); RBC 3.64 10^6/uL (3.5-6.1); RED CELL DISTRIBUTION WIDTH 13.9 % (11.5-14.5)
[2018-08-16 17:42] LABS: ALBUMIN 3.5 g/dL (3.0-4.8); ALT/SGPT 31 U/L (7-56); AST/SGOT 42 U/L (14-36); BLOOD UREA NITROGEN 30 mg/dL (7-21); CALCIUM 8.9 mg/dL (8.4-10.5); GFR NON-AFRICAN AMERICAN > 60
--- NOTE | 2018-08-16 18:30 | PN ---
DATE: 08/16/2018 SUBJECTIVE: The patient is in bed, in no acute distress, nontoxic. PHYSICAL EXAMINATION: VITAL SIGNS: Temperature is 98, blood pressure is 115/50, respiratory rate of 20, heart rate of 98. HEENT: Unremarkable. NECK: Supple. LUNGS: Have decreased breath sounds. HEART: Normal S1 and S2. ABDOMEN: Soft. LABORATORY DATA: White count of 5.7, hemoglobin of 12, BUN of 25, creatinine of 0.8. Review of orders reveals the patient to be on meropenem. ASSESSMENT AND PLAN: An 83-year-old female was seen earlier today in room 321, tolerating antibiotics well, who was initially admitted to acute care with septic shock with extended-spectrum beta-lactamases Escherichia coli bacteremia and extended-spectrum beta-lactamases Escherichia coli in the urine as the source. Today is day #13, would complete 14 days of meropenem. Jasen Noble MD
--- NOTE | 2018-08-16 23:25 | PN ---
DATE: 08/16/2018 SUBJECTIVE: The patient is 83-year-old, seen and examined. States she feels extremely weak and tired today, does not want to go home, does not feel up to it. PHYSICAL EXAMINATION VITAL SIGNS: She is afebrile. Pulse of 90, respirations of 20, blood pressure of 115/77. LUNGS: Bilateral fair airflow. No rhonchi or crackle. HEART: S1 and S2 audible. ABDOMEN: Soft, nontender. No rebound, no guarding. NEUROLOGICAL: She is awake and alert, able to communicate. EXTREMITIES: Bilateral leg, no edema. She has improving bruise and hematoma around the right neck area and on both arms. LABORATORY EXAMINATION: WBC of 6.0, hemoglobin of 10.7, hematocrit of 33.9, platelets of 157. Chemistries, sodium of 135, potassium of 5.4, chloride of 94, CO2 of 35, BUN of 30, creatinine of 0.8, blood sugar of 94. ASSESSMENT: 1. Status post Escherichia coli sepsis. 2. Escherichia coli extended spectrum beta lactamase positive urinary tract infection. 3. Hypertension. 4. Chronic atrial fibrillation. 5. Deconditioning. 6. Difficulty walking. 7. Degenerative disc disease. PLAN: Currently the patient is on Meropenem. She is on MiraLax. She is on analgesic. She is on Protonix. Encourage ambulation. She is getting Xarelto 20 mg daily. The patient remains stable. Discharge plan in a.m. Edita Rapp MD
[2018-08-17] MEDS: Meropenem IV 1 gm in NS 1 GM/50 ML BAG IVPB SCH ×2 (06:02→14:01)
[2018-08-17] MEDS: Pantoprazole 40 mg EC Tab PO SCH (06:03)
[2018-08-17] MEDS: oxyCODONE 5 mg Immediate Release Tab PO PRN ×2 (06:52→14:02)
[2018-08-17] MEDS: LUBIPROSTONE 24 MCG PO SCH (10:08)
[2018-08-17] MEDS: POLYETHYLENE GLYCOL 3350 17 GM/Dose PACKET PO SCH (10:08)
[2018-08-17 16:28] VITALS: PULSE 89; RESP 18; TEMP 97.9; O2SAT 96
[2018-08-17 16:48] VITALS: BP 116/75
--- NOTE | 2018-08-17 19:53 | PN ---
DATE: 08/17/2018 SUBJECTIVE: The patient is . PHYSICAL EXAMINATION: VITAL SIGNS: On exam with a temperature of 97, blood pressure 116/70, respiratory rate 18 and heart rate of 89. HEENT: Unremarkable. NECK: Supple. LUNGS: Decreased breath sounds. HEART: Normal S1 and S2. ABDOMEN: Soft. LABORATORY DATA: Reveals a white count of 6. Chemistries are noted. ASSESSMENT AND PLAN: This is an 83-year-old female who was seen earlier today, tolerating antibiotics well. Acute care with septic shock, extended-spectrum beta-lactamases Escherichia coli in the blood and urine. Today is 14 day of antibiotics. Completed her antibiotic therapy today. Jasen Noble MD
--- NOTE | 2018-08-18 00:02 | DS ---
HISTORY OF PRESENT ILLNESS: The patient is 83-year-old, who was admitted found unresponsive at home by her niece, who was brought to emergency room, was intubated for airway protection, was found to have sepsis with ESBL positive E. coli, found to have E. coli UTI. The patient has history of hypertension, chronic AFib, and chronic degenerative disc disease. She was successfully extubated, transferred to telemetry, was deconditioned, had difficulty walking, so was transferred to TCU for rehab. Her stay was uneventful; however, she did have anemia. She was given Venofer. Her followup hemoglobin improved. She has intermittent hypokalemia, that was also supplemented. PHYSICAL EXAMINATION: On examination today; GENERAL: She is awake and alert; able to communicate. VITAL SIGNS: She is afebrile, pulse 97, respiration 18, and blood pressure 121/69. LUNGS: Bilateral fair airflow. No rhonchi or crackle. HEART: S1 and S2 audible. ABDOMEN: Soft and nontender. No rebound. No guarding. NEUROLOGIC: She is awake and alert; able to communicate. LABORATORY DATA: Her WBC 6.0, hemoglobin 10.7, hematocrit 33.9, and platelet 157. Chemistry; sodium 135, potassium 5.4, chloride 94, CO2 of 35, BUN 30, creatinine 0.8, and blood sugar of 94. ASSESSMENT: 1. Status post extended-spectrum beta-lactamases positive Escherichia coli urinary tract infection. 2. Status post extended-spectrum beta-lactamases positive Escherichia coli sepsis. 3. Status post respiratory failure. 4. Chronic degenerative disc disease. 5. Chronic atrial fibrillation. 6. Hypertension. PLAN: The patient will be discharged home on her usual medications that include MiraLax, Protonix, metoprolol, Lasix, Percocet, Xarelto, hydralazine, Bystolic, and atorvastatin. She will follow up with her PMD. Edita Rapp MD
== END 2018-08-17 16:59 | disposition home or self-care (01) | DRG 555 ==
LOC: TRCU 19:30
PROVIDERS: ADMIT Internal Medicine; ATTEND Internal Medicine
PROC: F07Z9FZ Gait Training/Functional Ambulation Treatment using Assistive, Adaptive, Supportive or Protective Equipment (ICD-10-PCS; principal; 2018-08-09)
PROC: F08Z4FZ Home Management Treatment using Assistive, Adaptive, Supportive or Protective Equipment (ICD-10-PCS; 2018-08-09)
DX: R26.2 Difficulty in walking, not elsewhere classified (principal); A41.51 Sepsis due to Escherichia coli [E. coli]; N39.0 Urinary tract infection, site not specified; Z79.2 Long term (current) use of antibiotics; I48.2 Chronic atrial fibrillation; I10 Essential (primary) hypertension; D64.9 Anemia, unspecified; E78.5 Hyperlipidemia, unspecified; K21.9 Gastro-esophageal reflux disease without esophagitis; G89.29 Other chronic pain; E87.6 Hypokalemia; I25.2 Old myocardial infarction; Z79.01 Long term (current) use of anticoagulants; Z16.12 Extended spectrum beta lactamase (ESBL) resistance; Z85.3 Personal history of malignant neoplasm of breast; Z86.73 Personal history of transient ischemic attack (TIA), and cerebral infarction without residual deficits

== ENCOUNTER 2018-08-22 06:34 | Inpatient (IN) | payer MEDICARE ==
[2018-08-22 06:35] VITALS: PULSE 84
[2018-08-22 06:46] VITALS: BMI 28.3
[2018-08-22 07:24] LABS: BASO # 0.01 K/mm3 (0.0-2.0); BASO % 0.1 % (0.0-3.0); EOS % 0.1 % (1.5-5.0); HEMOGLOBIN 10.2 g/dL (12.0-16.0); LYMPH # 0.4 (1.2-3.4); LYMPH % 5.5 % (22.0-35.0); MEAN CELL VOLUME 95.7 fl (80.0-105.0); MEAN CORPUSCULAR HEMOGLOBIN 29.4 pg (25.0-35.0); MEAN CORPUSCULAR HGB CONC 30.7 g/dl (31.0-37.0); MEAN PLATELET VOLUME 10.5 fl (7.0-11.0); MONO # 0.2 (0.1-0.6); MONO % 1.9 % (1.0-6.0); PLATELET COUNT 128 10^3/uL (120.0-450.0); RBC 3.47 10^6/uL (3.5-6.1); RED CELL DISTRIBUTION WIDTH 14.5 % (11.5-14.5); WHITE BLOOD COUNT 7.8 10^3/uL (4.5-11.0)
[2018-08-22] MEDS: Sodium Chloride 0.9% 1,000 ML IV SCH ×2 (07:25→17:16)
[2018-08-22 07:32] LABS: VENOUS BLOOD GAS BASE EXCESS 2.6 mmol/L (0.0-2.0); VENOUS BLOOD GAS PO2 40 mm/Hg (30-55); VENOUS BLOOD PH 7.33 (7.32-7.43)
[2018-08-22 07:35] LABS: INR 1.73; PROTHROMBIN TIME 19.5 SECONDS (9.4-12.5)
--- NOTE | 2018-08-22 07:36 | ED PDOC ---
Arrival/HPI - General Historian: Family EM Caveat: Altered Mental Status - History of Present Illness Narrative History of Present Illness (Text): 08/22/18 07:38 CC: Altered Mental Status HPI: 83 yo female w/ PMH of recent admission to hospital for sepsis 2/2 to E. 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 According to niece at bedside, patient was discharged from TCU with recent admission to ICU on 08/04 s/p extubated for hypoxia and treated for sepsis 2/2 UTI infection. Patient upon discharge was at home doing well and speaking coherently to family. Patient woke up last night complaining of unspecified pain and sob. Patient then began moaning and has not been verbal with family since. Limited ROS due to patient AMS. Time/Duration: 24 hours Symptom Onset: Sudden Symptom Course: Worsening Activities at Onset: Rest Context: Sitting <Kalina Hickman - Last Filed: 08/22/18 11:41> <Vitaly Escalante DO - Last Filed: 08/22/18 18:19> - General Chief Complaint: Altered Mental Status Time Seen by Provider: 08/22/18 07:38 Past Medical History - Provider Review Nursing Documentation Reviewed: Yes - Infectious Disease Hx of Infectious Diseases: None - Tetanus Immunization Tetanus Immunization: Up to Date - Cardiac Hx Cardiac Disorders: Yes Hx Atrial Fibrillation: Yes Hx Congestive Heart Failure: Yes Hx Hypertension: Yes Other/Comment: NSTEMI - Pulmonary Hx Respiratory Disorders: Yes Hx Pneumonia: Yes - Neurological Hx Neurological Disorder: Yes HX Cerebrovascular Accident: Yes (2009) Hx Paralysis: No - HEENT Hx Cataracts: Yes (B/L) - Renal Hx Renal Disorder: No - Endocrine/Metabolic Hx Endocrine Disorders: No - Hematological/Oncological Hx Blood Transfusions: No Hx Blood Transfusion Reaction: No - Integumentary Hx Dermatological Disorder: Yes (LYMPEDEMA BILATERAL LE) Other/Comment: BLE CELLULITIS/4+ EDEMA - Musculoskeletal/Rheumatological Hx Musculoskeletal Disorders: Yes Hx Arthritis: Yes Hx Falls: Yes Hx Osteomyelitis: Yes - Gastrointestinal Hx Gastrointestinal Disorders: No - Genitourinary/Gynecological Hx Genitourinary Disorders: No Hx Reproductive Disorders: No - Psychiatric Hx Emotional Abuse: No Hx Physical Abuse: No Hx Substance Use: No - Past Surgical History Past Surgical History: Non-Contributing - Anesthesia Hx Anesthesia Reactions: No Hx Malignant Hyperthermia: No - Suicidal Assessment Feels Threatened In Home Enviroment: No <Kalina Hickman - Last Filed: 08/22/18 11:41> Family/Social History Family/Social History: No Known Family HX Smoking Status: Never Smoked Hx Alcohol Use: No Hx Substance Use: No Hx Substance Use Treatment: No <Milton Hickmancherelle - Last Filed: 08/22/18 11:41> Allergies/Home Meds <Kalina Hickman - Last Filed: 08/22/18 11:41> <Vitaly Escalante DO - Last Filed: 08/22/18 18:19> Allergies/Adverse Reactions: Allergies No Known Allergies Allergy (Verified 08/22/18 12:58) Home Medications: Home Meds Medication Instructions Recorded Confirmed Atorvastatin Calcium [Lipitor] 10 mg PO DAILY 07/26/12 08/22/18 Lisinopril/Hydrochlorothiazide 20 mg PO DAILY 07/10/15 08/22/18 [Lisinopril-Hctz 20-25 mg Tab] Diclofenac Epolamine [Flector] 1.3 % TD BID 08/22/18 08/22/18 Lubiprostone [Amitiza] 24 mcg PO BID 08/22/18 08/22/18 Metoprolol Succinate XL [Toprol XL] 50 mg PO BID 08/22/18 08/22/18 oxyCODONE [oxyCODONE Immediate 15 mg PO QID PRN 08/22/18 08/22/18 Release Tab] Review of Systems - Review of Systems Systems not reviewed;Unavailable: Altered Mental Status <Kalina Hickman - Last Filed: 08/22/18 11:41> Physical Exam - Physical Exam Physical Exam Limitations: Altered Mental Status Vital Signs Reviewed: Yes Vital Signs Temp Pulse Resp BP Pulse Ox 08/22/18 07:16 19 100 08/22/18 07:05 24 100 08/22/18 06:44 101.7 F H 133 H 24 147/113 H 91 L Temperature: Febrile Blood Pressure: Hypertensive Pulse: Tachycardic Respiratory Rate: Tachypneic Appearance: Positive for: Ill-Appearing, Uncomfortable. No: Well-Appearing, Non-Toxic, Comfortable Mental Status: Positive for: Confused. No: Alert and Oriented X 3 - Systems Exam Head: Present: Other (multiple brusing on head/neck area (xarelto use and at IV sites)) Pupils: Present: PERRL Extroacular Muscles: Present: EOMI Mouth: Present: Dry Respiratory/Chest: Present: Clear to Auscultation, Good Air Exchange, Tachypneic. No: Respiratory Distress, Wheezes Cardiovascular: Present: Murmurs, Irregular Rhythm, Tachycardic. No: Regular Rate and Rhythm Abdomen: Present: Distention, Normal Bowel Sounds. No: Peritoneal Signs, Rebound, Guarding Upper Extremity: Present: Other (bruising noted at IV sites) Lower Extremity: Present: Edema, Tenderness, Other (chronic lymphedema in b/l lower extremities) Neurological: No: GCS=15, Speech Normal Skin: Present: Warm, Dry. No: Rashes Psychiatric: Present: Alert, Oriented x 3, Normal Insight, Normal Concentration <Kalina Hickman - Last Filed: 08/22/18 11:41> Vital Signs Temp Pulse Resp BP Pulse Ox 08/22/18 10:05 99.9 F H 109 H 20 110/89 100 08/22/18 08:46 103.1 F H 119 H 24 142/91 H 94 L 08/22/18 07:40 125 H 24 137/92 H 98 08/22/18 07:16 19 100 08/22/18 07:05 24 100 08/22/18 06:44 101.7 F H 133 H 24 147/113 H 91 L <Vitaly Escalante DO - Last Filed: 08/22/18 18:19> Medical Decision Making ED Course and Treatment: 08/22/18 07:52 Impression: 83 yo female w recent admission to ICU for hypoxia requiring intubation presenting to ED for evaluation of AMS. Plan: -CBC/CMP -VBG -Mag/Phos -CT Head w/o contrast -CT abdomen w/ IV contrast -Tylenol -NS @ 100mls/hr -EKG -CXRAY -U/A with Ucx -BCx -BNP -Troponin -IV meropenem x 1 -Will trend vitals, if patient continues to be tachycardic w/o fever will consider IV cardizem for better heart rate control Prior Visits: All prior visits and labwork were reviewed for complete evaluation of the patient. Progress Notes: CBC/CMP/VBG reviewed, no WBC but trending up from prior d/c, lactate normal CXR read pending EKG shows afib w/RVR, was on heart rate control on last admission but all previous EKGs showed A fib w/ RVR Source of infection, CXR seems clear- will wait for full read, pending urine studies as last admission was urine infection 08/22/18 08:39 Patient's temperature remains elevated at currently 103.1. Motrin will be given with Ice Packs as well to reduce patient temperature. 08/22/18 10:38 After patient's fever broke. Patient became AAOX3, no source of infection currently observed Spoke with Dr. Mercado, who has accepted patient with an order for an abdominal U/S to be placed Blood pressure noted to be 85/45. Will gently rehydrate patient to improve blood pressure. Re-evaluation Time: 10:42 Reassessment Condition: Improving,but remains with symptoms - Lab Interpretations Lab Results: pO2 40 mm/Hg (30-55) 08/22/18 07:05 VBG pH 7.33 (7.32-7.43) 08/22/18 07:05 VBG pCO2 56.0 (40-60) 08/22/18 07:05 VBG HCO3 29.5 mmol/l (21-28) H 08/22/18 07:05 VBG Total CO2 31.2 mmol.L (22-28) H 08/22/18 07:05 VBG O2 Sat (Calc) 74.2 % (40-65) H 08/22/18 07:05 VBG Base Excess 2.6 mmol/L (0.0-2.0) H 08/22/18 07:05 VBG Potassium 5.1 mmol/L (3.6-5.2) 08/22/18 07:05 Sodium 139.0 mmol/L (132-148) 08/22/18 07:05 Chloride 104.0 mmol/L (98-107) 08/22/18 07:05 Glucose 106 mg/dl (65-105) H 08/22/18 07:05 Lactate 1.6 mmol/L (0.7-2.1) 08/22/18 07:05 FiO2 21.0 % 05/15/19 07:05 I have reviewed the lab results: Yes Interpretation: No sign. chg./baseline - RAD Interpretation Radiology Orders: 08/22/18 07:13 CHEST PORTABLE [RAD] Stat - EKG Interpretation Type: 12 lead EKG - Medication Orders Current Medication Orders: Sodium Chloride (Sodium Chloride 0.9%) 1,000 mls @ 100 mls/hr IV .Q10H DONNA Last Admin: 08/22/18 07:25 Dose: 100 mls/hr eMAR Start Stop Document 08/22/18 07:25 EAR (Rec: 08/22/18 07:26 EAR [facility]-ER-[id number]) Intravenous Solution Start Date 08/22/18 Start Time 07:25 End Date 08/22/18 End time 17:00 Total Infusion Time 575 Discontinued Medications Acetaminophen (Tylenol 650 Mg Supp) 650 mg RC STAT STA Stop: 08/22/18 07:20 Last Admin: 08/22/18 07:25 Dose: 650 mg MAR Pain/Vitals Document 08/22/18 07:25 EAR (Rec: 08/22/18 07:25 EAR [facility]-ER-[id number]) Pain Reassessment Is This A Pain ReAssessment? No Sleep Is patient sleeping during reassessment? No Presence of Pain Presence of Pain No <Kalina Hickman - Last Filed: 08/22/18 11:41> ED Course and Treatment: 08/22/18 10:32 Patient Seen with Resident: In agreement with resident note which contains more details about the patient. Patient seen and evaluated with resident. Came up with plan and treatment together. - Lab Interpretations Lab Results: pO2 40 mm/Hg (30-55) 08/22/18 07:05 VBG pH 7.33 (7.32-7.43) 08/22/18 07:05 VBG pCO2 56.0 (40-60) 08/22/18 07:05 VBG HCO3 29.5 mmol/l (21-28) H 08/22/18 07:05 VBG Total CO2 31.2 mmol.L (22-28) H 08/22/18 07:05 VBG O2 Sat (Calc) 74.2 % (40-65) H 08/22/18 07:05 VBG Base Excess 2.6 mmol/L (0.0-2.0) H 08/22/18 07:05 VBG Potassium 5.1 mmol/L (3.6-5.2) 08/22/18 07:05 Sodium 139.0 mmol/L (132-148) 08/22/18 07:05 Chloride 104.0 mmol/L (98-107) 08/22/18 07:05 Glucose 106 mg/dl (65-105) H 08/22/18 07:05 Lactate 1.6 mmol/L (0.7-2.1) 08/22/18 07:05 FiO2 21.0 % 08/22/18 07:05 PT 19.5 SECONDS (9.4-12.5) H 08/22/18 07:05 INR 1.73 08/22/18 07:05 APTT 35.0 Seconds (26.9-38.3) 08/22/18 07:05 Troponin I 0.02 ng/mL D 08/22/18 07:05 NT-Pro-B Natriuret Pep 6770 pg/mL (0-450) H 08/22/18 07:05 Total Bilirubin 1.2 mg/dL (0.2-1.3) 08/22/18 07:05 AST 30 U/L (14-36) 08/22/18 07:05 ALT 31 U/L (7-56) 08/22/18 07:05 Alkaline Phosphatase 90 U/L (38-126) 08/22/18 07:05 Total Protein 8.0 g/dL (5.8-8.3) 08/22/18 07:05 Albumin 4.1 g/dL (3.0-4.8) 08/22/18 07:05 Globulin 3.9 gm/dL 08/22/18 07:05 Albumin/Globulin Ratio 1.1 (1.1-1.8) 08/22/18 07:05 Urine Color Yellow (YELLOW) 08/22/18 07:40 Urine Appearance Clear (CLEAR) 08/22/18 07:40 Urine pH 6.5 (4.7-8.0) 08/22/18 07:40 Ur Specific Hydes 1.015 (1.005-1.035) 08/22/18 07:40 Urine Protein 30 mg/dL (<30 mg/dL) H 08/22/18 07:40 Urine Glucose (UA) Negative mg/dL (NEGATIVE) 08/22/18 07:40 Urine Ketones Negative mg/dL (NEGATIVE) 08/22/18 07:40 Urine Blood Trace-intact (NEGATIVE) H 08/22/18 07:40 Urine Nitrate Negative (NEGATIVE) 08/22/18 07:40 Urine Bilirubin Negative (NEGATIVE) 08/22/18 07:40 Urine Urobilinogen 0.2 E.U./dL (<1 E.U./dL) 08/22/18 07:40 Ur Leukocyte Esterase Negative Humberto/uL (NEGATIVE) 08/22/18 07:40 Urine RBC 2 - 5 /hpf (0-2) H 08/22/18 07:40 Urine WBC 0 - 2 /hpf (0-6) 08/22/18 07:40 Ur Epithelial Cells 6 - 8 /hpf (0-5) H 08/22/18 07:40 Urine Bacteria Many /hpf (NONE) 08/22/18 07:40 - RAD Interpretation Radiology Orders: 08/22/18 07:13 CHEST PORTABLE [RAD] Stat 08/22/18 07:38 HEAD W/O CONTRAST [CT] Stat 08/22/18 07:51 ABD & PELVIS IV CONTRAST ONLY [CT] Stat 08/22/18 10:31 ABDOMEN COMPLETE [US] Stat - Medication Orders Current Medication Orders: Sodium Chloride (Sodium Chloride 0.9%) 1,000 mls @ 100 mls/hr IV .Q10H DONNA Last Admin: 08/22/18 07:25 Dose: 100 mls/hr eMAR Start Stop Document 08/22/18 07:25 EAR (Rec: 08/22/18 07:26 EAR [facility]-ER-[id number]) Intravenous Solution Start Date 08/22/18 Start Time 07:25 End Date 08/22/18 End time 17:00 Total Infusion Time 575 Meropenem (Merrem Iv 1 Gm Premix) 1 gm in 50 mls @ 100 mls/hr IVPB STAT DONNA; Protocol Last Admin: 08/22/18 08:40 Dose: 100 mls/hr eMAR Start Stop Document 08/22/18 08:40 EAR (Rec: 08/22/18 08:40 EAR [facility]-ER-[id number]) Intravenous Solution Start Date 08/22/18 Start Time 08:40 End Date 08/22/18 End time 09:10 Total Infusion Time 30 Discontinued Medications Acetaminophen (Tylenol 650 Mg Supp) 650 mg RC STAT STA Stop: 08/22/18 07:20 Last Admin: 08/22/18 07:25 Dose: 650 mg MAR Pain/Vitals Document 08/22/18 07:25 EAR (Rec: 08/22/18 07:25 EAR [facility]-ER-36) Pain Reassessment Is This A Pain ReAssessment? No Sleep Is patient sleeping during reassessment? No Presence of Pain Presence of Pain No Ibuprofen (Motrin Oral Susp) 600 mg PO STAT STA Stop: 08/22/18 08:47 Last Admin: 08/22/18 08:54 Dose: 600 mg MAR Pain/Vitals Document 08/22/18 08:54 EAR (Rec: 08/22/18 08:54 EAR [facility]-ER-36) Pain Reassessment Is This A Pain ReAssessment? No Sleep Is patient sleeping during reassessment? No Presence of Pain Presence of Pain No <Vitaly Escalante DO - Last Filed: 08/22/18 18:19> - PA / NICKEL OPERATOR / Resident Statement MICHAEL has reviewed & agrees with the documentation as recorded. MICHAEL has examined the patient and agrees with the treatment plan. <Vitaly Escalante DO - Last Filed: 08/22/18 18:19> Disposition/Present on Arrival - Present on Arrival Any Indicators Present on Arrival: No History of DVT/PE: No History of Uncontrolled Diabetes: No Urinary Catheter: No History of Decub. Ulcer: No History Surgical Site Infection Following: None - Disposition Have Diagnosis and Disposition been Completed?: Yes Disposition Time: 10:43 Patient Plan: Telemetry <Kalina Hickman - Last Filed: 08/22/18 11:41> <Vitaly Escalante DO - Last Filed: 08/22/18 18:19> - Disposition Diagnosis: UTI (urinary tract infection), Fever Disposition: HOSPITALIZED Patient Problems: Current Active Problems Problem Status Onset Sepsis associated hypotension Acute Condition: FAIR
[2018-08-22 07:41] LABS: ALB/GLOB RATIO 1.1 (1.1-1.8); ALBUMIN 4.1 g/dL (3.0-4.8); ALT/SGPT 31 U/L (7-56); AST/SGOT 30 U/L (14-36); BLOOD UREA NITROGEN 34 mg/dL (7-21); CALCIUM 8.8 mg/dL (8.4-10.5); GFR NON-AFRICAN AMERICAN 53
[2018-08-22 07:47] LABS: B-TYPE NATRIURETIC PEPTIDE 6770 pg/mL (0-450); TROPONIN I 0.02 ng/mL
[2018-08-22] MEDS ORDERED: Iohexol 350 MG/100 ML VIAL ONE (08:01)
[2018-08-22] MEDS ORDERED: Meropenem IV 1 gm in NS 1 GM/50 ML BAG IVPB SCH ×2 (08:15→14:00)
[2018-08-22 08:17] LABS: BAND 3 % (0-2); LYMPHOCYTE 6 % (22.0-35.0); MONOCYTE 2 % (1.0-6.0); NEUTROPHIL 89 % (50.0-70.0)
[2018-08-22 08:18] LABS: PLATELET ESTIMATE NORMAL (NORMAL)
[2018-08-22 08:37] LABS: PH,URINE 6.5 (4.7-8.0); URINE BILIRUBIN NEGATIVE (NEGATIVE); URINE BLOOD TRACE-INTACT (NEGATIVE); URINE GLUCOSE (UA) NEGATIVE (NEGATIVE); URINE LEUKOCYTE ESTERASE NEGATIVE Leu/uL (NEGATIVE); URINE PROTEIN 30 mg/dL (<30 mg/dL); URINE UROBILINOGEN 0.2 E.U./dL (<1 E.U./dL)
[2018-08-22 08:39] LABS: URINE APPEARANCE CLEAR (CLEAR); URINE COLOR YELLOW (YELLOW)
[2018-08-22 08:56] LABS: URINE BACTERIA MANY /hpf; URINE WBC 0 - 2 /hpf (0-6)
--- NOTE | 2018-08-22 09:03 | CT ---
Date of service: 08/22/2018 PROCEDURE: CT HEAD WITHOUT CONTRAST. HISTORY: AMS COMPARISON: Noncontrast CT orbits performed 01/09/14 TECHNIQUE: Axial computed tomography images were obtained through the head/brain without intravenous contrast. Radiation dose: Total exam DLP = 899.04 mGy-cm. This CT exam was performed using one or more of the following dose reduction techniques: Automated exposure control, adjustment of the mA and/or kV according to patient size, and/or use of iterative reconstruction technique. FINDINGS: Streak and motion artifact obscures evaluation, particularly of the skull base. HEMORRHAGE: No intracranial hemorrhage. BRAIN: Diffuse atrophy with prominence of the ventricles and sulci noted. No mass effect or edema. Intracranial atherosclerosis. Small left basal ganglia lacunar type infarct. Moderate scattered periventricular and subcortical white matter hypodensities, which are nonspecific, but often seen with chronic microvascular ischemic disease. Please note that MRI with diffusion imaging is more sensitive in the detection of acute ischemic event. VENTRICLES: No hydrocephalus. CALVARIUM: Unremarkable. PARANASAL SINUSES: Unremarkable as visualized. No significant inflammatory changes. MASTOID AIR CELLS: Unremarkable as visualized. No inflammatory changes. OTHER FINDINGS: None. IMPRESSION: Limited study. Small left basal ganglia lacunar type infarct. Moderate scattered nonspecific white matter changes. Generalized atrophy.
--- NOTE | 2018-08-22 09:37 | RAD ---
Date of service: 08/22/2018 HISTORY: Sepsis Patient COMPARISON: 08/07/2018 TECHNIQUE: 1 view obtained. FINDINGS: LUNGS: No active pulmonary disease. PLEURA: No significant pleural effusion identified, no pneumothorax apparent. CARDIOVASCULAR: No aortic atherosclerotic calcification present. Mild cardiomegaly. No pulmonary vascular congestion. OSSEOUS STRUCTURES: No significant abnormalities. VISUALIZED UPPER ABDOMEN: Normal. OTHER FINDINGS: None. IMPRESSION: No active disease.
--- NOTE | 2018-08-22 10:10 | CT ---
Date of service: 08/22/2018 PROCEDURE: CT Abdomen and Pelvis with contrast HISTORY: fever, diffuse abdominal pain COMPARISON: 08/04/2018 TECHNIQUE: Contrast dose: 100 cc of Omni 350 Radiation dose: Total exam DLP = 1003.93 mGy-cm. This CT exam was performed using one or more of the following dose reduction techniques: Automated exposure control, adjustment of the mA and/or kV according to patient size, and/or use of iterative reconstruction technique. FINDINGS: LOWER THORAX: Unremarkable. LIVER: The liver has a slightly irregular contour. Possible cirrhosis. GALLBLADDER AND BILE DUCTS: Multiple stones and sludge layered in the gallbladder PANCREAS: Unremarkable. No gross lesion or ductal dilatation. SPLEEN: Mild splenomegaly. Splenic varices ADRENALS: Unremarkable. No mass. KIDNEYS AND URETERS: Unremarkable. No hydronephrosis. No solid mass. VASCULATURE: Unremarkable. No aortic aneurysm. Aortic calcification BOWEL: Unremarkable. No obstruction. No gross mural thickening. Mild constipation APPENDIX: Normal appendix. PERITONEUM: Unremarkable. No free fluid. No free air. LYMPH NODES: Unremarkable. No enlarged lymph nodes. BLADDER: Unremarkable. REPRODUCTIVE: Unremarkable. BONES: Multilevel disc degeneration OTHER FINDINGS: None. IMPRESSION: Splenomegaly with splenic varices. Multiple small gallstones layered in the gallbladder. Hepatomegaly. Mildly irregular contour of the liver. Possible cirrhosis
--- NOTE | 2018-08-22 12:32 | US ---
HISTORY: gallstones seen on CT today COMPARISON: CT of the abdomen pelvis performed earlier the same day. Gallbladder ultrasound performed 08/04/18 TECHNIQUE: Sonographic evaluation of the abdomen. FINDINGS: LIVER: Measures 20.4 cm in sagittal dimension and appears within normal limits of shape and echotexture. Mildly nodular hepatic contour; correlate clinically for cirrhosis. No focal hepatic mass identified. The main portal vein appears patent with normal directional flow. No intrahepatic bile duct dilatation. GALLBLADDER: Gallstones. No gallbladder wall thickening. Negative sonographic Tapia's sign as assessed by the logistics director. COMMON BILE DUCT: Measures 5 mm. PANCREAS: Not well visualized. RIGHT KIDNEY: Measures 9.4 x 3.1 x 4.7 cm. Cortical thinning. No obstructing calculus or hydronephrosis identified. LEFT KIDNEY: Measures 9.2 x 4.4 x 5.7 cm. Cortical thinning. No obstructing calculus or hydronephrosis identified. SPLEEN: Measures approximately 12.6 cm. AORTA: Not well-visualized. IVC: Limited views appear unremarkable. OTHER FINDINGS: None. IMPRESSION: Hepatomegaly. Mildly nodular hepatic contour; correlate clinically for cirrhosis. Cholelithiasis. Bilateral renal cortical thinning. Splenomegaly.
[2018-08-22] MEDS ORDERED: Aspirin 325 mg EC Tablets PO SCH (13:00)
[2018-08-22] MEDS: Pantoprazole 40 mg EC Tab PO SCH ×2 (13:31→22:04)
--- NOTE | 2018-08-22 15:32 | CP.PCM.CON ---
<Sunny Lam - Last Filed: 08/22/18 17:32> History of Present Illness - History of Present Illness History of Present Illness: Infectious disease consult note: 83-year-old female with past medical history of breast cancer, hypertension, TIA, chronic pain, GERD, anxiety, depression, anemia, arthritis, A. fib on anticoagulation, recent history of hospitalization with sepsis secondary to ESBL UTI, now presents with evaluation of altered mental status. Patient's niece at bedside states that 4:00 am in the morning patient woke up and was moaning speaking with incoherent words. Her symptoms started to get worse and she was giving a lateral staring gaze when her niece decided that she will bring her to the hospital. She denies any fevers or chills. No cough, shortness of breath, or chest pain. Infectious disease was consulted for recent hospitalization with ESBL UTI. 12 point ROS performed and negative other than stated above PMH: As above PSH: Breast surgery and cataract surgery Allergies: No known allergies Medication: Refer to [facility] SH: Denies any drinking, smoking, or drugs FH: Father and brother with heart disease, sister with breast cancer Review of Systems - Review of Systems All systems: reviewed and no additional remarkable complaints except Past Patient History - Infectious Disease Hx of Infectious Diseases: None - Tetanus Immunizations Tetanus Immunization: Up to Date - Past Social History Smoking Status: Never Smoked - CARDIAC Hx Cardiac Disorders: Yes Hx Atrial Fibrillation: Yes Hx Congestive Heart Failure: Yes Hx Hypertension: Yes Other/Comment: NSTEMI - PULMONARY Hx Respiratory Disorders: Yes Hx Pneumonia: Yes - NEUROLOGICAL Hx Neurological Disorder: Yes HX Cerebrovascular Accident: Yes (2009) Hx Paralysis: No - HEENT Hx Cataracts: Yes (B/L) - RENAL Hx Chronic Kidney Disease: No - ENDOCRINE/METABOLIC Hx Endocrine Disorders: No - HEMATOLOGICAL/ONCOLOGICAL Hx Blood Transfusions: No Hx Blood Transfusion Reaction: No - INTEGUMENTARY Hx Dermatological Problems: Yes (LYMPEDEMA BILATERAL LE) Other/Comment: BLE CELLULITIS/4+ EDEMA - MUSCULOSKELETAL/RHEUMATOLOGICAL Hx Musculoskeletal Disorders: Yes Hx Arthritis: Yes Hx Falls: Yes Hx Osteomyelitis: Yes - GASTROINTESTINAL Hx Gastrointestinal Disorders: No - GENITOURINARY/GYNECOLOGICAL Hx Genitourinary Disorders: No Hx Reproductive Disorders: No - PSYCHIATRIC Hx Emotional Abuse: No Hx Physical Abuse: No Hx Substance Use: No - SURGICAL HISTORY Hx Surgeries: Yes (cataract both eyes,) - ANESTHESIA Hx Anesthesia Reactions: No Hx Malignant Hyperthermia: No Meds Allergies/Adverse Reactions: Allergies Allergy/AdvReac Type Severity Reaction Status Date / Time No Known Allergies Allergy Verified 08/22/18 12:58 - Medications Medications: Current Medications Alprazolam (Xanax) 0.25 mg PO BID PRN; Protocol PRN Reason: Anxiety Stop: 08/29/18 12:48 Aspirin (Ecotrin) 81 mg PO DAILY [facility] Last Admin: 08/22/18 13:32 Dose: 81 mg Atorvastatin Calcium (Lipitor) 10 mg PO QOTHERDAY [facility] Home Med (Home Med) 1 unit PO DAILY [facility] Sodium Chloride (Sodium Chloride 0.9%) 1,000 mls @ 100 mls/hr IV .Q10H [facility] Last Admin: 08/22/18 07:25 Dose: 100 mls/hr Meropenem (Merrem Iv 1 Gm Premix) 1 gm in 50 mls @ 12.5 mls/hr IVPB Q12 [facility]; Protocol Last Admin: 08/22/18 15:01 Dose: 12.5 mls/hr Metoprolol Tartrate (Lopressor) 25 mg PO BRKDIN [facility] Oxycodone HCl (Oxycodone Immediate Release Tab) 15 mg PO Q6H PRN PRN Reason: Pain, severe (8-10) Stop: 08/25/18 15:31 Pantoprazole Sodium (Protonix Ec Tab) 40 mg PO Q12 [facility] Last Admin: 08/22/18 13:31 Dose: 40 mg Rivaroxaban (Xarelto) 20 mg PO DAILY [facility]; Protocol Last Admin: 08/22/18 13:31 Dose: 20 mg Physical Exam - Constitutional Appears: No Acute Distress - Head Exam Head Exam: ATRAUMATIC, NORMOCEPHALIC - Eye Exam Eye Exam: EOMI, PERRL - ENT Exam ENT Exam: Mucous Membranes Moist - Respiratory Exam Respiratory Exam: Clear to Auscultation Bilateral. absent: Wheezes - Cardiovascular Exam Cardiovascular Exam: Tachycardia, REGULAR RHYTHM, +S1, +S2 - GI/Abdominal Exam GI & Abdominal Exam: Soft. absent: Distended, Tenderness - Extremities Exam Extremities exam: Negative for: calf tenderness, pedal edema - Neurological Exam Neurological exam: Alert, CN II-XII Intact, Oriented x3 - Psychiatric Exam Psychiatric exam: Normal Mood - Skin Skin Exam: Dry, Warm Results - Vital Signs Recent Vital Signs: Last Vital Signs Temp 98.2 F 08/22/18 14:14 Pulse 98 H 08/22/18 14:14 Resp 18 08/22/18 14:14 BP 94/55 L 08/22/18 14:14 Pulse Ox 98 08/22/18 14:14 - Labs Result Diagrams: 08/22/18 07:05 08/22/18 07:05 Labs: Laboratory Results - last 24 hr 08/22/18 08/22/18 08/22/18 07:05 07:05 07:05 WBC 7.8 D RBC 3.47 L Hgb 10.2 L Hct 33.2 L MCV 95.7 MCH 29.4 MCHC 30.7 L RDW 14.5 Plt Count 128 MPV 10.5 Neut % (Auto) 92.4 H Lymph % (Auto) 5.5 L Owen % (Auto) 1.9 Eos % (Auto) 0.1 L Baso % (Auto) 0.1 Lymph # (Auto) 0.4 L Owen # (Auto) 0.2 Eos # (Auto) 0.0 Baso # (Auto) 0.01 Absolute Neuts (auto) 7.18 H Neutrophils % (Manual) 89 H Band Neutrophils % 3 H Lymphocytes % (Manual) 6 L Monocytes % (Manual) 2 Platelet Evaluation Normal PT 19.5 H INR 1.73 APTT 35.0 pO2 40 VBG pH 7.33 VBG pCO2 56.0 VBG HCO3 29.5 H VBG Total CO2 31.2 H VBG O2 Sat (Calc) 74.2 H VBG Base Excess 2.6 H VBG Potassium 5.1 Sodium 139.0 Chloride 104.0 Glucose 106 H Lactate 1.6 FiO2 21.0 Potassium Carbon Dioxide Anion Gap BUN Creatinine Est GFR ( Amer) Est GFR (Non-Af Amer) Random Glucose Calcium Phosphorus Magnesium Total Bilirubin AST ALT Alkaline Phosphatase Troponin I NT-Pro-B Natriuret Pep Total Protein Albumin Globulin Albumin/Globulin Ratio Venous Blood Potassium 5.1 Urine Color Urine Appearance Urine pH Ur Specific Raymond Urine Protein Urine Glucose (UA) Urine Ketones Urine Blood Urine Nitrate Urine Bilirubin Urine Urobilinogen Ur Leukocyte Esterase Urine RBC Urine WBC Ur Epithelial Cells Urine Bacteria 08/22/18 08/22/18 07:05 07:40 WBC RBC Hgb Hct MCV MCH MCHC RDW Plt Count MPV Neut % (Auto) Lymph % (Auto) Owen % (Auto) Eos % (Auto) Baso % (Auto) Lymph # (Auto) Owen # (Auto) Eos # (Auto) Baso # (Auto) Absolute Neuts (auto) Neutrophils % (Manual) Band Neutrophils % Lymphocytes % (Manual) Monocytes % (Manual) Platelet Evaluation PT INR APTT pO2 VBG pH VBG pCO2 VBG HCO3 VBG Total CO2 VBG O2 Sat (Calc) VBG Base Excess VBG Potassium Sodium 140 Chloride 102 Glucose Lactate FiO2 Potassium 5.1 H Carbon Dioxide 29 Anion Gap 14 BUN 34 H Creatinine 1.0 Est GFR ( Amer) > 60 Est GFR (Non-Af Amer) 53 Random Glucose 109 Calcium 8.8 Phosphorus 4.4 Magnesium 1.7 Total Bilirubin 1.2 AST 30 ALT 31 Alkaline Phosphatase 90 Troponin I 0.02 D NT-Pro-B Natriuret Pep 6770 H Total Protein 8.0 Albumin 4.1 Globulin 3.9 Albumin/Globulin Ratio 1.1 Venous Blood Potassium Urine Color Yellow Urine Appearance Clear Urine pH 6.5 Ur Specific Raymond 1.015 Urine Protein 30 H Urine Glucose (UA) Negative Urine Ketones Negative Urine Blood Trace-intact H Urine Nitrate Negative Urine Bilirubin Negative Urine Urobilinogen 0.2 Ur Leukocyte Esterase Negative Urine RBC 2 - 5 H Urine WBC 0 - 2 Ur Epithelial Cells 6 - 8 H Urine Bacteria Many Assessment & Plan - Assessment and Plan (Free Text) Assessment: SIRS criteria - fever and tachycardia Altered mental status likely secondary to small left basal ganglia lacunar type infarct Hyperkalemia Atrial fibrillation on anticoagulation Xarelto Recent hospitalization with ESBL UTI Anemia Hypertension History of breast cancer Continue with meropenem for empiric treatment of SIRS Recommend neurology consult for the lacunar infarct on CT of the head Follow-up septic work-up including blood, urine cultures Chest x-ray was negative Abdominal ultrasound: Hepatomegaly, mild nodular hepatic disease consistent with cirrhosis, cholelithiasis, bilateral renal cortical thickening, splenomegaly Abdominal CT scan: Shows splenomegaly with splenic varices, multiple small gallstones layered in the gallbladder, hepatomegaly, mildly irregular contour of the liver possibly cirrhosis Continue to monitor for any changes Case and plan to be reviewed and discussed with Dr. Noble <Jasen Noble - Last Filed: 08/22/18 20:44> Meds - Medications Medications: Current Medications Alprazolam (Xanax) 0.25 mg PO BID PRN; Protocol PRN Reason: Anxiety Stop: 08/29/18 12:48 Aspirin (Ecotrin) 81 mg PO DAILY [facility] Last Admin: 08/22/18 13:32 Dose: 81 mg Atorvastatin Calcium (Lipitor) 10 mg PO QOTHERDAY [facility] Home Med (Home Med) 1 unit PO DAILY [facility] Sodium Chloride (Sodium Chloride 0.9%) 1,000 mls @ 100 mls/hr IV .Q10H [facility] Last Admin: 08/22/18 17:16 Dose: 100 mls/hr Meropenem (Merrem Iv 1 Gm Premix) 1 gm in 50 mls @ 12.5 mls/hr IVPB Q12 [facility]; Protocol Last Admin: 08/22/18 15:01 Dose: 12.5 mls/hr Metoprolol Tartrate (Lopressor) 25 mg PO BRKDIN [facility] Last Admin: 08/22/18 17:15 Dose: 25 mg Oxycodone HCl (Oxycodone Immediate Release Tab) 15 mg PO Q6H PRN PRN Reason: Pain, severe (8-10) Stop: 08/25/18 15:31 Last Admin: 08/22/18 17:15 Dose: 15 mg Pantoprazole Sodium (Protonix Ec Tab) 40 mg PO Q12 [facility] Last Admin: 08/22/18 13:31 Dose: 40 mg Rivaroxaban (Xarelto) 20 mg PO DAILY [facility]; Protocol Last Admin: 08/22/18 13:31 Dose: 20 mg Results - Vital Signs Recent Vital Signs: Last Vital Signs Temp 98.2 F 08/22/18 14:14 Pulse 102 H 08/22/18 16:59 Resp 20 08/22/18 16:59 BP 94/55 L 08/22/18 14:14 Pulse Ox 98 08/22/18 14:14 - Labs Result Diagrams: 08/22/18 07:05 08/22/18 07:05 Labs: Laboratory Results - last 24 hr 08/22/18 08/22/18 08/22/18 07:05 07:05 07:05 WBC 7.8 D RBC 3.47 L Hgb 10.2 L Hct 33.2 L MCV 95.7 MCH 29.4 MCHC 30.7 L RDW 14.5 Plt Count 128 MPV 10.5 Neut % (Auto) 92.4 H Lymph % (Auto) 5.5 L Owen % (Auto) 1.9 Eos % (Auto) 0.1 L Baso % (Auto) 0.1 Lymph # (Auto) 0.4 L Owen # (Auto) 0.2 Eos # (Auto) 0.0 Baso # (Auto) 0.01 Absolute Neuts (auto) 7.18 H Neutrophils % (Manual) 89 H Band Neutrophils % 3 H Lymphocytes % (Manual) 6 L Monocytes % (Manual) 2 Platelet Evaluation Normal PT 19.5 H INR 1.73 APTT 35.0 pO2 40 VBG pH 7.33 VBG pCO2 56.0 VBG HCO3 29.5 H VBG Total CO2 31.2 H VBG O2 Sat (Calc) 74.2 H VBG Base Excess 2.6 H VBG Potassium 5.1 Sodium 139.0 Chloride 104.0 Glucose 106 H Lactate 1.6 FiO2 21.0 Potassium Carbon Dioxide Anion Gap BUN Creatinine Est GFR ( Amer) Est GFR (Non-Af Amer) Random Glucose Calcium Phosphorus Magnesium Total Bilirubin AST ALT Alkaline Phosphatase Troponin I NT-Pro-B Natriuret Pep Total Protein Albumin Globulin Albumin/Globulin Ratio Venous Blood Potassium 5.1 Urine Color Urine Appearance Urine pH Ur Specific Raymond Urine Protein Urine Glucose (UA) Urine Ketones Urine Blood Urine Nitrate Urine Bilirubin Urine Urobilinogen Ur Leukocyte Esterase Urine RBC Urine WBC Ur Epithelial Cells Urine Bacteria 08/22/18 08/22/18 07:05 07:40 WBC RBC Hgb Hct MCV MCH MCHC RDW Plt Count MPV Neut % (Auto) Lymph % (Auto) Owen % (Auto) Eos % (Auto) Baso % (Auto) Lymph # (Auto) Owen # (Auto) Eos # (Auto) Baso # (Auto) Absolute Neuts (auto) Neutrophils % (Manual) Band Neutrophils % Lymphocytes % (Manual) Monocytes % (Manual) Platelet Evaluation PT INR APTT pO2 VBG pH VBG pCO2 VBG HCO3 VBG Total CO2 VBG O2 Sat (Calc) VBG Base Excess VBG Potassium Sodium 140 Chloride 102 Glucose Lactate FiO2 Potassium 5.1 H Carbon Dioxide 29 Anion Gap 14 BUN 34 H Creatinine 1.0 Est GFR ( Amer) > 60 Est GFR (Non-Af Amer) 53 Random Glucose 109 Calcium 8.8 Phosphorus 4.4 Magnesium 1.7 Total Bilirubin 1.2 AST 30 ALT 31 Alkaline Phosphatase 90 Troponin I 0.02 D NT-Pro-B Natriuret Pep 6770 H Total Protein 8.0 Albumin 4.1 Globulin 3.9 Albumin/Globulin Ratio 1.1 Venous Blood Potassium Urine Color Yellow Urine Appearance Clear Urine pH 6.5 Ur Specific Raymond 1.015 Urine Protein 30 H Urine Glucose (UA) Negative Urine Ketones Negative Urine Blood Trace-intact H Urine Nitrate Negative Urine Bilirubin Negative Urine Urobilinogen 0.2 Ur Leukocyte Esterase Negative Urine RBC 2 - 5 H Urine WBC 0 - 2 Ur Epithelial Cells 6 - 8 H Urine Bacteria Many Attending/Attestation - Attestation I have personally seen and examined this patient.: Yes I have fully participated in the care of the patient.: Yes I have reviewed all pertinent clinical information: Yes
[2018-08-22] MEDS: oxyCODONE 15 mg Immediate Release Tab PO PRN (17:15)
[2018-08-22] MEDS ORDERED: Pneumococcal 23-Valent Vaccine IM ONE (17:41)
--- NOTE | 2018-08-22 18:38 | CARD ---
APPROVED REPORT Date of service: 08/22/2018 EKG Measurement Heart [id number] <Conclusion> Atrial fibrillation with rapid ventricular response Right bundle branch block NDSTT abnormalities Abnormal ECG
--- NOTE | 2018-08-22 20:45 | HP ---
DATE OF EXAM: 08/22/2018 HISTORY OF PRESENT ILLNESS: The patient is an 83-year-old, known to me from previous admissions. The patient was discharged on August 17, 2018 in stable condition. The patient states she did well up until last night. She started to have fever and chills. Did not feel well. Did not want to get sicker like last time so she came to emergency room. Denies any cough or congestion. Did have fever or chills. Does have increased frequency of urination. No chest pain. No shortness of breath. Denies any hemoptysis. No hematemesis. No rectal bleeding. No abdominal discomfort. PAST MEDICAL HISTORY: Significant for, 1. Degenerative disk disease on oral narcotics. 2. Chronic AFib on Xarelto. 3. Hypertension. 4. Hyperlipidemia. 5. Peptic ulcer disease. ALLERGIES: SHE IS NOT ALLERGIC TO ANY MEDICATION. MEDICATIONS: At home, she is on aspirin 81 mg daily, Lipitor 10 mg daily, Lasix 40 daily, lisinopril 20/25 daily, Lopressor 50 mg daily, Xarelto 20 mg daily and Percocet as needed. SOCIAL HISTORY: She is single lives with her niece in the same house. Denies smoking or drinking. The patient was recently admitted on 08/04/2018 with ESBL positive E. coli UTI and sepsis, was treated with 14 days of meropenem and discharged home in stable condition. PHYSICAL EXAMINATION: GENERAL: Today, she is awake, alert and able to communicate. She has on the right side of the neck. Otherwise she is afebrile. VITAL SIGNS: Pulse 104, respiration 20 and blood pressure 92/53. LUNGS: Bilateral fair airflow. No rhonchi or crackle. HEART: S1 and S2, audible. ABDOMEN: Soft and nontender. No rebound. No guarding. NEUROLOGIC: The patient is awake, alert and able to communicate. EXTREMITIES: Bilateral leg +1 edema. LABORATORY DATA: WBC 7.8, hemoglobin 10.2, hematocrit 33.2 and platelet 128. PT 19.5 and INR 1.73. Chemistry; sodium 140, potassium 5.1, chloride 102, CO2 of 29, BUN 34, creatinine 1.0, blood sugar of 149, LFT's are within normal limits and BNP 6770. Urinalysis shows negative leukocyte esterase, WBCs [address] scan of the abdomen and pelvis was done that shows splenic vein varices and small gallstones in gall bladder. ASSESSMENT: 1. Fever of 103 at home as per the patient. Currently, she is afebrile. 2. Peptic ulcer disease. 3. Degenerative disk disease. 4. History of hypertension. Currently, hypotensive. 5. Liver cirrhosis. 6. Cholelithiasis. PLAN: We will start the patient on IV fluid, start her on meropenem. Resume her aspirin. Hold the blood pressure medication for now. We will resume her Lipitor. Blood culture and urine cultures are sent. We will follow the cultures. ID consult by Dr. Noble is requested. Edita Rapp MD
[2018-08-22] MEDS ORDERED: Amikacin 500 mg/2ml Inj IV ONE (21:09)
[2018-08-22] MEDS: Meropenem IV 1 gm in NS 1 GM/50 ML BAG IVPB SCH (22:03)
[2018-08-23] MEDS: oxyCODONE 15 mg Immediate Release Tab PO PRN ×4 (01:46→23:15)
[2018-08-23] MEDS: Sodium Chloride 0.9% 1,000 ML IV SCH ×3 (05:59→20:18)
[2018-08-23 07:55] LABS: EOS % 0.7 % (1.5-5.0); HEMOGLOBIN 8.3 g/dL (12.0-16.0); LYMPH # 0.8 (1.2-3.4); LYMPH % 14.9 % (22.0-35.0); MEAN CELL VOLUME 95.4 fl (80.0-105.0); MEAN CORPUSCULAR HEMOGLOBIN 29.4 pg (25.0-35.0); MEAN CORPUSCULAR HGB CONC 30.9 g/dl (31.0-37.0); MONO # 0.4 (0.1-0.6); MONO % 7.3 % (1.0-6.0); RBC 2.82 10^6/uL (3.5-6.1); WHITE BLOOD COUNT 5.4 10^3/uL (4.5-11.0)
[2018-08-23 08:15] LABS: ALB/GLOB RATIO 0.9 (1.1-1.8); ALT/SGPT 28 U/L (7-56); AST/SGOT 20 U/L (14-36); BLOOD UREA NITROGEN 33 mg/dL (7-21); CALCIUM 7.6 mg/dL (8.4-10.5); GFR NON-AFRICAN AMERICAN 53
--- NOTE | 2018-08-23 08:36 | CON ---
DATE: 08/22/2018 The patient was seen earlier today in room 567 and now reports of Gram-negative rods in the blood. The patient was admitted with tachycardia and fever of 103. Sepsis with Gram-negative rods bacteremia source urine versus GI tract. Treated with meropenem. He will get a dose of for tonight and we will follow with you. Jasen Noble MD
[2018-08-23] MEDS: AMITIZA 24 MCG PO SCH (09:52)
[2018-08-23] MEDS: Meropenem IV 1 gm in NS 1 GM/50 ML BAG IVPB SCH ×2 (09:52→21:24)
[2018-08-23] MEDS: Pantoprazole 40 mg EC Tab PO SCH ×2 (09:53→21:24)
--- NOTE | 2018-08-23 11:49 | CP.PCM.PCO ---
Additional Comments - Additional Comments Additional Comments: Pt seen and examined at bedside. She is sitting in a anthony chair, in no acute distress. +bruise under her chin. Denies chest pain, shortness of breath, abdominal pain, nausea or vomiting. Bilateral lower ext with swelling and pt states its chronic. D/W Dr. Noble and recommends ECHO to r/o endocarditis due to +blood culture, HIDA scan, and ESR/CRP. She is currently on Merrem per ID recs. Will continue to follow. Impressions Abdomen Ultrasound 08/22/18 10:31 IMPRESSION: Hepatomegaly. Mildly nodular hepatic contour; correlate clinically for cirrhosis. Cholelithiasis. Bilateral renal cortical thinning. Splenomegaly. Laboratory Results - last 24 hr 08/22/18 08/23/18 08/23/18 07:05 07:30 07:30 WBC 5.4 D RBC 2.82 L Hgb 8.3 L Hct 26.9 L MCV 95.4 MCH 29.4 MCHC 30.9 L RDW 15.0 H Plt Count 91 L MPV 10.0 Neut % (Auto) 77.1 H Lymph % (Auto) 14.9 L Giles % (Auto) 7.3 H Eos % (Auto) 0.7 L Baso % (Auto) 0.0 Lymph # (Auto) 0.8 L Giles # (Auto) 0.4 Eos # (Auto) 0.0 Baso # (Auto) 0.00 Absolute Neuts (auto) 4.13 pO2 40 VBG pH 7.33 VBG pCO2 56.0 VBG HCO3 29.5 H VBG Total CO2 31.2 H VBG O2 Sat (Calc) 74.2 H VBG Base Excess 2.6 H VBG Potassium 5.1 Sodium 139.0 136 Chloride 104.0 102 Glucose 106 H Lactate 1.6 FiO2 21.0 Potassium 5.2 H Carbon Dioxide 28 Anion Gap 11 BUN 33 H Creatinine 1.0 Est GFR ( Amer) > 60 Est GFR (Non-Af Amer) 53 Random Glucose 86 Calcium 7.6 L Total Bilirubin 1.0 AST 20 ALT 28 Alkaline Phosphatase 65 Total Protein 6.2 Albumin 3.0 Globulin 3.2 Albumin/Globulin Ratio 0.9 L Venous Blood Potassium 5.1
--- NOTE | 2018-08-23 16:12 | CP.PCM.PN ---
<Sunny Lam - Last Filed: 08/23/18 16:09> Subjective - Date & Time of Evaluation Date of Evaluation: 08/23/18 Time of Evaluation: 10:30 - Subjective Subjective: Infectious disease progress note: Patient seen and examined at bedside. No acute events overnight. States that she feels well. No fevers or chills. 12 point ROS performed and negative unless stated above. Objective - Vital Signs/Intake and Output Vital Signs (last 24 hours): Temp Pulse Resp BP Pulse Ox 98.5 F 71 17 98/59 L 97 08/23/18 06:00 08/23/18 06:00 08/23/18 06:00 08/23/18 06:00 08/23/18 06:00 Intake and Output: 08/23/18 08/23/18 06:59 18:59 Intake Total 540 Output Total 675 Balance -135 - Medications Medications: Current Medications Acetaminophen (Tylenol 325mg Tab) 650 mg PO Q6H PRN PRN Reason: Fever >100.4 F Last Admin: 08/23/18 12:19 Dose: 650 mg Alprazolam (Xanax) 0.25 mg PO BID PRN; Protocol PRN Reason: Anxiety Stop: 08/29/18 12:48 Aspirin (Ecotrin) 81 mg PO DAILY [facility] Last Admin: 08/23/18 09:52 Dose: 81 mg Atorvastatin Calcium (Lipitor) 10 mg PO QOTHERDAY [facility] Home Med (Home Med) 1 unit PO DAILY [facility] Last Admin: 08/23/18 09:52 Dose: 1 unit Meropenem (Merrem Iv 1 Gm Premix) 1 gm in 50 mls @ 100 mls/hr IVPB Q12 [facility]; Protocol Last Admin: 08/23/18 09:52 Dose: 100 mls/hr Sodium Chloride (Sodium Chloride 0.9%) 1,000 mls @ 50 mls/hr IV .Q20H [facility] Last Admin: 08/23/18 13:54 Dose: 50 mls/hr Metoprolol Tartrate (Lopressor) 25 mg PO BRKDIN [facility] Last Admin: 08/23/18 08:23 Dose: 25 mg Oxycodone HCl (Oxycodone Immediate Release Tab) 15 mg PO Q6H PRN PRN Reason: Pain, severe (8-10) Stop: 08/25/18 15:31 Last Admin: 08/23/18 09:53 Dose: 15 mg Pantoprazole Sodium (Protonix Ec Tab) 40 mg PO Q12 [facility] Last Admin: 08/23/18 09:53 Dose: 40 mg Rivaroxaban (Xarelto) 15 mg PO DAILY [facility]; Protocol Last Admin: 08/23/18 09:53 Dose: 15 mg - Labs Labs: 08/23/18 07:30 08/23/18 07:30 PT 19.5 SECONDS (9.4-12.5) H 08/22/18 07:05 INR 1.73 08/22/18 07:05 APTT 35.0 Seconds (26.9-38.3) 08/22/18 07:05 - Constitutional Appears: No Acute Distress - Head Exam Head Exam: ATRAUMATIC, NORMOCEPHALIC - Eye Exam Eye Exam: EOMI - ENT Exam ENT Exam: Mucous Membranes Moist - Respiratory Exam Respiratory Exam: Clear to Ausculation Bilateral. absent: Wheezes - Cardiovascular Exam Cardiovascular Exam: REGULAR RHYTHM, +S1, +S2 - GI/Abdominal Exam GI & Abdominal Exam: Soft. absent: Tenderness - Extremities Exam Extremities Exam: absent: Calf Tenderness, Pedal Edema - Neurological Exam Neurological Exam: Alert, Awake - Psychiatric Exam Psychiatric exam: Normal Mood - Skin Skin Exam: Dry, Warm Assessment and Plan - Assessment and Plan (Free Text) Assessment: Sepsis with gram neg rashad bacteremia r/o endocarditis Altered mental status likely secondary to small left basal ganglia lacunar type infarct Hyperkalemia Atrial fibrillation on anticoagulation Xarelto Recent hospitalization with ESBL UTI Anemia Hypertension History of breast cancer Continue with meropenem Day 2, Amikacin x 1 yesterday F/u echo ordered for Gram neg rashad F/u hida scan r/o cholecystitis f/ septic work up Continue to monitor for any changes Case and plan to be reviewed and discussed with Dr. Noble <Jasen Noble - Last Filed: 08/23/18 16:16> Objective - Vital Signs/Intake and Output Vital Signs (last 24 hours): Temp Pulse Resp BP Pulse Ox 98.5 F 71 17 98/59 L 97 08/23/18 06:00 08/23/18 06:00 08/23/18 06:00 08/23/18 06:00 08/23/18 06:00 Intake and Output: 08/23/18 08/23/18 06:59 18:59 Intake Total 540 Output Total 675 Balance -135 - Medications Medications: Current Medications Acetaminophen (Tylenol 325mg Tab) 650 mg PO Q6H PRN PRN Reason: Fever >100.4 F Last Admin: 08/23/18 12:19 Dose: 650 mg Alprazolam (Xanax) 0.25 mg PO BID PRN; Protocol PRN Reason: Anxiety Stop: 08/29/18 12:48 Aspirin (Ecotrin) 81 mg PO DAILY [facility] Last Admin: 08/23/18 09:52 Dose: 81 mg Atorvastatin Calcium (Lipitor) 10 mg PO QOTHERDAY [facility] Home Med (Home Med) 1 unit PO DAILY [facility] Last Admin: 08/23/18 09:52 Dose: 1 unit Meropenem (Merrem Iv 1 Gm Premix) 1 gm in 50 mls @ 100 mls/hr IVPB Q12 [facility]; Protocol Last Admin: 08/23/18 09:52 Dose: 100 mls/hr Sodium Chloride (Sodium Chloride 0.9%) 1,000 mls @ 50 mls/hr IV .Q20H [facility] Last Admin: 08/23/18 13:54 Dose: 50 mls/hr Metoprolol Tartrate (Lopressor) 25 mg PO BRKDIN [facility] Last Admin: 08/23/18 08:23 Dose: 25 mg Oxycodone HCl (Oxycodone Immediate Release Tab) 15 mg PO Q6H PRN PRN Reason: Pain, severe (8-10) Stop: 08/25/18 15:31 Last Admin: 08/23/18 09:53 Dose: 15 mg Pantoprazole Sodium (Protonix Ec Tab) 40 mg PO Q12 [facility] Last Admin: 08/23/18 09:53 Dose: 40 mg Rivaroxaban (Xarelto) 15 mg PO DAILY [facility]; Protocol Last Admin: 08/23/18 09:53 Dose: 15 mg - Labs Labs: 08/23/18 07:30 08/23/18 07:30 PT 19.5 SECONDS (9.4-12.5) H 08/22/18 07:05 INR 1.73 08/22/18 07:05 APTT 35.0 Seconds (26.9-38.3) 08/22/18 07:05 Attending/Attestation - Attestation I have personally seen and examined this patient.: Yes I have fully participated in the care of the patient.: Yes I have reviewed all pertinent clinical information, including history, physical exam and plan: Yes
--- NOTE | 2018-08-23 17:24 | PN ---
DATE: 08/23/2018 SUBJECTIVE: The patient is 83 years old, seen and examined. Sitting in chair. Seems to be comfortable. Complaint of having headache, but otherwise, no nausea. No vomiting. No diarrhea. No fever or chills. PHYSICAL EXAMINATION: VITAL SIGNS: She is afebrile. Pulse 71, respiration 17 and blood pressure 98/59. LUNGS: Bilateral fair airflow. No rhonchi or crackle. HEART: S1 and S2, audible. ABDOMEN: Soft and nontender. No rebound. No guarding. NEUROLOGIC: The patient is awake, alert and able to communicate. LABORATORY DATA: Sodium 136, potassium 5.2, chloride 102, CO2 of 28, BUN 33, creatinine 1.0 and blood sugar of 86. Urine shows blood RBC's and WBC's. ASSESSMENT: 1. Robert of fever of 103 at home. The patient has been afebrile since she is here, first spike was 103.1 on 08/22/2018 since then she has been having normal temperature. Her blood culture positive for Gram-negative rods. Urine has no growth. 2. Degenerative disk disease. 3. Hypertension. 4. Hyperlipidemia. 5. Chronic constipation. 6. Hyperkalemia. 7. Chronic atrial fibrillation. PLAN: Currently, the patient is on meropenem. The patient was given a dose of amikacin. She is on aspirin. She is on atorvastatin and metoprolol. She is on meropenem. We will resume her oxycodone. The patient is eating and tolerating. I will cut down her fluid. We will hold off her hypertension medications since she is running hypotensive. Continue her on Xarelto. Followup her CBC and CMP in a.m. Give her dose of Kayexalate. Edita Rapp MD
[2018-08-24 07:05] LABS: BASO # 0.01 K/mm3 (0.0-2.0); BASO % 0.3 % (0.0-3.0); EOS # 0.1 (0.0-0.7); HEMOGLOBIN 8.2 g/dL (12.0-16.0); LYMPH # 0.9 (1.2-3.4); MEAN CORPUSCULAR HEMOGLOBIN 29.4 pg (25.0-35.0); MEAN CORPUSCULAR HGB CONC 30.9 g/dl (31.0-37.0); MEAN PLATELET VOLUME 10.4 fl (7.0-11.0); MONO # 0.2 (0.1-0.6); MONO % 7.2 % (1.0-6.0); RBC 2.79 10^6/uL (3.5-6.1); RED CELL DISTRIBUTION WIDTH 14.6 % (11.5-14.5); WHITE BLOOD COUNT 2.9 10^3/uL (4.5-11.0)
[2018-08-24 07:26] LABS: ALB/GLOB RATIO 0.9 (1.1-1.8); ALBUMIN 2.9 g/dL (3.0-4.8); ALT/SGPT 18 U/L (7-56); AST/SGOT 23 U/L (14-36); BLOOD UREA NITROGEN 24 mg/dL (7-21); CALCIUM 7.7 mg/dL (8.4-10.5); GFR NON-AFRICAN AMERICAN > 60
[2018-08-24] MEDS: Meropenem IV 1 gm in NS 1 GM/50 ML BAG IVPB SCH ×2 (09:14→22:29)
[2018-08-24] MEDS: AMITIZA 24 MCG PO SCH (09:14)
[2018-08-24] MEDS: Sodium Chloride 0.9% 1,000 ML IV SCH (09:15)
[2018-08-24] MEDS: Pantoprazole 40 mg EC Tab PO SCH ×2 (09:15→22:28)
[2018-08-24] MEDS: oxyCODONE 15 mg Immediate Release Tab PO PRN ×3 (09:15→22:36)
--- NOTE | 2018-08-24 13:30 | NM ---
Date of service: 08/24/2018 PROCEDURE: Nuclear Medicine Hepatobiliary Scan HISTORY: cholelithiasis COMPARISON: CT 08/22/2018 TECHNIQUE: 6.2 mCi of technetium 99m Mebrofenin was administered intravenously. Planar images of the abdomen were obtained at 5 min intervals to 60 mins. Delayed images were also obtained. FINDINGS: LIVER: Timely and homogenous uptake. COMMON BILE DUCT: identified at 15 mins. GALLBLADDER: identified at 15 mins. SMALL BOWEL: Identified at 45 mins. IMPRESSION: Normal Hepatobiliary Scan. The cystic duct is patent.
--- NOTE | 2018-08-24 13:54 | PN ---
DATE: 08/24/2018 SUBJECTIVE: The patient is 83 years old, seen and examined. Lying in recliner. She cannot lay on the bed and that gives her increasing neck pain and leg pain. She is concerned about lot of test being done, it was explained to her at great length that she has same infection coming back that need to be investigated why she is having repeated infection. PHYSICAL EXAMINATION: VITAL SIGNS: She is afebrile. Pulse 93, respiration 18 and blood pressure 118/76. LUNGS: Bilateral fair airflow. No rhonchi or crackle. HEART: S1 and S2, audible. Irregular rate control. ABDOMEN: Soft and nontender. No rebound. No guarding. NEUROLOGIC: The patient is awake, alert and able to communicate. EXTREMITIES: Bilateral leg no edema. LABORATORY DATA: WBC is 2.9, hemoglobin 8.2, hematocrit 26.5 and platelet of 89. Chemistry; sodium 140, potassium 5.1, chloride 107, CO2 of 28, BUN 24, creatinine 0.8 and blood sugar of 90. C-reactive protein 151. Her urine has no growth. However, blood culture positive for E. coli ESBL. She had echocardiogram done on last visit seems to be negative. Awaiting another echocardiogram. Awaiting HIDA scan. Spoke to Dr. Eric about repeat echocardiogram or MADELINE. We will discuss with the patient and we will conclude. The patient also waiting HIDA scan. Edita Rapp MD
--- NOTE | 2018-08-24 15:40 | CP.PCM.PN ---
<Sunny Lam - Last Filed: 08/24/18 16:54> Subjective - Date & Time of Evaluation Date of Evaluation: 08/24/18 Time of Evaluation: 08:55 - Subjective Subjective: Infectious disease progress note: Patient seen and examined at bedside. No acute events overnight. No fevers. No other complaints. 12 point ROS performed and negative unless stated above. Objective - Vital Signs/Intake and Output Vital Signs (last 24 hours): Temp Pulse Resp BP Pulse Ox 97.9 F 93 H 18 118/76 94 L 08/23/18 21:28 08/23/18 21:28 08/23/18 21:28 08/23/18 21:28 08/23/18 21:28 Intake and Output: 08/24/18 08/24/18 06:59 18:59 Intake Total 240 Output Total 500 Balance -500 240 - Medications Medications: Current Medications Acetaminophen (Tylenol 325mg Tab) 650 mg PO Q6H PRN PRN Reason: Fever >100.4 F Last Admin: 08/24/18 03:22 Dose: 650 mg Alprazolam (Xanax) 0.25 mg PO BID PRN; Protocol PRN Reason: Anxiety Stop: 08/29/18 12:48 Aspirin (Ecotrin) 81 mg PO DAILY [facility] Last Admin: 08/24/18 09:14 Dose: 81 mg Atorvastatin Calcium (Lipitor) 10 mg PO QOTHERDAY [facility] Last Admin: 08/24/18 09:14 Dose: 10 mg Home Med (Home Med) 1 unit PO DAILY [facility] Last Admin: 08/24/18 09:14 Dose: 1 unit Meropenem (Merrem Iv 1 Gm Premix) 1 gm in 50 mls @ 100 mls/hr IVPB Q12 [facility]; Protocol Last Admin: 08/24/18 09:14 Dose: 100 mls/hr Sodium Chloride (Sodium Chloride 0.9%) 1,000 mls @ 50 mls/hr IV .Q20H [facility] Last Admin: 08/24/18 09:15 Dose: 50 mls/hr Metoprolol Tartrate (Lopressor) 25 mg PO BRKDIN [facility] Last Admin: 08/24/18 09:14 Dose: 25 mg Oxycodone HCl (Oxycodone Immediate Release Tab) 15 mg PO Q6H PRN PRN Reason: Pain, severe (8-10) Stop: 08/25/18 15:31 Last Admin: 08/24/18 14:45 Dose: 15 mg Pantoprazole Sodium (Protonix Ec Tab) 40 mg PO Q12 [facility] Last Admin: 08/24/18 09:15 Dose: 40 mg Rivaroxaban (Xarelto) 15 mg PO DAILY [facility]; Protocol Last Admin: 08/24/18 09:15 Dose: 15 mg - Labs Labs: 08/24/18 06:30 08/24/18 06:30 PT 19.5 SECONDS (9.4-12.5) H 08/22/18 07:05 INR 1.73 08/22/18 07:05 APTT 35.0 Seconds (26.9-38.3) 08/22/18 07:05 - Constitutional Appears: No Acute Distress - Head Exam Head Exam: ATRAUMATIC, NORMOCEPHALIC - Eye Exam Eye Exam: EOMI - ENT Exam ENT Exam: Mucous Membranes Moist - Respiratory Exam Respiratory Exam: Clear to Ausculation Bilateral. absent: Wheezes - Cardiovascular Exam Cardiovascular Exam: REGULAR RHYTHM, +S1, +S2 - GI/Abdominal Exam GI & Abdominal Exam: Soft. absent: Tenderness - Extremities Exam Extremities Exam: absent: Calf Tenderness, Pedal Edema - Neurological Exam Neurological Exam: Alert, Awake - Psychiatric Exam Psychiatric exam: Normal Mood - Skin Skin Exam: Dry, Warm Assessment and Plan - Assessment and Plan (Free Text) Assessment: Sepsis with recurrent ESBL bacteremia r/o endocarditis r/o prosthetic valve involvement Altered mental status likely secondary to small left basal ganglia lacunar type infarct Hyperkalemia Atrial fibrillation on anticoagulation Xarelto Recent hospitalization with ESBL UTI Anemia Hypertension History of breast cancer Continue with meropenem Day 3, Amikacin x 2 days ago F/u echo ordered r/o endocarditis F/u hida scan - neg f/ septic work up - Positive for ESBL ecoli - f/u repeat cultures Continue to monitor for any changes Case and plan to be reviewed and discussed with Dr. Noble <Jasen Noble - Last Filed: 08/24/18 18:05> Objective - Vital Signs/Intake and Output Vital Signs (last 24 hours): Temp Pulse Resp BP Pulse Ox 98.4 F 49 L 18 112/68 97 08/24/18 14:00 08/24/18 16:53 08/24/18 14:00 08/24/18 17:07 08/24/18 14:00 Intake and Output: 08/24/18 08/24/18 06:59 18:59 Intake Total 240 Output Total 500 Balance -500 240 - Medications Medications: Current Medications Acetaminophen (Tylenol 325mg Tab) 650 mg PO Q6H PRN PRN Reason: Fever >100.4 F Last Admin: 08/24/18 03:22 Dose: 650 mg Alprazolam (Xanax) 0.25 mg PO BID PRN; Protocol PRN Reason: Anxiety Stop: 08/29/18 12:48 Aspirin (Ecotrin) 81 mg PO DAILY [facility] Last Admin: 08/24/18 09:14 Dose: 81 mg Atorvastatin Calcium (Lipitor) 10 mg PO QOTHERDAY [facility] Last Admin: 08/24/18 09:14 Dose: 10 mg Furosemide (Lasix) 40 mg IVP DAILY [facility] Last Admin: 08/24/18 17:07 Dose: 40 mg Home Med (Home Med) 1 unit PO DAILY [facility] Last Admin: 08/24/18 09:14 Dose: 1 unit Meropenem (Merrem Iv 1 Gm Premix) 1 gm in 50 mls @ 100 mls/hr IVPB Q12 [facility]; Protocol Last Admin: 08/24/18 09:14 Dose: 100 mls/hr Metoprolol Tartrate (Lopressor) 25 mg PO BRKDIN [facility] Last Admin: 08/24/18 16:53 Dose: Not Given Oxycodone HCl (Oxycodone Immediate Release Tab) 15 mg PO Q6H PRN PRN Reason: Pain, severe (8-10) Stop: 08/25/18 15:31 Last Admin: 08/24/18 14:45 Dose: 15 mg Pantoprazole Sodium (Protonix Ec Tab) 40 mg PO Q12 [facility] Last Admin: 08/24/18 09:15 Dose: 40 mg Rivaroxaban (Xarelto) 15 mg PO DAILY [facility]; Protocol Last Admin: 08/24/18 09:15 Dose: 15 mg - Labs Labs: 08/24/18 06:30 08/24/18 06:30 PT 19.5 SECONDS (9.4-12.5) H 08/22/18 07:05 INR 1.73 08/22/18 07:05 APTT 35.0 Seconds (26.9-38.3) 08/22/18 07:05 Attending/Attestation - Attestation I have personally seen and examined this patient.: Yes I have fully participated in the care of the patient.: Yes I have reviewed all pertinent clinical information, including history, physical exam and plan: Yes
--- NOTE | 2018-08-24 15:56 | CP.PCM.PCO ---
Additional Comments - Additional Comments Additional Comments: blood cx pos esbl, on [place] iV , repeat blood cx pending ,per I.D may need min 14 days IV antibiotics, due to secod ESBL infection. HIDA Scan normal. Echo completed today, result pending, ID rec. MADELINE, awaits cardiology for MADELINE plan. Pt eval pending,
--- NOTE | 2018-08-24 17:55 | CARD ---
APPROVED REPORT Date of service: 08/24/2018 EXAM: Two-dimensional and M-mode echocardiogram with Doppler and color Doppler. INDICATION Infection:Rule out subacute bacterial endocarditis 2D DIMENSIONS Left Atrium (2D)5.8 (1.6-4.0cm)IVSd1.3 (0.7-1.1cm) LVDd4.1 (3.9-5.9cm)PWd1.3 (0.7-1.1cm) LVDs2.8 (2.5-4.0cm)FS (%) 32.2 % LVEF (%)60.8 (>50%) M-Mode DIMENSIONS Aortic Root3.10 (2.2-3.7cm)Aortic Cusp Exc.1.20 (1.5-2.0cm) Aortic Valve AoV Peak Unktympm077.0cm/Neri Peak GR.23mmHg Mitral Valve MV E Hjmchigj121.0cm/sMV A Kyzlnvgf84.6cm/sE/A ratio3.7 TDI E/Lateral E'0.0E/Medial E'0.0 Pulmonary Valve PV Peak Nmwinhkg08.6cm/sPV Peak Grad.2mmHg Tricuspid Valve TR Peak Htvcrjbs963hs/sRAP [id number] Peak Gr.40mmHg [id number] LEFT VENTRICLE The left ventricle is normal size. There is borderline to mild concentric left ventricular hypertrophy. The left ventricular function is normal. The left ventricular ejection fraction is within the normal range. There is normal LV segmental wall motion. A Fib RIGHT VENTRICLE The right ventricle is mildly dilated. There is normal right ventricular wall thickness. The right ventricular systolic function is normal. ATRIA The left atrium is severely dilated. The right atrium is moderately dilated. AORTIC VALVE The aortic valve is severely thickened. There is trace valvular aortic stenosis. Cannot exclude aortic valvular vegetation. MITRAL VALVE Mitral annular calcification is moderate. Mitral regurgitation is moderate. TRICUSPID VALVE There is severe tricuspid regurgitation. There is moderate pulmonary hypertension. GREAT VESSELS The aortic root is normal in size. The IVC is normal in size and collapses >50% with inspiration. <Conclusion> There is borderline to mild concentric left ventricular hypertrophy. The left ventricular function is normal. The left ventricular ejection fraction is within the normal range. There is normal LV segmental wall motion. The left atrium is severely dilated. The aortic valve is severely thickened. Cannot exclude aortic valvular vegetation. Mitral regurgitation is moderate. There is severe tricuspid regurgitation. There is moderate pulmonary hypertension.
--- NOTE | 2018-08-24 18:56 | CON ---
DATE OF CONSULTATION: 08/24/2018 REQUESTING PHYSICIAN: Dr. Rapp. REASON FOR CONSULTATION: Positive blood cultures, history of valvular heart disease. HISTORY: This is an 83-year-old woman with a history of chronic atrial fibrillation, severe spinal disc disease, mild aortic stenosis and mild mitral regurgitation, who was readmitted with fever and chills. She was found to have gram-negative bacteremia, evaluation was requested. A repeat echocardiogram was ordered; however, the patient was refusing, as she had one done just recently. Her last echocardiogram when she was admitted with urosepsis showed no evidence of vegetation. Her LV function was mild to moderately reduced with septal dyskinesis. PAST MEDICAL HISTORY: Her past history is notable for the problems mentioned above. She has chronic atrial fibrillation as well as a history of gastroesophageal reflux disease, hypercholesterolemia, and hypertension. MEDICATIONS: Her current medications include Ecotrin, Lasix 40 mg daily, Lipitor, metoprolol 25 mg b.i.d., meropenem, Protonix, Xanax, and Xarelto. ALLERGIES: NONE. SOCIAL HISTORY: She does not smoke or drink. FAMILY HISTORY: Her both parents are from age-related illness. REVIEW OF SYSTEMS: Twelve-point review of systems is notable for gait instability, arthritis, and insomnia. PHYSICAL EXAMINATION: GENERAL: She is an elderly woman, who appears comfortable, sitting in a chair. VITAL SIGNS: Blood pressure is 146/90 with a pulse of 56, respirations are 14. She is afebrile at the present time. HEENT: Normocephalic, atraumatic. NECK: Supple. No JVD noted. CHEST: Bilateral scattered rhonchi heard. HEART: PMI displaced laterally with a systolic murmur at the base as well as the left sternal border. ABDOMEN: Soft, mildly obese, nontender with normoactive bowel sounds. EXTREMITIES: No clubbing, cyanosis, or edema. SKIN: Warm and dry. PSYCHIATRIC: Normal mood and affect. NEUROLOGIC: Alert and oriented x3, no gross motor or sensory deficits notable. DIAGNOSTIC DATA: Potassium 5.1, BUN and creatinine are 24 and 0.8. White count 2.9, hemoglobin and hematocrit are 8.2 and 26.5 with a platelet count of 89,000. BNP 8220. Chest x-ray reveals enlarged cardiac silhouette with clear lung rodriguez. Electrocardiogram reveals atrial fibrillation with rapid ventricular response, right bundle-branch block and nonspecific ST-T abnormalities. IMPRESSION: 1. Recurrent urosepsis, source unclear. A HIDA scan is pending, question of possible endocarditis has been raised. 2. Chronic atrial fibrillation. 3. 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 4. Qkpy-mw-jdweziia left ventricular dysfunction suggestive of ischemic cardiomyopathy. 5. Rest of problems as noted. RECOMMENDATIONS: A repeat transthoracic echo will be planned. If this shows evidence of vegetation, a prolonged course of antibiotics will be appropriate. The option of transesophageal echocardiogram was discussed with the patient, but she is reluctant to proceed at this time. Appropriate antibiotic therapy should continue. I will be happy to continue to follow along any further recommendations as appropriate. Paresh Eric MD
[2018-08-25] MEDS: oxyCODONE 15 mg Immediate Release Tab PO PRN ×3 (06:40→21:10)
[2018-08-25 07:46] LABS: HEMOGLOBIN 8.9 g/dL (12.0-16.0); MEAN CELL VOLUME 93.8 fl (80.0-105.0); MEAN CORPUSCULAR HEMOGLOBIN 29.1 pg (25.0-35.0); MEAN PLATELET VOLUME 10.1 fl (7.0-11.0); RBC 3.06 10^6/uL (3.5-6.1); RED CELL DISTRIBUTION WIDTH 14.3 % (11.5-14.5); WHITE BLOOD COUNT 2.3 10^3/uL (4.5-11.0)
[2018-08-25 08:12] LABS: BLOOD UREA NITROGEN 17 mg/dL (7-21); CALCIUM 8.1 mg/dL (8.4-10.5); GFR NON-AFRICAN AMERICAN > 60
[2018-08-25] MEDS: Meropenem IV 1 gm in NS 1 GM/50 ML BAG IVPB SCH ×2 (10:08→21:11)
[2018-08-25] MEDS: Pantoprazole 40 mg EC Tab PO SCH ×2 (10:08→21:10)
[2018-08-25] MEDS: AMITIZA 24 MCG PO SCH (10:16)
[2018-08-25] MEDS ORDERED: POLYETHYLENE GLYCOL 3350 17 GM/Dose PACKET PO SCH (12:00)
--- NOTE | 2018-08-25 13:10 | PN ---
DATE: 08/25/2018 SUBJECTIVE: The patient is seen in a chair on 5R. She is comfortable at the present time. She is upset that she is restricted in terms of her activities, is concerned about her progressive leg weakness given her arthritis and chronic lymphedema. She is remains afebrile. CURRENT MEDICATIONS: Include Ecotrin, Lasix 40 mg daily, Lipitor 10 mg every other day, metoprolol 25 mg b.i.d., meropenem, oxycodone, Protonix, Xanax, and Xarelto. OBJECTIVE: GENERAL: She is an elderly woman, who appears comfortable at rest. VITAL SIGNS: Blood pressure is 100/60 with a pulse of 60, respirations are 14. She is afebrile. HEENT: No JVD. CHEST: Few scattered rhonchi heard. HEART: PMI displaced laterally with a systolic murmur at the base as well as lower left sternal border and apex. ABDOMEN: Soft and nontender with bowel sounds. EXTREMITIES: Bilateral lymphedema is present. LABORATORY DATA: Echocardiogram revealed normal LV size and systolic function with mild concentric LVH, dilated left atrium, moderate mitral regurgitation, severe tricuspid regurgitation and thickened aortic valve, thickened and calcified aortic valve leaflets with no clear evidence of stenosis. Vegetation is not clearly seen but cannot be excluded either. White count is 2.3, hemoglobin and hematocrit 8.9 and 28.7, platelet count of 98,000, potassium 4.6, BUN and creatinine 17 and 0.7. HIDA scan was unremarkable. IMPRESSION: 1. Escherichia coli bacteremia, unable to exclude endocarditis with transthoracic echo. 2. Multivalvular heart disease. 3. Pancytopenia. RECOMMENDATIONS: Her current treatment plan should continue. I have discussed the option of a transesophageal electrocardiogram with the patient as well as the rationale for this. She is reluctant but will consider it. If she agrees, this will be scheduled for early next week. The benefit with respect to determining length of required antibiotic therapy was presented to her. All the above has been discussed with Dr. Noble as well. I will be happy to follow along as needed. Paresh Eric MD [facility] # [phone]
--- NOTE | 2018-08-25 14:38 | PN ---
DATE: 08/25/2018 SUBJECTIVE: The patient is an 83-year-old female, seen and examined, sitting in chair, seems to be uncomfortable. She says she cannot lie in bed as it hurts her neck Denies any nausea or vomiting. Worried about the upcoming test. PHYSICAL EXAMINATION: VITAL SIGNS: She is afebrile, pulse 132, respirations 21, blood pressure 108/64. LUNGS: Bilateral fair airflow. No rhonchi or crackle. HEART: S1 and S2 audible. ABDOMEN: Soft, obese, nontender, no rebound, no guarding. NEUROLOGIC: The patient is awake and alert. Able to communicate. EXTREMITIES: Bilateral legs have +1 edema. LABORATORY DATA: WBC 2,3, hemoglobin 8.9, hematocrit 28.7 and platelets 98. Chemistry: Sodium 140, potassium 4.6, chloride 106, CO2 of 29. BUN 17, creatinine 0.7, blood sugar of 86. Urine culture negative. Blood culture ESBL-positive Escherichia coli. So far, her HIDA scan shows normal hepatobiliary scan. Abdominal ultrasound shows cholelithiasis. Transthoracic echo is negative for vegetation. ASSESSMENT: 1. Extended-spectrum [id number] Escherichia coli sepsis, source unknown. 2. Degenerative disk disease. 3. Hypertension. 4. Anxiety disorder. 5. Chronic atrial fibrillation. PLAN: The patient is being prepped for possible MADELINE on Monday. I will reach out to the patient's daughter also. Start her on physical therapy. I will order blood culture for tomorrow as needed. Start her on MiraLax. Started on physical therapy. Will follow up in the morning. Edita Rapp MD
[2018-08-26] MEDS: oxyCODONE 15 mg Immediate Release Tab PO PRN ×3 (06:22→20:39)
[2018-08-26] MEDS: Meropenem IV 1 gm in NS 1 GM/50 ML BAG IVPB SCH ×2 (09:35→21:15)
[2018-08-26] MEDS: AMITIZA 24 MCG PO SCH (09:35)
[2018-08-26] MEDS: POLYETHYLENE GLYCOL 3350 17 GM/Dose PACKET PO SCH (09:38)
[2018-08-26] MEDS: Pantoprazole 40 mg EC Tab PO SCH ×2 (09:43→21:15)
--- NOTE | 2018-08-26 14:02 | PN ---
DATE: 08/26/2018 SUBJECTIVE: The patient is 83 years old, seen and examined, sitting in chair, seems to be comfortable, anxious about morning procedure. She is scheduled for MADELINE. PHYSICAL EXAMINATION: VITAL SIGNS: She is afebrile. Pulse 94, respirations 20, blood pressure 140/80. LUNGS: Bilateral fair airflow. No rhonchi or crackles. HEART: S1 and S2 audible with systolic murmur. ABDOMEN: Soft, obese, nontender. No rebound. No guarding. NEUROLOGIC: The patient is awake and alert, able to communicate. LABORATORY DATA: BNP is 1220. Her repeat blood cultures are negative. Initial blood cultures positive for ESBL, positive E. coli. Urine cultures are negative. HIDA scan is negative. ASSESSMENT: 1. Recurrent extended-spectrum beta-lactamase positive sepsis. 2. Hypertension. 3. Chronic atrial fibrillation. 4. Tricuspid regurgitation. 5. Severe bilateral knee osteoarthritis. 6. Cervical degenerative disc disease. PLAN: The patient probably will be scheduled for MADELINE. I will discuss with the patient's niece who is her next of kin. Edita Rapp MD
--- NOTE | 2018-08-26 14:53 | PN ---
DATE: 08/26/2018 SUBJECTIVE: The patient is in bed in no acute distress, nontoxic. PHYSICAL EXAMINATION: VITAL SIGNS: Temperature is 98. She did have a T-max of 103 on admission, blood pressure is 130/60, respiratory rate of 22, heart rate of 94. HEENT: Unremarkable. NECK: Supple. LUNGS: Have decreased breath sounds. HEART: Normal S1 and S2. ABDOMEN: Soft. LABORATORY DATA: Reveals a white count of 2.3. Chemistries are noted. The BNP is elevated. Urinalysis unremarkable. Microbiology reveals E. Coli ESBL, the same organism she had on 08/04/2018, however, at this time, the urine cultures are negative. Dr. Rapp's note is reviewed. Dr. Eric's note is reviewed. ASSESSMENT AND PLAN: This is an 83-year-old who had sepsis with extended-spectrum beta lactamases Escherichia coli bacteremia, must rule out endocarditis, on meropenem, day #3 of meropenem, will need at least 14 days, perhaps 28 if the transesophageal echocardiogram is positive. We will follow with you. Jasen Noble MD
[2018-08-27] MEDS: oxyCODONE 15 mg Immediate Release Tab PO PRN ×4 (04:43→23:41)
[2018-08-27] MEDS: Meropenem IV 1 gm in NS 1 GM/50 ML BAG IVPB SCH ×2 (09:26→21:08)
[2018-08-27] MEDS: Pantoprazole 40 mg EC Tab PO SCH ×2 (09:35→21:09)
[2018-08-27] MEDS: POLYETHYLENE GLYCOL 3350 17 GM/Dose PACKET PO SCH (09:36)
[2018-08-27] MEDS: AMITIZA 24 MCG PO SCH (09:36)
--- NOTE | 2018-08-27 09:40 | PN ---
DATE: 08/25/2018 SUBJECTIVE: The patient is seen in bed, in no acute distress, nontoxic. PHYSICAL EXAMINATION: VITAL SIGNS: Temperature is 98, blood pressure is 140/90, respiratory rate of 22. HEENT: Unremarkable. NECK: Supple. LUNGS: Have decreased breath sounds. HEART: Normal S1, S2. ABDOMEN: Soft. LABORATORY DATA: Reveals a white count of 2.3, hemoglobin of 8. Chemistries are noted. BUN of 17, creatinine 0.7. Microbiology reveals E. coli in blood, it is ESBL E. coli. Repeat blood cultures are negative. Of note, the patient had E. coli last month on 08/04/2018, E. coli ESBL; however, at that time in addition to the blood the patient also had in his urine. Review of orders reveals the patient to be on meropenem. ASSESSMENT AND PLAN: This is an 83-year-old female with sepsis with recurrent extended spectrum beta lactamase Escherichia coli bacteremia in a patient with prosthetic valve endocarditis. The patient also had a HIDA scan which is negative. Case discussed with Dr. Eric . Jasen Noble MD
--- NOTE | 2018-08-27 11:07 | CP.PCM.PCO ---
Additional Comments - Additional Comments Additional Comments: D/W Dr. Eric, planned for MADELINE in AM.
[2018-08-27 11:34] VITALS: RESP 18
--- NOTE | 2018-08-27 12:36 | CP.PCM.PN ---
<Sunny Lam - Last Filed: 08/27/18 16:09> Subjective - Date & Time of Evaluation Date of Evaluation: 08/27/18 Time of Evaluation: 10:15 - Subjective Subjective: Infectious disease progress note: Patient seen and examined at bedside. No acute events overnight. No fevers or chill. No complaints. 12 point ROS performed and negative unless stated above. Objective - Vital Signs/Intake and Output Vital Signs (last 24 hours): Temp Pulse Resp BP Pulse Ox 98.4 F 77 18 127/67 99 08/27/18 06:00 08/27/18 06:00 08/27/18 06:00 08/27/18 09:35 08/27/18 06:00 Intake and Output: 08/27/18 08/27/18 06:59 18:59 Intake Total 480 Balance 480 - Medications Medications: Current Medications Acetaminophen (Tylenol 325mg Tab) 650 mg PO Q6H PRN PRN Reason: Fever >100.4 F Last Admin: 08/26/18 01:00 Dose: 650 mg Alprazolam (Xanax) 0.25 mg PO HS [facility]; Protocol Stop: 09/02/18 22:01 Last Admin: 08/26/18 21:15 Dose: 0.25 mg Aspirin (Ecotrin) 81 mg PO DAILY [facility] Last Admin: 08/27/18 09:35 Dose: 81 mg Atorvastatin Calcium (Lipitor) 10 mg PO QOTHERDAY [facility] Last Admin: 08/26/18 09:43 Dose: 10 mg Furosemide (Lasix) 40 mg IVP DAILY [facility] Last Admin: 08/27/18 09:35 Dose: 40 mg Home Med (Home Med) 1 unit PO DAILY [facility] Last Admin: 08/27/18 09:36 Dose: 1 unit Meropenem (Merrem Iv 1 Gm Premix) 1 gm in 50 mls @ 100 mls/hr IVPB Q12 [facility]; Protocol Last Admin: 08/27/18 09:26 Dose: 100 mls/hr Metoprolol Tartrate (Lopressor) 25 mg PO BRKDIN [facility] Last Admin: 08/27/18 09:35 Dose: 25 mg Oxycodone HCl (Oxycodone Immediate Release Tab) 15 mg PO Q6H PRN PRN Reason: Pain, severe (8-10) Last Admin: 08/27/18 11:29 Dose: 15 mg Pantoprazole Sodium (Protonix Ec Tab) 40 mg PO Q12 [facility] Last Admin: 08/27/18 09:35 Dose: 40 mg Polyethylene Glycol (Miralax) 17 gm PO DAILY [facility] Last Admin: 08/27/18 09:36 Dose: 17 gm Rivaroxaban (Xarelto) 15 mg PO DAILY [facility]; Protocol Last Admin: 08/27/18 09:36 Dose: 15 mg - Labs Labs: 08/25/18 07:00 08/25/18 07:00 PT 19.5 SECONDS (9.4-12.5) H 08/22/18 07:05 INR 1.73 08/22/18 07:05 APTT 35.0 Seconds (26.9-38.3) 08/22/18 07:05 - Constitutional Appears: No Acute Distress - Eye Exam Eye Exam: EOMI - ENT Exam ENT Exam: Mucous Membranes Moist - Respiratory Exam Respiratory Exam: Clear to Ausculation Bilateral. absent: Rales, Wheezes - Cardiovascular Exam Cardiovascular Exam: REGULAR RHYTHM, +S1, +S2 - GI/Abdominal Exam GI & Abdominal Exam: Soft. 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 Noble <Jasen Noble - Last Filed: 08/27/18 16:12> Objective - Vital Signs/Intake and Output Vital Signs (last 24 hours): Temp Pulse Resp BP Pulse Ox 98.4 F 73 18 131/70 100 08/27/18 14:00 08/27/18 14:00 08/27/18 14:00 08/27/18 14:00 08/27/18 14:00 Intake and Output: 08/27/18 08/27/18 06:59 18:59 Intake Total 480 Balance 480 - Medications Medications: Current Medications Acetaminophen (Tylenol 325mg Tab) 650 mg PO Q6H PRN PRN Reason: Fever >100.4 F Last Admin: 08/26/18 01:00 Dose: 650 mg Alprazolam (Xanax) 0.25 mg PO HS [facility]; Protocol Stop: 09/02/18 22:01 Last Admin: 08/26/18 21:15 Dose: 0.25 mg Aspirin (Ecotrin) 81 mg PO DAILY [facility] Last Admin: 08/27/18 09:35 Dose: 81 mg Atorvastatin Calcium (Lipitor) 10 mg PO QOTHERDAY [facility] Last Admin: 08/26/18 09:43 Dose: 10 mg Furosemide (Lasix) 40 mg IVP DAILY [facility] Last Admin: 08/27/18 09:35 Dose: 40 mg Home Med (Home Med) 1 unit PO DAILY [facility] Last Admin: 08/27/18 09:36 Dose: 1 unit Meropenem (Merrem Iv 1 Gm Premix) 1 gm in 50 mls @ 100 mls/hr IVPB Q12 [facility]; Protocol Last Admin: 08/27/18 09:26 Dose: 100 mls/hr Metoprolol Tartrate (Lopressor) 25 mg PO BRKDIN [facility] Last Admin: 08/27/18 09:35 Dose: 25 mg Oxycodone HCl (Oxycodone Immediate Release Tab) 15 mg PO Q6H PRN PRN Reason: Pain, severe (8-10) Last Admin: 08/27/18 11:29 Dose: 15 mg Pantoprazole Sodium (Protonix Ec Tab) 40 mg PO Q12 [facility] Last Admin: 08/27/18 09:35 Dose: 40 mg Polyethylene Glycol (Miralax) 17 gm PO DAILY [facility] Last Admin: 08/27/18 09:36 Dose: 17 gm Rivaroxaban (Xarelto) 15 mg PO DAILY [facility]; Protocol Last Admin: 08/27/18 09:36 Dose: 15 mg - Labs Labs: 08/25/18 07:00 08/25/18 07:00 PT 19.5 SECONDS (9.4-12.5) H 08/22/18 07:05 INR 1.73 08/22/18 07:05 APTT 35.0 Seconds (26.9-38.3) 08/22/18 07:05 Attending/Attestation - Attestation I have personally seen and examined this patient.: Yes I have fully participated in the care of the patient.: Yes I have reviewed all pertinent clinical information, including history, physical exam and plan: Yes
--- NOTE | 2018-08-27 15:32 | PN ---
DATE: 08/27/2018 SUBJECTIVE: The patient is 83-year-old seen and examined, bit nervous for the procedure tomorrow. She is scheduled to have MADELINE done tomorrow to decide duration of antibiotics because of recurrent ESBL, positive E. coli sepsis. PHYSICAL EXAMINATION: GENERAL: The patient is awake and alert, able to communicate. VITAL SIGNS: The patient is afebrile, pulse 77, respirations 18, blood pressure 127/67. LUNGS: Bilateral fair airflow. No rhonchi or crackle. HEART: S1 and S2 audible. ABDOMEN: Soft, nontender. No rebound. No guarding. NEUROLOGIC: The patient is awake and alert, able to communicate, moves all extremities. ASSESSMENT: 1. Extended-spectrum beta-lactamase positive, Escherichia coli sepsis. Urine culture is negative. 2. Hypertension. 3. Chronic atrial fibrillation. 4. Tricuspid regurgitation. 5. Degenerative disc disease. PLAN: The patient is currently stable. She will be n.p.o, after midnight for MADELINE tomorrow then we will decide the duration of antibiotic. Edita Rapp MD
--- NOTE | 2018-08-28 00:32 | PN ---
DATE: 08/27/2018 SUBJECTIVE: The patient is seen sitting in a chair on 5R. She remains afebrile. She is anxious to go home. She remains on IV antibiotics. CURRENT MEDICATIONS: Include Ecotrin, Lasix 40 mg IV daily, Lipitor 10 mg daily, metoprolol 25 mg b.i.d., meropenem, MiraLax, oxycodone, Protonix, Xanax, and Xarelto. OBJECTIVE: GENERAL: She is an elderly woman who appears comfortable at rest. VITAL SIGNS: Blood pressure is 126/66 with a pulse of 72, respirations of 14, and she is afebrile. HEENT: No JVD. CHEST: Few scattered rhonchi heard. HEART: PMI displaced laterally with systolic murmur at the base as well as at the lower left sternal border and apex. ABDOMEN: Soft and nontender. Normoactive bowel sounds. EXTREMITIES: Bilateral leg edema present. DIAGNOSTIC DATA: No blood work pending from this morning. IMPRESSION: 1. Escherichia coli bacteremia, exact source unclear. 2. 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 3. Pancytopenia. RECOMMENDATIONS: Given her recurrent Gram-negative bacteremia, a transesophageal echocardiogram has been requested by the Infectious Disease service to exclude a cardiac vegetation. This obviously be important in terms of determining length of the course of therapy for her Gram-negative infection. This has been discussed in detail with the patient. Risks and benefits were reviewed with her and she is agreeable to proceed and this will be performed on Monday. I will continue to follow and make further recommendations as appropriate. Paresh Eric MD
[2018-08-28] MEDS ORDERED: Midazolam 2 MG/2 ML VIAL ONE (09:11)
[2018-08-28] MEDS ORDERED: Naloxone 0.4 mg/ml Inj (Adult) ONE (09:11)
[2018-08-28] MEDS ORDERED: Flumazenil 0.1 mg/ml Inj (5ml) IVP ONE (09:11)
[2018-08-28] MEDS ORDERED: Benzocaine/Butamben/Tetracai 14-2-2% TOP Spray TOP ONE (09:12)
[2018-08-28] MEDS ORDERED: Midazolam 2 MG/2 ML VIAL IV ONE (09:25)
[2018-08-28 10:00] VITALS: TEMP 98
--- NOTE | 2018-08-28 10:08 | CARD ---
APPROVED REPORT Date of service: 08/28/2018 EXAM: Two-dimensional and M-mode echocardiogram with Doppler and color Doppler. Other Information Quality : GoodRhythm : Atrial Fibrillation INDICATION Rule out subacute bacterial endocarditis LEFT VENTRICLE The left ventricle is normal size. There is mild concentric left ventricular hypertrophy. The left ventricular function is normal. The left ventricular ejection fraction is within the normal range. There is normal LV segmental wall motion. RIGHT VENTRICLE The right ventricle is normal size. The right ventricular systolic function is normal. ATRIA The left atrium is moderately dilated. No thrombus or spontaneous contrast is seen in the left atrial appendage. The right atrium is mildly dilated. The interatrial septum is intact with no evidence for an atrial septal defect. AORTIC VALVE The aortic valve is moderately sclerotic. No aortic regurgitation is present. There is no aortic valvular stenosis. There is no aortic valvular vegetation. MITRAL VALVE The mitral valve is mildly thickened. Mitral regurgitation is mild. No vegetation is seen on the mitral valve. TRICUSPID VALVE The tricuspid valve is normal in structure. There is mild tricuspid regurgitation. There is no vegetation on the tricuspid valve. PULMONIC VALVE The pulmonary valve is normal in structure. GREAT VESSELS The aortic root is normal in size. The ascending aorta is normal in size. Mild atherosclerotic plaque noted throughout the descending aorta. The IVC is normal in size and collapses >50% with inspiration. PERICARDIAL EFFUSION There is no pleural effusion. There is no pericardial effusion. <Conclusion> Biatrial enlargement. Nomral LV size and systolic function. Aortic sclerosis. Mild MR. Mild TR. No vegetation seen.
[2018-08-28 10:24] VITALS: O2SAT 96
--- NOTE | 2018-08-28 10:39 | CP.PCM.PN ---
<Sunny Lam - Last Filed: 08/28/18 14:39> Subjective - Date & Time of Evaluation Date of Evaluation: 08/28/18 Time of Evaluation: 09:30 - Subjective Subjective: Infectious disease progress note: Patient seen and examined at bedside. No acute events overnight. NPO for MADELINE. No fevers. No other complaints. 12 point ROS performed and negative unless stated above. Objective - Vital Signs/Intake and Output Vital Signs (last 24 hours): Temp Pulse Resp BP Pulse Ox 98 F 119 H 18 131/70 96 08/28/18 10:20 08/28/18 10:20 08/28/18 10:20 08/28/18 10:20 08/28/18 10:20 - Medications Medications: Current Medications Acetaminophen (Tylenol 325mg Tab) 650 mg PO Q6H PRN PRN Reason: Fever >100.4 F Last Admin: 08/26/18 01:00 Dose: 650 mg Alprazolam (Xanax) 0.25 mg PO HS [facility]; Protocol Stop: 09/02/18 22:01 Last Admin: 08/27/18 23:50 Dose: Not Given Aspirin (Ecotrin) 81 mg PO DAILY [facility] Last Admin: 08/27/18 09:35 Dose: 81 mg Atorvastatin Calcium (Lipitor) 10 mg PO QOTHERDAY [facility] Last Admin: 08/26/18 09:43 Dose: 10 mg Furosemide (Lasix) 40 mg IVP DAILY [facility] Last Admin: 08/27/18 09:35 Dose: 40 mg Home Med (Home Med) 1 unit PO DAILY [facility] Last Admin: 08/27/18 09:36 Dose: 1 unit Meropenem (Merrem Iv 1 Gm Premix) 1 gm in 50 mls @ 100 mls/hr IVPB Q12 [facility]; Protocol Last Admin: 08/27/18 21:08 Dose: 100 mls/hr Metoprolol Tartrate (Lopressor) 25 mg PO BRKDIN [facility] Last Admin: 08/27/18 17:45 Dose: 25 mg Oxycodone HCl (Oxycodone Immediate Release Tab) 15 mg PO Q6H PRN PRN Reason: Pain, severe (8-10) Last Admin: 08/27/18 23:41 Dose: 15 mg Pantoprazole Sodium (Protonix Ec Tab) 40 mg PO Q12 [facility] Last Admin: 08/27/18 21:09 Dose: 40 mg Polyethylene Glycol (Miralax) 17 gm PO DAILY [facility] Last Admin: 08/27/18 09:36 Dose: 17 gm Rivaroxaban (Xarelto) 15 mg PO DAILY [facility]; Protocol Last Admin: 08/27/18 09:36 Dose: 15 mg - Labs Labs: 08/25/18 07:00 08/25/18 07:00 PT 19.5 SECONDS (9.4-12.5) H 08/22/18 07:05 INR 1.73 08/22/18 07:05 APTT 35.0 Seconds (26.9-38.3) 08/22/18 07:05 - Constitutional Appears: No Acute Distress - Head Exam Head Exam: ATRAUMATIC, NORMOCEPHALIC - Eye Exam Eye Exam: EOMI - ENT Exam ENT Exam: Mucous Membranes Moist - Respiratory Exam Respiratory Exam: Clear to Ausculation Bilateral. absent: Rales, Rhonchi, Wheez es - Cardiovascular Exam Cardiovascular Exam: REGULAR RHYTHM, +S1, +S2 - GI/Abdominal Exam GI & Abdominal Exam: Soft. absent: Distended - Extremities Exam Extremities Exam: absent: Calf Tenderness, Pedal Edema - Neurological Exam Neurological Exam: Alert, Awake, Oriented x3 - Psychiatric Exam Psychiatric exam: Normal Mood - Skin Skin Exam: Dry, Warm Assessment and Plan - Assessment and Plan (Free Text) Assessment: Sepsis with ESBL bacteremia Altered mental status likely secondary to small left basal ganglia lacunar type infarct Hyperkalemia Atrial fibrillation on anticoagulation Xarelto Recent hospitalization with ESBL UTI Anemia Hypertension History of breast cancer Continue with meropenem Day 5, patient will need atleast 14 days of abx Received Amikacin x 1 F/u cardiology recs f/u MADELINE results - neg for vegetations Septic work up - Positive for ESBL ecoli - f/u repeat cultures neg thus far Continue to monitor for any changes Case and plan to be reviewed and discussed with Dr. Noble <Jasen Noble - Last Filed: 08/28/18 17:30> Objective - Vital Signs/Intake and Output Vital Signs (last 24 hours): Temp Pulse Resp BP Pulse Ox 98 F 102 H 18 115/70 96 08/28/18 10:20 08/28/18 11:09 08/28/18 10:20 08/28/18 11:08 08/28/18 10:20 Intake and Output: 08/28/18 08/28/18 06:59 18:59 Intake Total 50 Balance 50 - Labs Labs: 08/25/18 07:00 08/25/18 07:00 PT 19.5 SECONDS (9.4-12.5) H 08/22/18 07:05 INR 1.73 08/22/18 07:05 APTT 35.0 Seconds (26.9-38.3) 08/22/18 07:05 Attending/Attestation - Attestation I have personally seen and examined this patient.: Yes I have fully participated in the care of the patient.: Yes I have reviewed all pertinent clinical information, including history, physical exam and plan: Yes
[2018-08-28] MEDS: AMITIZA 24 MCG PO SCH (11:09)
[2018-08-28] MEDS: Meropenem IV 1 gm in NS 1 GM/50 ML BAG IVPB SCH (11:10)
[2018-08-28] MEDS: oxyCODONE 15 mg Immediate Release Tab PO PRN (11:10)
[2018-08-28] MEDS: Pantoprazole 40 mg EC Tab PO SCH (11:10)
[2018-08-28] MEDS: POLYETHYLENE GLYCOL 3350 17 GM/Dose PACKET PO SCH (11:10)
[2018-08-28 11:11] VITALS: BP 115/70; PULSE 102
--- NOTE | 2018-08-28 12:14 | PN ---
DATE: 08/28/2018 SUBJECTIVE: The patient is seen lying in bed on 5R. She is comfortable at present time. She remains afebrile. She is scheduled for a transesophageal echocardiogram this morning. Her current medications include aspirin, Lasix 40 mg IV daily, Lipitor, metoprolol 25 mg b.i.d., meropenem, MiraLax, oxycodone, Protonix, Xanax, and Xarelto 50 mg daily. OBJECTIVE: GENERAL: She is an elderly woman, who appears comfort at rest. VITAL SIGNS: Blood pressure is 110/66 with pulse of 80 and irregular regular, respirations 14. She is afebrile. HEENT: No JVD. CHEST: Bilateral scattered rhonchi. HEART: PMI displaced laterally with systolic murmur at the base as well as the left sternal border. ABDOMEN: Soft, nontender, normoactive bowel sounds. EXTREMITIES: Bilateral lymphedema present. DIAGNOSTIC DATA: No blood work pending from this morning. IMPRESSION: 1. Escherichia coli bacteremia, currently afebrile. 2. Multivalvular heart disease with [id number] aortic stenosis, mild mitral and tricuspid regurgitation. 3. Pancytopenia. 4. Atrial fibrillation. RECOMMENDATIONS: Transesophageal echocardiogram will be performed this morning. Should she have evidence of vegetation, prolonged course of antibiotics will be necessary. If no vegetation is seen, standard treatment can continue. Lasix can be switched to oral administration. The rest of medications should continue unchanged. Further recommendations will be made based upon the results of MADELINE. Paresh Eric MD
--- NOTE | 2018-08-28 15:52 | PN ---
DATE: 08/28/2018 SUBJECTIVE: The patient is an 83-year-old, seen and examined, status post MADELINE, was found to be negative. Denies any chest pain. No shortness of breath. PHYSICAL EXAMINATION: VITAL SIGNS: The patient is afebrile, pulse 102, respirations 18, and blood pressure 115/70. LUNGS: Bilateral fair flow. No rhonchi or crackle. HEART: S1 and S2, audible. ABDOMEN: Soft, nontender. No rebound. No guarding. NEUROLOGIC: The patient is awake and alert, able to communicate, ambulatory. ASSESSMENT: Status post extended spectrum beta lactamase positive bacteremia. Transesophageal echocardiography is negative. CT of the abdomen and pelvis is unremarkable. Abdominal sonogram showed cholelithiasis, but HIDA scan is unremarkable. Status post transesophageal echocardiography, negative for any vegetation. PLAN: The patient will be maintained on current medication that is meropenem for a total of 14 days, and we will restart Xarelto and analgesic as needed. If the patient is accepted in TCU, will be transferred to TCU. Edita Rapp MD
== END 2018-08-28 15:06 | DRG 871 ==
LOC: ED 06:34 → ERH 12:44 → 5RNO 14:16
PROVIDERS: ADMIT Internal Medicine; ATTEND Internal Medicine
PROC: B24BZZ4 Ultrasonography of Heart with Aorta, Transesophageal (ICD-10-PCS; principal; 2018-08-28 09:25)
DX: A41.51 Sepsis due to Escherichia coli [E. coli] (principal); I63.81 Other cerebral infarction due to occlusion or stenosis of small artery; D61.818 Other pancytopenia; I11.0 Hypertensive heart disease with heart failure; I48.2 Chronic atrial fibrillation; K74.60 Unspecified cirrhosis of liver; K80.20 Calculus of gallbladder without cholecystitis without obstruction; K21.9 Gastro-esophageal reflux disease without esophagitis; F41.9 Anxiety disorder, unspecified; E87.5 Hyperkalemia; G89.29 Other chronic pain; I08.3 Combined rheumatic disorders of mitral, aortic and tricuspid valves; K59.09 Other constipation; I50.9 Heart failure, unspecified; E78.5 Hyperlipidemia, unspecified; M50.30 Other cervical disc degeneration, unspecified cervical region; M17.0 Bilateral primary osteoarthritis of knee; Z79.01 Long term (current) use of anticoagulants; Z85.3 Personal history of malignant neoplasm of breast; Z86.73 Personal history of transient ischemic attack (TIA), and cerebral infarction without residual deficits; Z87.11 Personal history of peptic ulcer disease

== ENCOUNTER 2018-08-28 15:13 | Inpatient (IN) | payer OTHER, MEDICARE ==
[2018-08-28] MEDS: Pantoprazole 40 mg EC Tab PO SCH (17:23)
[2018-08-28] MEDS: oxyCODONE 15 mg Immediate Release Tab PO PRN (17:23)
[2018-08-28] MEDS ORDERED: Meropenem IV 1 gm in NS 1 GM/50 ML BAG IVPB SCH (18:00)
[2018-08-28] MEDS ORDERED: Pneumococcal 23-Valent Vaccine IM ONE (21:36)
[2018-08-28] MEDS: Meropenem IV 1 gm in NS 1 GM/50 ML BAG IVPB SCH (21:59)
[2018-08-28] MEDS ORDERED: oxyCODONE 15 mg Immediate Release Tab PO SCH (22:00)
[2018-08-29] MEDS: oxyCODONE 15 mg Immediate Release Tab PO PRN ×4 (00:36→20:41)
[2018-08-29] MEDS: Pantoprazole 40 mg EC Tab PO SCH ×2 (05:43→17:00)
--- NOTE | 2018-08-29 09:50 | CP.PCM.CON ---
<Sunny Lam - Last Filed: 08/29/18 15:01> History of Present Illness - History of Present Illness History of Present Illness: Infectious disease consult note: 83-year-old female with past medical history of breast cancer, hypertension, TIA, chronic pain, GERD, anxiety, depression, anemia, arthritis, A. fib on anticoagulation presents to the hospital with altered mental status. Recent hospitalization showed the patient had sepsis secondary to ESBL UTI. On last hospitalization patient was treated for ESBL bacteremia which she was treated with meropenem. A MADELINE was subsequently performed which was negative for any vegetations. Patient was transferred to TCU for weakness and continued rehab and therapy. Infectious disease was consulted for bacteremia and IV antibiotics 12 point ROS performed and negative other than stated above PMH: As above PSH: Breast surgery and cataract surgery Allergies: No known allergies Medication: Refer to [facility] SH: Denies any drinking, smoking, or drugs FH: Father and brother with heart disease, sister with breast cancer Review of Systems - Review of Systems All systems: reviewed and no additional remarkable complaints except Past Patient History - Infectious Disease Hx of Infectious Diseases: None - Tetanus Immunizations Tetanus Immunization: Up to Date - Past Social History Smoking Status: Never Smoked - CARDIAC Hx Cardiac Disorders: Yes (chronic afib) Hx Hypercholesterolemia: Yes Hx Hypertension: Yes - PULMONARY Hx Respiratory Disorders: Yes Hx Pneumonia: Yes - NEUROLOGICAL Hx Neurological Disorder: Yes HX Cerebrovascular Accident: Yes (2009) Hx Paralysis: No - HEENT Hx Cataracts: Yes (B/L) - RENAL Hx Chronic Kidney Disease: No - ENDOCRINE/METABOLIC Hx Endocrine Disorders: No - HEMATOLOGICAL/ONCOLOGICAL Hx Blood Transfusions: No Hx Blood Transfusion Reaction: No - INTEGUMENTARY Hx Dermatological Problems: Yes (LYMPEDEMA BILATERAL LE) Other/Comment: BLE CELLULITIS/4+ EDEMA - MUSCULOSKELETAL/RHEUMATOLOGICAL Hx Falls: Yes - GASTROINTESTINAL Hx Gastrointestinal Disorders: Yes (GERD,CHOLELITHIASIS,SPLENOMEGALY,PUD,CONSTIPATION) - GENITOURINARY/GYNECOLOGICAL Hx Genitourinary Disorders: Yes (UTI) Hx Reproductive Disorders: No - PSYCHIATRIC Hx Emotional Abuse: No Hx Physical Abuse: No Hx Substance Use: No - SURGICAL HISTORY Hx Surgeries: Yes (cataract both eyes,) - ANESTHESIA Hx Anesthesia Reactions: No Hx Malignant Hyperthermia: No Meds Allergies/Adverse Reactions: Allergies Allergy/AdvReac Type Severity Reaction Status Date / Time No Known Allergies Allergy Verified 08/28/18 19:30 - Medications Medications: Current Medications Acetaminophen (Tylenol 325mg Tab) 650 mg PO Q6H PRN; Protocol PRN Reason: Fever >100.4 F Alprazolam (Xanax) 0.25 mg PO HS DONNA; Protocol Stop: 09/04/18 22:01 Last Admin: 08/28/18 21:59 Dose: 0.25 mg Aspirin (Ecotrin) 81 mg PO 0800 DONNA; Protocol Last Admin: 08/29/18 07:47 Dose: 81 mg Atorvastatin Calcium (Lipitor) 10 mg PO DIN DONNA; Protocol Last Admin: 08/28/18 17:24 Dose: Not Given Furosemide (Lasix) 40 mg IVP 0600 DONNA; Protocol Last Admin: 08/29/18 05:44 Dose: 40 mg Home Med (Home Med) 1 unit PO DAILY DONNA; Protocol Meropenem (Merrem Iv 1 Gm Premix) 1 gm in 50 mls @ 100 mls/hr IVPB Q12 DONNA; Protocol Stop: 09/06/18 22:01 Last Admin: 08/28/18 21:59 Dose: 100 mls/hr Metoprolol Tartrate (Lopressor) 25 mg PO 0800,1800 DONNA; Protocol Last Admin: 08/29/18 07:48 Dose: 25 mg Oxycodone HCl (Oxycodone Immediate Release Tab) 15 mg PO Q6H PRN; Protocol PRN Reason: Pain, severe (8-10) Last Admin: 08/29/18 07:50 Dose: 15 mg Pantoprazole Sodium (Protonix Ec Tab) 40 mg PO 0600,1600 DONNA; Protocol Last Admin: 08/29/18 05:43 Dose: 40 mg Polyethylene Glycol (Miralax) 17 gm PO DAILY DONNA; Protocol Rivaroxaban (Xarelto) 15 mg PO DAILY DONNA; Protocol Physical Exam - Constitutional Appears: No Acute Distress - Head Exam Head Exam: ATRAUMATIC, NORMOCEPHALIC - Eye Exam Eye Exam: EOMI - ENT Exam ENT Exam: Mucous Membranes Moist - Respiratory Exam Respiratory Exam: Clear to Auscultation Bilateral. absent: Rales, Wheezes - Cardiovascular Exam Cardiovascular Exam: REGULAR RHYTHM, +S1, +S2 - GI/Abdominal Exam GI & Abdominal Exam: Normal Bowel Sounds, Soft. absent: Tenderness - Extremities Exam Extremities exam: Negative for: calf tenderness, pedal edema - Neurological Exam Neurological exam: Alert, Oriented x3 - Psychiatric Exam Psychiatric exam: Normal Mood - Skin Skin Exam: Dry, Warm Results - Vital Signs Recent Vital Signs: Last Vital Signs Temp 98 F 08/28/18 21:20 Pulse 103 H 08/29/18 07:48 Resp 20 08/28/18 21:20 BP 117/72 08/29/18 07:48 Pulse Ox Assessment & Plan - Assessment and Plan (Free Text) Assessment: Sepsis with ESBL bacteremia Altered mental status likely secondary to small left basal ganglia lacunar type infarct Hyperkalemia Atrial fibrillation on anticoagulation Xarelto Recent hospitalization with ESBL UTI Anemia Hypertension History of breast cancer Continue with meropenem Day 6, of 14 days of abx Received Amikacin x 1 MADELINE results - neg for vegetations Follow-up cardiology recommendations Septic work up - Positive for ESBL ecoli - f/u repeat cultures neg thus far Continue to monitor for any changes Case and plan to be reviewed and discussed with Dr. Noble <Jasen Noble - Last Filed: 08/29/18 21:36> Meds - Medications Medications: Current Medications Acetaminophen (Tylenol 325mg Tab) 650 mg PO Q6H PRN; Protocol PRN Reason: Fever >100.4 F Alprazolam (Xanax) 0.25 mg PO HS DONNA; Protocol Stop: 09/04/18 22:01 Last Admin: 08/28/18 21:59 Dose: 0.25 mg Aspirin (Ecotrin) 81 mg PO 0800 DONNA; Protocol Last Admin: 08/29/18 07:47 Dose: 81 mg Atorvastatin Calcium (Lipitor) 10 mg PO DIN DONNA; Protocol Last Admin: 08/29/18 17:52 Dose: 10 mg Furosemide (Lasix) 40 mg IVP 0600 DONNA; Protocol Last Admin: 08/29/18 05:44 Dose: 40 mg Home Med (Home Med) 1 unit PO DAILY DONNA; Protocol Last Admin: 08/29/18 10:32 Dose: 1 unit Meropenem (Merrem Iv 1 Gm Premix) 1 gm in 50 mls @ 100 mls/hr IVPB Q12 DONNA; Protocol Stop: 09/06/18 22:01 Last Admin: 08/29/18 10:32 Dose: 100 mls/hr Metoprolol Tartrate (Lopressor) 25 mg PO 0800,1800 DONNA; Protocol Last Admin: 08/29/18 17:52 Dose: 25 mg Oxycodone HCl (Oxycodone Immediate Release Tab) 15 mg PO Q6H PRN; Protocol PRN Reason: Pain, severe (8-10) Last Admin: 08/29/18 20:41 Dose: 15 mg Pantoprazole Sodium (Protonix Ec Tab) 40 mg PO 0600,1600 DONNA; Protocol Last Admin: 08/29/18 17:00 Dose: 40 mg Polyethylene Glycol (Miralax) 17 gm PO DAILY DONNA; Protocol Last Admin: 08/29/18 10:32 Dose: Not Given Rivaroxaban (Xarelto) 15 mg PO DAILY [facility]; Protocol Last Admin: 08/29/18 10:33 Dose: 15 mg Results - Vital Signs Recent Vital Signs: Last Vital Signs Temp 98 F 08/28/18 21:20 Pulse 64 08/29/18 17:52 Resp 20 08/28/18 21:20 BP 111/77 08/29/18 17:52 Pulse Ox Attending/Attestation - Attestation I have personally seen and examined this patient.: Yes I have fully participated in the care of the patient.: Yes I have reviewed all pertinent clinical information: Yes
[2018-08-29] MEDS: Meropenem IV 1 gm in NS 1 GM/50 ML BAG IVPB SCH ×2 (10:32→21:45)
[2018-08-29] MEDS: POLYETHYLENE GLYCOL 3350 17 GM/Dose PACKET PO SCH (10:32)
[2018-08-29] MEDS: AMITIZA 24 MCG PO SCH (10:32)
--- NOTE | 2018-08-30 00:02 | HP ---
DATE OF EXAM: 08/29/2018 HISTORY OF PRESENT ILLNESS: The patient is 83 years old, who came in not feeling well, was lethargic with increased frequency of urination. She was found to have ESBL positive E. Coli UTI, similar to that she had on last visit with sepsis. Started on meropenem. Then we explored the source. She had CT of the abdomen and pelvis done, showed cholelithiasis, but HIDA was unremarkable. The patient also has transthoracic echocardiogram negative for vegetation. She underwent MADELINE yesterday, that was also unremarkable. So recommendation was to give her antibiotics for 7 more days and complete course of 14 days of antibiotics. PAST MEDICAL HISTORY: Significant for; 1. History of CA breast. 2. Hypertension. 3. History of TIA. 4. Chronic degenerative disc disease. 5. History of depression. 6. Arthritis. 7. Chronic atrial fibrillation on Xarelto. ALLERGIES: SHE IS NOT ALLERGIC TO ANY MEDICATION. MEDICATION: As per MAR. FAMILY HISTORY: Brother and father of heart disease. Sister has breast cancer. PHYSICAL EXAMINATION GENERAL: She is awake and alert, able to communicate. VITAL SIGNS: The patient is afebrile, pulse 64, respirations 20, blood pressure 111/77. LUNGS: Bilateral fair airflow. No rhonchi or crackle. HEART: S1 and S2 audible. ABDOMEN: Soft, nontender. No rebound, no guarding. NEUROLOGIC: The patient is awake and alert, able to communicate. LABORATORY DATA: There is no new lab available today. ASSESSMENT AND PLAN: 1. Extended spectrum beta lactamase positive Escherichia coli and extended spectrum beta lactamase positive bacteremia. 2. Chronic atrial fibrillation. 3. Degenerative disc disease. 4. History of hypertension. PLAN: Currently, the patient is on meropenem. We will continue that. We will continue all her other medication including atorvastatin, Lasix, aspirin, oxycodone, Protonix, Xanax and Xarelto. Edita Rapp MD
[2018-08-30] MEDS: Pantoprazole 40 mg EC Tab PO SCH ×2 (05:58→17:00)
--- NOTE | 2018-08-30 07:43 | CP.PCM.PN ---
<Sunny Lam - Last Filed: 08/30/18 13:48> Subjective - Date & Time of Evaluation Date of Evaluation: 08/30/18 Time of Evaluation: 09:55 - Subjective Subjective: Infectious disease progress note: Patient seen and examined at bedside. No acute events overnight. States that he is doing well with PT. no fevers. 12 point ROS performed and negative unless stated above. Objective - Vital Signs/Intake and Output Vital Signs (last 24 hours): Temp Pulse Resp BP Pulse Ox 98 F 64 20 129/73 08/28/18 21:20 08/29/18 17:52 08/28/18 21:20 08/30/18 06:06 - Medications Medications: Current Medications Acetaminophen (Tylenol 325mg Tab) 650 mg PO Q6H PRN; Protocol PRN Reason: Fever >100.4 F Alprazolam (Xanax) 0.25 mg PO HS DONNA; Protocol Stop: 09/04/18 22:01 Last Admin: 08/29/18 21:56 Dose: Not Given Aspirin (Ecotrin) 81 mg PO 0800 DONNA; Protocol Last Admin: 08/29/18 07:47 Dose: 81 mg Atorvastatin Calcium (Lipitor) 10 mg PO DIN DONNA; Protocol Last Admin: 08/29/18 17:52 Dose: 10 mg Furosemide (Lasix) 40 mg IVP 0600 DONNA; Protocol Last Admin: 08/30/18 06:06 Dose: 40 mg Home Med (Home Med) 1 unit PO DAILY DONNA; Protocol Last Admin: 08/29/18 10:32 Dose: 1 unit Meropenem (Merrem Iv 1 Gm Premix) 1 gm in 50 mls @ 100 mls/hr IVPB Q12 DONNA; Protocol Stop: 09/06/18 22:01 Last Admin: 08/29/18 21:45 Dose: 100 mls/hr Metoprolol Tartrate (Lopressor) 25 mg PO 0800,1800 DONNA; Protocol Last Admin: 08/29/18 17:52 Dose: 25 mg Oxycodone HCl (Oxycodone Immediate Release Tab) 15 mg PO Q6H PRN; Protocol PRN Reason: Pain, severe (8-10) Last Admin: 08/29/18 20:41 Dose: 15 mg Pantoprazole Sodium (Protonix Ec Tab) 40 mg PO 0600,1600 DONNA; Protocol Last Admin: 08/30/18 05:58 Dose: 40 mg Polyethylene Glycol (Miralax) 17 gm PO DAILY DONNA; Protocol Last Admin: 08/29/18 10:32 Dose: Not Given Rivaroxaban (Xarelto) 15 mg PO DAILY [facility]; Protocol Last Admin: 08/29/18 10:33 Dose: 15 mg - Constitutional Appears: No Acute Distress - Head Exam Head Exam: ATRAUMATIC, NORMOCEPHALIC - Eye Exam Eye Exam: EOMI - Respiratory Exam Respiratory Exam: Clear to Ausculation Bilateral. absent: Rales, Rhonchi - Cardiovascular Exam Cardiovascular Exam: REGULAR RHYTHM, +S1, +S2 - GI/Abdominal Exam GI & Abdominal Exam: Soft. absent: Tenderness - Extremities Exam Extremities Exam: absent: Calf Tenderness, Pedal Edema - Neurological Exam Neurological Exam: Alert, Awake - Psychiatric Exam Psychiatric exam: Normal Mood - Skin Skin Exam: Dry, Warm Assessment and Plan - Assessment and Plan (Free Text) Assessment: Sepsis with ESBL bacteremia Altered mental status likely secondary to small left basal ganglia lacunar type infarct Hyperkalemia Atrial fibrillation on anticoagulation Xarelto Recent hospitalization with ESBL UTI Anemia Hypertension History of breast cancer Continue with meropenem Day 7, of 14 days of abx Amikacin x 1 MADELINE results - neg for vegetations Follow-up cardiology recommendations Septic work up - Positive for ESBL ecoli - f/u repeat cultures neg Continue to monitor for any changes Case and plan to be reviewed and discussed with Dr. Noble <Jasen Noble - Last Filed: 08/30/18 22:09> Objective - Vital Signs/Intake and Output Vital Signs (last 24 hours): Temp Pulse Resp BP Pulse Ox 97.4 F L 100 H 18 106/69 98 08/30/18 16:00 08/30/18 17:37 08/30/18 16:00 08/30/18 17:37 08/30/18 16:00 - Medications Medications: Current Medications Acetaminophen (Tylenol 325mg Tab) 650 mg PO Q6H PRN; Protocol PRN Reason: Fever >100.4 F Alprazolam (Xanax) 0.25 mg PO HS DONNA; Protocol Stop: 09/04/18 22:01 Last Admin: 08/29/18 21:56 Dose: Not Given Aspirin (Ecotrin) 81 mg PO 0800 [facility]; Protocol Last Admin: 08/30/18 08:07 Dose: 81 mg Atorvastatin Calcium (Lipitor) 10 mg PO DIN DONNA; Protocol Last Admin: 08/30/18 17:37 Dose: Not Given Furosemide (Lasix) 40 mg IVP 0600 DONNA; Protocol Last Admin: 08/30/18 06:06 Dose: 40 mg Home Med (Home Med) 1 unit PO DAILY DONNA; Protocol Last Admin: 08/30/18 10:36 Dose: 1 unit Meropenem (Merrem Iv 1 Gm Premix) 1 gm in 50 mls @ 100 mls/hr IVPB Q12 DONNA; Protocol Stop: 09/06/18 22:01 Last Admin: 08/30/18 10:36 Dose: 100 mls/hr Metoprolol Tartrate (Lopressor) 25 mg PO 0800,1800 DONNA; Protocol Last Admin: 08/30/18 17:37 Dose: 25 mg Oxycodone HCl (Oxycodone Immediate Release Tab) 15 mg PO Q6H PRN; Protocol PRN Reason: Pain, severe (8-10) Last Admin: 08/30/18 13:28 Dose: 15 mg Pantoprazole Sodium (Protonix Ec Tab) 40 mg PO 0600,1600 DONNA; Protocol Last Admin: 08/30/18 17:00 Dose: 40 mg Polyethylene Glycol (Miralax) 17 gm PO DAILY DONNA; Protocol Last Admin: 08/30/18 10:37 Dose: Not Given Rivaroxaban (Xarelto) 15 mg PO DAILY [facility]; Protocol Last Admin: 08/30/18 10:37 Dose: 15 mg Attending/Attestation - Attestation I have personally seen and examined this patient.: Yes I have fully participated in the care of the patient.: Yes I have reviewed all pertinent clinical information, including history, physical exam and plan: Yes
[2018-08-30] MEDS: oxyCODONE 15 mg Immediate Release Tab PO PRN ×3 (08:08→22:19)
[2018-08-30] MEDS: AMITIZA 24 MCG PO SCH (10:36)
[2018-08-30] MEDS: Meropenem IV 1 gm in NS 1 GM/50 ML BAG IVPB SCH ×2 (10:36→22:12)
[2018-08-30] MEDS: POLYETHYLENE GLYCOL 3350 17 GM/Dose PACKET PO SCH (10:37)
--- NOTE | 2018-08-30 20:56 | PN ---
DATE: 08/30/2018 SUBJECTIVE: Patient is 83 years old, seen and examined, sitting in chair, seems to be comfortable. No chest pain. No shortness of breath. No nausea or vomiting. No diarrhea. Eating and tolerating. PHYSICAL EXAMINATION: VITAL SIGNS: She is afebrile, pulse 92, respirations 18, and blood pressure 113/79. LUNGS: Bilateral fair airflow. No rhonchi or crackles. HEART: S1 and S2 audible. ABDOMEN: Soft and nontender. No rebound. No guarding. NEUROLOGIC: The patient is awake and alert, able to communicate. EXTREMITIES: Bilateral legs, she has chronic stasis dermatitis with minimal erythema. No active discharge or ulcer. ASSESSMENT: 1. Status post extended spectrum beta lactamase positive bacteremia. 2. Status post transesophageal echocardiography that is negative. 3. Status post HIDA scan that is negative. 4. History of hypertension. 5. Chronic atrial fibrillation. 6. Degenerative disc disease. PLAN: Currently, the patient is on meropenem. We will continue her on Xarelto. Continue physical therapy. We will follow up this patient. Edita Rapp MD
[2018-08-31] MEDS: Pantoprazole 40 mg EC Tab PO SCH ×2 (05:41→17:35)
--- NOTE | 2018-08-31 07:34 | CP.PCM.PN ---
<Sunny Lam - Last Filed: 08/31/18 15:17> Subjective - Date & Time of Evaluation Date of Evaluation: 08/31/18 Time of Evaluation: 09:55 - Subjective Subjective: Infectious disease progress note: Patient seen and examined at bedside. No acute events overnight. Doing well with PT. No fevers. 12 point ROS performed and negative unless stated above. Objective - Vital Signs/Intake and Output Vital Signs (last 24 hours): Temp Pulse Resp BP Pulse Ox 98.0 F 81 18 113/79 98 08/31/18 06:00 08/31/18 06:00 08/31/18 06:00 08/31/18 06:00 08/31/18 06:00 - Medications Medications: Current Medications Acetaminophen (Tylenol 325mg Tab) 650 mg PO Q6H PRN; Protocol PRN Reason: Fever >100.4 F Last Admin: 08/30/18 23:22 Dose: 650 mg Alprazolam (Xanax) 0.25 mg PO HS DONNA; Protocol Stop: 09/04/18 22:01 Last Admin: 08/30/18 22:18 Dose: Not Given Aspirin (Ecotrin) 81 mg PO 0800 DONNA; Protocol Last Admin: 08/30/18 08:07 Dose: 81 mg Atorvastatin Calcium (Lipitor) 10 mg PO DIN DONNA; Protocol Last Admin: 08/30/18 17:37 Dose: Not Given Furosemide (Lasix) 40 mg IVP 0600 DONNA; Protocol Last Admin: 08/31/18 05:40 Dose: 40 mg Home Med (Home Med) 1 unit PO DAILY [facility]; Protocol Last Admin: 08/30/18 10:36 Dose: 1 unit Meropenem (Merrem Iv 1 Gm Premix) 1 gm in 50 mls @ 100 mls/hr IVPB Q12 DONNA; Protocol Stop: 09/06/18 22:01 Last Admin: 08/30/18 22:12 Dose: 100 mls/hr Metoprolol Tartrate (Lopressor) 25 mg PO 0800,1800 DONNA; Protocol Last Admin: 08/30/18 17:37 Dose: 25 mg Oxycodone HCl (Oxycodone Immediate Release Tab) 15 mg PO Q6H PRN; Protocol PRN Reason: Pain, severe (8-10) Last Admin: 08/30/18 22:19 Dose: 15 mg Pantoprazole Sodium (Protonix Ec Tab) 40 mg PO 0600,1600 DONNA; Protocol Last Admin: 08/31/18 05:41 Dose: 40 mg Polyethylene Glycol (Miralax) 17 gm PO DAILY DONNA; Protocol Last Admin: 08/30/18 10:37 Dose: Not Given Rivaroxaban (Xarelto) 15 mg PO DAILY [facility]NA; Protocol Last Admin: 08/30/18 10:37 Dose: 15 mg - Constitutional Appears: No Acute Distress - Eye Exam Eye Exam: EOMI - ENT Exam ENT Exam: Mucous Membranes Moist - Respiratory Exam Respiratory Exam: Clear to Ausculation Bilateral. absent: Rales, Wheezes - Cardiovascular Exam Cardiovascular Exam: REGULAR RHYTHM, +S1, +S2 - GI/Abdominal Exam GI & Abdominal Exam: Soft. absent: Tenderness - Neurological Exam Neurological Exam: Alert, Awake - Skin Skin Exam: Dry, Warm Assessment and Plan - Assessment and Plan (Free Text) Assessment: Sepsis with ESBL bacteremia Altered mental status likely secondary to small left basal ganglia lacunar type infarct Hyperkalemia Atrial fibrillation on anticoagulation Xarelto Recent hospitalization with ESBL UTI Anemia Hypertension History of breast cancer Continue with meropenem Day 8, of 14 days of abx MADELINE results - neg for vegetations Follow-up cardiology recommendations Blood cx with ESBL ecoli - f/u repeat cultures neg Continue to monitor for any changes Case and plan to be reviewed and discussed with Dr. Noble <Jasen Noble - Last Filed: 08/31/18 22:42> Objective - Vital Signs/Intake and Output Vital Signs (last 24 hours): Temp Pulse Resp BP Pulse Ox 98.0 F 107 H 20 94/68 L 97 08/31/18 16:00 08/31/18 17:35 08/31/18 16:00 08/31/18 17:35 08/31/18 16:00 - Medications Medications: Current Medications Acetaminophen (Tylenol 325mg Tab) 650 mg PO Q6H PRN; Protocol PRN Reason: Fever >100.4 F Last Admin: 08/30/18 23:22 Dose: 650 mg Alprazolam (Xanax) 0.25 mg PO HS DONNA; Protocol Stop: 09/04/18 22:01 Last Admin: 08/31/18 22:28 Dose: Not Given Aspirin (Ecotrin) 81 mg PO 0800 [facility]; Protocol Last Admin: 08/31/18 08:04 Dose: 81 mg Atorvastatin Calcium (Lipitor) 10 mg PO QOTHERDAY DONNA; Protocol Furosemide (Lasix) 40 mg IVP 0600 DONNA; Protocol Last Admin: 08/31/18 05:40 Dose: 40 mg Home Med (Home Med) 1 unit PO DAILY [facility]; Protocol Last Admin: 08/31/18 09:28 Dose: 1 unit Meropenem (Merrem Iv 1 Gm Premix) 1 gm in 50 mls @ 100 mls/hr IVPB Q12 DONNA; Protocol Stop: 09/06/18 22:01 Last Admin: 08/31/18 22:28 Dose: 100 mls/hr Metoprolol Tartrate (Lopressor) 25 mg PO 0800,1700 [facility]; Protocol Last Admin: 08/31/18 17:35 Dose: Not Given Oxycodone HCl (Oxycodone Immediate Release Tab) 15 mg PO Q6H PRN; Protocol PRN Reason: Pain, severe (8-10) Last Admin: 08/31/18 20:47 Dose: 15 mg Pantoprazole Sodium (Protonix Ec Tab) 40 mg PO 0600,1600 [facility]NA; Protocol Last Admin: 08/31/18 17:35 Dose: 40 mg Polyethylene Glycol (Miralax) 17 gm PO DAILY [facility]; Protocol Last Admin: 08/31/18 09:29 Dose: Not Given Rivaroxaban (Xarelto) 15 mg PO 1800 [facility]NA; Protocol Attending/Attestation - Attestation I have personally seen and examined this patient.: Yes I have fully participated in the care of the patient.: Yes I have reviewed all pertinent clinical information, including history, physical exam and plan: Yes
[2018-08-31] MEDS: oxyCODONE 15 mg Immediate Release Tab PO PRN ×3 (08:07→20:47)
[2018-08-31] MEDS: Meropenem IV 1 gm in NS 1 GM/50 ML BAG IVPB SCH ×2 (09:25→22:28)
[2018-08-31] MEDS: AMITIZA 24 MCG PO SCH (09:28)
[2018-08-31] MEDS: POLYETHYLENE GLYCOL 3350 17 GM/Dose PACKET PO SCH (09:29)
[2018-08-31] MEDS ORDERED: Phenol Topical 1.4% Throat Spray (180 ml) MT SCH (17:30)
--- NOTE | 2018-09-01 00:58 | PN ---
DATE: 08/31/2018 SUBJECTIVE: The patient is 83 years old. Seen and examined. Lying in bed. Seems to be comfortable. Complained of intermittent headache. PHYSICAL EXAMINATION: VITAL SIGNS: She is afebrile, pulse 76, respirations 20, blood pressure 94/68. LUNGS: Bilateral fair airflow. No rhonchi or crackles. HEART: S1 and S2, audible. ABDOMEN: Soft and nontender. No rebound. No guarding. NEUROLOGIC: The patient is awake and alert, able to communicate. LABORATORY DATA: There is no new lab available today. ASSESSMENT: 1. Extended-spectrum beta-lactamase positive Escherichia coli urinary tract infection. 2. History of hypertension. 3. Chronic atrial fibrillation. 4. Hyperlipidemia. 5. Hypothyroidism. 6. Status post transesophageal echocardiography that was negative, status post HIDA scan that was also negative. PLAN: We will continue the patient on current medications. Continue antibiotics as per ID and continue physical therapy. Edita Rapp MD
[2018-09-01] MEDS: oxyCODONE 15 mg Immediate Release Tab PO PRN ×4 (03:01→21:47)
[2018-09-01] MEDS: Pantoprazole 40 mg EC Tab PO SCH ×2 (05:40→17:21)
[2018-09-01] MEDS: AMITIZA 24 MCG PO SCH (10:13)
[2018-09-01] MEDS: Meropenem IV 1 gm in NS 1 GM/50 ML BAG IVPB SCH ×2 (10:14→21:46)
[2018-09-01] MEDS: POLYETHYLENE GLYCOL 3350 17 GM/Dose PACKET PO SCH (10:15)
[2018-09-01] MEDS: Lidocaine 5% Patch TD SCH (11:13)
[2018-09-01] MEDS ORDERED: Vitamin A/D oint 60G TP PRN (11:53)
--- NOTE | 2018-09-01 14:36 | PN ---
DATE: 09/01/2018 SUBJECTIVE: The patient is in bed in no acute distress, nontoxic. PHYSICAL EXAMINATION VITAL SIGNS: On exam, temperature is 98, blood pressure is 94/60, respiratory rate of 20, heart rate of 76. HEENT: Unremarkable. NECK: Supple. HEART: Normal S1, S2. LUNGS: Decreased breath sounds. ABDOMEN: Soft and nontender. LABORATORY DATA: Laboratory examination is noted. ASSESSMENT AND PLAN: This is an 83-year-old female with sepsis with extended-spectrum beta-lactamase bacteremia, altered mental status secondary to a small left basal ganglia lacunar type infarct, hyperkalemia, atrial fibrillation, recent hospitalization for extended-spectrum beta-lactamase bacteremia and urinary tract infection. Today is day #9 of meropenem, we would complete 14 days of meropenem. The patient had a MADELINE which was negative for .. Review of microbiology reveals the patient's blood cultures are negative. Repeat cultures were negative . Today is day #9 of 14 days. Jasen Noble MD
--- NOTE | 2018-09-01 17:03 | PN ---
DATE: 09/01/2018 SUBJECTIVE: The patient is 83-year-old, seen and examined. Doing very well. Complained of pain in the knee. Could not sleep last night because of the knee pain. Otherwise doing well. PHYSICAL EXAMINATION: VITAL SIGNS: She is afebrile. Pulse 59, respirations 20, and blood pressure 134/71. LUNGS: Bilateral fair airflow. No rhonchi or crackles. HEART: S1 and S2 audible. ABDOMEN: Soft, nontender. No rebound. No guarding. NEUROLOGICAL: The patient is awake and alert, able to communicate. EXTREMITIES: Bilateral legs are in the compression stocking. ASSESSMENT: 1. Recurrent extended-spectrum beta-lactamase bacteremia. Repeat cultures are negative. 2. History of chronic atrial fibrillation. 3. Bilateral knee osteoarthritis. 4. Hyperlipidemia. 5. History of hypertension. 6. Chronic degenerative disk disease. PLAN: We will continue the patient on 6 more days of meropenem. I will order for 5% Lidoderm patch to the knee. Continue current medication. Continue physical therapy. Edita Rapp MD
--- NOTE | 2018-09-02 04:58 | CP.PCM.PN ---
Subjective - Date & Time of Evaluation Date of Evaluation: 09/02/18 Time of Evaluation: 04:55 - Subjective Subjective: Patient was seen because Xanax 0.125 mg PO was ordered by electromedical service engineer. 83 year old woman was admitted with not feeling well, lethargy,bacteremia. Has PMH of breast CA ,TIA, HTN, atrial fibrillation, depression, arthritis, DJD. Patient had requested half of her scheduled dose of Xanax stating that present dose is too much. When I saw patient she was asleep on the chair. Objective - Vital Signs/Intake and Output Vital Signs (last 24 hours): Temp Pulse Resp BP Pulse Ox 98 F 87 20 113/63 99 09/01/18 16:00 09/01/18 17:21 09/01/18 16:00 09/01/18 17:21 09/01/18 16:54 - Medications Medications: Current Medications Acetaminophen (Tylenol 325mg Tab) 650 mg PO Q6H PRN; Protocol PRN Reason: Fever >100.4 F Last Admin: 08/30/18 23:22 Dose: 650 mg Alprazolam (Xanax) 0.25 mg PO HS DONNA; Protocol Stop: 09/04/18 22:01 Last Admin: 09/01/18 21:43 Dose: Not Given Aspirin (Ecotrin) 81 mg PO 0800 DONNA; Protocol Last Admin: 09/01/18 07:56 Dose: 81 mg Atorvastatin Calcium (Lipitor) 10 mg PO QOTHERDAY DONNA; Protocol Furosemide (Lasix) 40 mg IVP 0600 DONNA; Protocol Last Admin: 09/01/18 05:43 Dose: 40 mg Home Med (Home Med) 1 unit PO DAILY DONNA; Protocol Last Admin: 09/01/18 10:13 Dose: 1 unit Meropenem (Merrem Iv 1 Gm Premix) 1 gm in 50 mls @ 100 mls/hr IVPB Q12 DONNA; Protocol Stop: 09/06/18 22:01 Last Admin: 09/01/18 21:46 Dose: 100 mls/hr Lidocaine (Lidoderm) 1 ea TD DAILY DONNA; Protocol Last Admin: 09/01/18 11:13 Dose: 1 ea Metoprolol Tartrate (Lopressor) 25 mg PO 0800,1700 DONNA; Protocol Last Admin: 09/01/18 17:21 Dose: 25 mg Oxycodone HCl (Oxycodone Immediate Release Tab) 15 mg PO Q6H PRN; Protocol PRN Reason: Pain, severe (8-10) Last Admin: 09/01/18 21:47 Dose: 15 mg Pantoprazole Sodium (Protonix Ec Tab) 40 mg PO 0600,1600 DONNA; Protocol Last Admin: 09/01/18 17:21 Dose: 40 mg Polyethylene Glycol (Miralax) 17 gm PO DAILY DONNA; Protocol Last Admin: 09/01/18 10:15 Dose: Not Given Rivaroxaban (Xarelto) 15 mg PO 1800 DONNA; Protocol Last Admin: 09/01/18 17:21 Dose: 15 mg Vitamin A (Vitamin A&D) 1 applic TP Q8 PRN; Protocol PRN Reason: Dry skin - Constitutional Appears: Well, No Acute Distress - Head Exam Head Exam: ATRAUMATIC, NORMAL INSPECTION, NORMOCEPHALIC - Eye Exam Eye Exam: Normal appearance - ENT Exam ENT Exam: Normal External Ear Exam - Neck Exam Neck Exam: Normal Inspection - Respiratory Exam Respiratory Exam: NORMAL BREATHING PATTERN - Cardiovascular Exam Cardiovascular Exam: absent: JVD - GI/Abdominal Exam GI & Abdominal Exam: absent: Distended - Rectal Exam Rectal Exam: Deferred - Exam Additional comments: Deferred. - Extremities Exam Extremities Exam: Normal Inspection - Back Exam Back Exam: NORMAL INSPECTION - Neurological Exam Neurological Exam: Altered Additional comments: Asleep - Psychiatric Exam Psychiatric exam: Anxious - Skin Skin Exam: Normal Color Assessment and Plan - Assessment and Plan (Free Text) Assessment: Anxiety. Agitation. HTN Depression Atrial fibrillation. Plan: Xanax 0.125 mg PO x 1. Continue present management.
[2018-09-02] MEDS: oxyCODONE 15 mg Immediate Release Tab PO PRN ×3 (06:14→21:04)
[2018-09-02] MEDS: Pantoprazole 40 mg EC Tab PO SCH ×2 (06:14→17:00)
[2018-09-02] MEDS: Lidocaine 5% Patch TD SCH (09:54)
[2018-09-02] MEDS: AMITIZA 24 MCG PO SCH (09:54)
[2018-09-02] MEDS: POLYETHYLENE GLYCOL 3350 17 GM/Dose PACKET PO SCH (09:55)
[2018-09-02] MEDS: Meropenem IV 1 gm in NS 1 GM/50 ML BAG IVPB SCH ×2 (10:30→21:53)
--- NOTE | 2018-09-02 10:30 | PN ---
DATE: 09/02/2018 SUBJECTIVE: The patient has no complaints of any chest pain or shortness of breath. No headaches or dizziness. She says she is feeling better. PHYSICAL EXAMINATION: VITAL SIGNS: Temperature is 98, pulse of 94, blood pressure 115/63, and respirations 20. GENERAL: The patient is lying in bed, flat, comfortable. HEENT: No oral lesion. Anicteric sclerae. Moist mucosa. NECK: No JVD, adenopathy, or thyromegaly. CARDIOVASCULAR: S1 and S2, regular. No murmurs, rubs, or gallops. LUNGS: Clear to auscultation bilaterally. No wheeze, rales, or rhonchi. ABDOMEN: Bowel sounds are positive, soft, nontender and nondistended. EXTREMITIES: No cyanosis, clubbing, or edema. ASSESSMENT: 1. Urinary tract infection secondary to extended spectrum beta-lactamase. 2. Atrial fibrillation. 3. Osteoarthritis. 4. Dyslipidemia. 5. Hypertension. PLAN: The patient is currently on atorvastatin for dyslipidemia. She is on lidocaine for her knee pain for osteoarthritis. She is on Lasix daily. The patient is on meropenem for antibiotics for the ESBL in the urine. The patient is currently on oxycodone 50 mg for her pain for osteoarthritis as well as Tylenol. She is on Xanax as needed. She is on rivaroxaban for the atrial fibrillation. She is on a heart-healthy diet. We will order labs for tomorrow. Ayan Joy MD
--- NOTE | 2018-09-02 15:38 | PN ---
DATE: 09/02/2018 SUBJECTIVE: The patient is in bed, in no acute distress, nontoxic. PHYSICAL EXAMINATION: VITAL SIGNS: On exam, temperature is 98, blood pressure is 115/60, respiratory rate of 18. HEENT: Unremarkable. NECK: Supple. HEART: Normal S1, S2. LUNGS: Decreased breath sounds. ABDOMEN: Soft. LABORATORY DATA: Laboratory examination is noted. ASSESSMENT AND PLAN: This is an 83-year-old female with sepsis with extended-spectrum beta-lactamase Escherichia coli bacteremia, which has been recurrent and first episode of bacteremia was secondary to urine as the source. Because of the recurrence, I am concerned about the infection and MADELINE was negative. Today is day #10 of 14 days of meropenem. Review of orders reveals the patient's meropenem to be active. We will continue to follow with you. Jasen Noble MD
[2018-09-03] MEDS: oxyCODONE 15 mg Immediate Release Tab PO PRN ×3 (05:57→21:25)
[2018-09-03] MEDS: Pantoprazole 40 mg EC Tab PO SCH ×2 (05:58→17:00)
[2018-09-03 07:53] LABS: HEMOGLOBIN 9.6 g/dL (12.0-16.0); MEAN CELL VOLUME 93.4 fl (80.0-105.0); MEAN CORPUSCULAR HEMOGLOBIN 28.7 pg (25.0-35.0); MEAN CORPUSCULAR HGB CONC 30.7 g/dl (31.0-37.0); MEAN PLATELET VOLUME 9.5 fl (7.0-11.0); RBC 3.35 10^6/uL (3.5-6.1); RED CELL DISTRIBUTION WIDTH 13.6 % (11.5-14.5)
[2018-09-03 08:15] LABS: ALB/GLOB RATIO 0.9 (1.1-1.8); ALBUMIN 3.3 g/dL (3.0-4.8); ALT/SGPT 18 U/L (7-56); AST/SGOT 33 U/L (14-36); BLOOD UREA NITROGEN 22 mg/dL (7-21); CALCIUM 8.8 mg/dL (8.4-10.5); GFR NON-AFRICAN AMERICAN > 60
--- NOTE | 2018-09-03 08:27 | PN ---
DATE: 09/03/2018 SUBJECTIVE: The patient is in bed, in no acute distress, nontoxic. PHYSICAL EXAMINATION: VITAL SIGNS: Temperature is 98, blood pressure is 114/60, respiratory rate of 18. HEENT: Unremarkable. NECK: Supple. LUNGS: Have decreased breath sounds. HEART: Normal S1, S2. ABDOMEN: Soft, nontender. LABORATORY DATA: Laboratory examination reviewed. Review of the orders reveals the patient's meropenem to be active. ASSESSMENT AND PLAN: This is an 83-year-old female with sepsis with extended spectrum beta lactamase Escherichia coli bacteremia which is recurrent, the first episode of bacteremia was secondary to urine as a source, negative MADELINE, today is day #11 of 14 days of meropenem. We will follow with you. Jasen Noble MD
[2018-09-03] MEDS: AMITIZA 24 MCG PO SCH (10:16)
[2018-09-03] MEDS: POLYETHYLENE GLYCOL 3350 17 GM/Dose PACKET PO SCH (10:17)
[2018-09-03] MEDS: Meropenem IV 1 gm in NS 1 GM/50 ML BAG IVPB SCH ×2 (10:17→21:24)
[2018-09-03] MEDS: Lidocaine 5% Patch TD SCH (10:17)
--- NOTE | 2018-09-03 20:25 | PN ---
DATE: 09/03/2018 SUBJECTIVE: The patient has no complaints of any chest pain or shortness of breath or headaches. PHYSICAL EXAMINATION VITAL SIGNS: Temperature of 98, pule of 89, blood pressure 117/72, and respirations 20. GENERAL: The patient is lying in bed, flat, comfortable. HEENT: No oral lesion. Anicteric sclerae. Moist mucosa. NECK: No JVD, adenopathy, or thyromegaly. CARDIOVASCULAR: S1 and S2, regular. No murmurs, rubs, or gallops. LUNGS: Clear to auscultation bilaterally. No wheeze, rales, or rhonchi. ABDOMEN: Bowel sounds are positive, soft, nontender and nondistended. EXTREMITIES: No cyanosis, clubbing, or edema. LABORATORY DATA: White count of 3 and hemoglobin 9.6. Creatinine 0.8. ASSESSMENT: 1. Urinary tract infection secondary to extended spectrum beta-lactamase. 2. Atrial fibrillation. 3. Osteoarthritis. 4. Dyslipidemia. 5. Hypertension. PLAN: The patient is currently on aspirin. She is going to be on Lasix for her CHF secondary to systolic dysfunction. She is on Lipitor Monday, Monday, and Monday, this is what she takes at home. The patient is on meropenem for her antibiotics. She is receiving oxycodone for pain. I will renew her oxycodone. She is on Protonix daily. She is receiving Tylenol for pain. She is on Xarelto for atrial fibrillation. She is on heart healthy diet. This is a coverage for Dr. Rapp. Ayan Joy MD
[2018-09-04] MEDS: oxyCODONE 15 mg Immediate Release Tab PO PRN ×3 (06:05→19:26)
[2018-09-04] MEDS: Meropenem IV 1 gm in NS 1 GM/50 ML BAG IVPB SCH ×2 (06:05→17:43)
[2018-09-04] MEDS: Pantoprazole 40 mg EC Tab PO SCH ×2 (06:06→17:45)
[2018-09-04 06:08] LABS: PH,URINE 6.5 (4.7-8.0); URINE BILIRUBIN NEGATIVE (NEGATIVE); URINE BLOOD TRACE-LYSED (NEGATIVE); URINE GLUCOSE (UA) NEGATIVE (NEGATIVE); URINE LEUKOCYTE ESTERASE TRACE Leu/uL (NEGATIVE); URINE PROTEIN TRACE mg/dL (<30 mg/dL); URINE UROBILINOGEN 0.2 E.U./dL (<1 E.U./dL)
[2018-09-04 06:17] LABS: URINE APPEARANCE SL CLOUDY (CLEAR); URINE COLOR YELLOW (YELLOW)
[2018-09-04 06:37] LABS: URINE BACTERIA SMALL /hpf; URINE RBC 0 - 2 /hpf (0-2); URINE WBC 0 - 2 /hpf (0-6)
[2018-09-04] MEDS: AMITIZA 24 MCG PO SCH (10:03)
[2018-09-04] MEDS: Lidocaine 5% Patch TD SCH (10:03)
--- NOTE | 2018-09-04 14:36 | PN ---
DATE: 09/04/2018 SUBJECTIVE: The patient is an 83-year-old, seen and examined, doing very well. Eating and tolerating. Has been sleeping well for the last two night. Denies any chest pain. No shortness of breath No fever or chills. PHYSICAL EXAMINATION: VITAL SIGNS: She is afebrile. Pulse 69, respirations 18, blood pressure 117/75. LUNGS: Bilateral fair airflow. No rhonchi or crackle. HEART: S1 and S2 audible. ABDOMEN: Soft and nontender. No rebound. No guarding. NEUROLOGICAL: She is awake and alert, able to communicate. EXTREMITIES: Had degenerative disk disease in cervical spine, does not sleep on bed. She was sleeping on a recliner. LABORATORY DATA: WBC 3.0, hemoglobin 9.6, hematocrit 31.3. Chemistry; sodium 137, potassium 4.5, chloride 97, CO2 of 25, BUN 22, creatinine 0.8, blood sugar of 91. Urinalysis; trace blood, trace leukocyte. ASSESSMENT: 1. Status post extended-spectrum beta-lactamase positive, Escherichia coli urinary tract infection. 2. Degenerative disk disease. 3. Chronic atrial fibrillation. 4. Hypertension. 5. Hyperlipidemia. PLAN: The patient will finish her course of antibiotic today and discharge plan in a.m. Edita Rapp MD
--- NOTE | 2018-09-04 16:16 | PN ---
DATE: 09/04/2018 SUBJECTIVE: The patient is . PHYSICAL EXAMINATION: VITAL SIGNS: Temperature is 98, blood pressure is 119/70, respiratory rate 18. HEENT: Examination of HEENT is unremarkable. NECK: Supple. LUNGS: Decreased breath sounds. HEART: Normal S1 and S2. ABDOMEN: Soft, nontender. LABORATORY DATA: Reveals the patient's BUN of 22, creatinine of 0.8. Urinalysis is noted. ASSESSMENT AND PLAN: This is an 83-year-old female with sepsis, extended-spectrum beta-lactamases, Escherichia coli bacteremia which is recurrent; the first episode of bacteremia and was secondary to urine, negative day #12 of 14 days of meropenem. Case discussed with PMD and review of orders reveals the meropenem to be active. Jasen Noble MD
[2018-09-04] MEDS: POLYETHYLENE GLYCOL 3350 17 GM/Dose PACKET PO SCH (17:41)
[2018-09-05] MEDS: Meropenem IV 1 gm in NS 1 GM/50 ML BAG IVPB SCH ×2 (05:49→18:06)
[2018-09-05] MEDS: oxyCODONE 15 mg Immediate Release Tab PO PRN ×3 (05:54→18:05)
[2018-09-05] MEDS: Pantoprazole 40 mg EC Tab PO SCH ×2 (05:56→18:04)
[2018-09-05] MEDS: Lidocaine 5% Patch TD SCH (09:52)
[2018-09-05] MEDS: POLYETHYLENE GLYCOL 3350 17 GM/Dose PACKET PO SCH (09:53)
[2018-09-05] MEDS: AMITIZA 24 MCG PO SCH (09:53)
--- NOTE | 2018-09-05 10:56 | CP.PCM.PN ---
<Sunny Lam - Last Filed: 09/05/18 15:31> Subjective - Date & Time of Evaluation Date of Evaluation: 09/05/18 Time of Evaluation: 08:25 - Subjective Subjective: Infectious disease progress note: Patient seen and examined at bedside. No acute events overnight. She denies any complaints. Doing well with PT. No fevers. 12 point ROS performed and negative unless stated above. Objective - Vital Signs/Intake and Output Vital Signs (last 24 hours): Temp Pulse Resp BP Pulse Ox 98.4 F 88 18 129/75 98 09/04/18 16:00 09/05/18 07:51 09/04/18 16:00 09/05/18 07:51 09/04/18 16:00 - Medications Medications: Current Medications Acetaminophen (Tylenol 325mg Tab) 650 mg PO Q6H PRN; Protocol PRN Reason: Fever >100.4 F Last Admin: 08/30/18 23:22 Dose: 650 mg Aspirin (Ecotrin) 81 mg PO 0800 DONNA; Protocol Last Admin: 09/05/18 07:51 Dose: 81 mg Atorvastatin Calcium (Lipitor) 10 mg PO MWF DONNA; Protocol Furosemide (Lasix) 40 mg IVP 0600 DONNA; Protocol Last Admin: 09/05/18 05:55 Dose: Not Given Home Med (Home Med) 1 unit PO DAILY DONNA; Protocol Last Admin: 09/05/18 09:53 Dose: 1 unit Meropenem (Merrem Iv 1 Gm Premix) 1 gm in 50 mls @ 100 mls/hr IVPB 0600,1800 DONNA; Protocol Stop: 09/06/18 22:01 Last Admin: 09/05/18 05:49 Dose: 100 mls/hr Lidocaine (Lidoderm) 1 ea TD DAILY DONNA; Protocol Last Admin: 09/05/18 09:52 Dose: 1 ea Metoprolol Tartrate (Lopressor) 25 mg PO 0800,1700 DONNA; Protocol Last Admin: 09/05/18 07:51 Dose: 25 mg Oxycodone HCl (Oxycodone Immediate Release Tab) 15 mg PO Q6H PRN; Protocol PRN Reason: Pain, severe (8-10) Last Admin: 09/05/18 05:54 Dose: 15 mg Pantoprazole Sodium (Protonix Ec Tab) 40 mg PO 0600,1600 DONNA; Protocol Last Admin: 09/05/18 05:56 Dose: 40 mg Polyethylene Glycol (Miralax) 17 gm PO DAILY DONNA; Protocol Last Admin: 09/05/18 09:53 Dose: Not Given Rivaroxaban (Xarelto) 15 mg PO 1800 DONNA; Protocol Last Admin: 09/04/18 17:45 Dose: 15 mg Vitamin A (Vitamin A&D) 1 applic TP Q8 PRN; Protocol PRN Reason: Dry skin - Labs Labs: 09/03/18 07:30 09/03/18 07:30 - Constitutional Appears: No Acute Distress - Head Exam Head Exam: ATRAUMATIC, NORMOCEPHALIC - Eye Exam Eye Exam: EOMI - Respiratory Exam Respiratory Exam: Clear to Ausculation Bilateral. absent: Rales, Rhonchi, Wheezes - Cardiovascular Exam Cardiovascular Exam: REGULAR RHYTHM, +S1, +S2 - GI/Abdominal Exam GI & Abdominal Exam: Soft. absent: Tenderness - Extremities Exam Extremities Exam: absent: Calf Tenderness, Pedal Edema - Neurological Exam Neurological Exam: Alert, Awake, Oriented x3 - Psychiatric Exam Psychiatric exam: Normal Mood - Skin Skin Exam: Dry, Warm Assessment and Plan - Assessment and Plan (Free Text) Assessment: Sepsis with ESBL bacteremia Altered mental status likely secondary to small left basal ganglia lacunar type infarct Hyperkalemia Atrial fibrillation on anticoagulation Xarelto Recent hospitalization with ESBL UTI Anemia Hypertension History of breast cancer Continue with meropenem today Day 13 of 14 days of abx MADELINE results - neg for vegetations Blood cx shows ESBL ecoli - repeat cultures neg Continue to monitor for any changes Case and plan to be reviewed and discussed with Dr. Noble <Jasen Noble - Last Filed: 09/05/18 15:36> Objective - Vital Signs/Intake and Output Vital Signs (last 24 hours): Temp Pulse Resp BP Pulse Ox 98.4 F 88 18 129/75 98 09/04/18 16:00 09/05/18 07:51 09/04/18 16:00 09/05/18 07:51 09/04/18 16:00 - Medications Medications: Current Medications Acetaminophen (Tylenol 325mg Tab) 650 mg PO Q6H PRN; Protocol PRN Reason: Fever >100.4 F Last Admin: 08/30/18 23:22 Dose: 650 mg Aspirin (Ecotrin) 81 mg PO 0800 [facility]; Protocol Last Admin: 09/05/18 07:51 Dose: 81 mg Atorvastatin Calcium (Lipitor) 10 mg PO MWF DONNA; Protocol Furosemide (Lasix) 40 mg IVP 0600 DONNA; Protocol Last Admin: 09/05/18 05:55 Dose: Not Given Home Med (Home Med) 1 unit PO DAILY DONNA; Protocol Last Admin: 09/05/18 09:53 Dose: 1 unit Meropenem (Merrem Iv 1 Gm Premix) 1 gm in 50 mls @ 100 mls/hr IVPB 0600,1800 DONNA; Protocol Stop: 09/06/18 22:01 Last Admin: 09/05/18 05:49 Dose: 100 mls/hr Lidocaine (Lidoderm) 1 ea TD DAILY DONNA; Protocol Last Admin: 09/05/18 09:52 Dose: 1 ea Metoprolol Tartrate (Lopressor) 25 mg PO 0800,1700 DONNA; Protocol Last Admin: 09/05/18 07:51 Dose: 25 mg Oxycodone HCl (Oxycodone Immediate Release Tab) 15 mg PO Q6H PRN; Protocol PRN Reason: Pain, severe (8-10) Last Admin: 09/05/18 12:07 Dose: 15 mg Pantoprazole Sodium (Protonix Ec Tab) 40 mg PO 0600,1600 DONNA; Protocol Last Admin: 09/05/18 05:56 Dose: 40 mg Polyethylene Glycol (Miralax) 17 gm PO DAILY DONNA; Protocol Last Admin: 09/05/18 09:53 Dose: Not Given Rivaroxaban (Xarelto) 15 mg PO 1800 DONNA; Protocol Last Admin: 09/04/18 17:45 Dose: 15 mg Vitamin A (Vitamin A&D) 1 applic TP Q8 PRN; Protocol PRN Reason: Dry skin - Labs Labs: 09/03/18 07:30 09/03/18 07:30 Attending/Attestation - Attestation I have personally seen and examined this patient.: Yes I have fully participated in the care of the patient.: Yes I have reviewed all pertinent clinical information, including history, physical exam and plan: Yes
--- NOTE | 2018-09-05 13:06 | PN ---
DATE: 09/05/2018 SUBJECTIVE: The patient is in bed in no acute distress. PHYSICAL EXAMINATION: VITAL SIGNS: Temperature is 98, blood pressure is 110/70, respiratory rate of 18. HEENT: Unremarkable. NECK: Supple. LUNGS: Have decreased breath sounds. HEART: Normal S1 and S2. ABDOMEN: Soft and nontender. LABORATORY DATA: Reveals a white count of 3000, hemoglobin of 9, platelets of 138. Chemistries reveals a BUN of 22, creatinine of 0.8. Urinalysis is noted. Microbiology is reviewed. ASSESSMENT AND PLAN: This is an 83-year-old female with sepsis with extended spectrum beta-lactamase Escherichia coli bacteremia which is recurrent. The first episode she had one month ago was secondary to urine. She had a negative transesophageal echocardiogram at this time. Today is day number 13, would complete 14 days of meropenem, today is 13 of 14 days. Jasen Noble MD
--- NOTE | 2018-09-05 15:32 | RAD ---
Date of service: 09/05/2018 PROCEDURE: Left Knee Radiographs. HISTORY: Left knee Pain. No history of recent/ related trauma provided. COMPARISON: None. TECHNIQUE: 2 views obtained. FINDINGS: BONES: No acute fracture. Proliferative hypertrophic changes emanating from the femoral condyle and tibial plateau regions. JOINTS: Severe tricompartmental degenerative change. JOINT EFFUSION: None. OTHER FINDINGS: Marked soft tissue swelling, edema affecting the distal thigh and proximal calf. IMPRESSION: No acute fractures.
[2018-09-05] MEDS ORDERED: Bupivacaine 0.5% Inj(30mL) IJ ONE (18:34)
[2018-09-05] MEDS ORDERED: Triamcinolone Acetonide 40 mg/mL Inj IU ONE (18:34)
[2018-09-06] MEDS: oxyCODONE 15 mg Immediate Release Tab PO PRN ×4 (01:28→21:20)
--- NOTE | 2018-09-06 03:21 | DS ---
HISTORY OF PRESENT ILLNESS: The patient is 83 years old. She was admitted after generalized weakness. She was having fever and chills. She was soaking wet in the middle of the night. She called her niece. She was brought to emergency room. She was recently treated with ESBL positive E. coli and on previous admission she had respiratory failure and she end up getting intubated. However, at this time she came she was scared from previous episode, so she came to emergency room for further evaluation. She was again found to have ESBL positive blood culture. However, urine was negative. So, further workup were done including CT of the abdomen and pelvis that was found to be negative. HIDA scan was negative. She also have echo done that was negative for vegetation. The patient underwent MADELINE by Dr. Still and that was found to be negative. According to ID recommendation, she needed 14 days of antibiotics and she was given meropenem for 14 days as per ID recommendation. The patient was transferred to TCU where she is on the course of antibiotic. PHYSICAL EXAMINATION: GENERAL: The patient is awake, alert and able to communicate. VITAL SIGNS: The patient is afebrile. Pulse 88, respiration 18 and blood pressure 129/75. LUNGS: Bilateral fair airflow. No rhonchi or crackle. HEART: S1 and S2, audible. ABDOMEN: Soft and nontender. No rebound. No guarding. NEUROLOGIC: The patient is awake, alert and able to communicate. EXTREMITIES: Bilateral leg no edema. LABORATORY DATA: WBC 3.0, hemoglobin 9.6, hematocrit 31.3 and platelet 138. Chemistry; sodium 137, potassium 4.5, chloride 97, CO2 of 35, BUN 22, creatinine 0.8 and blood sugar 91. Repeat urinalysis done yesterday showed trace leukocyte and trace blood. ASSESSMENT: 1. Status post extended-spectrum beta-lactamase positive, Escherichia coli sepsis, the culture was drawn on 08/22/2018. 2. Chronic degenerative disk disease. 3. Chronic atrial fibrillation on Xarelto. 4. History of hypertension. 5. Severe bilateral knee osteoarthritis. PLAN: Currently, today is day #14 of her meropenem. She can be discharge later on today or tomorrow morning. She will follow her PMD as outpatient. Edita Rapp MD [facility] # [id number]
[2018-09-06] MEDS: Pantoprazole 40 mg EC Tab PO SCH ×2 (05:54→17:00)
[2018-09-06] MEDS: Meropenem IV 1 gm in NS 1 GM/50 ML BAG IVPB SCH ×2 (05:54→17:22)
--- NOTE | 2018-09-06 07:42 | CP.PCM.PN ---
<Sunny Lam - Last Filed: 09/06/18 12:26> Subjective - Date & Time of Evaluation Date of Evaluation: 09/06/18 Time of Evaluation: 08:50 - Subjective Subjective: Infectious disease progress note: Pt seen and examined at bedside. No acute events overnight. No fevers or chills. Doing well with therapy. No complaints. 12 Point ROS performed and neg other than stated above Objective - Vital Signs/Intake and Output Vital Signs (last 24 hours): Temp Pulse Resp BP Pulse Ox 98.4 F 90 20 104/69 96 09/05/18 16:00 09/05/18 18:05 09/05/18 16:00 09/06/18 05:57 09/05/18 16:00 - Medications Medications: Current Medications Acetaminophen (Tylenol 325mg Tab) 650 mg PO Q6H PRN; Protocol PRN Reason: Fever >100.4 F Last Admin: 08/30/18 23:22 Dose: 650 mg Aspirin (Ecotrin) 81 mg PO 0800 DONNA; Protocol Last Admin: 09/05/18 07:51 Dose: 81 mg Atorvastatin Calcium (Lipitor) 10 mg PO MWF DONNA; Protocol Furosemide (Lasix) 40 mg IVP 0600 DONNA; Protocol Last Admin: 09/06/18 05:57 Dose: Not Given Home Med (Home Med) 1 unit PO DAILY DONNA; Protocol Last Admin: 09/05/18 09:53 Dose: 1 unit Meropenem (Merrem Iv 1 Gm Premix) 1 gm in 50 mls @ 100 mls/hr IVPB 0600,1800 DONNA; Protocol Stop: 09/06/18 22:01 Last Admin: 09/06/18 05:54 Dose: 100 mls/hr Lidocaine (Lidoderm) 1 ea TD DAILY DONNA; Protocol Last Admin: 09/05/18 09:52 Dose: 1 ea Metoprolol Tartrate (Lopressor) 25 mg PO 0800,1700 DONNA; Protocol Last Admin: 09/05/18 18:05 Dose: 25 mg Oxycodone HCl (Oxycodone Immediate Release Tab) 15 mg PO Q6H PRN; Protocol PRN Reason: Pain, severe (8-10) Last Admin: 09/06/18 01:28 Dose: 15 mg Pantoprazole Sodium (Protonix Ec Tab) 40 mg PO 0600,1600 DONNA; Protocol Last Admin: 09/06/18 05:54 Dose: 40 mg Polyethylene Glycol (Miralax) 17 gm PO DAILY DONNA; Protocol Last Admin: 09/05/18 09:53 Dose: Not Given Rivaroxaban (Xarelto) 15 mg PO 1800 DONNA; Protocol Last Admin: 09/05/18 18:04 Dose: 15 mg Vitamin A (Vitamin A&D) 1 applic TP Q8 PRN; Protocol PRN Reason: Dry skin - Labs Labs: 09/03/18 07:30 09/03/18 07:30 - Constitutional Appears: No Acute Distress - Head Exam Head Exam: ATRAUMATIC, NORMOCEPHALIC - Eye Exam Eye Exam: EOMI - ENT Exam ENT Exam: Mucous Membranes Moist - Respiratory Exam Respiratory Exam: Clear to Ausculation Bilateral. absent: Rales, Rhonchi, Wheezes - Cardiovascular Exam Cardiovascular Exam: REGULAR RHYTHM, +S1, +S2 - GI/Abdominal Exam GI & Abdominal Exam: Soft. absent: Tenderness - Extremities Exam Extremities Exam: absent: Calf Tenderness, Pedal Edema - Neurological Exam Neurological Exam: Alert, Awake, Oriented x3 - Psychiatric Exam Psychiatric exam: Normal Mood - Skin Skin Exam: Dry, Warm Assessment and Plan - Assessment and Plan (Free Text) Assessment: Sepsis with ESBL bacteremia Altered mental status likely secondary to small left basal ganglia lacunar type infarct Hyperkalemia Atrial fibrillation on anticoagulation Xarelto Recent hospitalization with ESBL UTI Anemia Hypertension History of breast cancer Continue with meropenem last dose today - Day 14 of 14 day MADELINE results - neg for vegetations Blood cx shows ESBL ecoli - repeat cultures neg Continue to monitor for any changes Case and plan to be reviewed and discussed with Dr. Noble <Jasen Noble - Last Filed: 09/06/18 12:28> Objective - Vital Signs/Intake and Output Vital Signs (last 24 hours): Temp Pulse Resp BP Pulse Ox 98.4 F 70 20 104/69 96 09/05/18 16:00 09/06/18 08:28 09/05/18 16:00 09/06/18 08:28 09/05/18 16:00 - Medications Medications: Current Medications Acetaminophen (Tylenol 325mg Tab) 650 mg PO Q6H PRN; Protocol PRN Reason: Fever >100.4 F Last Admin: 08/30/18 23:22 Dose: 650 mg Aspirin (Ecotrin) 81 mg PO 0800 DONNA; Protocol Last Admin: 09/06/18 08:27 Dose: 81 mg Atorvastatin Calcium (Lipitor) 10 mg PO MWF DONNA; Protocol Furosemide (Lasix) 40 mg IVP 0600 DONNA; Protocol Last Admin: 09/06/18 05:57 Dose: Not Given Home Med (Home Med) 1 unit PO DAILY DONNA; Protocol Last Admin: 09/06/18 10:39 Dose: 1 unit Meropenem (Merrem Iv 1 Gm Premix) 1 gm in 50 mls @ 100 mls/hr IVPB 0600,1800 DONNA; Protocol Stop: 09/06/18 22:01 Last Admin: 09/06/18 05:54 Dose: 100 mls/hr Lidocaine (Lidoderm) 1 ea TD DAILY DONNA; Protocol Last Admin: 09/06/18 10:40 Dose: 1 ea Metoprolol Tartrate (Lopressor) 25 mg PO 0800,1700 DONNA; Protocol Last Admin: 09/06/18 08:28 Dose: 25 mg Multi-Ingredient Ointment (Hydrophor Oint) 0 gm TOP Q6H DONNA Oxycodone HCl (Oxycodone Immediate Release Tab) 15 mg PO Q6H PRN; Protocol PRN Reason: Pain, severe (8-10) Last Admin: 09/06/18 08:29 Dose: 15 mg Pantoprazole Sodium (Protonix Ec Tab) 40 mg PO 0600,1600 DONNA; Protocol Last Admin: 09/06/18 05:54 Dose: 40 mg Polyethylene Glycol (Miralax) 17 gm PO DAILY DONNA; Protocol Last Admin: 09/06/18 10:43 Dose: Not Given Rivaroxaban (Xarelto) 15 mg PO 1800 DONNA; Protocol Last Admin: 09/05/18 18:04 Dose: 15 mg Vitamin A (Vitamin A&D) 1 applic TP Q8 PRN; Protocol PRN Reason: Dry skin - Labs Labs: 09/03/18 07:30 09/03/18 07:30 Attending/Attestation - Attestation I have personally seen and examined this patient.: Yes I have fully participated in the care of the patient.: Yes I have reviewed all pertinent clinical information, including history, physical exam and plan: Yes
[2018-09-06] MEDS ORDERED: Triamcinolone Acetonide 40 mg/mL Inj IU ONE (09:01)
[2018-09-06] MEDS ORDERED: Bupivacaine 0.5% 50 ML IJ ONE (09:02)
--- NOTE | 2018-09-06 09:59 | CP.PCM.CON ---
<GeovanyNicole - Last Filed: 09/06/18 10:06> History of Present Illness - History of Present Illness History of Present Illness: Podiatry Consult Note: Dr. Rogel 83F patient seen and examined at bedside for b/l lymphedema. Patient states that she has had b/l chronic lymphedema for a very long time and is treated as an outpatient. She sprays her legs daily with cleansing spray, and applies a petroleum like cream to her legs. She states that she does not have any open lesions and just dresses her legs with compression wraps daily. She denies any nausea/vomiting/fever/shortness of breath. PMHx: Breast ca, HTN, TIA, arthritis, A.fib PSHx: Breast surgery and cataract surgery SH: Denies tobacco use, denies alcohol use ALL: NKDA Review of Systems - Constitutional Constitutional: As Per HPI Past Patient History - Infectious Disease Hx of Infectious Diseases: None - Tetanus Immunizations Tetanus Immunization: Up to Date - Past Social History Smoking Status: Never Smoked - CARDIAC Hx Cardiac Disorders: Yes (chronic afib) Hx Hypercholesterolemia: Yes Hx Hypertension: Yes - PULMONARY Hx Respiratory Disorders: Yes Hx Pneumonia: Yes - NEUROLOGICAL Hx Neurological Disorder: Yes HX Cerebrovascular Accident: Yes (2009) Hx Paralysis: No - HEENT Hx Cataracts: Yes (B/L) - RENAL Hx Chronic Kidney Disease: No - ENDOCRINE/METABOLIC Hx Endocrine Disorders: No - HEMATOLOGICAL/ONCOLOGICAL Hx Blood Transfusions: No Hx Blood Transfusion Reaction: No - INTEGUMENTARY Hx Dermatological Problems: Yes (LYMPEDEMA BILATERAL LE) Other/Comment: BLE CELLULITIS/4+ EDEMA - MUSCULOSKELETAL/RHEUMATOLOGICAL Hx Falls: Yes - GASTROINTESTINAL Hx Gastrointestinal Disorders: Yes (GERD,CHOLELITHIASIS,SPLENOMEGALY,PUD,CONSTIPATION) - GENITOURINARY/GYNECOLOGICAL Hx Genitourinary Disorders: Yes (UTI) Hx Reproductive Disorders: No - PSYCHIATRIC Hx Emotional Abuse: No Hx Physical Abuse: No Hx Substance Use: No - SURGICAL HISTORY Hx Surgeries: Yes (cataract both eyes,) - ANESTHESIA Hx Anesthesia Reactions: No Hx Malignant Hyperthermia: No Meds Allergies/Adverse Reactions: Allergies Allergy/AdvReac Type Severity Reaction Status Date / Time No Known Allergies Allergy Verified 08/28/18 19:30 - Medications Medications: Current Medications Acetaminophen (Tylenol 325mg Tab) 650 mg PO Q6H PRN; Protocol PRN Reason: Fever >100.4 F Last Admin: 08/30/18 23:22 Dose: 650 mg Aspirin (Ecotrin) 81 mg PO 0800 DONNA; Protocol Last Admin: 09/06/18 08:27 Dose: 81 mg Atorvastatin Calcium (Lipitor) 10 mg PO MWF DONNA; Protocol Furosemide (Lasix) 40 mg IVP 0600 DONNA; Protocol Last Admin: 09/06/18 05:57 Dose: Not Given Home Med (Home Med) 1 unit PO DAILY DONNA; Protocol Last Admin: 09/05/18 09:53 Dose: 1 unit Meropenem (Merrem Iv 1 Gm Premix) 1 gm in 50 mls @ 100 mls/hr IVPB 0600,1800 DONNA; Protocol Stop: 09/06/18 22:01 Last Admin: 09/06/18 05:54 Dose: 100 mls/hr Lidocaine (Lidoderm) 1 ea TD DAILY DONNA; Protocol Last Admin: 09/05/18 09:52 Dose: 1 ea Metoprolol Tartrate (Lopressor) 25 mg PO 0800,1700 DONNA; Protocol Last Admin: 09/06/18 08:28 Dose: 25 mg Oxycodone HCl (Oxycodone Immediate Release Tab) 15 mg PO Q6H PRN; Protocol PRN Reason: Pain, severe (8-10) Last Admin: 09/06/18 08:29 Dose: 15 mg Pantoprazole Sodium (Protonix Ec Tab) 40 mg PO 0600,1600 DONNA; Protocol Last Admin: 09/06/18 05:54 Dose: 40 mg Polyethylene Glycol (Miralax) 17 gm PO DAILY DONNA; Protocol Last Admin: 09/05/18 09:53 Dose: Not Given Rivaroxaban (Xarelto) 15 mg PO 1800 DONNA; Protocol Last Admin: 09/05/18 18:04 Dose: 15 mg Vitamin A (Vitamin A&D) 1 applic TP Q8 PRN; Protocol PRN Reason: Dry skin Physical Exam - Constitutional Appears: Non-toxic, No Acute Distress - Head Exam Head Exam: ATRAUMATIC, NORMOCEPHALIC - Eye Exam Eye Exam: Normal appearance - ENT Exam ENT Exam: Mucous Membranes Moist - Extremities Exam Extremities exam: Positive for: normal capillary refill. Negative for: calf tenderness Additional comments: Vascular: DP/PT palpable, CFT < 3 seconds, TG warm to warm, + 2 pitting edema appreciated Ortho: MMT 5/5, no pain with calf compression Neuro: Gross sensation intact Derm: No open lesions, no erythema, no clinical signs of infection - Neurological Exam Neurological exam: Alert, Oriented x3 - Psychiatric Exam Psychiatric exam: Normal Affect, Normal Mood Results - Vital Signs Recent Vital Signs: Last Vital Signs Temp 98.4 F 09/05/18 16:00 Pulse 70 09/06/18 08:28 Resp 20 09/05/18 16:00 BP 104/69 09/06/18 08:28 Pulse Ox 96 09/05/18 16:00 - Labs Result Diagrams: 09/03/18 07:30 09/03/18 07:30 Assessment & Plan - Assessment and Plan (Free Text) Assessment: 83F patient with b/l chronic lymphedema Plan: Patient seen and examined with Dr. Rogel Afebrile, absent leukocytosis Aquaphor ordered and to be applied to b/l lower extremities with compression dressings Continue to elevate legs while in chair bedside Continue to monitor b/l LE F/u with Dr. Rogel/Primo as outpatient Podiatry to sign off at this time, please reconsult as needed - Date & Time Date: 09/06/18 Time: 10:01 <Carly Rogel - Last Filed: 09/09/18 08:23> Results - Vital Signs Recent Vital Signs: Last Vital Signs Temp 98.0 F 09/07/18 06:00 Pulse 75 09/07/18 08:40 Resp 18 09/07/18 06:00 BP 123/70 09/07/18 08:40 Pulse Ox 95 09/07/18 06:00 - Labs Result Diagrams: 09/03/18 07:30 09/03/18 07:30 Attending/Attestation - Attestation I have personally seen and examined this patient.: Yes I have fully participated in the care of the patient.: Yes I have reviewed all pertinent clinical information: Yes
[2018-09-06] MEDS: AMITIZA 24 MCG PO SCH (10:39)
[2018-09-06] MEDS: Lidocaine 5% Patch TD SCH (10:40)
[2018-09-06] MEDS: POLYETHYLENE GLYCOL 3350 17 GM/Dose PACKET PO SCH (10:43)
[2018-09-06] MEDS: Petrolatum-Mineral Oil Oint (100gm) TOP SCH ×3 (11:00→21:59)
--- NOTE | 2018-09-06 16:15 | PN ---
DATE: 09/06/2018 SUBJECTIVE: The patient is an 83-year-old, seen and examined, doing very well. She is happy that she had steroid shot in her left knee by Dr. Perez. She seemed to be doing little better. X-ray was done that showed no acute fracture; however, severe tricompartmental degenerative changes. The patient underwent intraarticular steroid injection with some relief. PHYSICAL EXAMINATION: GENERAL: She is awake, alert, able to communicate. VITAL SIGNS: She is afebrile, pulse 70, respirations 20, blood pressure 104/69. LUNGS: Bilateral fair airflow. No rhonchi or crackle. HEART: S1, S2 audible. ABDOMEN: Soft, nontender. No rebound. No guarding. NEUROLOGICAL: The patient is awake and alert, able to communicate. Ambulates with a walker. ASSESSMENT: 1. Status post extended-spectrum beta-lactamase positive Escherichia coli urinary tract infection. 2. History of hypertension. 3. Chronic atrial fibrillation. 4. Recurrent urinary tract infection. 5. Severe left knee osteoarthritis. PLAN: We will continue the patient on meropenem. We will be finishing her last dose tonight and she is scheduled to be discharged tomorrow. I will request for Dr. Arndt to evaluate the patient because of her recurrent urinary tract infection if anything else can be done. We will followup this patient in the morning for disposition. Edita Rapp MD
--- NOTE | 2018-09-06 20:11 | CON ---
DATE: 09/06/2018 INPATIENT CONSULTATION REASON FOR CONSULT: Left knee pain. HISTORY OF PRESENT ILLNESS: This is an 83-year-old female with a many-year history of left knee pain and deformity. According to the patient, the patient denies any history of any recent falls or trauma to the knee. The patient says she has received treatment in the past including she says many, many injections in her left knee, which have given her some short-term relief. She knows that she has significant arthritis, but was apprehensive about her getting a knee replacement because of a history of lower extremity lymphedema. She is currently in the hospital and is being treated for urosepsis and is scheduled to be discharged in the next day or so. PHYSICAL EXAMINATION: This is an elderly female in no apparent distress. She is awake, alert, and oriented x3. She is currently sitting in a chair, appears to be comfortable. Evaluation of the left knee shows she has a varus deformity. No obvious effusion in the knee. She does have some mediolateral generalized tenderness. There is patellar tenderness to palpation. Varus deformity is fixed and is not passively correctable to neutral. She has active range of motion for about minus 7 to about 85 degrees of flexion. Her thigh and calf are soft and nontender. Grossly she is neurovascularly intact. She does have an BETI bandage around her calf to help her edema control. DIAGNOSTIC DATA: X-rays of the left knee, non-weightbearing views show no acute fracture or dislocations, advanced degenerative changes with complete medial compartment joint space narrowing. Osteophytes are noted of the medial and proximal tibia, and a varus malalignment is appreciated. IMPRESSION: Left knee arthritis. PLAN: Ultimately I feel that a knee replacement would most reliably provide the best long-term relief. For now, we discussed the treatment options and she wants to try a steroid injection. The risks and benefits were discussed, and she wants to proceed. The left knee was prepped sterilely. Approximately 40 mL of Kenalog plus 2 mL of Marcaine was injected. She tolerated the procedure well. At this point, the plan will be for her to follow up as an outpatient in the office. For now, she can weightbearing as tolerated. Recommend using a walker. Darrian Perez MD [facility] # [id number]
--- NOTE | 2018-09-06 23:25 | PCM.URO ---
Urology Progress Note - Objective Lab Studies: Reviewed (plans to be discussed thanks for gu consult) Vital Signs: Vital Signs - 24 hr 09/06/18 09/06/18 09/06/18 05:57 08:28 10:00 Temperature 98.1 F Pulse Rate 70 85 Respiratory 20 Rate Blood Pressure 104/69 104/69 119/73 O2 Sat by Pulse 98 Oximetry 09/06/18 09/06/18 16:00 17:15 Temperature 98 F Pulse Rate 107 H 70 Respiratory 20 Rate Blood Pressure 134/72 114/70 O2 Sat by Pulse 99 Oximetry
[2018-09-07] MEDS: Petrolatum-Mineral Oil Oint (100gm) TOP SCH ×2 (04:30→09:29)
[2018-09-07] MEDS: Pantoprazole 40 mg EC Tab PO SCH (06:11)
[2018-09-07] MEDS: oxyCODONE 15 mg Immediate Release Tab PO PRN ×2 (06:11→12:27)
[2018-09-07 07:02] VITALS: RESP 18; TEMP 98; O2SAT 95
--- NOTE | 2018-09-07 07:41 | CP.PCM.PN ---
Subjective - Date & Time of Evaluation Date of Evaluation: 09/07/18 Time of Evaluation: 09:20 - Subjective Subjective: Infectious disease progress note: Pt seen and examined at bedside. No acute events overnight. Patient states that she is doing well. No fevers. No other complaints 12 Point ROS performed and neg other than stated above Objective - Vital Signs/Intake and Output Vital Signs (last 24 hours): Temp Pulse Resp BP Pulse Ox 98.0 F 76 18 124/77 95 09/07/18 06:00 09/07/18 06:00 09/07/18 06:00 09/07/18 06:11 09/07/18 06:00 - Medications Medications: Current Medications Acetaminophen (Tylenol 325mg Tab) 650 mg PO Q6H PRN; Protocol PRN Reason: Fever >100.4 F Last Admin: 08/30/18 23:22 Dose: 650 mg Aspirin (Ecotrin) 81 mg PO 0800 DONNA; Protocol Last Admin: 09/06/18 08:27 Dose: 81 mg Atorvastatin Calcium (Lipitor) 10 mg PO MWF DONNA; Protocol Furosemide (Lasix) 40 mg IVP 0600 DONNA; Protocol Last Admin: 09/07/18 06:11 Dose: 40 mg Home Med (Home Med) 1 unit PO DAILY DONNA; Protocol Last Admin: 09/06/18 10:39 Dose: 1 unit Lidocaine (Lidoderm) 1 ea TD DAILY DONNA; Protocol Last Admin: 09/06/18 10:40 Dose: 1 ea Metoprolol Tartrate (Lopressor) 25 mg PO 0800,1700 DONNA; Protocol Last Admin: 09/06/18 17:15 Dose: 25 mg Multi-Ingredient Ointment (Hydrophor Oint) 0 gm TOP Q6H DONNA Last Admin: 09/07/18 04:30 Dose: 1 applic Oxycodone HCl (Oxycodone Immediate Release Tab) 15 mg PO Q6H PRN; Protocol PRN Reason: Pain, severe (8-10) Last Admin: 09/07/18 06:11 Dose: 15 mg Pantoprazole Sodium (Protonix Ec Tab) 40 mg PO 0600,1600 DONNA; Protocol Last Admin: 09/07/18 06:11 Dose: 40 mg Polyethylene Glycol (Miralax) 17 gm PO DAILY DONNA; Protocol Last Admin: 09/06/18 10:43 Dose: Not Given Rivaroxaban (Xarelto) 15 mg PO 1800 DONNA; Protocol Last Admin: 09/06/18 17:24 Dose: 15 mg Vitamin A (Vitamin A&D) 1 applic TP Q8 PRN; Protocol PRN Reason: Dry skin - Labs Labs: 09/03/18 07:30 09/03/18 07:30 - Constitutional Appears: No Acute Distress - Head Exam Head Exam: ATRAUMATIC, NORMOCEPHALIC - Eye Exam Eye Exam: EOMI - ENT Exam ENT Exam: Mucous Membranes Moist - Respiratory Exam Respiratory Exam: Clear to Ausculation Bilateral. absent: Rales, Wheezes - Cardiovascular Exam Cardiovascular Exam: REGULAR RHYTHM, +S1, +S2 - GI/Abdominal Exam GI & Abdominal Exam: Soft. absent: Tenderness - Extremities Exam Extremities Exam: absent: Calf Tenderness - Neurological Exam Neurological Exam: Alert, Awake - Skin Skin Exam: Dry, Warm Assessment and Plan - Assessment and Plan (Free Text) Assessment: Sepsis with ESBL bacteremia Altered mental status likely secondary to small left basal ganglia lacunar type infarct Hyperkalemia Atrial fibrillation on anticoagulation Xarelto Recent hospitalization with ESBL UTI Anemia Hypertension History of breast cancer Cont to monitor off abx Pt at risk of nosocomial infection Completed 14 days of meropenem Blood cx shows ESBL ecoli - repeat cultures neg Continue to monitor for any changes Case and plan to be reviewed and discussed with Dr. Noble
[2018-09-07] MEDS: POLYETHYLENE GLYCOL 3350 17 GM/Dose PACKET PO SCH (09:28)
[2018-09-07] MEDS: AMITIZA 24 MCG PO SCH (09:29)
[2018-09-07 09:33] VITALS: BP 123/70; PULSE 75
[2018-09-07] MEDS: Lidocaine 5% Patch TD SCH (09:33)
--- NOTE | 2018-09-08 02:04 | DS ---
HISTORY OF PRESENT ILLNESS: The patient is an 83-year-old, seen and examined. The patient came in with not feeling well, fever, and chills. She was admitted last month with ESBL positive E. coli sepsis. She was treated with 14 days of antibiotics, she went home, after third day she started to have fever and chills, she came back, and she grew ESBL positive E. coli again in blood. Urine was clear. Had further workup done including HIDA scan that was negative for acute cholelithiasis. She had MADELINE done that is negative for endocarditis. So, as per ID recommendation, she was given 14 days of antibiotics and being discharged today. PHYSICAL EXAMINATION: GENERAL: She is awake and alert; able to communicate. VITAL SIGNS: She is afebrile, pulse 75, respirations 18, and blood pressure 123/70. LUNGS: Bilateral fair airflow. No rhonchi or crackle. HEART: S1 and S2 audible. ABDOMEN: Soft and nontender. No rebound. No guarding. NEUROLOGIC: The patient is awake and alert, able to communicate, and ambulatory. ASSESSMENT: 1. Status post extended-spectrum beta-lactamases positive Escherichia coli urinary tract infection, extended-spectrum beta-lactamase positive sepsis. 2. Degenerative disk disease. 3. Chronic atrial fibrillation. 4. Hypertension. 5. Hyperlipidemia. PLAN: The patient will finish her course of antibiotics. She is being discharged home. She will resume her medication, that is Xarelto, Protonix, metoprolol, Amitiza, lisinopril, Lasix, and atorvastatin. Edita Rapp MD
== END 2018-09-07 16:52 | disposition home or self-care (01) | DRG 945 ==
LOC: TRCU 15:13
PROVIDERS: ADMIT Internal Medicine; ATTEND Internal Medicine
PROC: F07Z9FZ Gait Training/Functional Ambulation Treatment using Assistive, Adaptive, Supportive or Protective Equipment (ICD-10-PCS; principal; 2018-08-29)
PROC: F08Z4FZ Home Management Treatment using Assistive, Adaptive, Supportive or Protective Equipment (ICD-10-PCS; 2018-08-29)
DX: R53.1 Weakness (principal); A41.51 Sepsis due to Escherichia coli [E. coli]; N39.0 Urinary tract infection, site not specified; I48.2 Chronic atrial fibrillation; Z79.2 Long term (current) use of antibiotics; M17.0 Bilateral primary osteoarthritis of knee; E78.5 Hyperlipidemia, unspecified; E03.9 Hypothyroidism, unspecified; I10 Essential (primary) hypertension; F41.9 Anxiety disorder, unspecified; E87.5 Hyperkalemia; K21.9 Gastro-esophageal reflux disease without esophagitis; F32.9 Major depressive disorder, single episode, unspecified; D64.9 Anemia, unspecified; K80.20 Calculus of gallbladder without cholecystitis without obstruction; E78.00 Pure hypercholesterolemia, unspecified; Z86.73 Personal history of transient ischemic attack (TIA), and cerebral infarction without residual deficits; Z85.3 Personal history of malignant neoplasm of breast; Z79.01 Long term (current) use of anticoagulants